=== PATIENT | female | born 1965 | race African-American/Black ===

== ENCOUNTER 2017-11-21 12:52 | Emergency (ER) | payer OTHER ==
[2017-11-21] MEDS: IV NORMAL SALINE 1000ML BAG 1,000 ML IV (13:36)
[2017-11-21] MEDS: ONDANSETRON PF 4 MG/2 ML VIAL. IV (13:43)
[2017-11-21 13:52] LABS: ADD MAN DIFF? NO
[2017-11-21 14:01] LABS: BASO # 0.1 x10^3/uL (0.0-0.2); BASO % 1 % (0-3); EOS # 0.1 x10^3/uL (0.0-0.7); EOS % 1 % (0-3); HEMATOCRIT 40.3 % (36.0-47.0); HEMOGLOBIN 13.6 g/dL (12.0-15.5); LYMPH # 1.7 x10^3/uL (1.0-4.8); LYMPH % 35 % (24-48); MEAN CORPUSCULAR HEMOGLOBIN 28 pg (25-35); MEAN CORPUSCULAR HGB CONC 34 g/dL (31-37); MEAN CORPUSCULAR VOLUME 83 fL (79-100); MONO # 0.3 x10^3/uL (0.0-1.1); MONO % 6 % (0-9); NEUT # 2.9 x10^3uL (1.8-7.7); NEUT % 57 % (31-73); PLATELET COUNT 327 x10^3/uL (140-400); RED BLOOD COUNT 4.86 x10^6/uL (3.50-5.40); RED CELL DISTRIBUTION WIDTH 13.9 % (11.5-14.5)
[2017-11-21 14:02] LABS: BILIRUBIN,URINE NEGATIVE (NEG); CLARITY,URINE CLEAR; COLOR,URINE YELLOW; GLUCOSE,URINE NEGATIVE (NEG); NITRITE,URINE NEGATIVE (NEG); PROTEIN,URINE NEGATIVE (NEG-TRACE)
[2017-11-21 14:05] LABS: ANION GAP 10 (6-14); BLOOD UREA NITROGEN 15 mg/dL (7-20); BUN/CREATININE RATIO 15 (6-20); CALCIUM 8.6 mg/dL (8.5-10.1); CARBON DIOXIDE 28 mmol/L (21-32); CHLORIDE 107 mmol/L (98-107); GFR 70.7; GLUCOSE 93 mg/dL (70-99); POTASSIUM 3.6 mmol/L (3.5-5.1); SODIUM 145 mmol/L (136-145)
[2017-11-21 14:11] LABS: ALBUMIN 3.5 g/dL (3.4-5.0); ALBUMIN/GLOBULIN RATIO 0.7 (1.0-1.7); ALK PHOS 122 U/L (46-116); ALT (SGPT) 22 U/L (14-59); AST (SGOT) 19 U/L (15-37); TOTAL BILIRUBIN 0.4 mg/dL (0.2-1.0); TOTAL PROTEIN 8.2 g/dL (6.4-8.2)
[2017-11-21 14:18] LABS: BACTERIA,URINE MODERATE /HPF (0-FEW); RBC,URINE 0 /HPF (0-2); SQUAMOUS EPITHELIAL CELL,UR MANY /LPF; YEAST,URINE PRESENT /HPF
== END 2017-11-21 15:20 | disposition home or self-care (01) ==
LOC: ER 12:52
DX: R11.2 Nausea with vomiting, unspecified (principal); H61.22 Impacted cerumen, left ear; K21.9 Gastro-esophageal reflux disease without esophagitis; I10 Essential (primary) hypertension; Z98.51 Tubal ligation status; Z90.710 Acquired absence of both cervix and uterus; Z88.2 Allergy status to sulfonamides; Z88.1 Allergy status to other antibiotic agents; Z88.8 Allergy status to other drugs, medicaments and biological substances
CPT/HCPCS: 36415; 80053; 81001; 85025; 87086; 96361; 96374; 99284-25; J2405; J7030

== ENCOUNTER 2017-12-10 01:15 | Emergency (ER) | payer OTHER ==
[2017-12-10 02:12] LABS: BILIRUBIN,URINE SMALL (NEG); CLARITY,URINE CLEAR; COLOR,URINE YELLOW; GLUCOSE,URINE NEGATIVE (NEG); NITRITE,URINE NEGATIVE (NEG); PH,URINE 7.5; PROTEIN,URINE NEGATIVE (NEG-TRACE)
[2017-12-10 02:16] LABS: ADD MAN DIFF? NO
[2017-12-10 02:20] LABS: BASO % 1 % (0-3); EOS # 0.1 x10^3/uL (0.0-0.7); EOS % 2 % (0-3); HEMATOCRIT 38.6 % (36.0-47.0); LYMPH # 1.6 x10^3/uL (1.0-4.8); LYMPH % 34 % (24-48); MEAN CORPUSCULAR HEMOGLOBIN 28 pg (25-35); MEAN CORPUSCULAR HGB CONC 34 g/dL (31-37); MEAN CORPUSCULAR VOLUME 83 fL (79-100); MONO # 0.3 x10^3/uL (0.0-1.1); MONO % 7 % (0-9); NEUT # 2.6 x10^3uL (1.8-7.7); NEUT % 56 % (31-73); PLATELET COUNT 279 x10^3/uL (140-400); RED BLOOD COUNT 4.65 x10^6/uL (3.50-5.40); RED CELL DISTRIBUTION WIDTH 14.6 % (11.5-14.5); WHITE BLOOD COUNT 4.6 x10^3/uL (4.0-11.0)
[2017-12-10 02:25] LABS: BACTERIA,URINE MANY /HPF (0-FEW); SQUAMOUS EPITHELIAL CELL,UR MANY /LPF
[2017-12-10] MEDS: MECLIZINE HCL 12.5 MG TABLET. PO (02:30)
[2017-12-10] MEDS: IV NORMAL SALINE 1000ML BAG 1,000 ML IV (02:30)
[2017-12-10 02:34] LABS: ANION GAP 8 (6-14); BLOOD UREA NITROGEN 16 mg/dL (7-20); BUN/CREATININE RATIO 15 (6-20); CALCIUM 8.9 mg/dL (8.5-10.1); CARBON DIOXIDE 29 mmol/L (21-32); CHLORIDE 105 mmol/L (98-107); CREATININE 1.1 mg/dL (0.6-1.0); GFR 63.4; GLUCOSE 101 mg/dL (70-99); POTASSIUM 3.6 mmol/L (3.5-5.1); SODIUM 142 mmol/L (136-145)
[2017-12-10 02:40] LABS: ALBUMIN 3.7 g/dL (3.4-5.0); ALBUMIN/GLOBULIN RATIO 0.9 (1.0-1.7); ALK PHOS 120 U/L (46-116); ALT (SGPT) 18 U/L (14-59); AST (SGOT) 16 U/L (15-37); TOTAL BILIRUBIN 0.6 mg/dL (0.2-1.0); TOTAL PROTEIN 7.8 g/dL (6.4-8.2)
[2017-12-10] MEDS: ACETAMINOPHEN 500 MG TABLET PO (02:55)
== END 2017-12-10 03:31 | disposition home or self-care (01) ==
LOC: ER 01:15
DX: N39.0 Urinary tract infection, site not specified (principal); R42 Dizziness and giddiness; K21.9 Gastro-esophageal reflux disease without esophagitis; I10 Essential (primary) hypertension; Z88.2 Allergy status to sulfonamides; Z88.1 Allergy status to other antibiotic agents; Z88.8 Allergy status to other drugs, medicaments and biological substances
CPT/HCPCS: 36415; 80053; 81001; 85025; 87086; 93005; 99285; J7030; J8597

== ENCOUNTER 2017-12-21 10:11 | Emergency (ER) | payer OTHER ==
[2017-12-21] MEDS: LORazepam 1 MG TABLET PO (10:30)
[2017-12-21 10:40] LABS: ADD MAN DIFF? NO
[2017-12-21 10:42] LABS: BASO % 1 % (0-3); EOS % 1 % (0-3); HEMATOCRIT 40.2 % (36.0-47.0); HEMOGLOBIN 13.4 g/dL (12.0-15.5); LYMPH # 1.2 x10^3/uL (1.0-4.8); LYMPH % 22 % (24-48); MEAN CORPUSCULAR HEMOGLOBIN 28 pg (25-35); MEAN CORPUSCULAR HGB CONC 33 g/dL (31-37); MEAN CORPUSCULAR VOLUME 84 fL (79-100); MONO # 0.2 x10^3/uL (0.0-1.1); MONO % 4 % (0-9); NEUT # 3.9 x10^3uL (1.8-7.7); NEUT % 73 % (31-73); PLATELET COUNT 276 x10^3/uL (140-400); RED BLOOD COUNT 4.82 x10^6/uL (3.50-5.40); RED CELL DISTRIBUTION WIDTH 14.8 % (11.5-14.5); WHITE BLOOD COUNT 5.4 x10^3/uL (4.0-11.0)
[2017-12-21 10:55] LABS: ANION GAP 12 (6-14); BLOOD UREA NITROGEN 14 mg/dL (7-20); CALCIUM 8.9 mg/dL (8.5-10.1); CARBON DIOXIDE 27 mmol/L (21-32); CHLORIDE 107 mmol/L (98-107); GFR 70.7; GLUCOSE 126 mg/dL (70-99); POTASSIUM 3.6 mmol/L (3.5-5.1); SODIUM 146 mmol/L (136-145)
[2017-12-21 11:00] LABS: ALK PHOS 136 U/L (46-116); ALT (SGPT) 18 U/L (14-59); AST (SGOT) 16 U/L (15-37); DIRECT BILIRUBIN 0.1 mg/dL (0.0-0.2); LIPASE 104 U/L (73-393); TOTAL BILIRUBIN 0.6 mg/dL (0.2-1.0)
[2017-12-21 11:03] LABS: TROPONINI < 0.017 ng/mL (0.000-0.055)
[2017-12-21 13:18] LABS: TROPONINI < 0.017 ng/mL (0.000-0.055)
== END 2017-12-21 14:13 | disposition home or self-care (01) ==
LOC: ER 10:11
DX: F41.9 Anxiety disorder, unspecified (principal); S80.212A Abrasion, left knee, initial encounter; K21.9 Gastro-esophageal reflux disease without esophagitis; I10 Essential (primary) hypertension; Z88.2 Allergy status to sulfonamides; Z88.8 Allergy status to other drugs, medicaments and biological substances; X58.XXXA Exposure to other specified factors, initial encounter; Y93.89 Activity, other specified; Y99.8 Other external cause status; Y92.89 Other specified places as the place of occurrence of the external cause
CPT/HCPCS: 36415; 71045; 73562; 80048; 80076; 83690; 84484; 85025; 93005; 99285-25

== ENCOUNTER 2018-09-20 21:36 | Emergency (ER) | payer OTHER ==
[~2018-09-20] VITALS: Ht 160 cm; Wt 104.3 kg
[~2018-09-20 21:36] MED LIST: HYDR25TA PO; LORA10CA PO; NITR100C62 PO; OLME20TA17 PO; OMEG500C3 PO; OMEP40CA2 PO; VERA120T7 PO
[2018-09-20] MEDS ORDERED: IV NORMAL SALINE 500ML BAG 500 ML IV ONE (22:00)
[2018-09-20] MEDS ORDERED: ONDANSETRON PF 4 MG/2 ML VIAL. IV ONE (22:00)
[2018-09-20] MEDS: MECLIZINE HCL 12.5 MG TABLET. PO ONE ×2 (22:00→22:20)
[2018-09-20 22:21] LABS: BASO % 1 % (0-3); EOS # 0.1 x10^3/uL (0.0-0.7); EOS % 3 % (0-3); HEMATOCRIT 38.1 % (36.0-47.0); HEMOGLOBIN 12.4 g/dL (12.0-15.5); LYMPH # 1.2 x10^3/uL (1.0-4.8); LYMPH % 28 % (24-48); MEAN CORPUSCULAR HEMOGLOBIN 27 pg (25-35); MEAN CORPUSCULAR HGB CONC 33 g/dL (31-37); MEAN CORPUSCULAR VOLUME 82 fL (79-100); MONO # 0.3 x10^3/uL (0.0-1.1); MONO % 7 % (0-9); NEUT # 2.7 x10^3uL (1.8-7.7); NEUT % 62 % (31-73); PLATELET COUNT 268 x10^3/uL (140-400); RED BLOOD COUNT 4.64 x10^6/uL (3.50-5.40); RED CELL DISTRIBUTION WIDTH 14.6 % (11.5-14.5); WHITE BLOOD COUNT 4.3 x10^3/uL (4.0-11.0)
[2018-09-20 22:32] LABS: CREATININE 1.2 mg/dL (0.6-1.0); GFR 57.1
[2018-09-20 22:38] LABS: ALBUMIN 3.4 g/dL (3.4-5.0); ALBUMIN/GLOBULIN RATIO 0.9 (1.0-1.7); MAGNESIUM 2.2 mg/dL (1.8-2.4); TOTAL BILIRUBIN 0.7 mg/dL (0.2-1.0); TOTAL PROTEIN 7.4 g/dL (6.4-8.2)
--- NOTE | 2018-09-20 23:20 | PHYS DOC ---
Past Medical History Past Medical History: GERD, Hypertension, Other Additional Past Medical Histor: Sinus problems, parkinson's, PANIC ATTACKS Past Surgical History: Hysterectomy Additional Past Surgical Histo: breast reduction, foot surgery Alcohol Use: None Drug Use: None Adult General Chief Complaint Chief Complaint: DIZZY/LIGHT HEADED [facility] HPI Patient is a 53-year-old female who presents with complaint of acute onset of dizziness that started between 8 and 9 PM. She states that she had gone to get up and became very dizzy, feeling like she was given a fall. She states that at that point she had also gotten nauseated. She states that she thought she was having a panic attack so took a Xanax. She states that since taking the Xanax for symptoms of dizziness and nausea have improved. She denies any headache. She also denies any lateralizing weakness. She states that since onset of symptoms, whenever she moves her head quickly or if she changes position she feels like things start to spin but again they are not as bad as before she took the Xanax. Review of Systems Review of Systems Constitutional: Denies fever or chills [] Respiratory: Denies cough or shortness of breath [] Cardiovascular: No additional information not addressed in HPI [] GI: Denies abdominal pain. Complains of nausea without vomiting. [] Neurologic: Complains of vertiginous dizziness. Denies headache, focal weakness or sensory changes [] All other systems were reviewed and found to be within normal limits, except as documented in this note. Current Medications Current Medications Current Medications Medications (Trade) Dose Ordered Sig/Thomas Start Time Stop Time Status Last Admin Dose Admin Meclizine HCl (Antivert) 25 mg 1X ONCE 09/20/18 22:00 09/20/18 22:02 DC Ondansetron HCl (Zofran) 4 mg 1X ONCE 09/20/18 22:00 09/20/18 22:02 DC 09/20/18 22:21 4 MG Sodium Chloride 500 ml @ 500 mls/hr 1X ONCE 09/20/18 22:00 09/20/18 22:59 DC 09/20/18 22:22 500 MLS/HR Allergies Allergies Allergies Coded Allergies Type Severity Reaction Last Updated Verified metoclopramide Allergy Unknown 11/28/13 Yes sulfamethoxazole Allergy Unknown 11/28/13 Yes trimethoprim Allergy Unknown 11/28/13 Yes Physical Exam Physical Exam Constitutional: Well developed, well nourished, no acute distress, non-toxic appearance. [] HENT: Normocephalic, atraumatic, bilateral external ears normal, oropharynx moist, no oral exudates, nose normal. [] Eyes: PERRLA, EOMI, conjunctiva normal, no discharge. [] Neck: Normal range of motion, no tenderness, supple. [] Cardiovascular: Regular rate and rhythm[] Lungs & Thorax: Bilateral breath sounds clear to auscultation [] Abdomen: Bowel sounds normal, soft, no tenderness. [] Skin: Warm, dry, no erythema, no rash. [] Extremities: No tenderness, no cyanosis, no clubbing, ROM intact. [] Neurologic: Alert and oriented X 3, no focal deficits noted. [] Current Patient Data Vital Signs Vital Signs Date Time Temp Pulse Resp B/P (MAP) Pulse Ox O2 Delivery O2 Flow Rate FiO2 09/20/18 22:12 92 97 09/20/18 21:45 98.0 18 145/97 (113) Room Air 98.0 Lab Values Laboratory Tests Test 09/20/18 22:10 White Blood Count 4.3 x10^3/uL (4.0-11.0) Red Blood Count 4.64 x10^6/uL (3.50-5.40) Hemoglobin 12.4 g/dL (12.0-15.5) Hematocrit 38.1 % (36.0-47.0) Mean Corpuscular Volume 82 fL (79-100) Mean Corpuscular Hemoglobin 27 pg (25-35) Mean Corpuscular Hemoglobin Concent 33 g/dL (31-37) Red Cell Distribution Width 14.6 % (11.5-14.5) H Platelet Count 268 x10^3/uL (140-400) Neutrophils (%) (Auto) 62 % (31-73) Lymphocytes (%) (Auto) 28 % (24-48) Monocytes (%) (Auto) 7 % (0-9) Eosinophils (%) (Auto) 3 % (0-3) Basophils (%) (Auto) 1 % (0-3) Neutrophils # (Auto) 2.7 x10^3uL (1.8-7.7) Lymphocytes # (Auto) 1.2 x10^3/uL (1.0-4.8) Monocytes # (Auto) 0.3 x10^3/uL (0.0-1.1) Eosinophils # (Auto) 0.1 x10^3/uL (0.0-0.7) Basophils # (Auto) 0.0 x10^3/uL (0.0-0.2) Sodium Level 145 mmol/L (136-145) Potassium Level 4.0 mmol/L (3.5-5.1) Chloride Level 106 mmol/L (98-107) Carbon Dioxide Level 31 mmol/L (21-32) Anion Gap 8 (6-14) Blood Urea Nitrogen 22 mg/dL (7-20) H Creatinine 1.2 mg/dL (0.6-1.0) H Estimated GFR (Cockcroft-Gault) 57.1 BUN/Creatinine Ratio 18 (6-20) Glucose Level 100 mg/dL (70-99) H Calcium Level 9.0 mg/dL (8.5-10.1) Magnesium Level 2.2 mg/dL (1.8-2.4) Total Bilirubin 0.7 mg/dL (0.2-1.0) Aspartate Amino Transferase (AST) 24 U/L (15-37) Alanine Aminotransferase (ALT) 17 U/L (14-59) Alkaline Phosphatase 114 U/L (46-116) Total Protein 7.4 g/dL (6.4-8.2) Albumin 3.4 g/dL (3.4-5.0) Albumin/Globulin Ratio 0.9 (1.0-1.7) L Laboratory Tests 09/20/18 22:10 Laboratory Tests 09/20/18 22:10 EKG EKG [] Radiology/Procedures Radiology/Procedures [] Course & Med Decision Making Course & Med Decision Making Pertinent Labs and Imaging studies reviewed. (See chart for details) An IV was established and blood work drawn. Patient given IV fluids and Zofran. Patient was offered dose of meclizine; however, patient indicates that she has had a bad reaction to meclizine in the past. Dragon Disclaimer Dragon Disclaimer This electronic medical record was generated, in whole or in part, using a voice recognition dictation system. Departure Departure Impression: Primary Impression: Benign positional vertigo Additional Impression: Dehydration Disposition: 01 HOME, SELF-CARE Condition: STABLE Referrals: KAM RODRIGUEZ (PCP) Patient Instructions: Benign Positional Vertigo, Dehydration, Adult, Form - Excuse from Work, School, or Physical Activity Scripts Ondansetron Hcl (ZOFRAN) 4 Mg Tablet 4 MG PO PRN TID PRN for NAUSEA, #15 nausea/vomiting Prov: SALLY LIANG Jr. DO 09/21/18 Problem Qualifiers Primary Impression: Benign positional vertigo Laterality: unspecified laterality Qualified Codes: H81.10 - Benign paroxysmal vertigo, unspecified ear SALLY LIANG Jr. DO Sep 20, 2018 23:20
[2018-09-21 00:43] LABS: BILIRUBIN,URINE SMALL (NEG); CLARITY,URINE CLEAR; COLOR,URINE YELLOW; NITRITE,URINE NEGATIVE (NEG); PROTEIN,URINE NEGATIVE (NEG-TRACE)
[2018-09-21] MEDS ORDERED: ONDA4TAB7 PO (00:46)
[2018-09-21 01:06] VITALS: BP 108/62
[2018-09-21 01:16] LABS: BACTERIA,URINE MANY /HPF (0-FEW); RBC,URINE OCC /HPF (0-2); SQUAMOUS EPITHELIAL CELL,UR MANY /LPF
== END 2018-09-21 01:35 | disposition home or self-care (01) ==
LOC: ER 21:36
DX: H81.10 Benign paroxysmal vertigo, unspecified ear (principal); E86.0 Dehydration; R11.0 Nausea; K21.9 Gastro-esophageal reflux disease without esophagitis; I10 Essential (primary) hypertension; Z90.710 Acquired absence of both cervix and uterus; Z88.2 Allergy status to sulfonamides; Z88.1 Allergy status to other antibiotic agents
CPT/HCPCS: 36415; 80053; 81001; 83735; 85025; 87086; 96361; 96374; 99284; J2405; J7040; J8597

== ENCOUNTER 2018-09-24 21:47 | Emergency (ER) | payer OTHER ==
[~2018-09-24] VITALS: Ht 160 cm; Wt 104.3 kg
[~2018-09-24 21:47] MED LIST changes: +ONDA4TAB7 PO
[2018-09-24 22:50] LABS: BASO % 1 % (0-3); EOS % 0 % (0-3); HEMATOCRIT 43.6 % (36.0-47.0); HEMOGLOBIN 14.3 g/dL (12.0-15.5); LYMPH # 0.4 x10^3/uL (1.0-4.8); LYMPH % 9 % (24-48); MEAN CORPUSCULAR HEMOGLOBIN 27 pg (25-35); MEAN CORPUSCULAR HGB CONC 33 g/dL (31-37); MEAN CORPUSCULAR VOLUME 82 fL (79-100); MONO # 0.1 x10^3/uL (0.0-1.1); MONO % 3 % (0-9); NEUT # 3.8 x10^3uL (1.8-7.7); NEUT % 87 % (31-73); PLATELET COUNT 239 x10^3/uL (140-400); RED BLOOD COUNT 5.33 x10^6/uL (3.50-5.40); RED CELL DISTRIBUTION WIDTH 14.8 % (11.5-14.5); WHITE BLOOD COUNT 4.3 x10^3/uL (4.0-11.0)
[2018-09-24 22:50] LABS: BILIRUBIN,URINE SMALL (NEG); CLARITY,URINE CLEAR; COLOR,URINE YELLOW; NITRITE,URINE NEGATIVE (NEG); PROTEIN,URINE NEGATIVE (NEG-TRACE)
[2018-09-24 22:59] LABS: CALCIUM 8.9 mg/dL (8.5-10.1); CREATININE 1.4 mg/dL (0.6-1.0); GFR 47.8; POTASSIUM 3.7 mmol/L (3.5-5.1)
[2018-09-24 23:00] LABS: BACTERIA,URINE 0 /HPF (0-FEW); RBC,URINE OCC /HPF (0-2); SQUAMOUS EPITHELIAL CELL,UR OCC /LPF; WBC,URINE OCC /HPF (0-4)
[2018-09-24] MEDS ORDERED: KETOROLAC 15 MG/ML VIAL. IV ONE (23:00)
[2018-09-24] MEDS ORDERED: IV NORMAL SALINE 1000ML BAG 1,000 ML IV ONE (23:00)
[2018-09-24] MEDS ORDERED: ACETAMINOPHEN 500 MG TABLET PO ONE (23:00)
[2018-09-24 23:05] LABS: INFLUENZA A PATIENT NEGATIVE (NEGATIVE); INFLUENZA B PATIENT NEGATIVE (NEGATIVE)
[2018-09-24 23:13] LABS: ALBUMIN 3.7 g/dL (3.4-5.0); ALBUMIN/GLOBULIN RATIO 0.8 (1.0-1.7); MAGNESIUM 1.7 mg/dL (1.8-2.4); TOTAL BILIRUBIN 0.9 mg/dL (0.2-1.0); TOTAL PROTEIN 8.5 g/dL (6.4-8.2)
[2018-09-24 23:15] LABS: CREATINE KINASE 85 U/L (26-192)
--- NOTE | 2018-09-24 23:41 | RAD ---
Single view chest dated 09/24/2018. No comparison available. Clinical data indication: Weakness. FINDINGS: Single upright portable exam performed. Heart and mediastinal contours are stable. Lungs are clear. No consolidation or pleural effusion. No pneumothorax. IMPRESSION: No acute radiographic abnormality. Electronically signed by: Andrew Paniagua MD (09/24/2018 11:38 PM) [facility]
[2018-09-25] MEDS ORDERED: ONDANSETRON PF 4 MG/2 ML VIAL. ONE (00:05)
[2018-09-25] MEDS ORDERED: ONDANSETRON PF 4 MG/2 ML VIAL. IM ONE (00:30)
[2018-09-25 01:00] VITALS: BP 88/53
--- NOTE | 2018-09-25 01:03 | PHYS DOC ---
Past Medical History Past Medical History: GERD, Hypertension, Other Additional Past Medical Histor: Sinus problems, parkinson's, PANIC ATTACKS Past Surgical History: Hysterectomy Additional Past Surgical Histo: breast reduction, foot surgery Alcohol Use: None Drug Use: None Adult General Chief Complaint Chief Complaint: WEAKNESS/GENERALIZED HPI HPI 53 y/o female presents with history of generalized weakness and headache which started today. Patient also reports some "dry mouth". Denies neck pain. Denies fever/chills. Denies trauma. Reports pmh of Parkinsonism. Review of Systems Review of Systems Constitutional: Denies fever or chills [] Eyes: Denies change in visual acuity, redness, or eye pain [] HENT: Denies nasal congestion or sore throat [] Respiratory: Denies cough or shortness of breath [] Cardiovascular: Denies chest pain or palpitations GI: Denies abdominal pain, nausea, vomiting, or diarrhea [] : Denies dysuria or hematuria [] Musculoskeletal: Denies back pain or joint pain [] Integument: Denies rash or skin lesions [] Neurologic: Reports headache; denies focal weakness or sensory changes [] Complete systems were reviewed and found to be within normal limits, except as documented in this note. Current Medications Current Medications Current Medications Medications (Trade) Dose Ordered Sig/Thomas Start Time Stop Time Status Last Admin Dose Admin Acetaminophen (Tylenol) 500 mg 1X ONCE 09/24/18 23:00 09/24/18 23:01 DC 09/24/18 22:53 500 MG Ketorolac Tromethamine (Toradol 15mg Vial) 15 mg 1X ONCE 09/24/18 23:00 09/24/18 23:01 DC 09/24/18 22:54 15 MG Ondansetron HCl (Zofran) 4 mg STK-MED ONCE 09/25/18 00:05 09/25/18 00:06 DC Sodium Chloride 1,000 ml @ 1,000 mls/hr 1X ONCE 09/24/18 23:00 09/24/18 23:59 DC 09/24/18 22:54 1,000 MLS/HR Allergies Allergies Allergies Coded Allergies Type Severity Reaction Last Updated Verified metoclopramide Allergy Intermediate 09/24/18 Yes sulfamethoxazole Allergy Intermediate 09/24/18 Yes trimethoprim Allergy Intermediate 09/24/18 Yes Physical Exam Physical Exam Constitutional: Well developed, well nourished, anxious, non-toxic appearance. [ ] HENT: Normocephalic, atraumatic, oropharynx moist Eyes: PERRL, EOMI, conjunctiva normal, no discharge. [] Neck: Normal range of motion, no tenderness, supple, no meningeal signs Cardiovascular: Heart rate regular rhythm, no murmur [] Lungs & Thorax: Bilateral breath sounds clear to auscultation [] Abdomen: Soft, no tenderness Skin: Warm, dry, no erythema, no rash. [] Extremities: No tenderness, ROM intact, no edema. [] Neurologic: Alert and oriented X 3, normal motor function, normal sensory function, no focal deficits noted. [] Psychologic: Affect anxious, judgement normal Current Patient Data Vital Signs Vital Signs Date Time Temp Pulse Resp B/P (MAP) Pulse Ox O2 Delivery O2 Flow Rate FiO2 09/25/18 01:00 90 20 99 09/24/18 22:10 102.9 133/88 (103) Room Air 102.9 Lab Values Laboratory Tests Test 09/24/18 22:15 09/24/18 22:20 09/24/18 22:36 Influenza Type A Antigen Negative (NEGATIVE) Influenza Type B Antigen Negative (NEGATIVE) White Blood Count 4.3 x10^3/uL (4.0-11.0) Red Blood Count 5.33 x10^6/uL (3.50-5.40) Hemoglobin 14.3 g/dL (12.0-15.5) Hematocrit 43.6 % (36.0-47.0) Mean Corpuscular Volume 82 fL (79-100) Mean Corpuscular Hemoglobin 27 pg (25-35) Mean Corpuscular Hemoglobin Concent 33 g/dL (31-37) Red Cell Distribution Width 14.8 % (11.5-14.5) H Platelet Count 239 x10^3/uL (140-400) Neutrophils (%) (Auto) 87 % (31-73) H Lymphocytes (%) (Auto) 9 % (24-48) L Monocytes (%) (Auto) 3 % (0-9) Eosinophils (%) (Auto) 0 % (0-3) Basophils (%) (Auto) 1 % (0-3) Neutrophils # (Auto) 3.8 x10^3uL (1.8-7.7) Lymphocytes # (Auto) 0.4 x10^3/uL (1.0-4.8) L Monocytes # (Auto) 0.1 x10^3/uL (0.0-1.1) Eosinophils # (Auto) 0.0 x10^3/uL (0.0-0.7) Basophils # (Auto) 0.0 x10^3/uL (0.0-0.2) Segmented Neutrophils % 78 % (35-66) H Band Neutrophils % 7 % (0-9) Lymphocytes % 7 % (24-48) L Atypical Lymphocytes % (Manual) 3 % (0-0) H Monocytes % 4 % (0-10) Basophils % 1 % (0-3) Platelet Estimate Adequate (ADEQUATE) Sodium Level 134 mmol/L (136-145) L Potassium Level 3.7 mmol/L (3.5-5.1) Chloride Level 98 mmol/L (98-107) Carbon Dioxide Level 25 mmol/L (21-32) Anion Gap 11 (6-14) Blood Urea Nitrogen 9 mg/dL (7-20) Creatinine 1.4 mg/dL (0.6-1.0) H Estimated GFR (Cockcroft-Gault) 47.8 BUN/Creatinine Ratio 6 (6-20) Glucose Level 112 mg/dL (70-99) H Lactic Acid Level 1.3 mmol/L (0.4-2.0) Calcium Level 8.9 mg/dL (8.5-10.1) Magnesium Level 1.7 mg/dL (1.8-2.4) L Total Bilirubin 0.9 mg/dL (0.2-1.0) Aspartate Amino Transferase (AST) 23 U/L (15-37) Alanine Aminotransferase (ALT) 23 U/L (14-59) Alkaline Phosphatase 116 U/L (46-116) Creatine Kinase 85 U/L (26-192) Creatine Kinase MB (Mass) < 0.5 ng/mL (0.0-3.6) Creatine Kinase MB Relative Index % (0-4) Troponin I Quantitative < 0.017 ng/mL (0.000-0.055) Total Protein 8.5 g/dL (6.4-8.2) H Albumin 3.7 g/dL (3.4-5.0) Albumin/Globulin Ratio 0.8 (1.0-1.7) L Urine Collection Type U cath Urine Color Yellow Urine Clarity Clear Urine pH 6.0 Urine Specific [place] 1.020 Urine Protein Negative mg/dL (NEG-TRACE) Urine Glucose (UA) Negative mg/dL (NEG) Urine Ketones (Stick) Trace mg/dL (NEG) Urine Blood Negative (NEG) Urine Nitrite Negative (NEG) Urine Bilirubin Small (NEG) Urine Urobilinogen Dipstick 1.0 mg/dL (0.2 mg/dL) Urine Leukocyte Esterase Negative (NEG) Urine RBC Occ /HPF (0-2) Urine WBC Occ /HPF (0-4) Urine Squamous Epithelial Cells Occ /LPF Urine Bacteria 0 /HPF (0-FEW) Urine Mucus Mod /LPF Laboratory Tests 09/24/18 22:20 Laboratory Tests 09/24/18 22:20 EKG EKG @2217 Sinus tachycardia at 128bpm, NO ST elevation, baseline artifact noted Radiology/Procedures Radiology/Procedures PROCEDURE: CHEST AP ONLY Single view chest dated 09/24/2018. No comparison available. Clinical data indication: Weakness. FINDINGS: Single upright portable exam performed. Heart and mediastinal contours are stable. Lungs are clear. No consolidation or pleural effusion. No pneumothorax. IMPRESSION: No acute radiographic abnormality. Electronically signed by: Andrew Paniagua MD (09/24/2018 11:38 PM) [facility] Course & Med Decision Making Course & Med Decision Making Pertinent Labs and Imaging studies reviewed. (See chart for details) Patient presents with weakness and headache. Hx of Parkinsonism. Patient neurologically intact. NO history of trauma. Labs obtained and posted to chart. EKG and CXR stable. Patient stable for discharge home with close outpatient follow-up with PCP/Neurologist. Discussed findings and plan with patient, who acknowledges understanding and agreement. Dragon Disclaimer Dragon Disclaimer This electronic medical record was generated, in whole or in part, using a voice recognition dictation system. Departure Departure Impression: Primary Impression: Weakness Additional Impression: Headache Disposition: 01 HOME, SELF-CARE Condition: IMPROVED Referrals: KAM RODRIGUEZ (PCP) Patient Instructions: Headache, FAQs, Weakness, Gabf-es-Noou Scripts Butalb/Acetaminophen/Caffeine ([id number] 50-325-40) 1 Each Tablet 1 EACH PO Q6HRS PRN for HEADACHE, #10 TAB Prov: ANDREW WRIGHT DO 09/25/18 Ondansetron (ONDANSETRON ODT) 4 Mg Tab.rapdis 1 TAB PO PRN Q6-8HRS PRN for NAUSEA, #16 TAB Prov: ANDREW WRIGHT DO 09/25/18 Problem Qualifiers Additional Impression: Headache Headache type: unspecified Headache chronicity pattern: acute headache Intractability: not intractable Qualified Codes: R51 - Headache ANDREW WRIGHT DO Sep 25, 2018 01:03
[2018-09-25] MEDS ORDERED: ONDA4TAB12 PO (01:06)
[2018-09-25] MEDS ORDERED: BUTA1TAB23 PO (01:06)
[2018-09-25 03:58] LABS: % ATYL 3 % (0-0); % BANDS 7 % (0-9); % BASOS 1 % (0-3); % LYMPHS 7 % (24-48); % MONOS 4 % (0-10); % SEGS 78 % (35-66); PLT ESTIMATE ADEQUATE (ADEQUATE)
--- NOTE | 2018-09-26 07:25 | EKG ---
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
== END 2018-09-25 01:16 | disposition home or self-care (01) ==
LOC: ER 21:47
DX: R53.1 Weakness (principal); R51 Headache; K21.9 Gastro-esophageal reflux disease without esophagitis; I10 Essential (primary) hypertension; Z88.1 Allergy status to other antibiotic agents; Z88.2 Allergy status to sulfonamides; Z88.8 Allergy status to other drugs, medicaments and biological substances
CPT/HCPCS: 36415; 71045; 80053; 81001; 82553; 83605; 83735; 84484; 85007; 85025; 87804; 93005; 96372; 96374; 99284; J1885; J2405; J7030

== ENCOUNTER 2018-10-16 15:23 | Emergency (ER) | payer OTHER ==
[~2018-10-16] VITALS: Ht 157.5 cm; Wt 104.3 kg
[~2018-10-16 15:23] MED LIST changes: +BUTA1TAB23 PO; +ONDA4TAB12 PO
[2018-10-16 15:32] VITALS: BP 124/78
[2018-10-16] MEDS ORDERED: ALPR0.5T PO (16:18)
--- NOTE | 2018-10-16 16:19 | PHYS DOC ---
Past Medical History Past Medical History: Anxiety, GERD, Hypertension, Other Additional Past Medical Histor: Sinus problems, parkinson's, PANIC ATTACKS Past Surgical History: Hysterectomy Additional Past Surgical Histo: breast reduction, foot surgery Alcohol Use: None Drug Use: None Adult General Chief Complaint Chief Complaint: ANXIETY/PANIC ATTACK [facility] HPI Patient is a 53 year old female who presents with an anxiety attack. She states she is out of her medication and needs a medication refill. She has been unable to see her PCP. Review of Systems Review of Systems Constitutional: Denies fever or chills [] Eyes: Denies change in visual acuity, redness, or eye pain [] HENT: Denies nasal congestion or sore throat [] Respiratory: Denies cough or shortness of breath [] Cardiovascular: No additional information not addressed in HPI [] GI: Denies abdominal pain, nausea, vomiting, bloody stools or diarrhea [] : Denies dysuria or hematuria [] Musculoskeletal: Denies back pain or joint pain [] Integument: Denies rash or skin lesions [] Neurologic: Denies headache, focal weakness or sensory changes [] Endocrine: Denies polyuria or polydipsia [] All other systems were reviewed and found to be within normal limits, except as documented in this note. Allergies Allergies Allergies Coded Allergies Type Severity Reaction Last Updated Verified metoclopramide Allergy Intermediate 09/24/18 Yes sulfamethoxazole Allergy Intermediate 09/24/18 Yes trimethoprim Allergy Intermediate 09/24/18 Yes Physical Exam Physical Exam Constitutional: Well developed, well nourished, no acute distress, non-toxic appearance. [] Cardiovascular:Heart rate regular rhythm, no murmur [] Lungs & Thorax: Bilateral breath sounds clear to auscultation [] Abdomen: Bowel sounds normal, soft, no tenderness, no masses, no pulsatile masses. [] Skin: Warm, dry, no erythema, no rash. [] Back: No tenderness, no CVA tenderness. [] Extremities: No tenderness, no cyanosis, no clubbing, ROM intact, no edema. [] Neurologic: Alert and oriented X 3, normal motor function, normal sensory function, no focal deficits noted. [] Psychologic: Affect normal, judgement normal, mood anxious] Current Patient Data Vital Signs EKG EKG [] Radiology/Procedures Radiology/Procedures [] Course & Med Decision Making Course & Med Decision Making Pertinent Labs and Imaging studies reviewed. (See chart for details) []We had a discussion about refilling medications in the ED. She understands that we will not refill anxiety medications here again. Radha Disclaimer Radha Disclaimer This electronic medical record was generated, in whole or in part, using a voice recognition dictation system. Departure Departure Impression: Primary Impression: Anxiety Additional Impression: Encounter for medication refill Disposition: HOME, SELF-CARE Condition: STABLE Referrals: KAM RODRIGUEZ (PCP) Patient Instructions: Anxiety and Panic Attacks Additional Instructions: All of your provider on Wednesday for refill of your prescription. I encouraged you strongly to see your counselor this coming week to discuss your increased anxiety and panic attacks. If worsening return to the emergency department. Scripts Alprazolam (XANAX) 0.5 Mg Tablet 1 TAB PO DAILY for anxiety, #10 TAB Prov: BO BRISCOE APRN 10/16/18 Problem Qualifiers BO BRISCOE APRN Oct 16, 2018 16:19
== END 2018-10-16 16:29 | disposition home or self-care (01) ==
LOC: ER 15:23
DX: F41.9 Anxiety disorder, unspecified (principal); Z76.0 Encounter for issue of repeat prescription; I10 Essential (primary) hypertension; K21.9 Gastro-esophageal reflux disease without esophagitis; Z88.1 Allergy status to other antibiotic agents; Z88.2 Allergy status to sulfonamides; Z88.8 Allergy status to other drugs, medicaments and biological substances
CPT/HCPCS: 99283; 99284

== ENCOUNTER 2019-04-21 02:33 | Inpatient (IN) | payer OTHER ==
[~2019-04-21] VITALS: Ht 160 cm; Wt 108.1 kg
[~2019-04-21 02:33] MED LIST changes: +ALPR0.5T PO
--- NOTE | 2019-04-21 02:58 | PHYS DOC ---
Past Medical History Past Medical History: Anxiety, GERD, Hypertension, Other Additional Past Medical Histor: Sinus problems, parkinson's, PANIC ATTACKS Past Surgical History: Hysterectomy Additional Past Surgical Histo: breast reduction, foot surgery Alcohol Use: None Drug Use: None Adult General Chief Complaint Chief Complaint: SHORTNESS OF BREATH HPI HPI Patient is a 53 year old f p/w sob and leg pain leg pain x a few days, first had it when she was stretching out a tight muscle in bed. hx of parkinsons. has been short of breath for about a week or so. COMES AND GOES feels like she wheezes some when she walks saw a tv show about someone who had a blood clot , thought that she should come in to get checked out Review of Systems Review of Systems Constitutional: Denies fever or chills [] Eyes: Denies change in visual acuity, redness, or eye pain [] HENT: Denies nasal congestion or sore throat [] Respiratory: Cardiovascular: No additional information not addressed in HPI [] GI: Denies abdominal pain, nausea, vomiting, bloody stools or diarrhea [] : Denies dysuria or hematuria [] Musculoskeletal: Neurologic: Denies headache, focal weakness or sensory changes [] Endocrine: Denies polyuria or polydipsia [] All other systems were reviewed and found to be within normal limits, except as documented in this note. Current Medications Current Medications Current Medications Medications (Trade) Dose Ordered Sig/Thomas Start Time Stop Time Status Last Admin Dose Admin Info (CONTRAST GIVEN -- Rx MONITORING) 1 each PRN DAILY PRN 04/21/19 04:30 04/23/19 04:29 Iohexol (Omnipaque 350 Mg/ml) 100 ml 1X ONCE 04/21/19 05:00 04/21/19 05:01 DC 04/21/19 04:54 100 ML Allergies Allergies Allergies Coded Allergies Type Severity Reaction Last Updated Verified metoclopramide Allergy Intermediate 09/24/18 Yes sulfamethoxazole Allergy Intermediate 09/24/18 Yes trimethoprim Allergy Intermediate 09/24/18 Yes Physical Exam Physical Exam Constitutional: Well developed, well nourished, no acute distress, non-toxic appearance. [] HENT: Normocephalic, atraumatic, bilateral external ears normal, oropharynx moist, no oral exudates, nose normal. [] Eyes: PERRLA, EOMI, conjunctiva normal, no discharge. [] Neck: Normal range of motion, no tenderness, supple, no stridor. [] Cardiovascular mild tachycardia no murmur Lungs & Thorax: Bilateral breath sounds clear to auscultation [] Abdomen: Bowel sounds normal, soft, no tenderness, no masses, no pulsatile masses. [] Skin: Warm, dry, no erythema, no rash. [] Back: No tenderness, no CVA tenderness. [] Extremities: ttp and asymmetric swelling right calf Neurologic: Alert and oriented X 3, normal motor function, normal sensory function, no focal deficits noted. [] some bradykinesia noted and masked face. Psychologic: Affect normal, judgement normal, mood normal. [] Current Patient Data Vital Signs Vital Signs Date Time Temp Pulse Resp B/P (MAP) Pulse Ox O2 Delivery O2 Flow Rate FiO2 04/21/19 02:42 98.2 106 16 151/86 (107) 96 Room Air 98.2 Lab Values Laboratory Tests Test 04/21/19 03:25 White Blood Count 4.4 x10^3/uL (4.0-11.0) Red Blood Count 4.64 x10^6/uL (3.50-5.40) Hemoglobin 12.8 g/dL (12.0-15.5) Hematocrit 38.2 % (36.0-47.0) Mean Corpuscular Volume 82 fL (79-100) Mean Corpuscular Hemoglobin 28 pg (25-35) Mean Corpuscular Hemoglobin Concent 33 g/dL (31-37) Red Cell Distribution Width 15.0 % (11.5-14.5) H Platelet Count 227 x10^3/uL (140-400) Neutrophils (%) (Auto) 65 % (31-73) Lymphocytes (%) (Auto) 26 % (24-48) Monocytes (%) (Auto) 5 % (0-9) Eosinophils (%) (Auto) 2 % (0-3) Basophils (%) (Auto) 1 % (0-3) Neutrophils # (Auto) 2.9 x10^3/uL (1.8-7.7) Lymphocytes # (Auto) 1.1 x10^3/uL (1.0-4.8) Monocytes # (Auto) 0.2 x10^3/uL (0.0-1.1) Eosinophils # (Auto) 0.1 x10^3/uL (0.0-0.7) Basophils # (Auto) 0.0 x10^3/uL (0.0-0.2) Prothrombin Time 11.7 SEC (11.7-14.0) Prothrombin Time INR 0.9 (0.8-1.1) D-Dimer (Rebecca) 3.34 ug/mlFEU (0.00-0.50) H Sodium Level 141 mmol/L (136-145) Potassium Level 4.2 mmol/L (3.5-5.1) Chloride Level 105 mmol/L (98-107) Carbon Dioxide Level 28 mmol/L (21-32) Anion Gap 8 (6-14) Blood Urea Nitrogen 17 mg/dL (7-20) Creatinine 1.1 mg/dL (0.6-1.0) H Estimated GFR (Cockcroft-Gault) 63.1 BUN/Creatinine Ratio 15 (6-20) Glucose Level 99 mg/dL (70-99) Calcium Level 9.3 mg/dL (8.5-10.1) Total Bilirubin 0.4 mg/dL (0.2-1.0) Aspartate Amino Transferase (AST) 15 U/L (15-37) Alanine Aminotransferase (ALT) 13 U/L (14-59) L Alkaline Phosphatase 121 U/L (46-116) H Troponin I Quantitative < 0.017 ng/mL (0.000-0.055) HN-Wpr-Y-Type Natriuretic Peptide 12 pg/mL (0-124) Total Protein 8.1 g/dL (6.4-8.2) Albumin 3.5 g/dL (3.4-5.0) Albumin/Globulin Ratio 0.8 (1.0-1.7) L Laboratory Tests 04/21/19 03:25 Laboratory Tests 04/21/19 03:25 EKG EKG [] Radiology/Procedures Radiology/Procedures [] IMPRESSION: 1. Small filling defects identified in the right lower lobe and left upper lobe pulmonary arterial branches likely pulmonary emboli. 2. A 2.1 cm cystic structure identified in the left lobe of the liver could be a cyst or cystic lesion. Electronically signed by: Marc Hurtado MD (04/21/2019 5:06 AM) [facility] [place]: There are inadvertent 2 impressions on the report. The first impression is correct which states occlusive DVT right popliteal vein and right calf veins. was informed at time of dictation. Electronically signed by: Marc Hurtado MD (04/21/2019 4:21 AM) [facility] DICTATED AND SIGNED BY: MARC HURTADO MD DATE: 04/21/19 0428 CC: KAM RODRIGUEZ; JESUS GARCIA MD ~ Examination: Right Lower Extremity Venous Doppler Ultrasound History: Right calf pain, shortness of breath Comparison: None Procedure: Santos scale, color flow 2D and spectal waveform analysis images are obtained with and without compression in the area of the common femoral vein, superficial femoral vein - femoral vein junction, main femoral vein (superficial femoral vein) and popliteal vein. Veins of the proximal calf are also imaged. Findings: There is occlusive echogenicity identified in the right popliteal vein, posterior tibialis vein. The right common femoral vein, greater saphenous vein and the femoral vein appears patent IMPRESSION: Occlusive deep venous thrombosis right popliteal vein and right calf veins. Electronically signed by: Marc Hurtado MD (04/21/2019 3:59 AM) [place] [id number] DICTATED and SIGNED BY: MARC HURTADO MD DATE: 04/21/19 0359 Course & Med Decision Making Course & Med Decision Making Pertinent Labs and Imaging studies reviewed. (See chart for details) []w/u shows pe/dvt, no clear trigger identified in ed, no recent surgery or travel no hx of dvt, no trauma etc. heparin drip ordered pt hd stable trop/bnp negative d/w helen 520 am for admit. Dragon Disclaimer Dragon Disclaimer This electronic medical record was generated, in whole or in part, using a voice recognition dictation system. Departure Departure Impression: Primary Impression: Pulmonary embolism Additional Impression: Deep venous thrombosis Disposition: ADMITTED INPATIENT Admitting Physician: Madi. Portillo Condition: STABLE Referrals: KAM RODRIGUEZ (PCP) Problem Qualifiers JESUS GARCIA MD Apr 21, 2019 02:58
--- NOTE | 2019-04-21 03:20 | RAD ---
EXAM: CHEST 1 VIEW History: Pneumonia COMPARISON: 09/24/2018 TECHNIQUE: Single portable radiograph of the chest FINDINGS: The cardiac silhouette is unremarkable. The lungs are clear bilaterally. The costophrenic sulci are clear and well demarcated. IMPRESSION: No radiographic evidence of an acute cardiopulmonary process. Electronically signed by: Marc Hurtado MD (04/21/2019 3:17 AM) [facility]
[2019-04-21 03:41] LABS: BASO % 1 % (0-3); EOS # 0.1 x10^3/uL (0.0-0.7); EOS % 2 % (0-3); HEMATOCRIT 38.2 % (36.0-47.0); HEMOGLOBIN 12.8 g/dL (12.0-15.5); LYMPH # 1.1 x10^3/uL (1.0-4.8); LYMPH % 26 % (24-48); MEAN CORPUSCULAR HEMOGLOBIN 28 pg (25-35); MEAN CORPUSCULAR HGB CONC 33 g/dL (31-37); MEAN CORPUSCULAR VOLUME 82 fL (79-100); MONO # 0.2 x10^3/uL (0.0-1.1); MONO % 5 % (0-9); NEUT # 2.9 x10^3/uL (1.8-7.7); NEUT % 65 % (31-73); PLATELET COUNT 227 x10^3/uL (140-400); RED BLOOD COUNT 4.64 x10^6/uL (3.50-5.40); WHITE BLOOD COUNT 4.4 x10^3/uL (4.0-11.0)
[2019-04-21 03:47] LABS: PROTHROMBIN TIME PATIENT 11.7 SEC (11.7-14.0)
[2019-04-21 03:52] LABS: D-DIMER 3.34 ug/mlFEU (0.00-0.50)
[2019-04-21 03:55] LABS: ALBUMIN 3.5 g/dL (3.4-5.0); ALBUMIN/GLOBULIN RATIO 0.8 (1.0-1.7); CALCIUM 9.3 mg/dL (8.5-10.1); CREATININE 1.1 mg/dL (0.6-1.0); GFR 63.1; POTASSIUM 4.2 mmol/L (3.5-5.1); TOTAL BILIRUBIN 0.4 mg/dL (0.2-1.0); TOTAL PROTEIN 8.1 g/dL (6.4-8.2)
--- NOTE | 2019-04-21 04:01 | RAD ---
Examination: Right Lower Extremity Venous Doppler Ultrasound History: Right calf pain, shortness of breath Comparison: None Procedure: Santos scale, color flow 2D and spectal waveform analysis images are obtained with and without compression in the area of the common femoral vein, superficial femoral vein - femoral vein junction, main femoral vein (superficial femoral vein) and popliteal vein. Veins of the proximal calf are also imaged. Findings: There is occlusive echogenicity identified in the right popliteal vein, posterior tibialis vein. The right common femoral vein, greater saphenous vein and the femoral vein appears patent IMPRESSION: Occlusive deep venous thrombosis right popliteal vein and right calf veins. Impression: No evidence of DVT. Electronically signed by: Marc Hurtado MD (04/21/2019 3:59 AM) [facility] [place]
[2019-04-21] MEDS ORDERED: CONTRAST GIVEN. MC PRN (04:30)
[2019-04-21] MEDS ORDERED: IOHEXOL 350 MG/ML 100 ML VIAL. IV ONE (05:00)
--- NOTE | 2019-04-21 05:09 | RAD ---
Examination: CT angiography chest History: History of pulmonary embolism COMPARISON: 02/20/2012 TECHNIQUE: Axial CT and radiographic images were performed with IV contrast. Coronal and sagittal 3-D MIP reformats are performed. Exposure: One or more of the following individualized dose reduction techniques were utilized for this examination: 1. Automated exposure control 2. Adjustment of the mA and/or kV according to patient size 3. Use of iterative reconstruction technique FINDINGS: There is a small subcentimeter hypodensity identified in the left lobe of the thyroid gland. The central airways are patent. The caliber of the aorta grossly appears unremarkable. There is a small filling defect identified in the right lower lobe pulmonary arterial branches and left upper lobe pulmonary arterial branch likely pulmonary emboli. Minimal bibasilar lung airspace opacities. There is a cystic structure identified in the left lobe of the liver measuring 2.1 cm likely cyst or cystic lesion. Mild degenerative changes thoracic spine. IMPRESSION: 1. Small filling defects identified in the right lower lobe and left upper lobe pulmonary arterial branches likely pulmonary emboli. 2. A 2.1 cm cystic structure identified in the left lobe of the liver could be a cyst or cystic lesion. Electronically signed by: Marc Hurtado MD (04/21/2019 5:06 AM) [facility]
[2019-04-21] MEDS ORDERED: ANTI-COAG MONITOR BY PHARMACY. MC PRN (05:30)
[2019-04-21] MEDS ORDERED: MORPHINE SULFATE 2 MG/ML VIAL. IV PRN (05:30)
[2019-04-21] MEDS ORDERED: HEPARIN for IV BOLUS 10,000 UNIT/10 ML VIAL. IV PRN ×4 (05:30→06:07)
[2019-04-21] MEDS ORDERED: HEPARIN for IV BOLUS 10,000 UNIT/10 ML VIAL. IV ONE ×2 (06:00→06:30)
[2019-04-21] MEDS: HEPARIN 25,000UTS/500ML PREMIX 500 ML IV PRN ×2 (06:23→23:48)
--- NOTE | 2019-04-21 07:17 | EKG ---
[facility] [address] [place] [address] Test Date: 2019-04-21 Test Time: 05:32:21 Pat Name: LEVI GORE Department: Room: Gender: F It Audit Manager: : 1965 Requested By: JESUS GARCIA Order Number: [id number] Reading MD: Uriah Noble MD Measurements Intervals Stuart Rate: 84 P: 33 OH: 188 QRS: -10 QRSD: 78 T: 13 QT: 382 QTc: 454 Interpretive Statements SINUS RHYTHM CONSIDER LVH Electronically Signed On 05-02-2019 10:01:39 CDT by Uriah Noble MD
[2019-04-21] MEDS ORDERED: ROPI3TAB PO (08:40)
[2019-04-21] MEDS ORDERED: FLUT9.9S NS (08:40)
[2019-04-21] MEDS ORDERED: BENA20TA4 PO (08:40)
[2019-04-21 11:45] VITALS: BP 131/79
[2019-04-21] MEDS ORDERED: BUTALB/APAP/CAFEIN 50/325/40MG TABLET. PO PRN (12:15)
[2019-04-21] MEDS ORDERED: NON FORMULARY ITEM (Ondansetron Hcl (Zofran) 4 MG) PO PRN (12:15)
[2019-04-21] MEDS ORDERED: ONDANSETRON ODT 4 MG TAB.RAPDIS. PO PRN (12:15)
[2019-04-21] MEDS ORDERED: hydrOXYzine 25 MG TABLET PO PRN (12:15)
--- NOTE | 2019-04-21 13:26 | HP ---
ADMIT DATE: 04/21/2019 HISTORY OF PRESENT ILLNESS: The patient is a 53-year-old -Congolese female patient, one of Dr. Underwood's patient who came to the Emergency Room complaining of shortness of breath and right leg pain. Her leg pain has been going on for the last few days, first had it when she was stretching out tight muscle in bed, has been short of breath for about a week or so, comes and goes; however, she denied any cough, phlegm. Denied any hemoptysis. Denied any chest pain. She came to the Emergency Room where she was evaluated and she has had venous Doppler ultrasound, which showed that she has an occlusive echogenicity identified in the right popliteal vein, posterior tibialis vein, right common femoral vein, greater saphenous veins and femoral veins that appears patent. The patient did have a CT angio of the chest, which showed that the patient has small filling defects identified in the right lower lobe and left upper lobe pulmonary arterial branches likely pulmonary emboli. She has also 2.1 cm cystic structure identified in the left lobe of the liver, could be a cyst or cystic lesion. The patient was started on heparin drip and was admitted to start Coumadin and obviously will adjust Coumadin to maintain an INR between 2 to 2.5 and she will be able to discharge home. PAST MEDICAL HISTORY: Significant for Parkinson's disease. She is also known to have hypertension. The patient denied any surgery. She is also known to have restless legs syndrome. She also has a history of headache, hypertension, hyperlipidemia. PAST SURGICAL HISTORY: She has breast reduction surgery. So had foot surgery, total abdominal hysterectomy, and bilateral salpingo-oophorectomy. ALLERGIES: SHE IS ALLERGIC TO METOCLOPRAMIDE, SULFAMETHOXAZOLE, TRIMETHOPRIM. MEDICATIONS: She is currently on following medications: She is on Claritin 10 mg once a day, nitrofurantoin monohydrate for Macrobid 100 mg twice a day, omega-3 fatty acid 500 mg once a day, verapamil 120 mg daily, benazepril 20 mg once a day, butalbital, acetaminophen and caffeine one tablet every 6 hours for headache, alprazolam 0.5 mg daily for anxiety. She is on hydroxyzine 25 mg at bedtime for anxiety, Requip 6 mg p.o. daily, Flonase 2 sprays to each nostril daily, and ondansetron 4 mg every 6-8 hours as needed for nausea and vomiting. FAMILY HISTORY: Unremarkable in particular, there is no history of blood clots in her family. SOCIAL HISTORY: She lives with her family. She does not smoke, drink alcohol or use any recreational drugs. PHYSICAL EXAMINATION: GENERAL: When I examined her, she looked well and was clearly in no apparent respiratory distress. No pallor, jaundice, cyanosis or thyromegaly. No jugular venous distention. No limb edema. VITAL SIGNS: Her heart rate was 87, blood pressure was 131/79, temperature was 99.3, respiratory rate was 18 and oxygen saturation was 95%. HEAD, EYES, EARS, NOSE AND THROAT: Showed normocephalic, atraumatic. NECK: Supple. HEART: Showed normal first and second heart sounds. No gallop or murmur. CHEST: Clear to auscultation. No crepitation or rhonchi. ABDOMEN: Distended, soft, nontender. No guarding or rigidity. No organomegaly. All hernial orifice intact. Bowel sounds normal. NEUROLOGIC: She is awake, alert, responding appropriately. All cranial nerves intact. EXTREMITIES: She moves extremities without difficulty. She normally ambulates without assistance or assistive devices, although she has a slow shuffling gait. LABORATORY DATA: this morning showed a white cell count 4400, hemoglobin 13, hematocrit 38, MCV 82, and platelet count 227,000. Her serum sodium 141, potassium 4.2, chloride 105, bicarbonate 28, anion gap of 8, BUN 17, creatinine 1.1, estimated GFR was 63 mL per minute. Her glucose was 99, calcium was 9.3. Total bilirubin, AST, ALT, alkaline phosphatase were normal. Troponin was less than 0.017. Total protein was 8.1, albumin 3.5. Her prothrombin time was 11.3, INR 0.9. D-dimer was high at 3.34. ASSESSMENT AND PLAN: In summary, this is a 53-year-old -Congol[place] female patient who was admitted with shortness of breath and pain in her right leg. She has Parkinson's disease and according to her, she has not been doing well and has not been ambulatory. Recently she was diagnosed with deep vein thrombosis in her right popliteal vein and bilateral small pulmonary emboli. She is now on heparin drip. We will start Coumadin and monitor her prothrombin time and INR and adjust Coumadin to maintain INR between 2 to 2.5. We will continue with all her other medications. KAM HOOVER MD DR: ANNY/renetta JOB#: [id number] / [id number]
[2019-04-21] MEDS: VERAPAMIL SR 120 MG TABLET.ER. PO SCH (13:42)
[2019-04-21] MEDS: OMEGA-3 FATTY ACIDS/FISH OIL 1,000 MG CAPSULE. PO SCH (13:43)
[2019-04-21] MEDS: LISINOPRIL 20 MG TABLET PO SCH (13:43)
[2019-04-21] MEDS ORDERED: rOPINIRole 1 MG TABLET. PO SCH ×2 (14:00→21:00)
[2019-04-21 15:00] VITALS: BP 98/57
[2019-04-21] MEDS ORDERED: WARFARIN 5 MG TABLET. PO SCH (16:00)
[2019-04-21] MEDS: FLUTICASONE 50MCG/NASAL SPRAY 16GM BOTTLE. NS SCH (16:16)
[2019-04-21 19:25] VITALS: BP 93/56
[2019-04-21] MEDS ORDERED: NITROFURANTOIN MONOHYD/M-CRYST 100 MG CAPSULE. PO SCH (21:00)
[2019-04-21 23:40] VITALS: BP 106/64
[2019-04-21] MEDS: ALPRAZolam 0.5 MG TABLET PO PRN (23:42)
[2019-04-22 03:51] VITALS: BP 104/68
[2019-04-22 07:00] VITALS: BP 101/63
[2019-04-22] MEDS ORDERED: ACETAMINOPHEN 325 MG TABLET. PO PRN (08:30)
[2019-04-22] MEDS: OMEGA-3 FATTY ACIDS/FISH OIL 1,000 MG CAPSULE. PO SCH (08:36)
[2019-04-22] MEDS: FLUTICASONE 50MCG/NASAL SPRAY 16GM BOTTLE. NS SCH (08:37)
[2019-04-22] MEDS: VERAPAMIL SR 120 MG TABLET.ER. PO SCH (08:37)
[2019-04-22] MEDS: LISINOPRIL 20 MG TABLET PO SCH (08:40)
[2019-04-22 09:41] LABS: PROTHROMBIN TIME PATIENT 12.6 SEC (11.7-14.0)
[2019-04-22 09:42] LABS: UNFRACTIONATED HEPARIN TESTING 0.47 IU/mL (0.30-0.70)
--- NOTE | 2019-04-22 10:15 | PDOC ---
IM PROGRESS NOTES- Subjective Subjective She has right leg pain. Dyspnea is improving. Objective Vitals/I&O Vital Signs Date Time Temp Pulse Resp B/P (MAP) Pulse Ox O2 Delivery O2 Flow Rate FiO2 04/22/19 08:37 77 101/63 04/22/19 07:00 98.2 16 98 Room Air 98.2 I & O 04/21/19 04/21/19 04/22/19 15:00 23:00 07:00 Intake Total 240 ml 606 ml 850 ml Output Total 350 ml Balance 240 ml 606 ml 500 ml Physical Exam Physical Exam General appearance - alert,well appearing, and in no distress and oriented to person, place, and time Mental Status - alert, oriented to person, place, and time, affect appropriate to mood Head - normal Chest - clear to auscultation, no wheezes, rales or rhonchi, symmetric air entry Heart - S1 and S2 normal Abdomen - soft, nontender, nondistended, no masses or organomegaly Neurological - alert and oriented Musculoskeletal - no muscular tenderness noted Extremities - no pedal edema Skin - warm and dry Labs Laboratory Tests Test 04/21/19 13:05 04/21/19 19:15 04/22/19 01:15 04/22/19 08:10 Heparin Anti-Xa Act, Unfractionated > 1.10 IU/mL (0.30-0.70) *H > 1.10 IU/mL (0.30-0.70) *H 1.03 IU/mL (0.30-0.70) H 0.47 IU/mL (0.30-0.70) Prothrombin Time 12.6 SEC (11.7-14.0) Prothrombin Time INR 1.0 (0.8-1.1) Meds Current Medications Medications (Trade) Dose Ordered Sig/Thomas Route PRN Reason Start Time Stop Time Status Last Admin Dose Admin Verapamil HCl (Calan Sr) 120 mg DAILY PO 04/21/19 13:00 04/22/19 08:37 Lisinopril (Prinivil) 20 mg DAILY PO 04/21/19 13:00 04/21/19 13:43 Fluticasone Propionate (Flonase) 2 spray DAILY NS 04/21/19 13:00 04/22/19 08:37 Fish Oil (Fish Oil) 1,000 mg DAILY PO 04/21/19 13:00 04/22/19 08:36 Warfarin Sodium (Coumadin) 5 mg DAILY16 PO 04/21/19 16:00 04/21/19 16:20 Acetaminophen (Tylenol) 650 mg PRN Q6HRS PRN PO PAIN 04/22/19 08:30 04/22/19 08:37 Assessment Assessment 1.DVT of the right lower extremity 2. Pulmonary embolism 3. Parkinsonism Plan. Continue IV heparin drip. Continue Coumadin and discontinue heparin drip when therapeutic. Consult Dr. Buitrago for pulmonary evaluation and management. Plan Plan For more details regarding further plans, please refer to the orders. DEV WADDELL MD Apr 22, 2019 10:15
--- NOTE | 2019-04-22 10:40 | PDOC ---
Provider Note Provider Note [id number] pe dvt cont JANES Aragon MD Apr 22, 2019 10:40
[2019-04-22 11:00] VITALS: BP 118/73
--- NOTE | 2019-04-22 11:25 | CONS ---
DATE OF CONSULTATION: 04/22/2019 I was asked to see this 53-year-old lady for shortness of breath, pulmonary embolism. HISTORY OF PRESENT ILLNESS: She is a lifelong nonsmoker. She is obese, very inactive. She has not had a sleep study. She has excessive daytime sleepiness. She has not felt well for the past week as she has had shortness of breath and right leg pain. She has occasional cough. She had mild chest pain, which has gone now. She denies runny nose or gastroesophageal reflux symptoms. PAST MEDICAL HISTORY: Parkinson, gastroesophageal reflux disease, hypertension, history of breast reduction surgery, foot surgery. ALLERGIES: METOCLOPRAMIDE, SULFAMETHOXAZOLE, TRIMETHOPRIM. MEDICATIONS: Currently, she is on heparin drip, Coumadin, Flonase, Prinivil, Xanax p.r.n. SOCIAL HISTORY: Nonsmoker. FAMILY HISTORY: Her sister has lung cancer, had pulmonary embolism in 2001 when she had active lung cancer. She is still alive. REVIEW OF SYSTEMS: As mentioned as above, other systems otherwise negative. PHYSICAL EXAMINATION: GENERAL: This is an obese lady. VITAL SIGNS: Her O2 saturation is 98%, respiratory rate is 16, heart rate 77, blood pressure 104/68, temperature 98.2. HEENT: Normocephalic, atraumatic. Pupils equal, round, reactive to light. Throat is clear. There is shallow oropharynx. Nose is clear. NECK: There is no JVD, lymphadenopathy or thyromegaly. CARDIOVASCULAR: Regular rate and rhythm. PMI is nondisplaced. CHEST: Inspection is normal. LUNGS: Clear to auscultation. There is no wheezing. ABDOMEN: Soft and obese. Bowel sounds are good. There is no mass. EXTREMITIES: There is right lower extremity edema. SKIN: Chronic changes. NEUROLOGIC: Alert and oriented. LYMPHATICS: There is no lymphadenopathy. LABORATORY AND DIAGNOSTIC DATA: I reviewed the following lab data: WBC 4.4, hemoglobin 12.8, platelet 227. Sodium 141, potassium 4.2, chloride 105, CO2 of 28, glucose 99, BUN 17, creatinine 1.1. BNP 12. Troponin less than 0.01. Lower extremity venous Doppler shows right DVT in the popliteal vein and calf vein. CTA of the chest show small filling defects in the right lower lobe and left upper lobe pulmonary arterial branches likely pulmonary emboli. IMPRESSION: 1. Dyspnea secondary to acute pulmonary embolism. 2. Acute pulmonary embolism. 3. Acute right lower extremity deep venous thrombosis. 4. Obesity, probable obstructive sleep apnea-hypopnea syndrome. 5. Parkinson. 6. Hypertension. PLAN AND RECOMMENDATIONS: 1. Titrate FiO2 to keep O2 saturation 92%. 2. Agree with heparin. 3. Agree with Coumadin. 4. She is obese, I do not know her BMI, if it is more than 40 she will not be a good candidate for DOAC. 5. I do recommend echocardiogram. 6. The findings and recommendations were discussed with the patient, she understood and agreed to proceed with the plan. Thank you very much for allowing me to participate in care of this very nice lady. JANES SULTANA M.D. DR: Ronnie JOB#: [id number] / [id number]
--- NOTE | 2019-04-22 14:42 | NUR ---
Pharmacy Warfarin Dosing Note S:Pharmacy consulted to assist with anticoagulation therapy started with target INR: 2 -3 O:LEVI GORE is a 53 year old F with DVT/PE LABS: Last INR: 1.0 Last HGB: 12.8 Last HCT: 38.2 Last PLT: 227 Last dose of 5 mg given on 04/21/19 at 1620 Previous Regimen: Vitamin K given: Drug Interaction Changes: Ongoing Drug Interactions: A:INR of 1.0 is below desired range. Target range for this patient is: 2 -3 P: Warfarin dose: 5 mg Today at 1600 Bridge Therapy: Heparin Therapeutic Next INR due tomorrow. Pharmacy anticoagulation service will continue to follow. NASH MURPHY [facility], 04/22/19 [id number]
[2019-04-22 15:00] VITALS: BP 106/69
[2019-04-22] MEDS ORDERED: WARFARIN 7.5 MG TABLET. PO ONE (16:00)
[2019-04-22 19:56] VITALS: BP 104/63
[2019-04-22] MEDS: REQUIP PO SCH (20:26)
[2019-04-22 23:10] VITALS: BP 128/84
[2019-04-23 03:23] VITALS: BP 122/81
[2019-04-23 05:32] LABS: BASO % 1 % (0-3); EOS # 0.1 x10^3/uL (0.0-0.7); EOS % 2 % (0-3); HEMATOCRIT 38.8 % (36.0-47.0); HEMOGLOBIN 12.8 g/dL (12.0-15.5); LYMPH # 1.3 x10^3/uL (1.0-4.8); LYMPH % 34 % (24-48); MEAN CORPUSCULAR HEMOGLOBIN 27 pg (25-35); MEAN CORPUSCULAR HGB CONC 33 g/dL (31-37); MEAN CORPUSCULAR VOLUME 83 fL (79-100); MONO # 0.2 x10^3/uL (0.0-1.1); MONO % 5 % (0-9); NEUT # 2.3 x10^3/uL (1.8-7.7); NEUT % 58 % (31-73); PLATELET COUNT 260 x10^3/uL (140-400); RED BLOOD COUNT 4.68 x10^6/uL (3.50-5.40); RED CELL DISTRIBUTION WIDTH 15.2 % (11.5-14.5); WHITE BLOOD COUNT 3.9 x10^3/uL (4.0-11.0)
[2019-04-23 06:07] LABS: ALBUMIN 3.4 g/dL (3.4-5.0); ALBUMIN/GLOBULIN RATIO 0.7 (1.0-1.7); CALCIUM 9.2 mg/dL (8.5-10.1); GFR 70.5; POTASSIUM 4.1 mmol/L (3.5-5.1); TOTAL BILIRUBIN 0.5 mg/dL (0.2-1.0); TOTAL PROTEIN 8.1 g/dL (6.4-8.2)
[2019-04-23] MEDS: HEPARIN 25,000UTS/500ML PREMIX 500 ML IV PRN (06:46)
[2019-04-23 07:00] VITALS: BP 137/82
[2019-04-23 07:28] LABS: PROTHROMBIN TIME PATIENT 11.7 SEC (11.7-14.0)
--- NOTE | 2019-04-23 08:16 | PDOC ---
PULMONARY PROGRESS NOTES Subjective sob better, has mild cp this am, resolved Vitals Vital Signs Date Time Temp Pulse Resp B/P (MAP) Pulse Ox O2 Delivery O2 Flow Rate FiO2 04/23/19 07:00 97.8 77 20 137/82 (100) 95 Room Air 97.8 ROS: No Nausea General: Alert HEENT: Other (nc at perrl) Lungs: Clear Cardiovascular: S1, S2 Abdomen: Soft, Non-tender Neuro Exam: Alert Extremities: Other (r l edema) Skin: Warm Labs Laboratory Tests Test 04/21/19 13:05 04/21/19 19:15 04/22/19 01:15 04/22/19 08:10 Heparin Anti-Xa Act, Unfractionated > 1.10 IU/mL (0.30-0.70) > 1.10 IU/mL (0.30-0.70) 1.03 IU/mL (0.30-0.70) 0.47 IU/mL (0.30-0.70) Prothrombin Time 12.6 SEC (11.7-14.0) Prothromb Time International Ratio 1.0 (0.8-1.1) Test 04/22/19 14:05 04/23/19 05:00 Heparin Anti-Xa Act, Unfractionated 0.38 IU/mL (0.30-0.70) 0.26 IU/mL (0.30-0.70) White Blood Count 3.9 x10^3/uL (4.0-11.0) Red Blood Count 4.68 x10^6/uL (3.50-5.40) Hemoglobin 12.8 g/dL (12.0-15.5) Hematocrit 38.8 % (36.0-47.0) Mean Corpuscular Volume 83 fL (79-100) Mean Corpuscular Hemoglobin 27 pg (25-35) Mean Corpuscular Hemoglobin Concent 33 g/dL (31-37) Red Cell Distribution Width 15.2 % (11.5-14.5) Platelet Count 260 x10^3/uL (140-400) Neutrophils (%) (Auto) 58 % (31-73) Lymphocytes (%) (Auto) 34 % (24-48) Monocytes (%) (Auto) 5 % (0-9) Eosinophils (%) (Auto) 2 % (0-3) Basophils (%) (Auto) 1 % (0-3) Neutrophils # (Auto) 2.3 x10^3/uL (1.8-7.7) Lymphocytes # (Auto) 1.3 x10^3/uL (1.0-4.8) Monocytes # (Auto) 0.2 x10^3/uL (0.0-1.1) Eosinophils # (Auto) 0.1 x10^3/uL (0.0-0.7) Basophils # (Auto) 0.0 x10^3/uL (0.0-0.2) Prothrombin Time 11.7 SEC (11.7-14.0) Prothromb Time International Ratio 0.9 (0.8-1.1) Sodium Level 143 mmol/L (136-145) Potassium Level 4.1 mmol/L (3.5-5.1) Chloride Level 107 mmol/L (98-107) Carbon Dioxide Level 28 mmol/L (21-32) Anion Gap 8 (6-14) Blood Urea Nitrogen 16 mg/dL (7-20) Creatinine 1.0 mg/dL (0.6-1.0) Estimated GFR (Cockcroft-Gault) 70.5 BUN/Creatinine Ratio 16 (6-20) Glucose Level 87 mg/dL (70-99) Calcium Level 9.2 mg/dL (8.5-10.1) Total Bilirubin 0.5 mg/dL (0.2-1.0) Aspartate Amino Transf (AST/SGOT) 16 U/L (15-37) Alanine Aminotransferase (ALT/SGPT) 14 U/L (14-59) Alkaline Phosphatase 117 U/L (46-116) Total Protein 8.1 g/dL (6.4-8.2) Albumin 3.4 g/dL (3.4-5.0) Albumin/Globulin Ratio 0.7 (1.0-1.7) Laboratory Tests Test 04/22/19 14:05 04/23/19 05:00 Heparin Anti-Xa Act, Unfractionated 0.38 IU/mL (0.30-0.70) 0.26 IU/mL (0.30-0.70) White Blood Count 3.9 x10^3/uL (4.0-11.0) Red Blood Count 4.68 x10^6/uL (3.50-5.40) Hemoglobin 12.8 g/dL (12.0-15.5) Hematocrit 38.8 % (36.0-47.0) Mean Corpuscular Volume 83 fL (79-100) Mean Corpuscular Hemoglobin 27 pg (25-35) Mean Corpuscular Hemoglobin Concent 33 g/dL (31-37) Red Cell Distribution Width 15.2 % (11.5-14.5) Platelet Count 260 x10^3/uL (140-400) Neutrophils (%) (Auto) 58 % (31-73) Lymphocytes (%) (Auto) 34 % (24-48) Monocytes (%) (Auto) 5 % (0-9) Eosinophils (%) (Auto) 2 % (0-3) Basophils (%) (Auto) 1 % (0-3) Neutrophils # (Auto) 2.3 x10^3/uL (1.8-7.7) Lymphocytes # (Auto) 1.3 x10^3/uL (1.0-4.8) Monocytes # (Auto) 0.2 x10^3/uL (0.0-1.1) Eosinophils # (Auto) 0.1 x10^3/uL (0.0-0.7) Basophils # (Auto) 0.0 x10^3/uL (0.0-0.2) Prothrombin Time 11.7 SEC (11.7-14.0) Prothromb Time International Ratio 0.9 (0.8-1.1) Sodium Level 143 mmol/L (136-145) Potassium Level 4.1 mmol/L (3.5-5.1) Chloride Level 107 mmol/L (98-107) Carbon Dioxide Level 28 mmol/L (21-32) Anion Gap 8 (6-14) Blood Urea Nitrogen 16 mg/dL (7-20) Creatinine 1.0 mg/dL (0.6-1.0) Estimated GFR (Cockcroft-Gault) 70.5 BUN/Creatinine Ratio 16 (6-20) Glucose Level 87 mg/dL (70-99) Calcium Level 9.2 mg/dL (8.5-10.1) Total Bilirubin 0.5 mg/dL (0.2-1.0) Aspartate Amino Transf (AST/SGOT) 16 U/L (15-37) Alanine Aminotransferase (ALT/SGPT) 14 U/L (14-59) Alkaline Phosphatase 117 U/L (46-116) Total Protein 8.1 g/dL (6.4-8.2) Albumin 3.4 g/dL (3.4-5.0) Albumin/Globulin Ratio 0.7 (1.0-1.7) Medications Active Scripts Medications Dose Route/Sig Max Daily Dose Days Date Category Dose Instructions Flonase Allergy Relief (Fluticasone Propionate) 9.9 Ml [place].susp 2 Sprays NS DAILY 04/21/19 Reported Requip (Ropinirole Hcl) 3 Mg Tablet 6 Mg PO DAILY 04/21/19 Reported Benazepril Hcl 20 Mg Tablet 1 Tab PO DAILY 04/21/19 Reported Xanax (Alprazolam) 0.5 Mg Tablet 1 Tab PO DAILY 10/16/18 Rx Yugizx-Yevrgtyc-Rnwe 50-325-40 (Butalb/Acetaminophen/Caffeine) 1 Each Tablet 1 Each PO Q6HRS PRN 09/25/18 Rx Ondansetron Odt (Ondansetron) 4 Mg Tab.rapdis 1 Tab PO PRN Q6-8HRS PRN 09/25/18 Rx Zofran (Ondansetron Hcl) 4 Mg Tablet 4 Mg PO PRN TID PRN 09/21/18 Rx nausea/vomiting Hydroxyzine Hcl 25 Mg Tablet 1 Tab PO PRN QHS PRN 12/21/17 Rx Macrobid 100 Mg Capsule (Nitrofurantoin Monohyd/M-Cryst) 100 Mg Capsule 1 Cap PO BID 12/10/17 Rx Claritin (Loratadine) 10 Mg Capsule 10 Mg PO DAILY PRN 11/28/13 Reported Fish Oil ([place]-3 Fatty Acids) 500 Mg Capsule 500 Mg PO DAILY 11/28/13 Reported Verapamil Er (Verapamil Hcl) 120 Mg Tablet.er 120 Mg PO DAILY 11/28/13 Reported Impression . IMPRESSION: 1. Dyspnea secondary to acute pulmonary embolism. 2. Acute pulmonary embolism. 3. Acute right lower extremity deep venous thrombosis. 4. Obesity, probable obstructive sleep apnea-hypopnea syndrome. 5. Parkinson. 6. Hypertension. Plan . PLAN AND RECOMMENDATIONS: 1. Titrate FiO2 to keep O2 saturation 92%. 2. cont heparin. 3. cont Coumadin. 4. She is obese, her BMI 42.2, she will not be a good candidate for DOAC. 5. I do recommend echocardiogram. 6. sleep study as out pt discussed w pt, rn JANES SULTANA MD Apr 23, 2019 08:16
[2019-04-23] MEDS: OMEGA-3 FATTY ACIDS/FISH OIL 1,000 MG CAPSULE. PO SCH (08:56)
[2019-04-23] MEDS: FLUTICASONE 50MCG/NASAL SPRAY 16GM BOTTLE. NS SCH (08:58)
[2019-04-23] MEDS: VERAPAMIL SR 120 MG TABLET.ER. PO SCH (08:59)
[2019-04-23] MEDS: LISINOPRIL 20 MG TABLET PO SCH (08:59)
--- NOTE | 2019-04-23 09:16 | PDOC ---
IM PROGRESS NOTES- Subjective Subjective She has right leg pain. Dyspnea is improving. Just started having chest pains while lying in bed does admit to reflux on and off. Denies any dyspnea, palpitations or dizziness. Objective Vitals/I&O Vital Signs Date Time Temp Pulse Resp B/P (MAP) Pulse Ox O2 Delivery O2 Flow Rate FiO2 04/23/19 08:59 77 137/82 04/23/19 07:00 97.8 20 95 Room Air 97.8 I & O 04/22/19 04/22/19 04/23/19 15:00 23:00 07:00 Intake Total 300 ml 450 ml Balance 300 ml 450 ml Physical Exam Physical Exam General appearance - alert,well appearing, and in no distress and oriented to person, place, and time Mental Status - alert, oriented to person, place, and time, affect appropriate to mood Head - normal Chest - clear to auscultation, no wheezes, rales or rhonchi, symmetric air entry. No tenderness of the chest Heart - S1 and S2 normal Abdomen - soft, nontender, nondistended, no masses or organomegaly Neurological - alert and oriented Musculoskeletal - no muscular tenderness noted Extremities - no pedal edema Skin - warm and dry Labs Laboratory Tests Test 04/22/19 14:05 04/23/19 05:00 Heparin Anti-Xa Act, Unfractionated 0.38 IU/mL (0.30-0.70) 0.26 IU/mL (0.30-0.70) L White Blood Count 3.9 x10^3/uL (4.0-11.0) L Red Blood Count 4.68 x10^6/uL (3.50-5.40) Hemoglobin 12.8 g/dL (12.0-15.5) Hematocrit 38.8 % (36.0-47.0) Mean Corpuscular Volume 83 fL (79-100) Mean Corpuscular Hemoglobin 27 pg (25-35) Mean Corpuscular Hemoglobin Concent 33 g/dL (31-37) Red Cell Distribution Width 15.2 % (11.5-14.5) H Platelet Count 260 x10^3/uL (140-400) Neutrophils (%) (Auto) 58 % (31-73) Lymphocytes (%) (Auto) 34 % (24-48) Monocytes (%) (Auto) 5 % (0-9) Eosinophils (%) (Auto) 2 % (0-3) Basophils (%) (Auto) 1 % (0-3) Neutrophils # (Auto) 2.3 x10^3/uL (1.8-7.7) Lymphocytes # (Auto) 1.3 x10^3/uL (1.0-4.8) Monocytes # (Auto) 0.2 x10^3/uL (0.0-1.1) Eosinophils # (Auto) 0.1 x10^3/uL (0.0-0.7) Basophils # (Auto) 0.0 x10^3/uL (0.0-0.2) Prothrombin Time 11.7 SEC (11.7-14.0) Prothrombin Time INR 0.9 (0.8-1.1) Sodium Level 143 mmol/L (136-145) Potassium Level 4.1 mmol/L (3.5-5.1) Chloride Level 107 mmol/L (98-107) Carbon Dioxide Level 28 mmol/L (21-32) Anion Gap 8 (6-14) Blood Urea Nitrogen 16 mg/dL (7-20) Creatinine 1.0 mg/dL (0.6-1.0) Estimated GFR (Cockcroft-Gault) 70.5 BUN/Creatinine Ratio 16 (6-20) Glucose Level 87 mg/dL (70-99) Calcium Level 9.2 mg/dL (8.5-10.1) Total Bilirubin 0.5 mg/dL (0.2-1.0) Aspartate Amino Transferase (AST) 16 U/L (15-37) Alanine Aminotransferase (ALT) 14 U/L (14-59) Alkaline Phosphatase 117 U/L (46-116) H Total Protein 8.1 g/dL (6.4-8.2) Albumin 3.4 g/dL (3.4-5.0) Albumin/Globulin Ratio 0.7 (1.0-1.7) L Laboratory Tests 04/23/19 05:00 Laboratory Tests 04/23/19 05:00 Meds Current Medications Medications (Trade) Dose Ordered Sig/Thomas Route PRN Reason Start Time Stop Time Status Last Admin Dose Admin Non-Formulary Medication 1 ea QHS PO 04/22/19 21:00 04/22/19 20:26 Warfarin Sodium (Coumadin Per Pharmacy) 1 each PRN DAILY PRN MC SEE COMMENTS 04/22/19 10:15 04/22/19 14:41 Warfarin Sodium (Coumadin) 7.5 mg 1X WARF ONCE PO 04/22/19 16:00 04/22/19 16:01 DC 04/22/19 15:27 Assessment Assessment 1.DVT of the right lower extremity 2. Pulmonary embolism 3. Parkinsonism Plan. Continue IV heparin drip. Continue Coumadin and discontinue heparin drip when therapeutic. INR is 0.9. Consult Dr. Buitrago for pulmonary evaluation and management. Order echocardiogram per pulmonary recommendation. Chest pain- possibly due to esophageal reflux disease. Order EKG and cardiac enzymes and troponin level. Consult cardiology. Start Protonix. Plan Plan For more details regarding further plans, please refer to the orders. DEV WADDELL MD Apr 23, 2019 09:16
[2019-04-23] MEDS: PANTOPRAZOLE 40 MG TABLET.DR. PO SCH (10:30)
[2019-04-23 11:00] VITALS: BP 148/82
--- NOTE | 2019-04-23 11:22 | EKG ---
[facility] [address] [place] [address] Test Date: 2019-04-23 Test Time: 12:16:35 Pat Name: LEVI GORE Department: Room: 4 1 Gender: F Sizing End Bander: : [phone] Requested By: DEV WADDELL Order Number: [id number] Reading MD: Uriah Noble MD Measurements Intervals [place] Rate: 84 P: 19 [place]: 212 QRS: -4 QRSD: 80 T: 12 QT: 384 QTc: 457 Interpretive Statements SINUS RHYTHM 1ST DEGREE AVB NON-SPECIFIC ST/T CHANGES Electronically Signed On 05-02-2019 10:30:07 CDT by Uriah Noble MD
[2019-04-23 15:00] VITALS: BP 123/74
[2019-04-23] MEDS ORDERED: WARFARIN 7.5 MG TABLET. PO ONE (16:00)
--- NOTE | 2019-04-23 16:39 | PDOC2 ---
CONSULT Date of Consult Date of Consult DATE: 04/23/19 TIME: 16:34 Reason for Consult Reason for Consult: chest pain Referring Physician Referring Physician: Dr. Martinez Identification/Chief Complaint Chief Complaint shortness of breath Source Source: Chart review, Patient History of Present Illness Reason for Visit: The patient is a 53-year-old female who was brought to the emergency room due to episodes of shortness of breath and right leg pain. Workup showed on ultrasound a DVT of the right popliteal vein. CT of the chest showed a probable pulmonary emboli. Patient has been anticoagulated and overall is feeling better. She did have some episodes of chest pain overnight and cardiac evaluation was requested. Troponins have been normal 2. EKG shows no acute ischemic changes. Echocardiogram is pending. Past Medical History Cardiovascular: HTN CENTRAL NERVOUS SYSTEM: Other (Parkinson's disease) GI: GERD Past Surgical History Past Surgical History: Hysterectomy (breast reduction, bilateral salpingo- oophorectomy.) Family History Family History: Hypertension Social History No ALCOHOL: none Current Problem List Problem List Problems Medical Problems: (1) Deep venous thrombosis Status: Acute Current Medications Current Medications Current Medications Iohexol (Omnipaque 350 Mg/ml) 100 ml 1X ONCE IV Last administered on 04/21/19at 04:54; Start 04/21/19 at 05:00; Stop 04/21/19 at 05:01; Status DC Info (CONTRAST GIVEN -- Rx MONITORING) 1 each PRN DAILY PRN MC SEE COMMENTS; Start 04/21/19 at 04:30; Stop 04/23/19 at 04:29; Status DC Heparin Sodium (Porcine) (Heparin Sodium) 8,350 unit 1X ONCE IV ; Start 04/21/19 at 06:00; Stop 04/21/19 at 06:01; Status Cancel Heparin Sodium/ Dextrose 500 ml @ 0 mls/hr CONT PRN IV PER PROTOCOL Last administered on 04/23/19at 06:46; Start 04/21/19 at 06:00 Heparin Sodium (Porcine) (Heparin Sodium) 3,150 unit PRN Q6HRS PRN IV FOR UFH LEVEL LESS THAN 0.2; Start 04/21/19 at 05:30; Stop 04/21/19 at 06:07; Status DC Heparin Sodium (Porcine) (Heparin Sodium) 1,550 unit PRN Q6HRS PRN IV FOR UFH LEVEL 0.2 - 0.29; Start 04/21/19 at 05:30; Stop 04/21/19 at 06:07; Status DC Morphine Sulfate (Morphine Sulfate) 2 mg PRN Q2HR PRN IV SEVERE PAIN 7-10; Start 04/21/19 at 05:30; Stop 04/22/19 at 05:29; Status DC Info (Anti-Coagulation Monitoring By Pharmacy) 1 each PRN DAILY PRN MC SEE COMMENTS Last administered on 04/21/19at 05:43; Start 04/21/19 at 05:30; Stop 04/22/19 at 13:17; Status DC Heparin Sodium (Porcine) (Heparin Sodium) 8,650 unit 1X ONCE IV Last administered on 04/21/19at 06:12; Start 04/21/19 at 06:30; Stop 04/21/19 at 06:31; Status DC Heparin Sodium (Porcine) (Heparin Sodium) 3,240 unit PRN Q6HRS PRN IV FOR UFH LEVEL LESS THAN 0.2; Start 04/21/19 at 06:07 Heparin Sodium (Porcine) (Heparin Sodium) 1,620 unit PRN Q6HRS PRN IV FOR UFH LEVEL 0.2 - 0.29 Last administered on 04/23/19at 06:46; Start 04/21/19 at 06:07 Alprazolam (Xanax) 0.5 mg PRN DAILY PRN PO ANXIETY Last administered on 04/21/19at 23:42; Start 04/21/19 at 09:00 Acetaminophen/ Butalbital/ Caffeine (Fioricet) 1 tab Q6HRS PRN PO MIGRAINE HEADACHE; Start 04/21/19 at 12:15 Hydroxyzine HCl (Atarax) 25 mg PRN QHS PRN PO ITCHING; Start 04/21/19 at 12:15 Nitrofurantoin Macrocrystals (Macrobid) 100 mg BID PO ; Start 04/21/19 at 21:00; Status UNV Ondansetron HCl (Zofran Odt) 4 mg Q6H PRN PO NAUSEA; Start 04/21/19 at 12:15 Verapamil HCl (Calan Sr) 120 mg DAILY PO Last administered on 04/23/19at 08:59; Start 04/21/19 at 13:00 Lisinopril (Prinivil) 20 mg DAILY PO Last administered on 04/23/19 08:59; Start 04/21/19 at 13:00 Fluticasone Propionate (Flonase) 2 spray DAILY NS Last administered on 04/23/19at 08:58; Start 04/21/19 at 13:00 Fish Oil (Fish Oil) 1,000 mg DAILY PO Last administered on 04/22/19at 08:36; Start 04/21/19 at 13:00 Non-Formulary Medication (Ondansetron Hcl (Zofran)) 4 mg PRN TID PRN PO NAUSEA; Start 04/21/19 at 12:15; Status UNV Ropinirole HCl (Requip) 3 mg BID PO ; Start 04/21/19 at 14:00; Stop 04/21/19 at 13:53; Status DC Warfarin Sodium (Coumadin) 5 mg DAILY16 PO Last administered on 04/21/19at 16:20; Start 04/21/19 at 16:00; Stop 04/22/19 at 14:35; Status DC Warfarin Sodium (Coumadin Per Physician) 1 each PRN DAILY PRN MC SEE COMMENTS; Start 04/21/19 at 12:45; Stop 04/22/19 at 10:13; Status DC Ropinirole HCl (Requip) 6 mg HS PO ; Start 04/21/19 at 21:00; Stop 04/21/19 at 22:35; Status DC Non-Formulary Medication 1 ea QHS PO Last administered on 04/22/19at 20:26; Start 04/22/19 at 21:00 Acetaminophen (Tylenol) 650 mg PRN Q6HRS PRN PO PAIN Last administered on at 08:37; Start 04/22/19 at 08:30 Warfarin Sodium (Coumadin Per Pharmacy) 1 each PRN DAILY PRN MC SEE COMMENTS Last administered on 04/23/19at 13:38; Start 04/22/19 at 10:15 Warfarin Sodium (Coumadin) 7.5 mg 1X WARF ONCE PO Last administered on 04/22/19 at 15:27; Start 04/22/19 at 16:00; Stop 04/22/19 at 16:01; Status DC Pantoprazole Sodium (Protonix) 40 mg DAILYAC PO Last administered on 04/23/19at 10:30; Start 04/23/19 at 10:30 Warfarin Sodium (Coumadin) 7.5 mg 1X WARF ONCE PO ; Start 04/23/19 at 16:00; Stop 04/23/19 at 16:01; Status DC Active Scripts Active Xanax (Alprazolam) 0.5 Mg Tablet 1 Tab PO DAILY Ewtlki-Uysxvxha-Waqb 50-325-40 (Butalb/Acetaminophen/Caffeine) 1 Each Tablet 1 Each PO Q6HRS PRN Ondansetron Odt (Ondansetron) 4 Mg Tab.rapdis 1 Tab PO PRN Q6-8HRS PRN Zofran (Ondansetron Hcl) 4 Mg Tablet 4 Mg PO PRN TID PRN nausea/vomiting Hydroxyzine Hcl 25 Mg Tablet 1 Tab PO PRN QHS PRN Macrobid 100 Mg Capsule (Nitrofurantoin Monohyd/M-Cryst) 100 Mg Capsule 1 Cap PO BID Reported Flonase Allergy Relief (Fluticasone Propionate) 9.9 Ml [place].susp 2 Sprays NS DAILY Requip (Ropinirole Hcl) 3 Mg Tablet 6 Mg PO DAILY Benazepril Hcl 20 Mg Tablet 1 Tab PO DAILY Claritin (Loratadine) 10 Mg Capsule 10 Mg PO DAILY PRN Fish Oil ([place]-3 Fatty Acids) 500 Mg Capsule 500 Mg PO DAILY Verapamil Er (Verapamil Hcl) 120 Mg Tablet.er 120 Mg PO DAILY Allergies Allergies: Coded Allergies: metoclopramide (Verified Allergy, Intermediate, 09/24/18) sulfamethoxazole (Verified Allergy, Intermediate, 09/24/18) trimethoprim (Verified Allergy, Intermediate, 09/24/18) ROS Respiratory: YES: Shortness of breath Cardiovascular: yes Chest Pain Physical Exam General: mild distress HEENT: Atraumatic Lungs: Clear to auscultation Heart: Regular rate Abdomen: Normal bowel sounds Vitals VITALS Vital Signs Date Time Temp Pulse Resp B/P (MAP) Pulse Ox O2 Delivery O2 Flow Rate FiO2 04/23/19 15:00 98.0 75 14 123/74 (90) 95 Room Air 98.0 Labs Labs Laboratory Tests Test 04/21/19 19:15 04/22/19 01:15 04/22/19 08:10 04/22/19 14:05 Heparin Anti-Xa Act, Unfractionated > 1.10 IU/mL (0.30-0.70) 1.03 IU/mL (0.30-0.70) 0.47 IU/mL (0.30-0.70) 0.38 IU/mL (0.30-0.70) Prothrombin Time 12.6 SEC (11.7-14.0) Prothromb Time International Ratio 1.0 (0.8-1.1) Test 04/23/19 05:00 04/23/19 14:00 White Blood Count 3.9 x10^3/uL (4.0-11.0) Red Blood Count 4.68 x10^6/uL (3.50-5.40) Hemoglobin 12.8 g/dL (12.0-15.5) Hematocrit 38.8 % (36.0-47.0) Mean Corpuscular Volume 83 fL (79-100) Mean Corpuscular Hemoglobin 27 pg (25-35) Mean Corpuscular Hemoglobin Concent 33 g/dL (31-37) Red Cell Distribution Width 15.2 % (11.5-14.5) Platelet Count 260 x10^3/uL (140-400) Neutrophils (%) (Auto) 58 % (31-73) Lymphocytes (%) (Auto) 34 % (24-48) Monocytes (%) (Auto) 5 % (0-9) Eosinophils (%) (Auto) 2 % (0-3) Basophils (%) (Auto) 1 % (0-3) Neutrophils # (Auto) 2.3 x10^3/uL (1.8-7.7) Lymphocytes # (Auto) 1.3 x10^3/uL (1.0-4.8) Monocytes # (Auto) 0.2 x10^3/uL (0.0-1.1) Eosinophils # (Auto) 0.1 x10^3/uL (0.0-0.7) Basophils # (Auto) 0.0 x10^3/uL (0.0-0.2) Prothrombin Time 11.7 SEC (11.7-14.0) Prothromb Time International Ratio 0.9 (0.8-1.1) Heparin Anti-Xa Act, Unfractionated 0.26 IU/mL (0.30-0.70) 0.63 IU/mL (0.30-0.70) Sodium Level 143 mmol/L (136-145) Potassium Level 4.1 mmol/L (3.5-5.1) Chloride Level 107 mmol/L (98-107) Carbon Dioxide Level 28 mmol/L (21-32) Anion Gap 8 (6-14) Blood Urea Nitrogen 16 mg/dL (7-20) Creatinine 1.0 mg/dL (0.6-1.0) Estimated GFR (Cockcroft-Gault) 70.5 BUN/Creatinine Ratio 16 (6-20) Glucose Level 87 mg/dL (70-99) Calcium Level 9.2 mg/dL (8.5-10.1) Total Bilirubin 0.5 mg/dL (0.2-1.0) Aspartate Amino Transf (AST/SGOT) 16 U/L (15-37) Alanine Aminotransferase (ALT/SGPT) 14 U/L (14-59) Alkaline Phosphatase 117 U/L (46-116) Troponin I Quantitative < 0.017 ng/mL (0.000-0.055) Total Protein 8.1 g/dL (6.4-8.2) Albumin 3.4 g/dL (3.4-5.0) Albumin/Globulin Ratio 0.7 (1.0-1.7) Laboratory Tests Test 04/23/19 05:00 04/23/19 14:00 White Blood Count 3.9 x10^3/uL (4.0-11.0) Red Blood Count 4.68 x10^6/uL (3.50-5.40) Hemoglobin 12.8 g/dL (12.0-15.5) Hematocrit 38.8 % (36.0-47.0) Mean Corpuscular Volume 83 fL (79-100) Mean Corpuscular Hemoglobin 27 pg (25-35) Mean Corpuscular Hemoglobin Concent 33 g/dL (31-37) Red Cell Distribution Width 15.2 % (11.5-14.5) Platelet Count 260 x10^3/uL (140-400) Neutrophils (%) (Auto) 58 % (31-73) Lymphocytes (%) (Auto) 34 % (24-48) Monocytes (%) (Auto) 5 % (0-9) Eosinophils (%) (Auto) 2 % (0-3) Basophils (%) (Auto) 1 % (0-3) Neutrophils # (Auto) 2.3 x10^3/uL (1.8-7.7) Lymphocytes # (Auto) 1.3 x10^3/uL (1.0-4.8) Monocytes # (Auto) 0.2 x10^3/uL (0.0-1.1) Eosinophils # (Auto) 0.1 x10^3/uL (0.0-0.7) Basophils # (Auto) 0.0 x10^3/uL (0.0-0.2) Prothrombin Time 11.7 SEC (11.7-14.0) Prothromb Time International Ratio 0.9 (0.8-1.1) Heparin Anti-Xa Act, Unfractionated 0.26 IU/mL (0.30-0.70) 0.63 IU/mL (0.30-0.70) Sodium Level 143 mmol/L (136-145) Potassium Level 4.1 mmol/L (3.5-5.1) Chloride Level 107 mmol/L (98-107) Carbon Dioxide Level 28 mmol/L (21-32) Anion Gap 8 (6-14) Blood Urea Nitrogen 16 mg/dL (7-20) Creatinine 1.0 mg/dL (0.6-1.0) Estimated GFR (Cockcroft-Gault) 70.5 BUN/Creatinine Ratio 16 (6-20) Glucose Level 87 mg/dL (70-99) Calcium Level 9.2 mg/dL (8.5-10.1) Total Bilirubin 0.5 mg/dL (0.2-1.0) Aspartate Amino Transf (AST/SGOT) 16 U/L (15-37) Alanine Aminotransferase (ALT/SGPT) 14 U/L (14-59) Alkaline Phosphatase 117 U/L (46-116) Troponin I Quantitative < 0.017 ng/mL (0.000-0.055) Total Protein 8.1 g/dL (6.4-8.2) Albumin 3.4 g/dL (3.4-5.0) Albumin/Globulin Ratio 0.7 (1.0-1.7) Images Images As above. Assessment/Plan Assessment/Plan 1. Pulmonary emboli and right DVT in the popliteal vein. Patient has been started on anticoagulation. Is also being evaluated by the pulmonary service. We'll continue present treatments. Echocardiogram pending. 2. Chest discomfort. Most consistent with pain from her pulmonary emboli. No elevation in troponin. Agree with present treatment. We'll check echo as above. 3. Hypertension. Reasonable control. Continue present treatment. 4. History of gastroesophageal reflux disease. 5. History of Parkinson's disease. Thank you for allowing us to participate in the care of your patient. LINDA GUERRA MD Apr 23, 2019 16:39
[2019-04-23 19:22] VITALS: BP 109/70
--- NOTE | 2019-04-23 21:54 | NUR ---
2nd UFH with rate of no change
[2019-04-23] MEDS: ALPRAZolam 0.5 MG TABLET PO PRN (21:56)
[2019-04-23] MEDS: REQUIP PO SCH (21:56)
[2019-04-23 23:17] VITALS: BP 130/84
[2019-04-24 03:38] VITALS: BP 137/86
[2019-04-24 05:06] LABS: PROTHROMBIN TIME PATIENT 13.2 SEC (11.7-14.0)
[2019-04-24 05:08] LABS: UNFRACTIONATED HEPARIN TESTING 0.42 IU/mL (0.30-0.70)
[2019-04-24] MEDS: PANTOPRAZOLE 40 MG TABLET.DR. PO SCH (06:17)
[2019-04-24] MEDS: HEPARIN 25,000UTS/500ML PREMIX 500 ML IV PRN (06:25)
[2019-04-24 07:41] VITALS: BP 129/78
[2019-04-24] MEDS: OMEGA-3 FATTY ACIDS/FISH OIL 1,000 MG CAPSULE. PO SCH (09:00)
--- NOTE | 2019-04-24 09:37 | PDOC ---
PROGRESS NOTES Subjective Subjective feeling better today Objective Objective Vital Signs Date Time Temp Pulse Resp B/P (MAP) Pulse Ox O2 Delivery O2 Flow Rate FiO2 04/24/19 07:41 98.4 84 20 129/78 (95) 97 Room Air 98.4 Intake and Output 04/24/19 06:59 Intake Total 1110 ml Balance 1110 ml Intake Oral 1110 ml # Voids 5 Physical Exam Abdomen: Normal bowel sounds Heart: Regular rate Extremities: No clubbing General: Alert, mild distress HEENT: Atraumatic Lungs: Clear to auscultation MUSCULOSKELETAL: No swelling Neck: No JVD Neuro: Normal speech Psych/Mental Status: Mental status NL Skin: No breakdown Diagnosis Problem List Problems Medical Problems: (1) Deep venous thrombosis Status: Acute Assessment Assessment 1.DVT of the right lower extremity 2. Pulmonary embolism small 3. Parkinsonism. 4 .Morbid obesity bmi 42 Plan.labs ok. ecjho today inr low 1.0 continue heparin drip. Consult Dr. Buitrago for pulmonary evaluation and management. Order echocardiogram per pulmonary recommendation. Chest pain- possibly due to esophageal reflux disease. Order EKG and cardiac enzymes and troponin level. Consult cardiology. Start Protonix. Plan Plan of Care Problems Medical Problems: (1) Deep venous thrombosis Status: Acute Comment Review of Relevant I have reviewed the following items paula (where applicable) has been applied. Labs Laboratory Tests Test 04/23/19 14:00 04/23/19 20:30 04/24/19 03:31 Heparin Anti-Xa Act, Unfractionated 0.63 IU/mL (0.30-0.70) 0.57 IU/mL (0.30-0.70) 0.42 IU/mL (0.30-0.70) Prothrombin Time 13.2 SEC (11.7-14.0) Prothromb Time International Ratio 1.0 (0.8-1.1) Medications Current Medications Pantoprazole Sodium (Protonix) 40 mg DAILYAC PO Last administered on 04/24/19at 06:17; Start 04/23/19 at 10:30 Warfarin Sodium (Coumadin) 7.5 mg 1X WARF ONCE PO Last administered on 04/23/19at 17:11; Start 04/23/19 at 16:00; Stop 04/23/19 at 16:01; Status DC Vitals/I & O Vital Sign - Last 24 Hours 04/23/19 04/23/19 04/23/19 04/23/19 11:00 15:00 19:22 20:00 Temp 98.1 98.0 98.0 98.1 98.0 98.0 Pulse 88 75 79 Resp 14 14 16 B/P (MAP) 148/82 (104) 123/74 (90) 109/70 (83) Pulse Ox 95 95 97 O2 Delivery Room Air Room Air Room Air Room Air 04/23/19 04/24/19 04/24/19 23:17 03:38 07:41 Temp 97.7 97.8 98.4 97.7 97.8 98.4 Pulse 79 77 84 Resp 18 16 20 B/P (MAP) 130/84 (99) 137/86 (103) 129/78 (95) Pulse Ox 96 98 97 O2 Delivery Room Air Room Air Room Air Intake and Output 04/23/19 04/23/19 04/24/19 14:59 22:59 06:59 Intake Total 230 ml 440 ml 440 ml Balance 230 ml 440 ml 440 ml JULIANNA BOTELLO MD Apr 24, 2019 09:37
[2019-04-24] MEDS: LISINOPRIL 20 MG TABLET PO SCH (11:12)
[2019-04-24] MEDS: FLUTICASONE 50MCG/NASAL SPRAY 16GM BOTTLE. NS SCH (11:12)
[2019-04-24] MEDS: VERAPAMIL SR 120 MG TABLET.ER. PO SCH (11:13)
--- NOTE | 2019-04-24 11:13 | NUR ---
Chart review - pt is 53 yo F admitted w/ dyspnea, PE, RLE pain, DVT PMHx: HTN, obesity, Parkinson's disease, restless leg YE Bennett thinks PT may help pt PT evaluation is indicated, please order if you concur. Addendum: 04/24/19 at 1114 by PETER NUÑEZ PT Amended: Links added.
[2019-04-24 11:30] VITALS: BP 147/86
--- NOTE | 2019-04-24 13:04 | PDOC ---
PULMONARY PROGRESS NOTES Subjective sob better, Vitals Vital Signs Date Time Temp Pulse Resp B/P (MAP) Pulse Ox O2 Delivery O2 Flow Rate FiO2 04/24/19 11:30 98.2 85 20 147/86 (106) 96 Room Air 98.2 ROS: No Nausea General: Alert, No acute distress HEENT: Other (nc at perrl) Lungs: Clear Cardiovascular: S1, S2 Abdomen: Soft, Non-tender, Other (obese) Neuro Exam: Alert Extremities: Other (r l edema) Skin: Warm Labs Laboratory Tests Test 04/22/19 14:05 04/23/19 05:00 04/23/19 14:00 04/23/19 20:30 Heparin Anti-Xa Act, Unfractionated 0.38 IU/mL (0.30-0.70) 0.26 IU/mL (0.30-0.70) 0.63 IU/mL (0.30-0.70) 0.57 IU/mL (0.30-0.70) White Blood Count 3.9 x10^3/uL (4.0-11.0) Red Blood Count 4.68 x10^6/uL (3.50-5.40) Hemoglobin 12.8 g/dL (12.0-15.5) Hematocrit 38.8 % (36.0-47.0) Mean Corpuscular Volume 83 fL (79-100) Mean Corpuscular Hemoglobin 27 pg (25-35) Mean Corpuscular Hemoglobin Concent 33 g/dL (31-37) Red Cell Distribution Width 15.2 % (11.5-14.5) Platelet Count 260 x10^3/uL (140-400) Neutrophils (%) (Auto) 58 % (31-73) Lymphocytes (%) (Auto) 34 % (24-48) Monocytes (%) (Auto) 5 % (0-9) Eosinophils (%) (Auto) 2 % (0-3) Basophils (%) (Auto) 1 % (0-3) Neutrophils # (Auto) 2.3 x10^3/uL (1.8-7.7) Lymphocytes # (Auto) 1.3 x10^3/uL (1.0-4.8) Monocytes # (Auto) 0.2 x10^3/uL (0.0-1.1) Eosinophils # (Auto) 0.1 x10^3/uL (0.0-0.7) Basophils # (Auto) 0.0 x10^3/uL (0.0-0.2) Prothrombin Time 11.7 SEC (11.7-14.0) Prothromb Time International Ratio 0.9 (0.8-1.1) Sodium Level 143 mmol/L (136-145) Potassium Level 4.1 mmol/L (3.5-5.1) Chloride Level 107 mmol/L (98-107) Carbon Dioxide Level 28 mmol/L (21-32) Anion Gap 8 (6-14) Blood Urea Nitrogen 16 mg/dL (7-20) Creatinine 1.0 mg/dL (0.6-1.0) Estimated GFR (Cockcroft-Gault) 70.5 BUN/Creatinine Ratio 16 (6-20) Glucose Level 87 mg/dL (70-99) Calcium Level 9.2 mg/dL (8.5-10.1) Total Bilirubin 0.5 mg/dL (0.2-1.0) Aspartate Amino Transf (AST/SGOT) 16 U/L (15-37) Alanine Aminotransferase (ALT/SGPT) 14 U/L (14-59) Alkaline Phosphatase 117 U/L (46-116) Troponin I Quantitative < 0.017 ng/mL (0.000-0.055) Total Protein 8.1 g/dL (6.4-8.2) Albumin 3.4 g/dL (3.4-5.0) Albumin/Globulin Ratio 0.7 (1.0-1.7) Test 04/24/19 03:31 Prothrombin Time 13.2 SEC (11.7-14.0) Prothromb Time International Ratio 1.0 (0.8-1.1) Heparin Anti-Xa Act, Unfractionated 0.42 IU/mL (0.30-0.70) Laboratory Tests Test 04/23/19 14:00 04/23/19 20:30 04/24/19 03:31 Heparin Anti-Xa Act, Unfractionated 0.63 IU/mL (0.30-0.70) 0.57 IU/mL (0.30-0.70) 0.42 IU/mL (0.30-0.70) Prothrombin Time 13.2 SEC (11.7-14.0) Prothromb Time International Ratio 1.0 (0.8-1.1) Medications Active Scripts Medications Dose Route/Sig Max Daily Dose Days Date Category Dose Instructions Flonase Allergy Relief (Fluticasone Propionate) 9.9 Ml [place].susp 2 Sprays NS DAILY 04/21/19 Reported Requip (Ropinirole Hcl) 3 Mg Tablet 6 Mg PO DAILY 04/21/19 Reported Benazepril Hcl 20 Mg Tablet 1 Tab PO DAILY 04/21/19 Reported Xanax (Alprazolam) 0.5 Mg Tablet 1 Tab PO DAILY 10/16/18 Rx Areghg-Patyrcro-Cnch 50-325-40 (Butalb/Acetaminophen/Caffeine) 1 Each Tablet 1 Each PO Q6HRS PRN 09/25/18 Rx Ondansetron Odt (Ondansetron) 4 Mg Tab.rapdis 1 Tab PO PRN Q6-8HRS PRN 09/25/18 Rx Zofran (Ondansetron Hcl) 4 Mg Tablet 4 Mg PO PRN TID PRN 09/21/18 Rx nausea/vomiting Hydroxyzine Hcl 25 Mg Tablet 1 Tab PO PRN QHS PRN 12/21/17 Rx Macrobid 100 Mg Capsule (Nitrofurantoin Monohyd/M-Cryst) 100 Mg Capsule 1 Cap PO BID 12/10/17 Rx Claritin (Loratadine) 10 Mg Capsule 10 Mg PO DAILY PRN 11/28/13 Reported Fish Oil ([place]-3 Fatty Acids) 500 Mg Capsule 500 Mg PO DAILY 11/28/13 Reported Verapamil Er (Verapamil Hcl) 120 Mg Tablet.er 120 Mg PO DAILY 11/28/13 Reported Impression . IMPRESSION: 1. Dyspnea secondary to acute pulmonary embolism. 2. Acute pulmonary embolism. small PE , RLL, BABAK 3. Acute right lower extremity deep venous thrombosis. 4. Obesity, probable obstructive sleep apnea-hypopnea syndrome./ SEDENTARY life style as risk factors 5. Parkinson. 6. Hypertension. Plan . PLAN AND RECOMMENDATIONS: 1. Titrate FiO2 to keep O2 saturation 92%. 2. cont heparin. 3. cont Coumadin. 4. She is obese, her BMI 42.2, she will not be a good candidate for DOAC. 5. I do recommend echocardiogram. 6. sleep study as out pt discussed w pt, rn f/u CTA, dopplers in 6 weeks KEVIN LOPEZ MD Apr 24, 2019 13:04
--- NOTE | 2019-04-24 13:26 | PDOC ---
CARDIO Progress Notes Date and Time Date of Service 04/24/19 Time of Evaluation 1310 Subjective Subjective: No Chest Pain, No Palpitations, Other (c/o MILLS) Vitals Vitals Vital Signs Date Time Temp Pulse Resp B/P (MAP) Pulse Ox O2 Delivery O2 Flow Rate FiO2 04/24/19 11:30 98.2 85 20 147/86 (106) 96 Room Air 98.2 Weight Weight [ ] Input and Output Intake and Output Intake and Output 04/24/19 07:00 Intake Total 1110 ml Balance 1110 ml Intake Oral 1110 ml # Voids 5 Laboratory Labs Laboratory Tests Test 04/23/19 14:00 04/23/19 20:30 04/24/19 03:31 Heparin Anti-Xa Act, Unfractionated 0.63 IU/mL (0.30-0.70) 0.57 IU/mL (0.30-0.70) 0.42 IU/mL (0.30-0.70) Prothrombin Time 13.2 SEC (11.7-14.0) Prothromb Time International Ratio 1.0 (0.8-1.1) Physical Exam HEENT: Neck Supple W Full Motion Chest: Symmetric LUNGS: Clear to Auscultation Heart: S1S2, RRR Abdomen: Soft N/T Extremities: No Calf Tenderness Neurology: alert, oriented, follow commands Assessment Assessment 1. Acute PE and right DVT 2. Chest pain, atypical and most probably secondary to above. Troponin negative- AMI ruled out. Echo showed preserved LV systolic function with an EF of 55-60%. No significant RV dilation noted 3. Hypertension; controlled 4. GERD 5. History of Parkinson's disease. Recommendations Anticoagulation with warfarin. Bridging with heparin Consider outpatient ischemic evaluation Lipids, TSH Supportive care Follow pulmonary recs JOSÉ DESAI APRN Apr 24, 2019 13:26
--- NOTE | 2019-04-24 14:48 | NUR ---
Pharmacy Warfarin Dosing Note S: Pharmacy consulted to assist with anticoagulation therapy started 04/21/19 O: LEVI GORE is a 53 year old F with an acute PE. LABS: Last INR: 1.0 Last HGB: 12.8 Last HCT: 38.2 Last PLT: 227 Last dose of 7.5 mg given on 04/23/19 at 1711 Ongoing Drug Interactions: fish oil A:INR of 1.0 is below desired range of 2 - 3. She has received warfarin 5 mg x 1 dose (04/21), and warfarin 7.5 mg x 2 doses (04/22-). Bridge therapy with a heparin drip continues; UFH was therapeutic this AM. P: Warfarin 10 mg today @ 1600 Bridge Therapy: Heparin drip Next INR due 04/25/19 Pharmacy anticoagulation service will continue to follow. CARMEN LINDSAY [facility], 04/24/19 [id number]
[2019-04-24 15:48] VITALS: BP 114/71
[2019-04-24] MEDS ORDERED: WARFARIN 5 MG TABLET. PO ONE (16:00)
[2019-04-24 19:20] VITALS: BP 113/65
[2019-04-24] MEDS: ALPRAZolam 0.5 MG TABLET PO PRN (20:54)
[2019-04-24] MEDS: REQUIP PO SCH (20:54)
[2019-04-24 23:36] VITALS: BP 116/68
[2019-04-25 03:09] VITALS: BP 133/84
[2019-04-25 04:43] LABS: HEMATOCRIT 35.5 % (36.0-47.0); HEMOGLOBIN 11.9 g/dL (12.0-15.5); RED BLOOD COUNT 4.26 x10^6/uL (3.50-5.40); RED CELL DISTRIBUTION WIDTH 14.8 % (11.5-14.5); WHITE BLOOD COUNT 3.7 x10^3/uL (4.0-11.0)
[2019-04-25 04:58] LABS: CHOLESTEROL/HDL RATIO 3.6
[2019-04-25 05:03] LABS: PROTHROMBIN TIME PATIENT 14.4 SEC (11.7-14.0)
[2019-04-25 05:04] LABS: UNFRACTIONATED HEPARIN TESTING 0.56 IU/mL (0.30-0.70)
[2019-04-25 07:38] VITALS: BP 134/83
[2019-04-25] MEDS: OMEGA-3 FATTY ACIDS/FISH OIL 1,000 MG CAPSULE. PO SCH (09:00)
--- NOTE | 2019-04-25 09:02 | PDOC ---
PROGRESS NOTES Subjective Subjective feels better today Objective Objective Vital Signs Date Time Temp Pulse Resp B/P (MAP) Pulse Ox O2 Delivery O2 Flow Rate FiO2 04/25/19 07:38 98.5 81 20 134/83 (100) 97 Room Air 98.5 Intake and Output 04/25/19 07:00 Intake Total 720 ml Balance 720 ml Intake Oral 720 ml # Voids 4 Physical Exam Abdomen: Normal bowel sounds Heart: Regular rate Extremities: No clubbing General: Alert, mild distress HEENT: Atraumatic Lungs: Clear to auscultation MUSCULOSKELETAL: No swelling Neck: No JVD Neuro: Normal speech Psych/Mental Status: Mental status NL Skin: No breakdown Diagnosis Problem List Problems Medical Problems: (1) Deep venous thrombosis Status: Acute Assessment Assessment 1.DVT of the right lower extremity 2. Pulmonary embolism 3. Parkinsonism. 4 .Morbid obesity bmi 42 Plan.labs ok. ECHO - good LVF inr low 1.2 continue heparin drip+ coumadin started. spoke with RN home in 1-2 days Plan Plan of Care Problems Medical Problems: (1) Deep venous thrombosis Status: Acute Comment Review of Relevant I have reviewed the following items paula (where applicable) has been applied. Labs Laboratory Tests Test 04/25/19 03:35 White Blood Count 3.7 x10^3/uL (4.0-11.0) Red Blood Count 4.26 x10^6/uL (3.50-5.40) Hemoglobin 11.9 g/dL (12.0-15.5) Hematocrit 35.5 % (36.0-47.0) Mean Corpuscular Volume 83 fL (79-100) Mean Corpuscular Hemoglobin 28 pg (25-35) Mean Corpuscular Hemoglobin Concent 33 g/dL (31-37) Red Cell Distribution Width 14.8 % (11.5-14.5) Platelet Count 233 x10^3/uL (140-400) Prothrombin Time 14.4 SEC (11.7-14.0) Prothromb Time International Ratio 1.2 (0.8-1.1) Heparin Anti-Xa Act, Unfractionated 0.56 IU/mL (0.30-0.70) Triglycerides Level 36 mg/dL (0-150) Cholesterol Level 159 mg/dL (0-200) LDL Cholesterol, Calculated 108 mg/dL (0-100) VLDL Cholesterol, Calculated 7 mg/dL (0-40) Non-HDL Cholesterol Calculated 115 mg/dL (0-129) HDL Cholesterol 44 mg/dL (40-60) Cholesterol/HDL Ratio 3.6 Thyroid Stimulating Hormone (TSH) 2.079 uIU/mL (0.358-3.74) Medications Current Medications Warfarin Sodium (Coumadin) 10 mg 1X WARF ONCE PO Last administered on 04/24/19at 16:50; Start 04/24/19 at 16:00; Stop 04/24/19 at 16:01; Status DC Vitals/I & O Vital Sign - Last 24 Hours 04/24/19 04/24/19 04/24/19 04/24/19 11:12 11:13 11:30 15:48 Temp 98.2 98.4 98.2 98.4 Pulse 84 84 85 78 Resp 20 20 B/P (MAP) 129/78 129/78 147/86 (106) 114/71 (85) Pulse Ox 96 100 O2 Delivery Room Air Room Air 04/24/19 04/24/19 04/24/19 04/25/19 19:20 20:00 23:36 03:09 Temp 97.7 98.1 98.3 97.7 98.1 98.3 Pulse 78 57 78 Resp 20 16 16 B/P (MAP) 113/65 (81) 116/68 (84) 133/84 (100) Pulse Ox 95 96 97 O2 Delivery Room Air Room Air Room Air Room Air 04/25/19 07:38 Temp 98.5 98.5 Pulse 81 Resp 20 B/P (MAP) 134/83 (100) Pulse Ox 97 O2 Delivery Room Air Intake and Output 04/24/19 04/24/19 04/25/19 15:00 23:00 07:00 Intake Total 400 ml 200 ml 120 ml Balance 400 ml 200 ml 120 ml JULIANNA BOTELLO MD Apr 25, 2019 09:02
[2019-04-25] MEDS: HEPARIN 25,000UTS/500ML PREMIX 500 ML IV PRN (09:09)
[2019-04-25] MEDS: FLUTICASONE 50MCG/NASAL SPRAY 16GM BOTTLE. NS SCH (09:10)
[2019-04-25] MEDS: PANTOPRAZOLE 40 MG TABLET.DR. PO SCH (09:11)
[2019-04-25] MEDS: LISINOPRIL 20 MG TABLET PO SCH (09:11)
[2019-04-25] MEDS: VERAPAMIL SR 120 MG TABLET.ER. PO SCH (09:11)
--- NOTE | 2019-04-25 09:16 | NUR ---
SW following pt for dc planning. Chart reviewed. Pt lives at home. PT screen indicate pt might benefit from PT eval/assessment. No other needs noted at this time.
--- NOTE | 2019-04-25 09:20 | CARD ---
MR#: [id number] Date of Study: 04/24/2019 Ordering Physician: DEV WADDELL, Referring Physician: Madi HECTRO: Corrie Sutton RDCS APPROVED REPORT EXAM: Two-dimensional and M-mode echocardiogram with Doppler and color Doppler. Other Information Quality : Good INDICATION Pulmonary Emboli 2D DIMENSIONS RVDd2.3 (2.9-3.5cm)Left Atrium(2D)2.9 (1.6-4.0cm) IVSd0.7 (0.7-1.1cm)Aortic Root(2D)2.5 (2.0-3.7cm) LVDd4.6 (3.9-5.9cm)LVOT Diameter2.0 (1.8-2.4cm) PWd0.7 (0.7-1.1cm)LVDs2.5 (2.5-4.0cm) FS (%) 30.0 %SV73.1 ml LVEF(%)60.0 (>50%) Aortic Valve AoV Peak Kalia.129.4cm/sAoV VTI20.8cm AO Peak GR.6.7mmHgLVOT Peak Kalia.122.8cm/s AO Mean GR.4mmHgAVA (VMAX)2.93cm2 CANDELARIO (VTI)3.10cm2 Mitral Valve MV E Kpxaibad39.7cm/sMV DECEL [id number] MV A Ldjtuaqv63.2cm/sE/A Ratio0.9 Tricuspid Valve TR P. Rueqrtvf353mk/sRAP NNEQOGKI9fuQr TR Peak Gr.22xuAeKCZI51zjJw Pulmonary Vein S1 Tawdewys68.2cm/sD2 Rtwveunn94.9cm/s LEFT VENTRICLE The left ventricle is normal size. There is normal left ventricular wall thickness. The left ventricu lar systolic function is normal. The Ejection Fraction is 55-60%. There is normal LV segmental wall m otion. Transmitral Doppler flow pattern is Grade I-abnormal relaxation pattern. RIGHT VENTRICLE The right ventricle is normal size. The right ventricular systolic function is normal. ATRIA The left atrium size is normal. The right atrium size is normal. The interatrial septum is intact wit h no evidence for an atrial septal defect or patent foramen ovale as noted on 2-D or Doppler imaging. AORTIC VALVE The aortic valve is normal in structure and function. Doppler and Color Flow revealed no significant aortic regurgitation. There is no significant aortic valvular stenosis. MITRAL VALVE The mitral valve is normal in structure and function. There is no evidence of mitral valve prolapse. There is no mitral valve stenosis. Doppler and Color-flow revealed trace mitral regurgitation. TRICUSPID VALVE The tricuspid valve is normal in structure and function. Doppler and Color Flow revealed trace tricus pid regurgitation. The PA pressure was estimated at 26 mmHg. There is no tricuspid valve stenosis. PULMONIC VALVE The pulmonic valve is not well visualized. Doppler and Color Flow revealed trace to mild pulmonic fay vular regurgitation. There is no pulmonic valvular stenosis. GREAT VESSELS The aortic root is normal in size. The ascending aorta is normal in size. The IVC is normal in size a nd collapses >50% with inspiration. PERICARDIAL EFFUSION There is no evidence of significant pericardial effusion. Critical Notification Critical Value: No <Conclusion> The left ventricular systolic function is normal. The Ejection Fraction is 55-60%. There is normal LV segmental wall motion. Transmitral Doppler flow pattern is Grade I-abnormal relaxation pattern. Trace mitral regurgitation. Trace tricuspid regurgitation. The PA pressure was estimated at 26 mmHg. There is no evidence of significant pericardial effusion. Signed by : Eddie Bro, Electronically Approved : 04/24/2019 10:59:43
--- NOTE | 2019-04-25 11:03 | PDOC ---
PULMONARY PROGRESS NOTES Subjective sob better, Vitals Vital Signs Date Time Temp Pulse Resp B/P (MAP) Pulse Ox O2 Delivery O2 Flow Rate FiO2 04/25/19 09:11 81 134/83 04/25/19 08:00 Room Air 04/25/19 07:38 98.5 20 97 98.5 ROS: No Nausea General: Alert, No acute distress HEENT: Other (nc at perrl) Lungs: Clear Cardiovascular: S1, S2 Abdomen: Soft, Non-tender, Other (obese) Neuro Exam: Alert Extremities: Other (r l edema) Skin: Warm Labs Laboratory Tests Test 04/23/19 14:00 04/23/19 20:30 04/24/19 03:31 04/25/19 03:35 Heparin Anti-Xa Act, Unfractionated 0.63 IU/mL (0.30-0.70) 0.57 IU/mL (0.30-0.70) 0.42 IU/mL (0.30-0.70) 0.56 IU/mL (0.30-0.70) Prothrombin Time 13.2 SEC (11.7-14.0) 14.4 SEC (11.7-14.0) Prothromb Time International Ratio 1.0 (0.8-1.1) 1.2 (0.8-1.1) White Blood Count 3.7 x10^3/uL (4.0-11.0) Red Blood Count 4.26 x10^6/uL (3.50-5.40) Hemoglobin 11.9 g/dL (12.0-15.5) Hematocrit 35.5 % (36.0-47.0) Mean Corpuscular Volume 83 fL (79-100) Mean Corpuscular Hemoglobin 28 pg (25-35) Mean Corpuscular Hemoglobin Concent 33 g/dL (31-37) Red Cell Distribution Width 14.8 % (11.5-14.5) Platelet Count 233 x10^3/uL (140-400) Triglycerides Level 36 mg/dL (0-150) Cholesterol Level 159 mg/dL (0-200) LDL Cholesterol, Calculated 108 mg/dL (0-100) VLDL Cholesterol, Calculated 7 mg/dL (0-40) Non-HDL Cholesterol Calculated 115 mg/dL (0-129) HDL Cholesterol 44 mg/dL (40-60) Cholesterol/HDL Ratio 3.6 Thyroid Stimulating Hormone (TSH) 2.079 uIU/mL (0.358-3.74) Laboratory Tests Test 04/25/19 03:35 White Blood Count 3.7 x10^3/uL (4.0-11.0) Red Blood Count 4.26 x10^6/uL (3.50-5.40) Hemoglobin 11.9 g/dL (12.0-15.5) Hematocrit 35.5 % (36.0-47.0) Mean Corpuscular Volume 83 fL (79-100) Mean Corpuscular Hemoglobin 28 pg (25-35) Mean Corpuscular Hemoglobin Concent 33 g/dL (31-37) Red Cell Distribution Width 14.8 % (11.5-14.5) Platelet Count 233 x10^3/uL (140-400) Prothrombin Time 14.4 SEC (11.7-14.0) Prothromb Time International Ratio 1.2 (0.8-1.1) Heparin Anti-Xa Act, Unfractionated 0.56 IU/mL (0.30-0.70) Triglycerides Level 36 mg/dL (0-150) Cholesterol Level 159 mg/dL (0-200) LDL Cholesterol, Calculated 108 mg/dL (0-100) VLDL Cholesterol, Calculated 7 mg/dL (0-40) Non-HDL Cholesterol Calculated 115 mg/dL (0-129) HDL Cholesterol 44 mg/dL (40-60) Cholesterol/HDL Ratio 3.6 Thyroid Stimulating Hormone (TSH) 2.079 uIU/mL (0.358-3.74) Medications Active Scripts Medications Dose Route/Sig Max Daily Dose Days Date Category Dose Instructions Flonase Allergy Relief (Fluticasone Propionate) 9.9 Ml [place].susp 2 Sprays NS DAILY 04/21/19 Reported Requip (Ropinirole Hcl) 3 Mg Tablet 6 Mg PO DAILY 04/21/19 Reported Benazepril Hcl 20 Mg Tablet 1 Tab PO DAILY 04/21/19 Reported Xanax (Alprazolam) 0.5 Mg Tablet 1 Tab PO DAILY 10/16/18 Rx Seamln-Nmjwzges-Junb 50-325-40 (Butalb/Acetaminophen/Caffeine) 1 Each Tablet 1 Each PO Q6HRS PRN 09/25/18 Rx Ondansetron Odt (Ondansetron) 4 Mg Tab.rapdis 1 Tab PO PRN Q6-8HRS PRN 09/25/18 Rx Zofran (Ondansetron Hcl) 4 Mg Tablet 4 Mg PO PRN TID PRN 09/21/18 Rx nausea/vomiting Hydroxyzine Hcl 25 Mg Tablet 1 Tab PO PRN QHS PRN 12/21/17 Rx Macrobid 100 Mg Capsule (Nitrofurantoin Monohyd/M-Cryst) 100 Mg Capsule 1 Cap PO BID 12/10/17 Rx Claritin (Loratadine) 10 Mg Capsule 10 Mg PO DAILY PRN 11/28/13 Reported Fish Oil ([place]-3 Fatty Acids) 500 Mg Capsule 500 Mg PO DAILY 11/28/13 Reported Verapamil Er (Verapamil Hcl) 120 Mg Tablet.er 120 Mg PO DAILY 11/28/13 Reported Impression . IMPRESSION: 1. Dyspnea secondary to acute pulmonary embolism. 2. Acute pulmonary embolism. small PE , RLL, BABAK 3. Acute right lower extremity deep venous thrombosis. 4. Obesity, probable obstructive sleep apnea-hypopnea syndrome./ SEDENTARY life style as risk factors 5. Parkinson. 6. Hypertension. Plan . PLAN AND RECOMMENDATIONS: 1. Titrate FiO2 to keep O2 saturation 92%. 2. cont heparin.till INR therapeutic 3. cont Coumadin. 4. She is obese, her BMI 42.2, she will not be a good candidate for DOAC. 5. I do recommend echocardiogram. 6. sleep study as out pt discussed w pt, rn f/u CTA, dopplers in 6 weeks KEVIN LOPEZ MD Apr 25, 2019 11:03
[2019-04-25 11:06] VITALS: BP 108/71
--- NOTE | 2019-04-25 14:21 | NUR ---
Pharmacy Warfarin Dosing Note S: Pharmacy consulted to assist with anticoagulation therapy started O: LEVI GORE is a 53 year old F with DVT/PE LABS: Last INR: 1.2 Last HGB: 11.9 Last HCT: 35.5 Last PLT: 233 Last dose of 10 mg given on 04/24/19 at 1650 Vitamin K given: Ongoing Drug Interactions: fish oil A:INR of 1.2 is below desired range. Target range for this patient is: 2 -3 P: Warfarin dose: 15 mg Today at 1600 Bridge Therapy: Heparin Therapeutic CONT Next INR due IN AM Pharmacy anticoagulation service will continue to follow. DYLLAN ASTUDILLO [facility], 04/25/19 0532
[2019-04-25 15:30] VITALS: BP 121/75
[2019-04-25] MEDS ORDERED: WARFARIN 7.5 MG TABLET. PO ONE (16:00)
[2019-04-25 19:14] VITALS: BP 113/63
[2019-04-25] MEDS: ALPRAZolam 0.5 MG TABLET PO PRN (21:16)
[2019-04-25] MEDS: REQUIP PO SCH (21:16)
[2019-04-25 23:00] VITALS: BP 105/67
[2019-04-26 03:00] VITALS: BP 141/83
[2019-04-26 05:55] LABS: PROTHROMBIN TIME PATIENT 15.2 SEC (11.7-14.0)
[2019-04-26 05:56] LABS: UNFRACTIONATED HEPARIN TESTING 0.62 IU/mL (0.30-0.70)
[2019-04-26 07:55] VITALS: BP 132/77
[2019-04-26] MEDS: OMEGA-3 FATTY ACIDS/FISH OIL 1,000 MG CAPSULE. PO SCH (09:00)
--- NOTE | 2019-04-26 09:19 | PDOC ---
PROGRESS NOTES Subjective Subjective no new problems Objective Objective Vital Signs Date Time Temp Pulse Resp B/P (MAP) Pulse Ox O2 Delivery O2 Flow Rate FiO2 04/26/19 07:55 97.9 78 18 132/77 (95) 100 Room Air 97.9 Intake and Output 04/26/19 07:00 Intake Total 1800 ml Output Total 3 ml Balance 1797 ml Intake Oral 1800 ml Output Urine Total 3 ml # Voids 8 Physical Exam Abdomen: Normal bowel sounds Heart: Regular rate Extremities: No clubbing General: Alert, mild distress HEENT: Atraumatic Lungs: Clear to auscultation MUSCULOSKELETAL: No swelling Neck: No JVD Neuro: Normal speech Psych/Mental Status: Mental status NL Skin: No breakdown Diagnosis Problem List Problems Medical Problems: (1) Deep venous thrombosis Status: Acute Assessment Assessment 1.DVT of the right lower extremity 2. Pulmonary embolism 3. Parkinsonism. 4 .Morbid obesity. BMI 42 Plan.labs ok. ECHO - good LVF inr low 1.2 continue heparin drip+ coumadin started recieved 15 mg last night. spoke with RN home in 1-2 days,when inr more than 2.0 Plan Plan of Care Problems Medical Problems: (1) Deep venous thrombosis Status: Acute Comment Review of Relevant I have reviewed the following items paula (where applicable) has been applied. Labs Laboratory Tests Test 04/26/19 04:55 Prothrombin Time 15.2 SEC (11.7-14.0) Prothromb Time International Ratio 1.2 (0.8-1.1) Heparin Anti-Xa Act, Unfractionated 0.62 IU/mL (0.30-0.70) Medications Current Medications Warfarin Sodium (Coumadin) 15 mg 1X WARF ONCE PO Last administered on 04/25/19at 17:28; Start 04/25/19 at 16:00; Stop 04/25/19 at 16:01; Status DC Vitals/I & O Vital Sign - Last 24 Hours 04/25/19 04/25/19 04/25/19 04/25/19 11:06 15:30 19:14 20:00 Temp 98.5 97.7 98.0 98.5 97.7 98.0 Pulse 82 81 68 Resp 18 20 18 B/P (MAP) 108/71 (83) 121/75 (90) 113/63 (80) Pulse Ox 99 97 97 O2 Delivery Room Air Room Air Room Air Room Air 04/25/19 04/26/19 04/26/19 23:00 03:00 07:55 Temp 98.1 99.1 97.9 98.1 99.1 97.9 Pulse 71 78 78 Resp 18 18 18 B/P (MAP) 105/67 (80) 141/83 (102) 132/77 (95) Pulse Ox 97 97 100 O2 Delivery Room Air Room Air Room Air Intake and Output 04/25/19 04/25/19 04/26/19 15:00 23:00 07:00 Intake Total 320 ml 440 ml 1040 ml Output Total 3 ml Balance 320 ml 440 ml 1037 ml JULIANNA BOTELLO MD Apr 26, 2019 09:19
[2019-04-26] MEDS: VERAPAMIL SR 120 MG TABLET.ER. PO SCH (09:38)
[2019-04-26] MEDS: FLUTICASONE 50MCG/NASAL SPRAY 16GM BOTTLE. NS SCH (09:39)
[2019-04-26] MEDS: PANTOPRAZOLE 40 MG TABLET.DR. PO SCH (09:39)
[2019-04-26] MEDS: LISINOPRIL 20 MG TABLET PO SCH (09:40)
[2019-04-26] MEDS: ALPRAZolam 0.25 MG TABLET PO SCH ×2 (09:45→20:45)
[2019-04-26] MEDS: HEPARIN 25,000UTS/500ML PREMIX 500 ML IV PRN (09:52)
--- NOTE | 2019-04-26 09:52 | PDOC ---
PULMONARY PROGRESS NOTES Subjective sob better, Vitals Vital Signs Date Time Temp Pulse Resp B/P (MAP) Pulse Ox O2 Delivery O2 Flow Rate FiO2 04/26/19 09:40 78 132/77 04/26/19 07:55 97.9 18 100 Room Air 97.9 ROS: No Nausea General: Alert, No acute distress HEENT: Other (nc at perrl) Lungs: Clear Cardiovascular: S1, S2 Abdomen: Soft, Non-tender, Other (obese) Neuro Exam: Alert Extremities: Other (r l edema) Skin: Warm Labs Laboratory Tests Test 04/25/19 03:35 04/26/19 04:55 White Blood Count 3.7 x10^3/uL (4.0-11.0) Red Blood Count 4.26 x10^6/uL (3.50-5.40) Hemoglobin 11.9 g/dL (12.0-15.5) Hematocrit 35.5 % (36.0-47.0) Mean Corpuscular Volume 83 fL (79-100) Mean Corpuscular Hemoglobin 28 pg (25-35) Mean Corpuscular Hemoglobin Concent 33 g/dL (31-37) Red Cell Distribution Width 14.8 % (11.5-14.5) Platelet Count 233 x10^3/uL (140-400) Prothrombin Time 14.4 SEC (11.7-14.0) 15.2 SEC (11.7-14.0) Prothromb Time International Ratio 1.2 (0.8-1.1) 1.2 (0.8-1.1) Heparin Anti-Xa Act, Unfractionated 0.56 IU/mL (0.30-0.70) 0.62 IU/mL (0.30-0.70) Triglycerides Level 36 mg/dL (0-150) Cholesterol Level 159 mg/dL (0-200) LDL Cholesterol, Calculated 108 mg/dL (0-100) VLDL Cholesterol, Calculated 7 mg/dL (0-40) Non-HDL Cholesterol Calculated 115 mg/dL (0-129) HDL Cholesterol 44 mg/dL (40-60) Cholesterol/HDL Ratio 3.6 Thyroid Stimulating Hormone (TSH) 2.079 uIU/mL (0.358-3.74) Laboratory Tests Test 04/26/19 04:55 Prothrombin Time 15.2 SEC (11.7-14.0) Prothromb Time International Ratio 1.2 (0.8-1.1) Heparin Anti-Xa Act, Unfractionated 0.62 IU/mL (0.30-0.70) Medications Active Scripts Medications Dose Route/Sig Max Daily Dose Days Date Category Dose Instructions Flonase Allergy Relief (Fluticasone Propionate) 9.9 Ml [place].susp 2 Sprays NS DAILY 04/21/19 Reported Requip (Ropinirole Hcl) 3 Mg Tablet 6 Mg PO DAILY 04/21/19 Reported Benazepril Hcl 20 Mg Tablet 1 Tab PO DAILY 04/21/19 Reported Xanax (Alprazolam) 0.5 Mg Tablet 1 Tab PO DAILY 10/16/18 Rx Ulllkf-Abwigdsv-Nxwy 50-325-40 (Butalb/Acetaminophen/Caffeine) 1 Each Tablet 1 Each PO Q6HRS PRN 09/25/18 Rx Ondansetron Odt (Ondansetron) 4 Mg Tab.rapdis 1 Tab PO PRN Q6-8HRS PRN 09/25/18 Rx Zofran (Ondansetron Hcl) 4 Mg Tablet 4 Mg PO PRN TID PRN 09/21/18 Rx nausea/vomiting Hydroxyzine Hcl 25 Mg Tablet 1 Tab PO PRN QHS PRN 12/21/17 Rx Macrobid 100 Mg Capsule (Nitrofurantoin Monohyd/M-Cryst) 100 Mg Capsule 1 Cap PO BID 12/10/17 Rx Claritin (Loratadine) 10 Mg Capsule 10 Mg PO DAILY PRN 11/28/13 Reported Fish Oil ([place]-3 Fatty Acids) 500 Mg Capsule 500 Mg PO DAILY 11/28/13 Reported Verapamil Er (Verapamil Hcl) 120 Mg Tablet.er 120 Mg PO DAILY 11/28/13 Reported Impression . IMPRESSION: 1. Dyspnea secondary to acute pulmonary embolism. 2. Acute pulmonary embolism. small PE , RLL, BABAK 3. Acute right lower extremity deep venous thrombosis. 4. Obesity, probable obstructive sleep apnea-hypopnea syndrome./ SEDENTARY life style as risk factors 5. Parkinson. 6. Hypertension. Plan . PLAN AND RECOMMENDATIONS: 1. Titrate FiO2 to keep O2 saturation 92%. 2. cont heparin.till INR therapeutic or bridge with lovenox as OP with PCP 3. cont Coumadin. 4. She is obese, her BMI 42.2, she will not be a good candidate for DOAC. 5. I do recommend echocardiogram. 6. sleep study as out pt discussed w pt, rn f/u CTA, dopplers in 6 weeks KEVIN LOPEZ MD Apr 26, 2019 09:52
[2019-04-26 11:13] VITALS: BP 117/70
[2019-04-26 14:37] VITALS: BP 129/93
[2019-04-26] MEDS ORDERED: WARFARIN 5 MG TABLET. PO ONE (16:00)
[2019-04-26 19:10] VITALS: BP 99/62
[2019-04-26] MEDS: REQUIP PO SCH (20:46)
[2019-04-26 23:21] VITALS: BP 99/64
[2019-04-27 03:35] VITALS: BP 118/79
[2019-04-27 04:04] LABS: HEMATOCRIT 36.1 % (36.0-47.0); HEMOGLOBIN 12.2 g/dL (12.0-15.5); RED BLOOD COUNT 4.36 x10^6/uL (3.50-5.40); RED CELL DISTRIBUTION WIDTH 15.3 % (11.5-14.5)
[2019-04-27 04:11] LABS: PROTHROMBIN TIME PATIENT 19.3 SEC (11.7-14.0)
[2019-04-27 04:12] LABS: UNFRACTIONATED HEPARIN TESTING 0.55 IU/mL (0.30-0.70)
[2019-04-27 07:49] VITALS: BP 121/85
[2019-04-27] MEDS: PANTOPRAZOLE 40 MG TABLET.DR. PO SCH (08:06)
[2019-04-27] MEDS: ALPRAZolam 0.25 MG TABLET PO SCH (08:46)
[2019-04-27] MEDS: VERAPAMIL SR 120 MG TABLET.ER. PO SCH (08:46)
[2019-04-27] MEDS: LISINOPRIL 20 MG TABLET PO SCH (08:47)
[2019-04-27] MEDS: FLUTICASONE 50MCG/NASAL SPRAY 16GM BOTTLE. NS SCH (08:48)
[2019-04-27] MEDS: OMEGA-3 FATTY ACIDS/FISH OIL 1,000 MG CAPSULE. PO SCH (09:00)
--- NOTE | 2019-04-27 09:43 | PDOC ---
PROGRESS NOTES Subjective Subjective feels ok Objective Objective Vital Signs Date Time Temp Pulse Resp B/P (MAP) Pulse Ox O2 Delivery O2 Flow Rate FiO2 04/27/19 08:47 75 121/85 04/27/19 07:49 98.5 18 99 Room Air 98.5 Intake and Output 04/27/19 07:00 Intake Total 1780 ml Balance 1780 ml Intake Oral 1780 ml # Voids 6 Physical Exam Abdomen: Normal bowel sounds Heart: Regular rate Extremities: No clubbing General: Alert, mild distress HEENT: Atraumatic Lungs: Clear to auscultation MUSCULOSKELETAL: No swelling Neck: No JVD Neuro: Normal speech Psych/Mental Status: Mental status NL Skin: No breakdown Diagnosis Problem List Problems Medical Problems: (1) Deep venous thrombosis Status: Acute Assessment Assessment 1.DVT of the right lower extremity 2. Pulmonary embolism 3. Parkinsonism. 4 .Morbid obesity. BMI 42 Plan.labs ok. ECHO - good LVF inr low 1.7 spoke with RN home today. will give Lovenox sq 1 dose today before she goes home. coumadin 10 mg daily check inr wednesday Plan Plan of Care Problems Medical Problems: (1) Deep venous thrombosis Status: Acute Comment Review of Relevant I have reviewed the following items paula (where applicable) has been applied. Labs Laboratory Tests Test 04/27/19 03:35 White Blood Count 4.0 x10^3/uL (4.0-11.0) Red Blood Count 4.36 x10^6/uL (3.50-5.40) Hemoglobin 12.2 g/dL (12.0-15.5) Hematocrit 36.1 % (36.0-47.0) Mean Corpuscular Volume 83 fL (79-100) Mean Corpuscular Hemoglobin 28 pg (25-35) Mean Corpuscular Hemoglobin Concent 34 g/dL (31-37) Red Cell Distribution Width 15.3 % (11.5-14.5) Platelet Count 249 x10^3/uL (140-400) Prothrombin Time 19.3 SEC (11.7-14.0) Prothromb Time International Ratio 1.7 (0.8-1.1) Heparin Anti-Xa Act, Unfractionated 0.55 IU/mL (0.30-0.70) Medications Current Medications Alprazolam (Xanax) 0.25 mg BID PO Last administered on 04/27/19at 08:46; Start 04/26/19 at 09:45 Warfarin Sodium (Coumadin) 20 mg 1X WARF ONCE PO Last administered on 04/26/19at 17:04; Start 04/26/19 at 16:00; Stop 04/26/19 at 16:01; Status DC Vitals/I & O Vital Sign - Last 24 Hours 04/26/19 04/26/19 04/26/19 04/26/19 11:13 14:37 19:10 20:00 Temp 98.0 98.0 98.0 98.0 98.0 98.0 Pulse 76 67 81 Resp 18 14 18 B/P (MAP) 117/70 (86) 129/93 (105) 99/62 (74) Pulse Ox 96 97 97 O2 Delivery Room Air Room Air Room Air Room Air 04/26/19 04/27/19 04/27/19 04/27/19 23:21 03:35 07:49 08:46 Temp 98.2 98.1 98.5 98.2 98.1 98.5 Pulse 77 73 75 75 Resp 16 18 18 B/P (MAP) 99/64 (76) 118/79 (92) 121/85 (97) 121/85 Pulse Ox 95 98 99 O2 Delivery Room Air Room Air Room Air 04/27/19 08:47 Pulse 75 B/P (MAP) 121/85 Intake and Output 04/26/19 04/26/19 04/27/19 15:00 23:00 07:00 Intake Total 840 ml 590 ml 350 ml Balance 840 ml 590 ml 350 ml JULIANNA BOTELLO MD Apr 27, 2019 09:43
[2019-04-27] MEDS ORDERED: WARF10TA45 MC (09:50)
[2019-04-27 11:00] VITALS: BP 116/75
--- NOTE | 2019-04-27 11:39 | PDOC ---
PULMONARY PROGRESS NOTES Subjective sob better, Vitals Vital Signs Date Time Temp Pulse Resp B/P (MAP) Pulse Ox O2 Delivery O2 Flow Rate FiO2 04/27/19 08:47 75 121/85 04/27/19 07:49 98.5 18 99 Room Air 98.5 ROS: No Nausea General: Alert, No acute distress HEENT: Other (nc at perrl) Lungs: Clear Cardiovascular: S1, S2 Abdomen: Soft, Non-tender, Other (obese) Neuro Exam: Alert Extremities: Other (r l edema) Skin: Warm Labs Laboratory Tests Test 04/26/19 04:55 04/27/19 03:35 Prothrombin Time 15.2 SEC (11.7-14.0) 19.3 SEC (11.7-14.0) Prothromb Time International Ratio 1.2 (0.8-1.1) 1.7 (0.8-1.1) Heparin Anti-Xa Act, Unfractionated 0.62 IU/mL (0.30-0.70) 0.55 IU/mL (0.30-0.70) White Blood Count 4.0 x10^3/uL (4.0-11.0) Red Blood Count 4.36 x10^6/uL (3.50-5.40) Hemoglobin 12.2 g/dL (12.0-15.5) Hematocrit 36.1 % (36.0-47.0) Mean Corpuscular Volume 83 fL (79-100) Mean Corpuscular Hemoglobin 28 pg (25-35) Mean Corpuscular Hemoglobin Concent 34 g/dL (31-37) Red Cell Distribution Width 15.3 % (11.5-14.5) Platelet Count 249 x10^3/uL (140-400) Laboratory Tests Test 04/27/19 03:35 White Blood Count 4.0 x10^3/uL (4.0-11.0) Red Blood Count 4.36 x10^6/uL (3.50-5.40) Hemoglobin 12.2 g/dL (12.0-15.5) Hematocrit 36.1 % (36.0-47.0) Mean Corpuscular Volume 83 fL (79-100) Mean Corpuscular Hemoglobin 28 pg (25-35) Mean Corpuscular Hemoglobin Concent 34 g/dL (31-37) Red Cell Distribution Width 15.3 % (11.5-14.5) Platelet Count 249 x10^3/uL (140-400) Prothrombin Time 19.3 SEC (11.7-14.0) Prothromb Time International Ratio 1.7 (0.8-1.1) Heparin Anti-Xa Act, Unfractionated 0.55 IU/mL (0.30-0.70) Medications Active Scripts Medications Dose Route/Sig Max Daily Dose Days Date Category Dose Instructions Flonase Allergy Relief (Fluticasone Propionate) 9.9 M[address] [place].susp 2 Sprays NS DAILY 04/21/19 Reported Requip (Ropinirole Hcl) 3 Mg Tablet 6 Mg PO DAILY 04/21/19 Reported Benazepril Hcl 20 Mg Tablet 1 Tab PO DAILY 04/21/19 Reported Xanax (Alprazolam) 0.5 Mg Tablet 1 Tab PO DAILY 10/16/18 Rx Impofb-Rigsfbel-Unmo 50-325-40 (Butalb/Acetaminophen/Caffeine) 1 Each Tablet 1 Each PO Q6HRS PRN 09/25/18 Rx Ondansetron Odt (Ondansetron) 4 Mg Tab.rapdis 1 Tab PO PRN Q6-8HRS PRN 09/25/18 Rx Zofran (Ondansetron Hcl) 4 Mg Tablet 4 Mg PO PRN TID PRN 09/21/18 Rx nausea/vomiting Hydroxyzine Hcl 25 Mg Tablet 1 Tab PO PRN QHS PRN 12/21/17 Rx Macrobid 100 Mg Capsule (Nitrofurantoin Monohyd/M-Cryst) 100 Mg Capsule 1 Cap PO BID 12/10/17 Rx Claritin (Loratadine) 10 Mg Capsule 10 Mg PO DAILY PRN 11/28/13 Reported Fish Oil (Carmine-3 Fatty Acids) 500 Mg Capsule 500 Mg PO DAILY 11/28/13 Reported Verapamil Er (Verapamil Hcl) 120 Mg Tablet.er 120 Mg PO DAILY 11/28/13 Reported Impression . IMPRESSION: 1. Dyspnea secondary to acute pulmonary embolism. 2. Acute pulmonary embolism. small PE , RLL, BABAK 3. Acute right lower extremity deep venous thrombosis. 4. Obesity, probable obstructive sleep apnea-hypopnea syndrome./ SEDENTARY life style as risk factors 5. Parkinson. 6. Hypertension. Plan . 1. Titrate FiO2 to keep O2 saturation 92%. 2. cont heparin.till INR therapeutic or bridge with lovenox as OP with PCP 3. cont Coumadin. 4. She is obese, her BMI 42.2, she will not be a good candidate for DOAC. 5. sleep study as out pt discussed w pt, rn f/u CTA, dopplers in 6 weeks ok with dc with lovenox bridge. f/u with Dr Underwood.post dc KEVIN LOPEZ MD Apr 27, 2019 11:39
[2019-04-27] MEDS ORDERED: WARFARIN 7.5 MG TABLET. PO ONE (12:00)
[2019-04-27 12:05] VITALS: BP 116/76
--- NOTE | 2019-04-27 15:25 | NUR ---
Discharge Note: LEVI GORE Discharge instructions and discharge home medications reviewed with Patient and a copy given. All questions have been answered and understanding verbalized. The following instructions and handouts were given: Discharge Instructions, Follow Up Instructions, Prescriptions, Education Materials. Discontinued lines and drains: PIV removed, Catheter intact. Patient discharged to Home with Self-Care via Private Vehicle.
--- NOTE | 2019-05-09 19:48 | PDOC ---
Provider Note Provider Note Discharge summary dictated.#[id number]. JULIANNA BOTELLO MD May 09, 2019 19:48
--- NOTE | 2019-05-09 22:38 | DS ---
DATE OF DISCHARGE: 04/27/2019 REASON FOR ADMISSION TO THE HOSPITAL: 1. Pulmonary embolism. 2. DVT. CONSULTATIONS: Dr. Buitrago and Dr. Velasco, Cardiology. PROCEDURES DONE: 1. Echocardiogram. 2. Venous Doppler. 3. CT angiogram of the chest. HOSPITAL COURSE: The patient is a 53-year-old female patient having pain in the leg and shortness of breath, was found to have pulmonary embolism and DVT. The patient was treated with IV heparin and she also had echocardiogram which shows good left ventricular function. Seen by Pulmonology and Cardiology. She was found to have a DVT of the right leg. After 5 days in the hospital, she was discharged on Coumadin and she was recommended to follow up with PCP in 1 week to check INR. OTHER LABORATORY DATA: CBC, chem profile unremarkable. TSH was normal. Lipid was normal. INR was 1.7. She was given Lovenox before discharge. FINAL DIAGNOSES: 1. Pulmonary embolism. 2. Deep venous thrombosis, right leg. 3. Hypertension. 4. Obesity, BMI of 42. DISCHARGE INSTRUCTIONS: The patient was discharged on Coumadin. Check INR in 1 week by PCP, Dr. Underwood. Recommended to continue Coumadin for at least 1 year. JULIANNA BOTELLO MD DR: LACIE/renetta JOB#: [id number] / [id number] KAM Garza
== END 2019-04-27 14:24 | disposition home or self-care (01) | DRG 299 ==
LOC: ER 02:33 → ED HOLD 05:20 → 6 SOUTH 11:39
PROVIDERS: ADMIT Internal Medicine; ATTEND Internal Medicine
DX: I82.431 Acute embolism and thrombosis of right popliteal vein (principal); I26.99 Other pulmonary embolism without acute cor pulmonale; Z68.41 Body mass index [BMI] 40.0-44.9, adult; E66.01 Morbid (severe) obesity due to excess calories; E78.5 Hyperlipidemia, unspecified; F41.0 Panic disorder [episodic paroxysmal anxiety]; G20 Parkinson's disease; G25.81 Restless legs syndrome; G47.33 Obstructive sleep apnea (adult) (pediatric); I10 Essential (primary) hypertension; F41.9 Anxiety disorder, unspecified; K21.9 Gastro-esophageal reflux disease without esophagitis; Z79.01 Long term (current) use of anticoagulants; Z80.1 Family history of malignant neoplasm of trachea, bronchus and lung; Z82.49 Family history of ischemic heart disease and other diseases of the circulatory system; Z90.710 Acquired absence of both cervix and uterus; Z88.8 Allergy status to other drugs, medicaments and biological substances; Z79.899 Other long term (current) drug therapy
CPT/HCPCS: 36415; 71045; 71275; 80053; 80061; 83880; 84443; 84484; 85025; 85027; 85379; 85520; 85610; 93005; 93306; 93971; 96374; J1644; J1650; Q9967; 97110; 97530; 97535; 99285-25; G0378

== ENCOUNTER → 2019-05-10 | Outpatient (CLI) | payer OTHER ==
[2019-04-27 12:05] VITALS: BP 116/76
[~2019-05-10] MED LIST changes: +BENA20TA4 PO; +FLUT9.9S NS; +ROPI3TAB PO; +WARF10TA45 MC
--- NOTE | 2019-05-10 17:56 | RAD ---
CHEST PA LATERAL INDICATION: Dyspnea. COMPARISON STUDY: CT and radiograph 04/21/2019. FINDINGS: Lungs: Normal lung volume. No pulmonary mass or consolidation. The tracheobronchial tree and hilar structures are normal. Pleura: No pleural effusion or pneumothorax. Heart and Mediastinum: The cardiomediastinal silhouette is normal. The great vessels of the thorax are normal. IMPRESSION: No acute cardiopulmonary process. Electronically signed by: Jacinto Us MD (05/10/2019 5:53 PM) [facility]
== END | disposition home or self-care (01) ==
LOC: RAD 10:48
PROVIDERS: ATTEND Family Medicine
DX: R06.02 Shortness of breath (principal)
CPT/HCPCS: 71046

== ENCOUNTER 2019-05-12 19:53 | Emergency (ER) | payer OTHER ==
[~2019-05-12] VITALS: Ht 160 cm; Wt 103.9 kg
[2019-05-12 20:25] VITALS: BP 130/83
--- NOTE | 2019-05-12 21:04 | PHYS DOC ---
Past Medical History Past Medical History: Anxiety, GERD, Hypertension, Other Additional Past Medical Histor: Sinus problems, parkinson's, PANIC ATTACKS (DOC RADFORD APRN) Past Surgical History: Hysterectomy Additional Past Surgical Histo: breast reduction, foot surgery (DOC RADFORD APRN) Alcohol Use: None Drug Use: None (DOC RADFORD APRN) Attending Signature I have participated in the care of this patient and I have reviewed and agree with all pertinent clinical information above including history, exam, and recommendations. (ARJUN SHI MD) Adult General Chief Complaint Chief Complaint: HEADACHE HPI HPI Patient is a 53 year old female that presents to the ER stating that she's been falling off today. The patient states that she's been having runny nose, itchy eyes, headache, congestion. The patient states that she was just put on warfarin recently due to a blood clot in her lungs. Patient also states she's been followed but off balance, however she says she has Parkinson's and is at her baseline. (DOC RADFORD APRN) Review of Systems Review of Systems Constitutional: Denies fever or chills [] Eyes: Denies change in visual acuity, redness, or eye pain [] HENT: Reports nasal congestion, runny nose, itchy eyes Respiratory: Denies cough or shortness of breath [] Cardiovascular: No additional information not addressed in HPI [] GI: Denies abdominal pain, nausea, vomiting, bloody stools or diarrhea [] : Denies dysuria or hematuria [] Musculoskeletal: Denies back pain or joint pain [] Integument: Denies rash or skin lesions [] Neurologic: Reports headache, Denies focal weakness or sensory changes [] Endocrine: Denies polyuria or polydipsia [] Complete systems were reviewed and found to be within normal limits, except as documented in this note. (DOC RADFORD APRN) Current Medications Current Medications Current Medications Medications (Trade) Dose Ordered Sig/Thomas Start Time Stop Time Status Last Admin Dose Admin Dexamethasone (Decadron) 10 mg 1X ONCE 05/12/19 22:00 05/12/19 22:01 DC (ARJUN SHI MD) Allergies Allergies Allergies Coded Allergies Type Severity Reaction Last Updated Verified metoclopramide Allergy Intermediate 09/24/18 Yes sulfamethoxazole Allergy Intermediate 09/24/18 Yes trimethoprim Allergy Intermediate 09/24/18 Yes (ARJUN SHI MD) Physical Exam Physical Exam Constitutional: Well developed, well nourished, no acute distress, non-toxic appearance. [] HENT: Normocephalic, atraumatic, bilateral external ears normal, oropharynx moist, no oral exudates, nose normal. [] Eyes: PERRLA, EOMI, conjunctiva normal, no discharge. [] Neck: Normal range of motion, no tenderness, supple, no stridor. [] Cardiovascular:Heart rate regular rhythm, no murmur [] Lungs & Thorax: Bilateral breath sounds clear to auscultation [] Abdomen: Bowel sounds normal, soft, no tenderness, no masses, no pulsatile masses. [] Skin: Warm, dry, no erythema, no rash. [] Back: No tenderness, no CVA tenderness. [] Extremities: No tenderness, no cyanosis, no clubbing, ROM intact, no edema. [] Neurologic: Alert and oriented X 3, normal motor function, normal sensory function, no focal deficits noted. [] Psychologic: Affect normal, judgement normal, mood normal. [] (DOC RADFORD APRN) Current Patient Data Vital Signs Vital Signs Date Time Temp Pulse Resp B/P (MAP) Pulse Ox O2 Delivery O2 Flow Rate FiO2 05/12/19 20:25 98.5 86 16 130/83 (99) 96 Room Air 98.5 (ARJUN SHI MD) EKG EKG [] (DOC RADFORD APRN) Radiology/Procedures Radiology/Procedures [][facility] [address] [place] [address] IMAGING REPORT Signed PATIENT: LEVI GORE ACCOUNT: [id number] : 1965 LOCATION: ER AGE: 53 SEX: F EXAM STATUS: REG ER ORD. PHYSICIAN: DOC RADFORD APRN REASON: headache. HX HTN PROCEDURE: CT HEAD WO CONTRAST CT head without contrast PQRS statement: CT scans at this facility use dose reduction including either automated exposure control, iterative reconstructions, and /or weight based radiation dosing via mA and kV modification when appropriate to reduce radiation dose to as low as reasonably achievable. HISTORY: Headaches, hypertension. TECHNIQUE: Noncontrast imaging skull base to vertex. COMPARISON: CT head July 2015. FINDINGS: No intracranial hemorrhage, mass, hydrocephalus, extra-axial fluid collections or infarction. Subcentimeter pineal gland cyst. No acute ischemic change evident. Imaged orbits, mastoids, paranasal sinuses and bones are unremarkable. IMPRESSION: No acute intracranial CT abnormality. Electronically signed by: Shazia Anaya MD (05/12/2019 9:21 PM) [facility] DICTATED and SIGNED BY: SHAZIA ANAYA MD DATE: 05/12/192120 (DOC RADFORD APRN) Course & Med Decision Making Course & Med Decision Making Pertinent Labs and Imaging studies reviewed. (See chart for details) Will get a Head CT since she is on Coumadin and having a headache. Likely URI. Will have start taking Zyrtec, Mucinex, Flonase, and will give a dose of Dexamethasone in ER. (DOC RADFORD APRN) Dragon Disclaimer Dragon Disclaimer This electronic medical record was generated, in whole or in part, using a voice recognition dictation system. (DOC RADFORD APRN) Departure Departure Impression: Primary Impression: Upper respiratory infection Disposition: HOME, SELF-CARE Condition: STABLE Referrals: KAM RODRIGUEZ (PCP) Patient Instructions: Upper Respiratory Infection, Adult Additional Instructions: Thank you for visiting [facility]. We appreciate you trusting us with your care. If any additional problems come up don't hesitate to return to visit us. Please follow up with your primary care provider so they can plan additional care if needed and know about the problem that you had. If symptoms worsen come back to the Emergency Department. Any concerning symptoms that start such as chest pain, shortness of air, weakness or numbness on one side of the body, running high fevers or any other concerning symptoms return to the ER. Please take Zyrtec, Mucinex, and Flonase per label instructions. Problem Qualifiers Primary Impression: Upper respiratory infection URI type: unspecified URI Qualified Codes: J06.9 - Acute upper respiratory infection, unspecified DOC RADFORD APRN May 12, 2019 21:04 ARJUN SHI MD May 13, 2019 02:42
--- NOTE | 2019-05-12 21:23 | RAD ---
CT head without contrast PQRS statement: CT scans at this facility use dose reduction including either automated exposure control, iterative reconstructions, and /or weight based radiation dosing via mA and kV modification when appropriate to reduce radiation dose to as low as reasonably achievable. HISTORY: Headaches, hypertension. TECHNIQUE: Noncontrast imaging skull base to vertex. COMPARISON: CT head July 2015. FINDINGS: No intracranial hemorrhage, mass, hydrocephalus, extra-axial fluid collections or infarction. Subcentimeter pineal gland cyst. No acute ischemic change evident. Imaged orbits, mastoids, paranasal sinuses and bones are unremarkable. IMPRESSION: No acute intracranial CT abnormality. Electronically signed by: Royce Anaya MD (05/12/2019 9:21 PM) [facility]
[2019-05-12] MEDS ORDERED: DEXAMETHASONE 4 MG TABLET PO STA (21:36)
[2019-05-12] MEDS ORDERED: DEXAMETHASONE 4 MG TABLET PO ONE (22:00)
== END 2019-05-12 21:36 | disposition home or self-care (01) ==
LOC: ER 19:53
DX: J06.9 Acute upper respiratory infection, unspecified (principal); R51 Headache; F41.9 Anxiety disorder, unspecified; K21.9 Gastro-esophageal reflux disease without esophagitis; I10 Essential (primary) hypertension; Z90.710 Acquired absence of both cervix and uterus
CPT/HCPCS: 70450; 99284; J8540

== ENCOUNTER 2019-07-13 14:15 | Emergency (ER) | payer OTHER ==
[~2019-07-13] VITALS: Ht 160 cm; Wt 104.3 kg
--- NOTE | 2019-07-13 16:03 | PHYS DOC ---
Past Medical History Past Medical History: Anxiety, DVT, GERD, Hypertension, Other Additional Past Medical Histor: Sinus problems, parkinson's, PANIC ATTACKS Past Surgical History: Hysterectomy Additional Past Surgical Histo: breast reduction, foot surgery Alcohol Use: None Drug Use: None Adult General Chief Complaint Chief Complaint: UPPER EXTREMITY PAIN HPI HPI Patient is a 53 year old female with a history of anxiety, hypertension, DVT currrently on Eliquis who presents to the ED today complaining of s left mid forearm pain for one week. Patient denies any known injury. She is requesting a venous Doppler of the left upper extremity to rule out DVTs. Denies any chest pain or shortness of breath. Review of Systems Review of Systems Constitutional: Denies fever or chills [] Eyes: Denies change in visual acuity, redness, or eye pain [] HENT: Denies nasal congestion or sore throat [] Respiratory: Denies cough or shortness of breath [] Cardiovascular: No additional information not addressed in HPI [] GI: Denies abdominal pain, nausea, vomiting, bloody stools or diarrhea [] : Denies dysuria or hematuria [] Musculoskeletal: Reports left mid forearm pain. Denies back pain Integument: Denies rash or skin lesions [] Neurologic: Denies headache, focal weakness or sensory changes [] Endocrine: Denies polyuria or polydipsia [] All other systems were reviewed and found to be within normal limits, except as documented in this note. Allergies Allergies Allergies Coded Allergies Type Severity Reaction Last Updated Verified metoclopramide Allergy Intermediate 09/24/18 Yes sulfamethoxazole Allergy Intermediate 09/24/18 Yes trimethoprim Allergy Intermediate 09/24/18 Yes Physical Exam Physical Exam Constitutional: Well developed, well nourished, no acute distress, non-toxic appearance. [] HENT: Normocephalic, atraumatic, bilateral external ears normal, oropharynx moist, no oral exudates, nose normal. [] Eyes: PERRLA, EOMI, conjunctiva normal, no discharge. [] Neck: Normal range of motion, no tenderness, supple, no stridor. [] Cardiovascular:Heart rate regular rhythm, no murmur [] Lungs & Thorax: Bilateral breath sounds clear to auscultation [] Abdomen: Bowel sounds normal, soft, no tenderness, no masses, no pulsatile masses. [] Skin: Warm, dry, no erythema, no rash. [] Back: No tenderness, no CVA tenderness. [] Extremities: No tenderness, no cyanosis, no clubbing, ROM intact, no edema. +2 left radial pulse. Cap refill less than 2 seconds the left fingers. Neurologic: Alert and oriented X 3, normal motor function, normal sensory function, no focal deficits noted. [] Psychologic: Affect normal, judgement normal, mood normal. [] Current Patient Data Vital Signs Vital Signs Date Time Temp Pulse Resp B/P (MAP) Pulse Ox O2 Delivery O2 Flow Rate FiO2 07/13/19 14:42 98.1 88 20 130/87 (101) 98 Room Air 98.1 EKG EKG [] Radiology/Procedures Radiology/Procedures [] Course & Med Decision Making Course & Med Decision Making Pertinent Labs and Imaging studies reviewed. (See chart for details) This is a 53-year-old female patient presenting to the ED today requesting a venous Doppler of the left upper extremity concerned she could have a blood clot she reports history of DVTs currently on ELIquis. Venous Doppler of the left upper extremity is negative. Discharged to home. Follow-up with PCP in 1-2 weeks. Dragon Disclaimer Dragon Disclaimer This electronic medical record was generated, in whole or in part, using a voice recognition dictation system. Departure Departure Impression: Primary Impression: Upper extremity pain, lateral Disposition: 01 HOME, SELF-CARE Condition: STABLE Referrals: KAM RODRIGUEZ (PCP) Follow-up in one week Patient Instructions: Musculoskeletal Pain Additional Instructions: You were evaluated. Your ultrasound of the left upper extremity is negative. Continue taking Eliquis. You can ice and elevate the affected area. Problem Qualifiers Primary Impression: Upper extremity pain, lateral Laterality: left Qualified Codes: M79.602 - Pain in left arm KARUNA BARBOSA [employer] Jul 13, 2019 16:03
--- NOTE | 2019-07-13 16:05 | RAD ---
EXAM: Left upper extremity venous Doppler. HISTORY: Left upper extremity pain/swelling. History of deep venous thrombosis. COMPARISON: None. FINDINGS: Grayscale and Doppler analysis of the left upper extremity deep venous system was performed with graded compression and augmentation. The internal jugular, subclavian, axillary, brachial, basilic, cephalic, radial and ulnar veins were assessed. There is no evidence of deep venous thrombosis. IMPRESSION: 1. No evidence of deep venous thrombosis. Electronically signed by: Misty Douglas MD (07/13/2019 4:02 PM) [facility]
[2019-07-13 16:15] VITALS: BP 151/73
== END 2019-07-13 16:22 | disposition home or self-care (01) ==
LOC: ER 14:15
DX: M79.632 Pain in left forearm (principal); I10 Essential (primary) hypertension; K21.9 Gastro-esophageal reflux disease without esophagitis; Z86.718 Personal history of other venous thrombosis and embolism; Z88.8 Allergy status to other drugs, medicaments and biological substances; Z88.1 Allergy status to other antibiotic agents; Z88.2 Allergy status to sulfonamides
CPT/HCPCS: 93971; 99284-25

== ENCOUNTER 2019-07-24 07:08 | Emergency (ER) | payer OTHER ==
[~2019-07-24] VITALS: Ht 152.4 cm; Wt 104.3 kg
[2019-07-24] MEDS ORDERED: DEXAMETHASONE 4 MG TABLET PO ONE (07:15)
[2019-07-24 07:17] VITALS: BP 158/91
[2019-07-24] MEDS ORDERED: ONDA4TAB12 PO (07:29)
--- NOTE | 2019-07-24 07:29 | PHYS DOC ---
Past Medical History Past Medical History: Anxiety, DVT, GERD, Hypertension, Other Additional Past Medical Histor: Sinus problems, parkinson's, PANIC ATTACKS Past Surgical History: Hysterectomy Additional Past Surgical Histo: breast reduction, foot surgery Additional Information: nonsmoker Alcohol Use: None Drug Use: None Adult General Chief Complaint Chief Complaint: COUGH HPI HPI Patient is a 53-year-old female with a past medical history of Parkinson's, hypertension, and PE that is present emergency department with 4 days of cough, sore throat, and nausea. Patient states that she developed some sinus pressure and cough about 4 days ago, she denies fever, she denies true sputum production, she denies smoking or history of COPD. She denies sick contacts. 2 days ago she saw her family doctor and was prescribed a Z-Timur which she has been taking as prescribed but is presenting this morning because she has not gotten better yet. Patient reports mild incontinence. Patient denies chest pain, shortness of breath, fever, chills, constipation, diarrhea, abdominal pain, dysuria, or increased frequency. Review of Systems Review of Systems Constitutional: Denies fever or chills Eyes: Denies redness or eye pain HENT: Reports nasal congestion, reports sore throat Respiratory: Denies shortness of breath, reports cough Cardiovascular: Denies chest pain or palpitations GI: Denies abdominal pain, reports nausea and vomiting : Denies dysuria or hematuria; reports incontinence Musculoskeletal: Denies back pain or joint pain Integument: Denies rash or skin lesions Neurologic: Denies focal weakness or sensory changes, reports headache Complete systems were reviewed and found to be within normal limits, except as documented in this note. Current Medications Current Medications Current Medications Medications (Trade) Dose Ordered Sig/Thomas Start Time Stop Time Status Last Admin Dose Admin Dexamethasone (Decadron) 10 mg 1X ONCE 07/24/19 07:15 07/24/19 07:16 DC 07/24/19 07:46 10 MG Ondansetron HCl (Zofran Odt) 4 mg 1X ONCE 07/24/19 07:30 07/24/19 07:32 DC 07/24/19 07:49 4 MG Allergies Allergies Allergies Coded Allergies Type Severity Reaction Last Updated Verified Sulfa (Sulfonamide Antibiotics) Allergy Intermediate rash 07/24/19 Yes adhesive tape Allergy Intermediate rash 07/24/19 Yes metoclopramide Allergy Intermediate 09/24/18 Yes sulfamethoxazole Allergy Intermediate 09/24/18 Yes trimethoprim Allergy Intermediate 09/24/18 Yes Physical Exam Physical Exam Constitutional: Well developed, well nourished, no acute distress, non-toxic appearance HENT: Normocephalic, atraumatic, oropharynx moist, TMs normal bilateral throat appears non-exudative and non-edematous Eyes: Conjunctiva normal, no discharge Neck: Normal range of motion, no tenderness, supple Cardiovascular: Heart rate normal, regular rhythm Lungs & Thorax: Bilateral breath sounds clear to auscultation, no wheezing Abdomen: Soft, no tenderness, nondistended Skin: Warm, dry, no erythema, no rash Extremities: No tenderness, ROM intact, no edema Neurologic: Alert and oriented X 3, no focal deficits noted Psychologic: Affect normal, judgement normal Current Patient Data Vital Signs Vital Signs Date Time Temp Pulse Resp B/P (MAP) Pulse Ox O2 Delivery O2 Flow Rate FiO2 07/24/19 07:17 98.8 100 16 158/91 (113) 98 Room Air 98.8 Lab Values Laboratory Tests Test 07/24/19 07:30 Urine Collection Type Unknown Urine Color Yellow Urine Clarity Clear Urine pH 5.5 Urine Specific [place] 1.025 Urine Protein Negative mg/dL (NEG-TRACE) Urine Glucose (UA) Negative mg/dL (NEG) Urine Ketones (Stick) Negative mg/dL (NEG) Urine Blood Negative (NEG) Urine Nitrite Negative (NEG) Urine Bilirubin Negative (NEG) Urine Urobilinogen Dipstick 1.0 mg/dL (0.2 mg/dL) Urine Leukocyte Esterase Negative (NEG) Urine RBC 1-2 /HPF (0-2) Urine WBC 1-4 /HPF (0-4) Urine Squamous Epithelial Cells Many /LPF Urine Bacteria Moderate /HPF (0-FEW) Urine Mucus Mod /LPF EKG EKG [] Radiology/Procedures Radiology/Procedures PROCEDURE: CHEST PA & LATERAL CHEST PA LATERAL History: Cough Comparison: 05/10/2019 Findings: 2 views of the chest are submitted. There is mild more linear-appearing airspace opacity at the lung bases bilaterally. There is no dependent pleural fluid or lobar consolidation. No pneumothorax is identified. Cardiac silhouette is within normal limits. Impression: 1. There is mild, more linear-appearing opacity near the lung bases bilaterally which may be mild atelectasis considered more likely than infiltrate. Electronically signed by: Jacinto Blancas MD (07/24/2019 8:00 AM) [facility] Course & Med Decision Making Course & Med Decision Making Pertinent Lab and Imaging studies reviewed. (See chart for details) Patient is a 51-year-old female with past medical history of Parkinson's, high blood pressure, and PE is presenting to the emergency department with 4 days of cough, sore throat, and nausea. Patient was seen and examined at bedside. Physical exam was significant for normal TMs bilateral, throat was non- erythematous and non-edematous, lungs were clear to auscultation bilaterally, abdomen was soft nontender, patient is mildly anxious. Chest x-ray ordered. Patient has been on a Z-Timur for 2 days and is been taking as prescribed. Patient reports mild incontinence, will check UA, denies dysuria. Urinalysis negative. Steroid given for symptomatic relief. Chest x-ray negative for acute process. Patient states that she is compliant with her Eliquis, discussed the signs and symptoms of pulmonary embolus and discussed the risks versus benefits of a CT scan to further evaluate the presence of a pulmonary embolus, patient was in agreement with the plan to not scan and given strict return precautions if her condition were to change. Patient will be discharged home with nausea medication and instructions to finish her azithromycin. Patient stable for discharge with outpatient follow-up with PCP. Discussed findings and plan with patient and family, who acknowledge understanding and agreement. Dragon Disclaimer Dragon Disclaimer This electronic medical record was generated, in whole or in part, using a voice recognition dictation system. Departure Departure Impression: Primary Impression: Viral URI with cough Additional Impression: Nausea Disposition: 01 HOME, SELF-CARE Condition: STABLE Referrals: KAM RODRIGUEZ (PCP) Patient Instructions: Nausea, Adult, [id number], Upper Respiratory Infection, Adult, [id number] Additional Instructions: Please continue previously prescribed antibiotic to completion. Scripts Ondansetron (ONDANSETRON ODT) 4 Mg Tab.rapdis 1 TAB PO Q4-6HRS PRN for NAUSEA, #14 TAB 0 Refills Prov: DOC WRIGHT DO 07/24/19 Problem Qualifiers DOC WRIGHT DO Jul 24, 2019 07:29
[2019-07-24] MEDS ORDERED: ONDANSETRON ODT 4 MG TAB.RAPDIS. PO ONE (07:30)
--- NOTE | 2019-07-24 08:03 | RAD ---
CHEST PA LATERAL History: Cough Comparison: 05/10/2019 Findings: 2 views of the chest are submitted. There is mild more linear-appearing airspace opacity at the lung bases bilaterally. There is no dependent pleural fluid or lobar consolidation. No pneumothorax is identified. Cardiac silhouette is within normal limits. Impression: 1. There is mild, more linear-appearing opacity near the lung bases bilaterally which may be mild atelectasis considered more likely than infiltrate. Electronically signed by: Jacinto Blancas MD (07/24/2019 8:00 AM) [facility]
[2019-07-24 08:20] LABS: BILIRUBIN,URINE NEGATIVE (NEG); CLARITY,URINE CLEAR; COLOR,URINE YELLOW; NITRITE,URINE NEGATIVE (NEG); PH,URINE 5.5; PROTEIN,URINE NEGATIVE (NEG-TRACE)
[2019-07-24 08:23] LABS: SQUAMOUS EPITHELIAL CELL,UR MANY /LPF
[2019-07-24 08:24] LABS: BACTERIA,URINE MODERATE /HPF (0-FEW)
== END 2019-07-24 08:30 | disposition home or self-care (01) ==
LOC: ER 07:08
DX: J06.9 Acute upper respiratory infection, unspecified (principal); F41.9 Anxiety disorder, unspecified; K21.9 Gastro-esophageal reflux disease without esophagitis; I10 Essential (primary) hypertension; Z86.718 Personal history of other venous thrombosis and embolism; Z88.2 Allergy status to sulfonamides; Z88.8 Allergy status to other drugs, medicaments and biological substances; Z88.1 Allergy status to other antibiotic agents
CPT/HCPCS: 71046; 81001; 87086; 99285; J8540; Q0162

== ENCOUNTER 2019-08-19 23:36 | Emergency (ER) | payer OTHER ==
[~2019-08-19] VITALS: Ht 160 cm; Wt 104.3 kg
[2019-08-20] MEDS ORDERED: KETOROLAC 60 MG/2 ML VIAL. IM ONE (00:15)
[2019-08-20] MEDS ORDERED: diphenhydrAMINE 50 MG/ML VIAL IM ONE (00:15)
[2019-08-20] MEDS ORDERED: PROCHLORPERAZINE 10 MG/2 ML VIAL. IM ONE (00:15)
--- NOTE | 2019-08-20 00:19 | PHYS DOC ---
Past Medical History Past Medical History: Anxiety, DVT, GERD, Hypertension, Other Additional Past Medical Histor: Sinus problems, parkinson's, PANIC ATTACKS Past Surgical History: Hysterectomy Additional Past Surgical Histo: breast reduction, foot surgery Alcohol Use: None Drug Use: None Adult General Chief Complaint Chief Complaint: MULTIPLE COMPLAINTS HPI HPI Patient is a 53 year old Female who presents with couple weeks ago of which when looking back it was July 24, 2019, with diagnosed with a upper respiratory virus. She stated that she was having vomiting and a headache. She states she has not vomited since Wednesday but she is having a headache with press ure at the base of her neck and the sides of her head and in her sinuses. She states that she has had no pain medications today. States she is on alcohol this because of prior DVT and PE. Patient also has a history of anxiety, Parkinson's and hypertension. Patient states sometimes she feels dizzy when she stands up. She states that her head does not hurt it just feels like a pressure. Patient states that on July 24 she had just taken an azithromycin pack and came here because she wasn't getting better so she was given Decadron. She states she is having the same kind of pain and she still having some nasal congestion. She states that this pain also radiates into the right ear. Review of Systems Review of Systems HENT: nasal congestion or denies sore throat [] GI: Denies abdominal pain, nausea. +vomiting, denies bloody stools or diarrhea [] Neurologic: headache, denies focal weakness or sensory changes [] All other systems were reviewed and found to be within normal limits, except as documented in this note. Current Medications Current Medications Current Medications Medications (Trade) Dose Ordered Sig/Thomas Start Time Stop Time Status Last Admin Dose Admin Diphenhydramine HCl (Benadryl) 25 mg 1X ONCE 08/20/19 00:15 08/20/19 00:17 DC 08/20/19 00:59 25 MG Ketorolac Tromethamine (Toradol Im) 60 mg 1X ONCE 08/20/19 00:15 08/20/19 00:17 DC 08/20/19 01:01 60 MG Prochlorperazine Edisylate (Compazine) 10 mg 1X ONCE 08/20/19 00:15 08/20/19 00:17 DC 08/20/19 01:02 10 MG Allergies Allergies Allergies Coded Allergies Type Severity Reaction Last Updated Verified Sulfa (Sulfonamide Antibiotics) Allergy Intermediate rash 07/24/19 Yes adhesive tape Allergy Intermediate rash 07/24/19 Yes metoclopramide Allergy Intermediate 09/24/18 Yes sulfamethoxazole Allergy Intermediate 09/24/18 Yes trimethoprim Allergy Intermediate 09/24/18 Yes Physical Exam Physical Exam Constitutional: Well developed, well nourished, no acute distress, non-toxic appearance. [] HENT: Normocephalic, atraumatic, bilateral external ears normal, oropharynx moist, no oral exudates, nose normal. [] Eyes: PERRLA, EOMI, conjunctiva normal, no discharge. [] Neck: Normal range of motion, no tenderness, supple, no stridor. [] Cardiovascular:Heart rate regular rhythm, no murmur [] Lungs & Thorax: Bilateral breath sounds clear to auscultation [] Abdomen: Bowel sounds normal, soft, no tenderness, no masses, no pulsatile masses. [] Skin: Warm, dry, no erythema, no rash. [] Back: No tenderness, no CVA tenderness. [] Extremities: No tenderness, no cyanosis, no clubbing, ROM intact, no edema. [] Neurologic: Alert and oriented X 3, normal motor function, normal sensory function, no focal deficits noted. [] Psychologic: Affect normal, judgement normal, mood normal. Normal Physical Findings.[] Current Patient Data Vital Signs Vital Signs Date Time Temp Pulse Resp B/P (MAP) Pulse Ox O2 Delivery O2 Flow Rate FiO2 08/19/19 23:45 98.8 92 18 145/98 (114) 97 Room Air 98.8 EKG EKG [] Radiology/Procedures Radiology/Procedures [] Course & Med Decision Making Course & Med Decision Making Alert and oriented. Speaks in full clear sentences. Bilateral tympanic are white but foggy. Afebrile. Full range of motion in neck and no neck tenderness. PERRLA. No pain with palpation to the sinuses. Patient's last CT of her head was in April 2019 and showed no acute findings. Patient states that she does not want another CT of her head and she does not need it. She states this is not the worse headache she's ever felt. Denies any vision changes. Abdomen is soft and nontender. Throat is pink without exudates or swelling. Patient is neurolo gically intact. Patient denies chest pain, shortness of air, dizziness at this time, visual changes, numbness or tingling, weakness, fevers, abdominal pain. Patient is ambulatory with a steady gait. Patient is given Toradol, Compazine, and Benadryl. Patient states her headache is a little better. I did go over this patient findings and care plan with Dr Medrano and he is agreeable to discharge the patient home. Dragon Disclaimer Dragon Disclaimer This electronic medical record was generated, in whole or in part, using a voice recognition dictation system. NIHSS Stroke Scale NIH Stroke Scale: NIH Stroke Scale Response (Comments) Value Level of Consciousness: 0 Alert/Responsive 0 LOC Questions: 0 Answers both correctly 0 LOC Commands: 0 Performs both tasks 0 Best Gaze: 0 Normal 0 Visual: 0 No visual loss 0 Facial Palsy: 0 Normal, symmetrical 0 Motor - Left Arm 0 No drift 0 Motor - Right Arm 0 No drift 0 Motor - Left Leg 0 No drift 0 Motor: Right Leg 0 No drift 0 Limb Ataxia: 0 Absent 0 Sensory: 0 No loss 0 Best Language: 0 Normal 0 Dysathria: 0 Normal 0 Extinction and Inattention: 0 Normal 0 Total 0 Departure Departure Impression: Primary Impression: Headache Disposition: 01 HOME, SELF-CARE Condition: STABLE Referrals: KAM RODRIGUEZ (PCP) Patient Instructions: General Headache Without Cause Additional Instructions: Follow up with your primary care provider. Problem Qualifiers Primary Impression: Headache Headache type: unspecified Headache chronicity pattern: episodic headache Intractability: not intractable Qualified Codes: R51 - Headache HORACE PATRICK [employer] Aug 20, 2019 00:19
[2019-08-20 01:30] VITALS: BP 150/92
== END 2019-08-20 01:35 | disposition home or self-care (01) ==
LOC: ER 23:36
DX: R51 Headache (principal); R11.10 Vomiting, unspecified; R09.81 Nasal congestion; F41.9 Anxiety disorder, unspecified; K21.9 Gastro-esophageal reflux disease without esophagitis; I10 Essential (primary) hypertension; G20 Parkinson's disease; Z90.710 Acquired absence of both cervix and uterus; Z98.890 Other specified postprocedural states; Z88.2 Allergy status to sulfonamides; Z86.718 Personal history of other venous thrombosis and embolism; Z91.048 Other nonmedicinal substance allergy status; Z88.8 Allergy status to other drugs, medicaments and biological substances
CPT/HCPCS: 96372; 99284; J0780; J1200; J1885

== ENCOUNTER 2019-10-27 20:02 | Emergency (ER) | payer SELFPAY ==
[~2019-10-27] VITALS: Ht 160 cm; Wt 105.0 kg
[2019-10-27] MEDS ORDERED: ONDANSETRON PF 4 MG/2 ML VIAL. ONE (20:54)
[2019-10-27 21:21] LABS: BASO % 1 % (0-3); EOS # 0.1 x10^3/uL (0.0-0.7); EOS % 1 % (0-3); HEMATOCRIT 42.1 % (36.0-47.0); HEMOGLOBIN 13.9 g/dL (12.0-15.5); LYMPH # 1.5 x10^3/uL (1.0-4.8); LYMPH % 27 % (24-48); MEAN CORPUSCULAR HEMOGLOBIN 27 pg (25-35); MEAN CORPUSCULAR HGB CONC 33 g/dL (31-37); MEAN CORPUSCULAR VOLUME 83 fL (79-100); MONO # 0.3 x10^3/uL (0.0-1.1); MONO % 6 % (0-9); NEUT # 3.8 x10^3/uL (1.8-7.7); NEUT % 66 % (31-73); PLATELET COUNT 287 x10^3/uL (140-400); RED BLOOD COUNT 5.08 x10^6/uL (3.50-5.40); RED CELL DISTRIBUTION WIDTH 14.4 % (11.5-14.5); WHITE BLOOD COUNT 5.8 x10^3/uL (4.0-11.0)
[2019-10-27] MEDS: IV NORMAL SALINE 1000ML BAG 1,000 ML IV SCH (21:25)
[2019-10-27 21:34] LABS: CALCIUM 9.1 mg/dL (8.5-10.1); CREATININE 1.2 mg/dL (0.6-1.0); GFR 56.9; POTASSIUM 3.6 mmol/L (3.5-5.1)
[2019-10-27 21:39] LABS: INFLUENZA A PATIENT NEGATIVE (NEGATIVE); INFLUENZA B PATIENT NEGATIVE (NEGATIVE)
[2019-10-27 21:40] LABS: ALBUMIN 3.8 g/dL (3.4-5.0); ALBUMIN/GLOBULIN RATIO 0.8 (1.0-1.7); TOTAL BILIRUBIN 0.6 mg/dL (0.2-1.0); TOTAL PROTEIN 8.3 g/dL (6.4-8.2)
--- NOTE | 2019-10-27 21:53 | PHYS DOC ---
Past Medical History Past Medical History: Anxiety, DVT, GERD, Hypertension, Other Additional Past Medical Histor: Sinus problems, parkinson's, PANIC ATTACKS Past Surgical History: Hysterectomy Additional Past Surgical Histo: breast reduction, foot surgery Smoking Status: Never Smoker Alcohol Use: None Drug Use: None Adult General Chief Complaint Chief Complaint: MULTIPLE COMPLAINTS [facility] HPI Patient is a 54 year old female with history of hypertension, GERD, anxiety, Sinus problems, parkinson's, panic attacks who presents with complaining of nausea and vomiting, dizziness, cough and congestion. Patient complaining of nasal congestion and sore throat and nonproductive cough for few days and 2 episodes of vomiting today associated with dizziness without diarrhea, abdominal pain, chest pain, shortness of breath, fever and chills, sick contact. Patient denies urinary symptoms. Review of Systems Review of Systems Constitutional: Denies fever or chills [] Eyes: Denies change in visual acuity, redness, or eye pain [] HENT: Denies nasal congestion reports sore throat [] Respiratory: Reports cough, denies shortness of breath Cardiovascular: No additional information not addressed in HPI [] GI: Denies abdominal pain, bloody stools or diarrhea, reports nausea and vomiting : Denies dysuria or hematuria [] Musculoskeletal: Denies back pain or joint pain [] Integument: Denies rash or skin lesions [] Neurologic: Denies headache, focal weakness or sensory changes [] Endocrine: Denies polyuria or polydipsia [] All other systems were reviewed and found to be within normal limits, except as documented in this note. Current Medications Current Medications Current Medications Medications (Trade) Dose Ordered Sig/[facility] Start Time Stop Time Status Last Admin Dose Admin Ondansetron HCl (Zofran) 4 mg STK-MED ONCE 10/27/19 20:54 10/27/19 20:54 DC Sodium Chloride 1,000 ml @ 1,000 mls/hr Q1H 10/27/19 21:30 10/27/19 22:29 DC 10/27/19 21:25 1,000 MLS/HR Allergies Allergies Allergies Coded Allergies Type Severity Reaction Last Updated Verified Sulfa (Sulfonamide Antibiotics) Allergy Intermediate rash 07/24/19 Yes adhesive tape Allergy Intermediate rash 07/24/19 Yes metoclopramide Allergy Intermediate 09/24/18 Yes sulfamethoxazole Allergy Intermediate 09/24/18 Yes trimethoprim Allergy Intermediate 09/24/18 Yes Physical Exam Physical Exam Constitutional: Well nourished, no acute distress, non-toxic appearance, morbidly obese. [] HENT: Normocephalic, atraumatic, bilateral external ears normal, oropharynx moist, no oral exudates, nose normal. [] Eyes: PERRLA, EOMI, conjunctiva normal, no discharge. [] Neck: Normal range of motion, no tenderness, supple, no stridor. [] Cardiovascular:Heart rate regular rhythm, no murmur [] Lungs & Thorax: Bilateral breath sounds clear to auscultation [] Abdomen: Bowel sounds normal, soft, no tenderness, no masses, no pulsatile masses. [] Skin: Warm, dry, no erythema, no rash. [] Back: No tenderness, no CVA tenderness. [] Extremities: No tenderness, no cyanosis, no clubbing, ROM intact, no edema. [] Neurologic: Alert and oriented X 3, normal motor function, normal sensory function, no focal deficits noted. [] Psychologic: Affect anxious, judgement normal, mood normal. [] Current Patient Data Vital Signs Vital Signs Date Time Temp Pulse Resp B/P (MAP) Pulse Ox O2 Delivery O2 Flow Rate FiO2 10/27/19 21:58 84 18 137/90 (106) 96 Room Air 10/27/19 20:24 98.5 98.5 Lab Values Laboratory Tests Test 10/27/19 20:35 White Blood Count 5.8 x10^3/uL (4.0-11.0) Red Blood Count 5.08 x10^6/uL (3.50-5.40) Hemoglobin 13.9 g/dL (12.0-15.5) Hematocrit 42.1 % (36.0-47.0) Mean Corpuscular Volume 83 fL (79-100) Mean Corpuscular Hemoglobin 27 pg (25-35) Mean Corpuscular Hemoglobin Concent 33 g/dL (31-37) Red Cell Distribution Width 14.4 % (11.5-14.5) Platelet Count 287 x10^3/uL (140-400) Neutrophils (%) (Auto) 66 % (31-73) Lymphocytes (%) (Auto) 27 % (24-48) Monocytes (%) (Auto) 6 % (0-9) Eosinophils (%) (Auto) 1 % (0-3) Basophils (%) (Auto) 1 % (0-3) Neutrophils # (Auto) 3.8 x10^3/uL (1.8-7.7) Lymphocytes # (Auto) 1.5 x10^3/uL (1.0-4.8) Monocytes # (Auto) 0.3 x10^3/uL (0.0-1.1) Eosinophils # (Auto) 0.1 x10^3/uL (0.0-0.7) Basophils # (Auto) 0.0 x10^3/uL (0.0-0.2) Sodium Level 140 mmol/L (136-145) Potassium Level 3.6 mmol/L (3.5-5.1) Chloride Level 104 mmol/L (98-107) Carbon Dioxide Level 28 mmol/L (21-32) Anion Gap 8 (6-14) Blood Urea Nitrogen 18 mg/dL (7-20) Creatinine 1.2 mg/dL (0.6-1.0) H Estimated GFR (Cockcroft-Gault) 56.9 BUN/Creatinine Ratio 15 (6-20) Glucose Level 97 mg/dL (70-99) Lactic Acid Level 1.6 mmol/L (0.4-2.0) Calcium Level 9.1 mg/dL (8.5-10.1) Total Bilirubin 0.6 mg/dL (0.2-1.0) Aspartate Amino Transferase (AST) 16 U/L (15-37) Alanine Aminotransferase (ALT) 20 U/L (14-59) Alkaline Phosphatase 116 U/L (46-116) Troponin I Quantitative < 0.017 ng/mL (0.000-0.055) ML-Ytw-T-Type Natriuretic Peptide 30 pg/mL (0-124) Total Protein 8.3 g/dL (6.4-8.2) H Albumin 3.8 g/dL (3.4-5.0) Albumin/Globulin Ratio 0.8 (1.0-1.7) L Influenza Type A Antigen Negative (NEGATIVE) Influenza Type B Antigen Negative (NEGATIVE) Laboratory Tests 10/27/19 20:35 Laboratory Tests 10/27/19 20:35 EKG EKG [] Radiology/Procedures Radiology/Procedures [facility] [address] [place] [address] IMAGING REPORT Signed PATIENT: LEVI GORE ACCOUNT: [id number] : 1965 LOCATION: ER AGE: 54 SEX: F EXAM STATUS: REG ER ORD. PHYSICIAN: DULCE LIRIANO MD REASON: son PROCEDURE: PORTABLE CHEST 1V AP portable chest radiograph 10/27/2019 Clinical History: Shortness of breath. An AP erect portable digital radiograph of the chest was obtained. Comparison study is dated 06/27/2019. The cardiac silhouette is mildly enlarged. The thoracic aorta is tortuous. No acute pulmonary infiltrate is seen. No pneumothorax or pleural effusion is noted. Mild elevation of the right hemidiaphragm is again noted. Degenerative changes are seen involving the thoracic spine along with both shoulders. IMPRESSION: No acute abnormality is seen. Electronically signed by: Stephen Hernandez MD (10/27/2019 9:48 PM) [id number] DICTATED and SIGNED BY: STEPHEN HERNANDEZ MD DATE: 10/27/19 2148 Course & Med Decision Making Course & Med Decision Making Pertinent Labs and Imaging studies reviewed. (See chart for details) Discharge: I've spoken with the patient and/or caregivers. I've explained the patient's condition, diagnosis and treatment plan based on information available to me at this time. I've answered the patient's and/or caregivers questions and addressed any concerns. The patient and/or caregivers have a good understanding the patient's diagnosis, condition and treatment plan as can be expected at this point. Vital signs have been stabilized. The patient's condition is stable for discharge from the emergency department. The patient will pursue further outpatient evaluation with her primary care provider or other designated consulting physician as outlined in the discharge instructions. Patient and/or caregivers are agreeable to this plan of care and follow-up instructions have been explained in detail. The patient and/or caregivers have received these instructions in written format and expressed understanding of these discharge instructions. The patient and her caregivers are aware that if any significant change in condition or worsening of symptoms should prompt him to immediately return to this of the closest emergency department. If an emergent department is not readily available I would encourage him to call Jyoti Garcia Disclaimer Radha Disclaimer This electronic medical record was generated, in whole or in part, using a voice recognition dictation system. Departure Departure Impression: Primary Impression: Viral illness Additional Impressions: Anxiety about health Morbid obesity Renal insufficiency Disposition: HOME, SELF-CARE (At 2218) Condition: IMPROVED Referrals: KAM RODRIGUEZ (PCP) Patient Instructions: Anxiety and Panic Attacks, Nausea and Vomiting, Viral Syndrome Additional Instructions: Drink plenty of liquids Follow-up with your primary care physician in 3-5 days Return to ER if not getting better Do not eat solid food for the next 24 hours Thank you for visiting [facility]. We appreciate you trusting us with your care. If any additional problems come up don't hesitate to return to visit us. Please follow up with your primary care provider so they can plan additional care if needed and know about the problem that you had. If symptoms worsen come back to the Emergency Department. Any concerning symptoms that start such as chest pain, shortness of air, weakness or numbness on one side of the body, running high fevers or any other concerning symptoms return to the ER. Scripts Ondansetron Hcl (ZOFRAN) 4 Mg Tablet 1 TAB PO PRN Q6-8HRS for nausea, #12 TAB Prov: DULCE LIRIANO MD 10/27/19 Problem Qualifiers DULCE LIRIANO MD Oct 27, 2019 21:53
[2019-10-27 21:58] VITALS: BP 137/90
[2019-10-27] MEDS ORDERED: ONDA4TAB7 PO (22:24)
== END 2019-10-27 22:30 | disposition home or self-care (01) ==
LOC: ER 20:02
DX: B34.9 Viral infection, unspecified (principal); F41.9 Anxiety disorder, unspecified; N28.9 Disorder of kidney and ureter, unspecified; E66.01 Morbid (severe) obesity due to excess calories; Z68.41 Body mass index [BMI] 40.0-44.9, adult; R11.2 Nausea with vomiting, unspecified; R42 Dizziness and giddiness; R09.81 Nasal congestion; K21.9 Gastro-esophageal reflux disease without esophagitis; I10 Essential (primary) hypertension; Z98.890 Other specified postprocedural states; Z90.710 Acquired absence of both cervix and uterus; Z88.2 Allergy status to sulfonamides; Z88.6 Allergy status to analgesic agent; Z88.8 Allergy status to other drugs, medicaments and biological substances; Z88.4 Allergy status to anesthetic agent
CPT/HCPCS: 36415; 71045; 80053; 83605; 83880; 84484; 85025; 87040; 87804; 96360; 99284; J7030

== ENCOUNTER 2019-11-06 12:07 | Emergency (ER) | payer SELFPAY ==
[~2019-11-06] VITALS: Ht 160 cm; Wt 108.0 kg
[2019-11-06 13:15] LABS: BASO % 1 % (0-3); EOS % 1 % (0-3); HEMATOCRIT 40.9 % (36.0-47.0); HEMOGLOBIN 13.3 g/dL (12.0-15.5); LYMPH # 1.2 x10^3/uL (1.0-4.8); LYMPH % 24 % (24-48); MEAN CORPUSCULAR HEMOGLOBIN 27 pg (25-35); MEAN CORPUSCULAR HGB CONC 33 g/dL (31-37); MEAN CORPUSCULAR VOLUME 83 fL (79-100); MONO # 0.3 x10^3/uL (0.0-1.1); MONO % 6 % (0-9); NEUT # 3.3 x10^3/uL (1.8-7.7); NEUT % 68 % (31-73); PLATELET COUNT 269 x10^3/uL (140-400); RED BLOOD COUNT 4.93 x10^6/uL (3.50-5.40); RED CELL DISTRIBUTION WIDTH 14.6 % (11.5-14.5); WHITE BLOOD COUNT 4.9 x10^3/uL (4.0-11.0)
--- NOTE | 2019-11-06 13:15 | EKG ---
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 Electronically Signed On 11-07-2019 11:13:50 CDT by Evert Humphries
[2019-11-06 13:24] LABS: CALCIUM 8.9 mg/dL (8.5-10.1); GFR 70.2; POTASSIUM 3.4 mmol/L (3.5-5.1)
[2019-11-06 13:29] LABS: ALBUMIN 3.8 g/dL (3.4-5.0); ALBUMIN/GLOBULIN RATIO 0.9 (1.0-1.7); TOTAL BILIRUBIN 0.7 mg/dL (0.2-1.0); TOTAL PROTEIN 7.9 g/dL (6.4-8.2)
[2019-11-06 13:34] LABS: PROTHROMBIN TIME PATIENT 14.1 SEC (11.7-14.0)
--- NOTE | 2019-11-06 13:38 | PHYS DOC ---
Past Medical History Past Medical History: Anxiety, DVT, GERD, Hypertension, Other Additional Past Medical Histor: Sinus problems, parkinson's, PANIC ATTACKS Past Surgical History: Hysterectomy Additional Past Surgical Histo: breast reduction, foot surgery Smoking Status: Never Smoker Alcohol Use: None Drug Use: None General Adult EDM: Chief Complaint: SHORTNESS OF BREATH HPI: HPI: Patient is a 54 year old female with history of hypertension, anxiety, PE and DVT on Xarelto, arthritis, GERD, sinus problems, parkinson's, panic attacks who presents with with complaining of dizziness and shortness of breath. Patient complaining of intermittent episodes of dizziness, subjective chills and coldness, shortness of breath and cough for the last 3 days. Patient also complaining of right lower extremity pain or swelling and states she has history of DVT and PE and currently taking Xarelto and concern for possible DVT. Patient states she ran out of anxiety medication 3 days ago. Patient was seen in this emergency room 10 days ago with the same complaint. Patient had negative COVID 19 test reported today from 3 days ago sample. Review of Systems: Review of Systems: Constitutional: Denies fever, report chills. [] Eyes: Denies change in visual acuity. [] HENT: Denies nasal congestion or sore throat. [] Respiratory: Reports cough and shortness of breath Cardiovascular: Denies chest pain or edema. [] GI: Denies abdominal pain, nausea, vomiting, bloody stools or diarrhea. [] : Denies dysuria. [] Musculoskeletal: Denies back pain, report joint pain. [] Integument: Denies rash. [] Neurologic: Denies headache, focal weakness or sensory changes. [] Endocrine: Denies polyuria or polydipsia. [] Lymphatic: Denies swollen glands. [] Psychiatric: Denies depression or anxiety. [] Heart Score: Risk Factors: Risk Factors: DM, Current or recent (<one month) smoker, HTN, HLP, family history of CAD, obesity. Risk Scores: Score 0 - 3: 2.5% MACE over next 6 weeks - Discharge Home Score 4 - 6: 20.3% MACE over next 6 weeks - Admit for Clinical Observation Score 7 - 10: 72.7% MACE over next 6 weeks - Early Invasive Strategies Current Medications: Current Medications Medications (Trade) Dose Ordered Sig/Thomas Start Time Stop Time Status Last Admin Dose Admin Lorazepam (Ativan Inj) 1 mg 1X ONCE 11/06/19 13:15 11/06/19 13:16 DC 11/06/19 13:19 1 MG Allergies: Allergies: Allergies Coded Allergies Type Severity Reaction Last Updated Verified Sulfa (Sulfonamide Antibiotics) Allergy Intermediate rash 07/24/19 Yes adhesive tape Allergy Intermediate rash 07/24/19 Yes metoclopramide Allergy Intermediate 09/24/18 Yes sulfamethoxazole Allergy Intermediate 09/24/18 Yes trimethoprim Allergy Intermediate 09/24/18 Yes Physical Exam: PE: Constitutional: Well developed, well nourished, mild distress, non-toxic appearance, afebrile, morbidly obese. [] HENT: Normocephalic, atraumatic. Eyes: PERRLA, EOMI, conjunctiva normal, no discharge. [] Neck: Normal range of motion, no tenderness, supple, no stridor. [] Cardiovascular:Heart rate regular rhythm, no murmur [] Lungs & Thorax: Bilateral breath sounds clear to auscultation [] Abdomen: Bowel sounds normal, soft, no tenderness, no masses, no pulsatile masses. [] Skin: Warm, dry, no erythema, no rash. [] Back: No tenderness, no CVA tenderness. [] Extremities: Right lower extremity without edema or calf tenderness, no cyanosis, no clubbing, ROM intact, no edema. [] Neurologic: Alert and oriented X 3, no focal deficits noted. [] Psychologic: Affect anxious, judgement normal, mood normal. [] Current Patient Data: Labs: Laboratory Tests Test 11/06/19 12:52 White Blood Count 4.9 x10^3/uL (4.0-11.0) Red Blood Count 4.93 x10^6/uL (3.50-5.40) Hemoglobin 13.3 g/dL (12.0-15.5) Hematocrit 40.9 % (36.0-47.0) Mean Corpuscular Volume 83 fL (79-100) Mean Corpuscular Hemoglobin 27 pg (25-35) Mean Corpuscular Hemoglobin Concent 33 g/dL (31-37) Red Cell Distribution Width 14.6 % (11.5-14.5) H Platelet Count 269 x10^3/uL (140-400) Neutrophils (%) (Auto) 68 % (31-73) Lymphocytes (%) (Auto) 24 % (24-48) Monocytes (%) (Auto) 6 % (0-9) Eosinophils (%) (Auto) 1 % (0-3) Basophils (%) (Auto) 1 % (0-3) Neutrophils # (Auto) 3.3 x10^3/uL (1.8-7.7) Lymphocytes # (Auto) 1.2 x10^3/uL (1.0-4.8) Monocytes # (Auto) 0.3 x10^3/uL (0.0-1.1) Eosinophils # (Auto) 0.0 x10^3/uL (0.0-0.7) Basophils # (Auto) 0.0 x10^3/uL (0.0-0.2) Sodium Level 144 mmol/L (136-145) Potassium Level 3.4 mmol/L (3.5-5.1) L Chloride Level 106 mmol/L (98-107) Carbon Dioxide Level 26 mmol/L (21-32) Anion Gap 12 (6-14) Blood Urea Nitrogen 15 mg/dL (7-20) Creatinine 1.0 mg/dL (0.6-1.0) Estimated GFR (Cockcroft-Gault) 70.2 BUN/Creatinine Ratio 15 (6-20) Glucose Level 86 mg/dL (70-99) Calcium Level 8.9 mg/dL (8.5-10.1) Total Bilirubin Pending Aspartate Amino Transferase (AST) Pending Alanine Aminotransferase (ALT) Pending Alkaline Phosphatase Pending Total Protein Pending Albumin Pending Albumin/Globulin Ratio Pending Laboratory Tests 11/06/19 12:52 Laboratory Tests 11/06/19 12:52 Vital Signs: Vital Signs Date Time Temp Pulse Resp B/P (MAP) Pulse Ox O2 Delivery O2 Flow Rate FiO2 11/06/19 12:38 98.7 87 18 169/94 (119) 99 Room Air 98.7 EKG: EKG: EKG interpreted by me. EKG at 1224 showed sinus rhythm at rate of 83, PVCs, PACs, leftward axis, normal WI intervals, prolonged QT interval at 406, poor R wave progression in anteroseptal leads, no acute ST and T wave elevation. Radiology/Procedures: Radiology/Procedures: [] Course & Med Decision Making: Course & Med Decision Making Pertinent Labs and Imaging studies reviewed. (See chart for details) [] Dragon Disclaimer: Dragon Disclaimer: This electronic medical record was generated, in whole or in part, using a voice recognition dictation system. Departure Departure Impression: Primary Impression: Anxiety about health Additional Impressions: Leg pain Qualified Codes: M79.604 - Pain in right leg Dizziness Disposition: HOME, SELF-CARE (At 1507) Condition: IMPROVED Referrals: KAM RODRIGUEZ (PCP) Patient Instructions: Anxiety and Panic Attacks, Dizziness Additional Instructions: Continue home anxiety medication Follow-up with your primary care physician in 3-5 days Return to ER if not getting better Thank you for visiting [facility]. We appreciate you trusting us with your care. If any additional problems come up don't hesitate to return to visit us. Please follow up with your primary care provider so they can plan additional care if needed and know about the problem that you had. If symptoms worsen come back to the Emergency Department. Any concerning symptoms that start such as chest pain, shortness of air, weakness or numbness on one side of the body, running high fevers or any other concerning symptoms return to the ER. DULCE LIRIANO MD Nov 06, 2019 13:38
--- NOTE | 2019-11-06 13:41 | RAD ---
PORTABLE CHEST 1V INDICATION: Dizziness, dyspnea. COMPARISON STUDY: 10/27/2019. FINDINGS: Life Support Devices: Stable life support devices. Lungs: Normal lung volume. No focal airspace disease. Normal pulmonary vasculature. Pleura: No pleural effusion or pneumothorax. Heart and Mediastinum: Stable cardiomediastinal silhouette and great vessels. IMPRESSION: No acute cardiopulmonary process. Electronically signed by: Jacinto Us MD (11/06/2019 1:38 PM) [id number]
[2019-11-06 13:46] LABS: BILIRUBIN,URINE NEGATIVE (NEG); CLARITY,URINE CLEAR; COLOR,URINE YELLOW; NITRITE,URINE NEGATIVE (NEG); PH,URINE 6.5 (<5.0-8.0); PROTEIN,URINE NEGATIVE (NEG-TRACE)
[2019-11-06 13:58] LABS: BACTERIA,URINE MANY /HPF (0-FEW); SQUAMOUS EPITHELIAL CELL,UR MOD /LPF
--- NOTE | 2019-11-06 14:04 | RAD ---
CT head without contrast PQRS statement: CT scans at this facility use dose reduction including either automated exposure control, iterative reconstructions, and /or weight based radiation dosing via mA and kV modification when appropriate to reduce radiation dose to as low as reasonably achievable. HISTORY: Dizziness. COMPARISON: CT head May 12, 2019. FINDINGS: No intracranial hemorrhage, mass, hydrocephalus, extra-axial fluid collections or infarction. No acute ischemic changes evident. Orbits, mastoids and bones are unremarkable. IMPRESSION: No acute abnormality. Electronically signed by: Royce Anaya MD (11/06/2019 2:01 PM) [id number]
--- NOTE | 2019-11-06 15:02 | RAD ---
EXAM: Right lower extremity venous Doppler. HISTORY: Right lower extremity pain/swelling. Prior deep venous thrombosis and pulmonary embolism. COMPARISON: 04/21/2019 FINDINGS: Grayscale and Doppler analysis of the right lower extremity deep venous system was performed with graded compression and augmentation. The common femoral, greater saphenous, superficial femoral, popliteal and calf veins were assessed. Previously noted deep venous thrombosis within the right popliteal and posterior tibial veins is now nonocclusive. No acute appearing thrombus is identified. The right peroneal veins are not well visualized. IMPRESSION: 1. Chronic nonocclusive thrombus within the right popliteal and posterior tibial veins. No acute appearing thrombus is identified. Electronically signed by: Misty Douglas MD (11/06/2019 2:59 PM) [id number]
[2019-11-06 15:30] VITALS: BP 155/82
== END 2019-11-06 15:55 | disposition home or self-care (01) ==
LOC: ER 12:07
DX: F41.9 Anxiety disorder, unspecified (principal); M79.604 Pain in right leg; R42 Dizziness and giddiness; R05 Cough; R06.02 Shortness of breath; K21.9 Gastro-esophageal reflux disease without esophagitis; I10 Essential (primary) hypertension; Z90.710 Acquired absence of both cervix and uterus; Z98.890 Other specified postprocedural states; Z86.718 Personal history of other venous thrombosis and embolism; Z88.2 Allergy status to sulfonamides; Z88.6 Allergy status to analgesic agent; Z88.8 Allergy status to other drugs, medicaments and biological substances
CPT/HCPCS: 36415; 70450; 71045; 80053; 81001; 83605; 85025; 85610; 85730; 87086; 93005; 93971; 96374; 99285; J2060

== ENCOUNTER 2019-12-01 10:12 | Emergency (ER) | payer OTHER ==
[~2019-12-01] VITALS: Ht 160 cm; Wt 105.0 kg
[2019-12-01 11:12] LABS: CALCIUM 8.8 mg/dL (8.5-10.1); CREATININE 1.1 mg/dL (0.6-1.0); GFR 62.9; POTASSIUM 3.9 mmol/L (3.5-5.1)
[2019-12-01 11:13] LABS: BASO % 1 % (0-3); EOS % 0 % (0-3); HEMATOCRIT 40.7 % (36.0-47.0); HEMOGLOBIN 13.3 g/dL (12.0-15.5); LYMPH # 0.9 x10^3/uL (1.0-4.8); LYMPH % 19 % (24-48); MEAN CORPUSCULAR HEMOGLOBIN 27 pg (25-35); MEAN CORPUSCULAR HGB CONC 33 g/dL (31-37); MEAN CORPUSCULAR VOLUME 83 fL (79-100); MONO # 0.2 x10^3/uL (0.0-1.1); MONO % 4 % (0-9); NEUT # 3.5 x10^3/uL (1.8-7.7); NEUT % 76 % (31-73); PLATELET COUNT 288 x10^3/uL (140-400); RED BLOOD COUNT 4.89 x10^6/uL (3.50-5.40); RED CELL DISTRIBUTION WIDTH 15.2 % (11.5-14.5); WHITE BLOOD COUNT 4.7 x10^3/uL (4.0-11.0)
[2019-12-01 11:16] LABS: ALBUMIN 3.6 g/dL (3.4-5.0); ALBUMIN/GLOBULIN RATIO 0.9 (1.0-1.7); TOTAL BILIRUBIN 0.6 mg/dL (0.2-1.0); TOTAL PROTEIN 7.8 g/dL (6.4-8.2)
--- NOTE | 2019-12-01 11:42 | RAD ---
EXAM: AP chest radiograph DATE: 12/01/2019 10:34 AM INDICATION: Shortness of air. COMPARISON: Chest radiograph 11/06/2019 FINDINGS: The patient is rotated to the right. The heart is normal in size. Thoracic aorta appears tortuous. Lungs adequately expanded. No consolidation, pleural effusion, or pneumothorax. No acute osseous abnormality. IMPRESSION: No acute cardiopulmonary abnormality. Electronically signed by: Ilda Kim MD (12/01/2019 11:39 AM) [id number]
[2019-12-01 12:02] LABS: BILIRUBIN,URINE NEGATIVE (NEG); CLARITY,URINE CLEAR; COLOR,URINE YELLOW; NITRITE,URINE NEGATIVE (NEG); PROTEIN,URINE NEGATIVE (NEG-TRACE)
[2019-12-01 12:17] LABS: BACTERIA,URINE MODERATE /HPF (0-FEW); RBC,URINE 0 /HPF (0-2); SQUAMOUS EPITHELIAL CELL,UR MANY /LPF
--- NOTE | 2019-12-01 12:24 | PHYS DOC ---
Past Medical History Past Medical History: Anxiety, DVT, GERD, Hypertension, Other Additional Past Medical Histor: Sinus problems, parkinson's, PANIC ATTACKS Past Surgical History: Hysterectomy Additional Past Surgical Histo: breast reduction, foot surgery Smoking Status: Never Smoker Alcohol Use: None Drug Use: None General Adult EDM: Chief Complaint: SHORTNESS OF BREATH HPI: HPI: Patient is a 54-year-old female with a history of Parkinson's, anxiety and a DVT who presents with shortness of breath, nausea and dizziness. She states this started today. She denies any fever chills or sweats. She has not had any cough or congestion. She denies any dyspnea on exertion. She has been taking Eliquis for her DVT twice daily as directed. [] Review of Systems: Review of Systems: Constitutional: Denies fever or chills. [] Eyes: Denies change in visual acuity. [] HENT: Denies nasal congestion or sore throat. [] Respiratory: Reports some shortness of breath. [] Cardiovascular: Denies chest pain or edema. [] GI: Denies abdominal pain, nausea, vomiting, bloody stools or diarrhea. [] : Denies dysuria. [] Musculoskeletal: Denies back pain or joint pain. [] Integument: Denies rash. [] Neurologic: Reports dizziness [] Endocrine: Denies polyuria or polydipsia. [] Lymphatic: Denies swollen glands. [] Psychiatric: Reports anxiety. [] Heart Score: Risk Factors: Risk Factors: DM, Current or recent (<one month) smoker, HTN, HLP, family history of CAD, obesity. Risk Scores: Score 0 - 3: 2.5% MACE over next 6 weeks - Discharge Home Score 4 - 6: 20.3% MACE over next 6 weeks - Admit for Clinical Observation Score 7 - 10: 72.7% MACE over next 6 weeks - Early Invasive Strategies Allergies: Allergies: Allergies Coded Allergies Type Severity Reaction Last Updated Verified Sulfa (Sulfonamide Antibiotics) Allergy Intermediate rash 07/24/19 Yes adhesive tape Allergy Intermediate rash 07/24/19 Yes metoclopramide Allergy Intermediate 09/24/18 Yes sulfamethoxazole Allergy Intermediate 09/24/18 Yes trimethoprim Allergy Intermediate 09/24/18 Yes Physical Exam: PE: Constitutional: Well developed, well nourished, no acute distress, non-toxic appearance. [] HENT: Normocephalic, atraumatic, bilateral external ears normal, oropharynx moist, no oral exudates, nose normal. [] Eyes: PERRLA, EOMI, conjunctiva normal, no discharge. [] Neck: Normal range of motion, no tenderness, supple, no stridor. [] Cardiovascular:Heart rate regular rhythm, no murmur [] Lungs & Thorax: Bilateral breath sounds clear to auscultation [] Abdomen: Bowel sounds normal, soft, no tenderness, no masses, no pulsatile mass es. [] Skin: Warm, dry, no erythema, no rash. [] Back: No tenderness, no CVA tenderness. [] Extremities: No tenderness, no cyanosis, no clubbing, ROM intact, no edema. [] Neurologic: Alert and oriented X 3, normal motor function, normal sensory function, no focal deficits noted. [] Psychologic: Extremely anxious. [] Current Patient Data: Labs: Laboratory Tests Test 12/01/19 10:50 12/01/19 11:50 White Blood Count 4.7 x10^3/uL (4.0-11.0) Red Blood Count 4.89 x10^6/uL (3.50-5.40) Hemoglobin 13.3 g/dL (12.0-15.5) Hematocrit 40.7 % (36.0-47.0) Mean Corpuscular Volume 83 fL (79-100) Mean Corpuscular Hemoglobin 27 pg (25-35) Mean Corpuscular Hemoglobin Concent 33 g/dL (31-37) Red Cell Distribution Width 15.2 % (11.5-14.5) H Platelet Count 288 x10^3/uL (140-400) Neutrophils (%) (Auto) 76 % (31-73) H Lymphocytes (%) (Auto) 19 % (24-48) L Monocytes (%) (Auto) 4 % (0-9) Eosinophils (%) (Auto) 0 % (0-3) Basophils (%) (Auto) 1 % (0-3) Neutrophils # (Auto) 3.5 x10^3/uL (1.8-7.7) Lymphocytes # (Auto) 0.9 x10^3/uL (1.0-4.8) L Monocytes # (Auto) 0.2 x10^3/uL (0.0-1.1) Eosinophils # (Auto) 0.0 x10^3/uL (0.0-0.7) Basophils # (Auto) 0.0 x10^3/uL (0.0-0.2) Sodium Level 140 mmol/L (136-145) Potassium Level 3.9 mmol/L (3.5-5.1) Chloride Level 104 mmol/L (98-107) Carbon Dioxide Level 29 mmol/L (21-32) Anion Gap 7 (6-14) Blood Urea Nitrogen 16 mg/dL (7-20) Creatinine 1.1 mg/dL (0.6-1.0) H Estimated GFR (Cockcroft-Gault) 62.9 BUN/Creatinine Ratio 15 (6-20) Glucose Level 96 mg/dL (70-99) Calcium Level 8.8 mg/dL (8.5-10.1) Total Bilirubin 0.6 mg/dL (0.2-1.0) Aspartate Amino Transferase (AST) 19 U/L (15-37) Alanine Aminotransferase (ALT) 24 U/L (14-59) Alkaline Phosphatase 118 U/L (46-116) H Troponin I Quantitative < 0.017 ng/mL (0.000-0.055) WP-Bmn-E-Type Natriuretic Peptide 24 pg/mL (0-124) Total Protein 7.8 g/dL (6.4-8.2) Albumin 3.6 g/dL (3.4-5.0) Albumin/Globulin Ratio 0.9 (1.0-1.7) L Urine Collection Type Unknown Urine Color Yellow Urine Clarity Clear Urine pH 7.0 (<5.0-8.0) Urine Specific [place] >=1.030 (1.000-1.030) Urine Protein Negative mg/dL (NEG-TRACE) Urine Glucose (UA) Negative mg/dL (NEG) Urine Ketones (Stick) Negative mg/dL (NEG) Urine Blood Negative (NEG) Urine Nitrite Negative (NEG) Urine Bilirubin Negative (NEG) Urine Urobilinogen Dipstick 1.0 mg/dL (0.2 mg/dL) Urine Leukocyte Esterase Negative (NEG) Urine RBC 0 /HPF (0-2) Urine WBC 1-4 /HPF (0-4) Urine Squamous Epithelial Cells Many /LPF Urine Bacteria Moderate /HPF (0-FEW) Urine Mucus Mod /LPF Laboratory Tests 12/01/19 10:50 Laboratory Tests 12/01/19 10:50 Vital Signs: Vital Signs Date Time Temp Pulse Resp B/P (MAP) Pulse Ox O2 Delivery O2 Flow Rate FiO2 12/01/19 11:05 88 18 128/75 (92) 98 Room Air 12/01/19 10:42 98.8 98.8 EKG: EKG: [] Radiology/Procedures: Radiology/Procedures: [] Impression: REASON: short of air ER 21,starting IV 10:48 PROCEDURE: CHEST AP ONLY EXAM: AP chest radiograph DATE: 12/01/2019 10:34 AM INDICATION: Shortness of air. COMPARISON: Chest radiograph 11/06/2019 FINDINGS: The patient is rotated to the right. The heart is normal in size. Thoracic aorta appears tortuous. Lungs adequately expanded. No consolidation, pleural effusion, or pneumothorax. No acute osseous abnormality. IMPRESSION: No acute cardiopulmonary abnormality. Course & Med Decision Making: Course & Med Decision Making Pertinent Labs and Imaging studies reviewed. (See chart for details) ED course: Evaluation reveals a 54-year-old female who does not appear to be in any distress at all. I suspect the majority of her symptoms are related to anxi ety. Patient is safe for discharge home after reviewing her laboratory studies and chest x-ray. [] Nandoon Disclaimer: Radha Disclaimer: This electronic medical record was generated, in whole or in part, using a voice recognition dictation system. Departure Departure Impression: Primary Impression: Anxiety about health Disposition: 01 HOME, SELF-CARE Condition: STABLE Referrals: KAM RODRIGUEZ (PCP) Patient Instructions: Anxiety and Panic Attacks Additional Instructions: Return to the emergency department with any new or concerning symptoms THEODORA ROY DO December 01, 2019 12:24
--- NOTE | 2019-12-01 12:29 | EKG ---
[facility] [address] [place] [address] Test Date: 2019-12-01 Test Time: 10:42:47 Pat Name: LEVI GORE Department: Room: Gender: F [employer] Operator: : 1965 Requested By: THEODORA ROY Order Number: [id number] Reading MD: Eddie Bro Measurements Intervals [place] Rate: 91 P: 4 NC: 180 QRS: 0 QRSD: 80 T: 18 QT: 384 QTc: 474 Interpretive Statements SINUS RHYTHM LEFTWARD AXIS PROLONGED QT Electronically Signed On 12-01-2019 13:41:15 CDT by Eddie Bro
[2019-12-01 12:39] VITALS: BP 122/81
== END 2019-12-01 12:36 | disposition home or self-care (01) ==
LOC: ER 10:12
DX: F41.9 Anxiety disorder, unspecified (principal); R42 Dizziness and giddiness; R06.02 Shortness of breath; R11.0 Nausea; K21.9 Gastro-esophageal reflux disease without esophagitis; I10 Essential (primary) hypertension; G20 Parkinson's disease; Z86.718 Personal history of other venous thrombosis and embolism; Z88.1 Allergy status to other antibiotic agents; Z88.2 Allergy status to sulfonamides; Z88.8 Allergy status to other drugs, medicaments and biological substances
CPT/HCPCS: 36415; 71045; 80053; 81001; 83880; 84484; 85025; 87086; 93005; 99285-25

== ENCOUNTER 2020-01-11 15:16 | Emergency (ER) | payer OTHER ==
[~2020-01-11] VITALS: Ht 160 cm; Wt 104.5 kg
--- NOTE | 2020-01-11 15:54 | RAD ---
Single view of the chest. 01/11/2020 3:22 PM Indication: Reason: sob, covid? / Spl. Instructions: / History: Comparison: Chest radiograph December 01, 2019 Findings: There is no pneumothorax or pleural effusion. There is borderline cardiomegaly. No focal consolidative infiltrate is seen. Mild linear opacities are seen in the right mid and lower lungs. The appearance favors discoid atelectasis. There is mild diffuse interstitial thickening. Findings could represent mild interstitial edema. An early or mild atypical or viral infectious process cannot be excluded. No acute osseous changes are seen. IMPRESSION: 1. Mild diffuse interstitial thickening. Mild pulmonary edema versus mild atypical or viral cannot be excluded. 2. Linear opacities in the right lung base suggestive of discoid atelectasis Electronically signed by: Red Donovan MD (01/11/2020 3:51 PM) [id number]
[2020-01-11 16:03] LABS: BASO % 1 % (0-3); EOS # 0.1 x10^3/uL (0.0-0.7); EOS % 2 % (0-3); HEMATOCRIT 39.1 % (36.0-47.0); LYMPH # 1.4 x10^3/uL (1.0-4.8); LYMPH % 27 % (24-48); MEAN CORPUSCULAR HEMOGLOBIN 28 pg (25-35); MEAN CORPUSCULAR HGB CONC 33 g/dL (31-37); MEAN CORPUSCULAR VOLUME 84 fL (79-100); MONO # 0.3 x10^3/uL (0.0-1.1); MONO % 6 % (0-9); NEUT # 3.4 x10^3/uL (1.8-7.7); NEUT % 65 % (31-73); PLATELET COUNT 276 x10^3/uL (140-400); RED BLOOD COUNT 4.66 x10^6/uL (3.50-5.40); RED CELL DISTRIBUTION WIDTH 15.1 % (11.5-14.5); WHITE BLOOD COUNT 5.2 x10^3/uL (4.0-11.0)
[2020-01-11 16:11] LABS: PROTHROMBIN TIME PATIENT 12.7 SEC (11.7-14.0)
[2020-01-11 16:19] LABS: CALCIUM 8.7 mg/dL (8.5-10.1); CREATININE 1.2 mg/dL (0.6-1.0); GFR 56.9; POTASSIUM 3.8 mmol/L (3.5-5.1)
[2020-01-11 16:25] LABS: ALBUMIN 3.5 g/dL (3.4-5.0); ALBUMIN/GLOBULIN RATIO 0.9 (1.0-1.7); TOTAL BILIRUBIN 0.5 mg/dL (0.2-1.0); TOTAL PROTEIN 7.2 g/dL (6.4-8.2)
[2020-01-11 16:43] LABS: C-REACTIVE PROTEIN 8.1 mg/L (0-3.3)
[2020-01-11] MEDS ORDERED: CETI10TA24 PO (17:25)
[2020-01-11] MEDS ORDERED: AZIT500T4 PO (17:25)
[2020-01-11] MEDS ORDERED: VENTOLIN HFA18 GM INH (17:25)
[2020-01-11 17:28] VITALS: BP 122/61
--- NOTE | 2020-01-12 07:09 | PHYS DOC ---
Past Medical History Past Medical History: Anxiety, DVT, GERD, Hypertension, Other Additional Past Medical Histor: Sinus problems, parkinson's, PANIC ATTACKS Past Surgical History: Hysterectomy Additional Past Surgical Histo: breast reduction, foot surgery Smoking Status: Never Smoker Alcohol Use: None Drug Use: None General Adult EDM: Chief Complaint: SHORTNESS OF BREATH HPI: HPI: Patient is a 54 year old female who presents with generalized weakness and shortness of breath that started suddenly today. She states that she has had cough for a couple of days. Denies fever, chills, sweats, chest pain, nausea, vomiting, wheezing. She has a history of DVT and is concerned she may have a PE. She is on Eliquis. She takes it most of the time, but does miss doses occasionally. She does not have any unilateral leg swelling. Review of Systems: Review of Systems: General: Denies fever, chills, sweats, fatigue Eyes: Denies drainage, blurred vision HENT: Denies rhinorrhea, sore throat Respiratory: Reports cough, shortness of breath Cardiac: Denies edema, palpitations, chest pain GI: Denies abdominal pain, N/V MSK: Denies back pain, neck pain Skin: Denies rash, jaundice Neuro: Denies headache, dizziness Psychiatric: Denies SI/HI Heart Score: Risk Factors: Risk Factors: DM, Current or recent (<one month) smoker, HTN, HLP, family history of CAD, obesity. Risk Scores: Score 0 - 3: 2.5% MACE over next 6 weeks - Discharge Home Score 4 - 6: 20.3% MACE over next 6 weeks - Admit for Clinical Observation Score 7 - 10: 72.7% MACE over next 6 weeks - Early Invasive Strategies Allergies: Allergies: Allergies Coded Allergies Type Severity Reaction Last Updated Verified Sulfa (Sulfonamide Antibiotics) Allergy Intermediate rash 07/24/19 Yes adhesive tape Allergy Intermediate rash 07/24/19 Yes metoclopramide Allergy Intermediate 09/24/18 Yes sulfamethoxazole Allergy Intermediate 09/24/18 Yes trimethoprim Allergy Intermediate 09/24/18 Yes Physical Exam: PE: Constitutional: Well developed, well nourished, Cooperative, NAD, non-toxic appearing HEENT: Normocephalic, atraumatic, oropharynx moist, EOMI, PERRL, no drainage from eyes, normal conjunctiva Neck: Supple, normal range of motion, no stridor Cardiovascular: RRR, 2+ radial pulses bilaterally, no edema Respiratory: CTA bilaterally, no respiratory distress, no wheezing/crackles Abdomen: Soft, nontender, nondistended, no masses Skin: Warm, dry, intact Extremities: No obvious deformities Neurologic: Alert and Oriented x3, motor and sensory function grossly normal, no focal deficits Psychologic: Normal affect, normal judgment, normal mood. No SI/HI Current Patient Data: Labs: Laboratory Tests Test 01/11/20 15:52 White Blood Count 5.2 x10^3/uL (4.0-11.0) Red Blood Count 4.66 x10^6/uL (3.50-5.40) Hemoglobin 13.0 g/dL (12.0-15.5) Hematocrit 39.1 % (36.0-47.0) Mean Corpuscular Volume 84 fL (79-100) Mean Corpuscular Hemoglobin 28 pg (25-35) Mean Corpuscular Hemoglobin Concent 33 g/dL (31-37) Red Cell Distribution Width 15.1 % (11.5-14.5) H Platelet Count 276 x10^3/uL (140-400) Neutrophils (%) (Auto) 65 % (31-73) Lymphocytes (%) (Auto) 27 % (24-48) Monocytes (%) (Auto) 6 % (0-9) Eosinophils (%) (Auto) 2 % (0-3) Basophils (%) (Auto) 1 % (0-3) Neutrophils # (Auto) 3.4 x10^3/uL (1.8-7.7) Lymphocytes # (Auto) 1.4 x10^3/uL (1.0-4.8) Monocytes # (Auto) 0.3 x10^3/uL (0.0-1.1) Eosinophils # (Auto) 0.1 x10^3/uL (0.0-0.7) Basophils # (Auto) 0.0 x10^3/uL (0.0-0.2) Prothrombin Time 12.7 SEC (11.7-14.0) Prothrombin Time INR 1.0 (0.8-1.1) D-Dimer (Rebecca) 0.34 ug/mlFEU (0.00-0.50) Sodium Level 144 mmol/L (136-145) Potassium Level 3.8 mmol/L (3.5-5.1) Chloride Level 107 mmol/L (98-107) Carbon Dioxide Level 30 mmol/L (21-32) Anion Gap 7 (6-14) Blood Urea Nitrogen 17 mg/dL (7-20) Creatinine 1.2 mg/dL (0.6-1.0) H Estimated GFR (Cockcroft-Gault) 56.9 BUN/Creatinine Ratio 14 (6-20) Glucose Level 111 mg/dL (70-99) H Calcium Level 8.7 mg/dL (8.5-10.1) Total Bilirubin 0.5 mg/dL (0.2-1.0) Aspartate Amino Transferase (AST) 16 U/L (15-37) Alanine Aminotransferase (ALT) 22 U/L (14-59) Alkaline Phosphatase 112 U/L (46-116) Lactate Dehydrogenase 162 U/L (81-234) Creatine Kinase 63 U/L (26-192) Troponin I Quantitative < 0.017 ng/mL (0.000-0.055) C-Reactive Protein, Quantitative 8.1 mg/L (0-3.3) H LE-Xcf-M-Type Natriuretic Peptide 19 pg/mL (0-124) Total Protein 7.2 g/dL (6.4-8.2) Albumin 3.5 g/dL (3.4-5.0) Albumin/Globulin Ratio 0.9 (1.0-1.7) L Laboratory Tests 01/11/20 15:52 Laboratory Tests 01/11/20 15:52 Vital Signs: Vital Signs Date Time Temp Pulse Resp B/P (MAP) Pulse Ox O2 Delivery O2 Flow Rate FiO2 01/11/20 17:28 88 30 122/61 (81) 96 Room Air 01/11/20 15:20 97.8 97.8 EKG: EKG: [] Radiology/Procedures: Radiology/Procedures: [] Course & Med Decision Making: Course & Med Decision Making Pertinent Labs and Imaging studies reviewed. (See chart for details) Patient is a 54-year-old female who presents to the emergency room complaining of onset of shortness of breath. Patient has a history of a DVT but is on Eliq uis. She does occasionally miss doses. She is not tachycardic or hypoxic here in the emergency room. She does not appear to have increased work of breathing. Labs were ordered including CBC, BMP, d-dimer, troponin, EKG, chest x-ray. Chest x-ray shows possible viral pneumonia. It looks minimally changed from prior x-rays on my evaluation. Is possible that she is getting the start of pneumonia. She does not believe she has any risk factors for the coronavirus. D-dimer is negative. I have discussed a CT angio with the patient and she states she has had several and is worried about radiation exposure. Given her absence of tachycardia and hypoxia, low d-dimer, and normal BNP/Troponin I feel comfortable deferring CT at this time. I have discussed with her that given her history she could get a PE at any time and shoulder return to the ER if symptoms get worse. Patient's test results and vitals while in the ED were fully reviewed and discussed with the patient. Patient is stable and at this time does not need admission to the hospital. We have discussed strict return precautions and the importance of following up with their Primary Care Physician. Patient stated understanding and was given an opportunity to ask any questions. Dragon Disclaimer: Dragon Disclaimer: This electronic medical record was generated, in whole or in part, using a voice recognition dictation system. Departure Departure Impression: Primary Impression: Pneumonia Additional Impression: Shortness of breath Disposition: 01 HOME, SELF-CARE Condition: STABLE Patient Instructions: Shortness of Breath, Pneumonia, Adult, [id number] Scripts Azithromycin (AZITHROMYCIN TABLET) 500 Mg Tablet 1 TAB PO DAILY for 5 Days, #5 TAB 0 Refills Prov: MARGARITA LILLY MD 01/11/20 Cetirizine Hcl (ZYRTEC) 10 Mg Tablet 1 TAB PO DAILY, #30 TAB 2 Refills Prov: MARGARITA LILLY MD 01/11/20 Albuterol Sulfate (VENTOLIN HFA INHALER) 18 Gm Hfa.aer.ad 2 PUFF INH Q4HRS for FOR ASTHMA for 5 Days, #1 INHALER 0 Refills Prov: MARGARITA LILLY MD 01/11/20 Justicifation of Admission Dx: Justifications for Admission: Justification of Admission Dx: N/A MARGARITA LILLY MD Jan 12, 2020 07:09
== END 2020-01-11 17:55 | disposition home or self-care (01) ==
LOC: ER 15:16
DX: J18.9 Pneumonia, unspecified organism (principal); R06.02 Shortness of breath; R53.1 Weakness; R05 Cough; F41.9 Anxiety disorder, unspecified; I10 Essential (primary) hypertension; K21.9 Gastro-esophageal reflux disease without esophagitis; Z86.718 Personal history of other venous thrombosis and embolism; Z90.710 Acquired absence of both cervix and uterus; Z88.2 Allergy status to sulfonamides; Z88.8 Allergy status to other drugs, medicaments and biological substances; Z88.6 Allergy status to analgesic agent; Z98.890 Other specified postprocedural states
CPT/HCPCS: 36415; 71045; 80053; 82550; 83615; 83880; 84484; 85025; 85379; 85610; 86140; 99285

== ENCOUNTER 2020-01-16 22:19 | Emergency (ER) | payer OTHER ==
[~2020-01-16] VITALS: Ht 160 cm; Wt 104.0 kg
[~2020-01-16 22:19] MED LIST changes: +AZIT500T4 PO; +CETI10TA24 PO; +VENTOLIN HFA18 GM INH
--- NOTE | 2020-01-17 00:27 | PHYS DOC ---
Past Medical History Past Medical History: Anxiety, DVT, GERD, Hypertension, Other Additional Past Medical Histor: Sinus problems, parkinson's, PANIC ATTACKS Past Surgical History: Hysterectomy Additional Past Surgical Histo: breast reduction, foot surgery Smoking Status: Never Smoker Alcohol Use: None Drug Use: None General Adult EDM: Chief Complaint: SHORTNESS OF BREATH HPI: HPI: Patient is a 54 year old female who presents with numerous complaints to include shortness of breath, ear pressure, headache, nasal congestion, nasal drainage, and concerns about possibility of blood clots. Patient already is on Eliquis for blood clots. She denies any chest pain. She states that shortness of breath is worsened with exertion. Patient does not want a chest x-ray. [] Review of Systems: Review of Systems: Constitutional: Denies fever or chills. [] Respiratory: Complains of shortness of breath. [] Cardiovascular: Denies chest pain or edema. [] Musculoskeletal: Denies back pain or joint pain. [] Integument: Denies rash. [] Neurologic: Complains of focal weakness or sensory changes. [] Heart Score: Risk Factors: Risk Factors: DM, Current or recent (<one month) smoker, HTN, HLP, family history of CAD, obesity. Risk Scores: Score 0 - 3: 2.5% MACE over next 6 weeks - Discharge Home Score 4 - 6: 20.3% MACE over next 6 weeks - Admit for Clinical Observation Score 7 - 10: 72.7% MACE over next 6 weeks - Early Invasive Strategies Allergies: Allergies: Allergies Coded Allergies Type Severity Reaction Last Updated Verified Sulfa (Sulfonamide Antibiotics) Allergy Intermediate rash 07/24/19 Yes adhesive tape Allergy Intermediate rash 07/24/19 Yes metoclopramide Allergy Intermediate 09/24/18 Yes sulfamethoxazole Allergy Intermediate 09/24/18 Yes trimethoprim Allergy Intermediate 09/24/18 Yes Physical Exam: PE: Constitutional: Well developed, well nourished, no acute distress, non-toxic appearance. [] HENT: Normocephalic, atraumatic, bilateral external ears normal, oropharynx moist, no oral exudates, nose normal. [] Eyes: PERRLA, EOMI, conjunctiva normal, no discharge. [] Neck: Normal range of motion, no tenderness, supple. [] Cardiovascular: Regular rate and rhythm [] Lungs & Thorax: Bilateral breath sounds clear to auscultation [] Skin: Warm, dry, no erythema, no rash. [] Extremities: No tenderness, no cyanosis, no clubbing, ROM intact. [] Neurologic: Alert and oriented X 3, no focal deficits noted. [] Current Patient Data: Vital Signs: Vital Signs Date Time Temp Pulse Resp B/P (MAP) Pulse Ox O2 Delivery O2 Flow Rate FiO2 01/16/20 23:00 98.3 95 18 137/92 (107) 97 Room Air 98.3 EKG: EKG: [] Radiology/Procedures: Radiology/Procedures: [] Course & Med Decision Making: Course & Med Decision Making Pertinent Labs and Imaging studies reviewed. (See chart for details) [] Dragon Disclaimer: Dragon Disclaimer: This electronic medical record was generated, in whole or in part, using a voice recognition dictation system. Departure Departure Impression: Primary Impression: Shortness of breath Disposition: HOME, SELF-CARE Condition: STABLE Referrals: KAM RODRIGUEZ (PCP) Patient Instructions: Shortness of Breath Additional Instructions: Continue taking medications already prescribed and follow-up with your primary care provider in the next few days. Justicifation of Admission Dx: Justifications for Admission: Justification of Admission Dx: Comment: (Not applicable) SALLY LIANG Jr. DO Jan 17, 2020 00:27
[2020-01-17 00:33] LABS: BASO % 1 % (0-3); EOS % 1 % (0-3); HEMATOCRIT 38.4 % (36.0-47.0); HEMOGLOBIN 12.7 g/dL (12.0-15.5); LYMPH # 1.1 x10^3/uL (1.0-4.8); LYMPH % 22 % (24-48); MEAN CORPUSCULAR HEMOGLOBIN 28 pg (25-35); MEAN CORPUSCULAR HGB CONC 33 g/dL (31-37); MEAN CORPUSCULAR VOLUME 84 fL (79-100); MONO # 0.3 x10^3/uL (0.0-1.1); MONO % 6 % (0-9); NEUT # 3.3 x10^3/uL (1.8-7.7); NEUT % 70 % (31-73); PLATELET COUNT 289 x10^3/uL (140-400); RED BLOOD COUNT 4.59 x10^6/uL (3.50-5.40); RED CELL DISTRIBUTION WIDTH 15.3 % (11.5-14.5); WHITE BLOOD COUNT 4.7 x10^3/uL (4.0-11.0)
[2020-01-17 00:41] LABS: CALCIUM 8.6 mg/dL (8.5-10.1); CREATININE 1.1 mg/dL (0.6-1.0); GFR 62.9; POTASSIUM 3.8 mmol/L (3.5-5.1)
[2020-01-17 00:47] LABS: ALBUMIN 3.5 g/dL (3.4-5.0); ALBUMIN/GLOBULIN RATIO 0.8 (1.0-1.7); TOTAL BILIRUBIN 0.4 mg/dL (0.2-1.0); TOTAL PROTEIN 7.7 g/dL (6.4-8.2)
[2020-01-17 02:13] VITALS: BP 144/68
== END 2020-01-17 02:13 | disposition home or self-care (01) ==
LOC: ER 22:19
DX: R06.02 Shortness of breath (principal); R51 Headache; R09.81 Nasal congestion; K21.9 Gastro-esophageal reflux disease without esophagitis; I10 Essential (primary) hypertension; Z86.718 Personal history of other venous thrombosis and embolism; Z88.1 Allergy status to other antibiotic agents; Z88.2 Allergy status to sulfonamides; Z88.8 Allergy status to other drugs, medicaments and biological substances
CPT/HCPCS: 36415; 80053; 83880; 84484; 85025; 99283

== ENCOUNTER 2020-02-12 15:14 | Emergency (ER) | payer OTHER ==
[~2020-02-12] VITALS: Ht 157.5 cm; Wt 109.0 kg
[2020-02-12 16:17] LABS: BASO % 1 % (0-3); EOS # 0.1 x10^3/uL (0.0-0.7); EOS % 1 % (0-3); HEMATOCRIT 39.2 % (36.0-47.0); HEMOGLOBIN 13.3 g/dL (12.0-15.5); LYMPH % 22 % (24-48); MEAN CORPUSCULAR HEMOGLOBIN 28 pg (25-35); MEAN CORPUSCULAR HGB CONC 34 g/dL (31-37); MEAN CORPUSCULAR VOLUME 83 fL (79-100); MONO # 0.4 x10^3/uL (0.0-1.1); MONO % 8 % (0-9); NEUT # 3.3 x10^3/uL (1.8-7.7); NEUT % 69 % (31-73); PLATELET COUNT 267 x10^3/uL (140-400); RED BLOOD COUNT 4.72 x10^6/uL (3.50-5.40); RED CELL DISTRIBUTION WIDTH 14.8 % (11.5-14.5); WHITE BLOOD COUNT 4.8 x10^3/uL (4.0-11.0)
[2020-02-12 16:42] LABS: CALCIUM 8.8 mg/dL (8.5-10.1); CREATININE 1.2 mg/dL (0.6-1.0); GFR 56.9; POTASSIUM 4.2 mmol/L (3.5-5.1)
[2020-02-12 16:47] LABS: ALBUMIN 3.6 g/dL (3.4-5.0); ALBUMIN/GLOBULIN RATIO 0.8 (1.0-1.7); TOTAL BILIRUBIN 0.4 mg/dL (0.2-1.0); TOTAL PROTEIN 7.9 g/dL (6.4-8.2)
[2020-02-12 17:07] LABS: CREATINE KINASE 78 U/L (26-192)
[2020-02-12 17:09] LABS: PROTHROMBIN TIME PATIENT 13.5 SEC (11.7-14.0)
[2020-02-12 17:15] LABS: D-DIMER 0.31 ug/mlFEU (0.00-0.50)
--- NOTE | 2020-02-12 17:41 | PHYS DOC ---
Past Medical History Past Medical History: Anxiety, DVT, GERD, Hypertension, Other Additional Past Medical Histor: Sinus problems, parkinson's, PANIC ATTACKS Past Surgical History: Hysterectomy Additional Past Surgical Histo: breast reduction, foot surgery Smoking Status: Never Smoker Alcohol Use: None Drug Use: None General Adult EDM: Chief Complaint: Palpitations HPI: HPI: Patient is a 54 year old female who presents with complaints of feeling anxious today just prior to arrival. Patient attributes this anxious feeling to her home medication ropinirole 6 mg which she takes at night for her Parkinson's disease. Patient states that approximately 30 minutes prior to her arrival she took her blood pressure at home and it was 152/100 and noted that her heart rate was 106. These vital signs concerned her and she worried that she may have a bl ood clot in her lung. Patient states that during this period of wariness she felt as if her breathing had changed. Patient denies any shortness of breath, but states she has had blood clots in the past which she is currently taking Eliquis for and worries that she may now have one in her lung. Patient denies any chest pains. Patient states that she feels very anxious and worried that she may have a blood clot in her lung. Patient denies any fever or chills, visual changes, nasal congestion, cough, or shortness of breath. Patient denies any pains in her chest, swelling of her extremities. Patient denies any abdominal pain, nausea, vomiting, diarrhea, constipation, or blood in her stool s. Patient denies any problems urinating. Patient denies any back pain or pain in her joints. Patient denies any skin rashes. Patient denies any headaches focal weaknesses or sensory changes. Patient denies any swelling of her glands. Patient denies any recent polyuria or polydipsia. Patient denies any recent life changes. Patient does state however she goes through periods of depression and anxiety which she is currently treated by her family physician. Patient denies any homicidal or suicidal ideation. Patient states no one else living in her home has the same symptoms as she. Review of Systems: Review of Systems: Constitutional: Denies fever or chills. Eyes: Denies change in visual acuity. HENT: Denies nasal congestion or sore throat. Respiratory: Denies cough or shortness of breath. Patient does state she feels as if her breathing is odd. Cardiovascular: Denies chest pain or edema. GI: Denies abdominal pain, nausea, vomiting, constipation, bloody stools or diarrhea. : Denies dysuria. Musculoskeletal: Denies back pain or joint pain. Integument: Denies rash. Neurologic: Denies headache, focal weakness or sensory changes. Endocrine: Denies polyuria or polydipsia. Lymphatic: Denies swollen glands. Psychiatric: Denies depression or anxiety. Heart Score: Risk Factors: Risk Factors: DM, Current or recent (<one month) smoker, HTN, HLP, family history of CAD, obesity. Risk Scores: Score 0 - 3: 2.5% MACE over next 6 weeks - Discharge Home Score 4 - 6: 20.3% MACE over next 6 weeks - Admit for Clinical Observation Score 7 - 10: 72.7% MACE over next 6 weeks - Early Invasive Strategies Family History: Family History: Patient reports a family history of heart disease, diabetes, depression/anxiety Current Medications: Patient reports her current home medications as follows. 25 mg hydroxyzine, 4 mg ondansetron, Excedrin, 0.5 mg Xanax, 10 mg Coumadin, Ventolin HFA MDI, Zyrtec 10 mg tablet, verapamil 120 mg p.o., fish oil capsule, Claritin 10 mg, Requip 3 mg tablet nightly, Flonase allergy nasal spray. Allergies: Allergies: Allergies Coded Allergies Type Severity Reaction Last Updated Verified Sulfa (Sulfonamide Antibiotics) Allergy Intermediate rash 07/24/19 Yes adhesive tape Allergy Intermediate rash 07/24/19 Yes metoclopramide Allergy Intermediate 09/24/18 Yes sulfamethoxazole Allergy Intermediate 09/24/18 Yes trimethoprim Allergy Intermediate 09/24/18 Yes Physical Exam: PE: Constitutional: Well developed, well nourished, no acute distress, non-toxic appearance. HENT: Normocephalic, atraumatic, bilateral external ears normal, oropharynx moist, no oral exudates, nose normal. Eyes: PERRLA, EOMI, conjunctiva normal, no discharge. Pupils 5 mm. Neck: Normal range of motion, no tenderness, supple, no stridor. Cardiovascular:Heart rate regular rhythm, no murmur, heart sounds S1-S2, no abnormalities noted per auscultation. Lungs & Thorax: Bilateral breath sounds clear to auscultation all lung broussard. Abdomen: Bowel sounds normal all 4 quadrants, soft, no tenderness, no masses, no pulsatile masses. Skin: Warm, dry, no erythema, no rash. Back: No tenderness, no CVA tenderness. Extremities: No tenderness, no cyanosis, no clubbing, ROM intact, no edema. Neurologic: Alert and oriented X 3, normal motor function, normal sensory function, no focal deficits noted. Psychologic: Affect normal, judgement normal, mood normal. Current Patient Data: Labs: Laboratory Tests Test 02/12/20 16:11 White Blood Count 4.8 x10^3/uL (4.0-11.0) Red Blood Count 4.72 x10^6/uL (3.50-5.40) Hemoglobin 13.3 g/dL (12.0-15.5) Hematocrit 39.2 % (36.0-47.0) Mean Corpuscular Volume 83 fL (79-100) Mean Corpuscular Hemoglobin 28 pg (25-35) Mean Corpuscular Hemoglobin Concent 34 g/dL (31-37) Red Cell Distribution Width 14.8 % (11.5-14.5) H Platelet Count 267 x10^3/uL (140-400) Neutrophils (%) (Auto) 69 % (31-73) Lymphocytes (%) (Auto) 22 % (24-48) L Monocytes (%) (Auto) 8 % (0-9) Eosinophils (%) (Auto) 1 % (0-3) Basophils (%) (Auto) 1 % (0-3) Neutrophils # (Auto) 3.3 x10^3/uL (1.8-7.7) Lymphocytes # (Auto) 1.0 x10^3/uL (1.0-4.8) Monocytes # (Auto) 0.4 x10^3/uL (0.0-1.1) Eosinophils # (Auto) 0.1 x10^3/uL (0.0-0.7) Basophils # (Auto) 0.0 x10^3/uL (0.0-0.2) Prothrombin Time 13.5 SEC (11.7-14.0) Prothrombin Time INR 1.1 (0.8-1.1) Activated Partial Thromboplast Time 34 SEC (24-38) D-Dimer (Rebecca) 0.31 ug/mlFEU (0.00-0.50) Sodium Level 142 mmol/L (136-145) Potassium Level 4.2 mmol/L (3.5-5.1) Chloride Level 106 mmol/L (98-107) Carbon Dioxide Level 30 mmol/L (21-32) Anion Gap 6 (6-14) Blood Urea Nitrogen 16 mg/dL (7-20) Creatinine 1.2 mg/dL (0.6-1.0) H Estimated GFR (Cockcroft-Gault) 56.9 BUN/Creatinine Ratio 13 (6-20) Glucose Level 98 mg/dL (70-99) Calcium Level 8.8 mg/dL (8.5-10.1) Total Bilirubin 0.4 mg/dL (0.2-1.0) Aspartate Amino Transferase (AST) 16 U/L (15-37) Alanine Aminotransferase (ALT) 18 U/L (14-59) Alkaline Phosphatase 105 U/L (46-116) Creatine Kinase 78 U/L (26-192) Creatine Kinase MB (Mass) < 0.5 ng/mL (0.0-3.6) Creatine Kinase MB Relative Index % (0-4) Troponin I Quantitative < 0.017 ng/mL (0.000-0.055) SJ-Oeu-D-Type Natriuretic Peptide 29 pg/mL (0-124) Total Protein 7.9 g/dL (6.4-8.2) Albumin 3.6 g/dL (3.4-5.0) Albumin/Globulin Ratio 0.8 (1.0-1.7) L Laboratory Tests 02/12/20 16:11 Laboratory Tests 02/12/20 16:11 Vital Signs: Vital Signs Date Time Temp Pulse Resp B/P (MAP) Pulse Ox O2 Delivery O2 Flow Rate FiO2 02/12/20 16:57 78 132/79 (96) 98 Room Air 02/12/20 15:15 98.1 14 98.1 EKG: EKG: EKG performed at 1524, normal sinus rhythm without ectopy, reviewed by ED attending Dr. Balaji Gutierrez, no STEMI or ACS noted Radiology/Procedures: Radiology/Procedures: [] Course & Med Decision Making: Course & Med Decision Making Pertinent Labs and Imaging studies reviewed. (See chart for details) 54-year-old patient arrives to the emergency department complaining of feeling anxious and worried that she may have a blood clot in her lungs because her blood pressure was high at home at 152/100 with a pulse rate of 106. Patient states that she has a history of a blood clot in her leg and is currently on Eliquis, patient states that this morning she thought that she might have one in her lung and noticed that her breathing was just odd, however she does deny shortness of breath, chest pain, or other discomfort. Patient states that she attributes her feelings of anxiety to taking Requip at night. Patient states that when she forgets to take her Requip for her Parkinson's, that she does not feel anxious. Patient states that she is worried she might have a blood clot in her lung and would like to be checked out today. Vital signs were reviewed, discussed plan to look for lab values that would indicate a blood clot, patient was amenable to this. Patient's labs were not concerning for blood clots d- dimer was negative. Reviewed this with the patient who states that her anxiety has been relieved. Discussed with patient to keep her doctor's appointment for tomorrow morning and to discuss with him her concerns about taking her Requip at night and the anxiety that it causes her. Discussed with patient discharging to home related to her no longer having symptoms or worries. Patient was amenable to going home, plan is to discharge to home with patient to keep appointment with the physician and discuss anxiety concerns and home medication concerns with him. Patient had no further questions or concerns. Dragon Disclaimer: Radha Disclaimer: This electronic medical record was generated, in whole or in part, using a voice recognition dictation system. Departure Departure Impression: Primary Impression: Anxiety about health Additional Impression: Condition not found Disposition: 01 HOME, SELF-CARE Condition: GOOD Referrals: KAM RODRIGUEZ (PCP) Patient Instructions: Anxiety and Panic Attacks Additional Instructions: Please keep your appointment with your doctor tomorrow, discuss your concerns about your Parkinson's medication and your history of blood clots. Please r eturn to the emergency department for further concerns. Justicifation of Admission Dx: Justifications for Admission: Justification of Admission Dx: N/A DOC DEGROOT APRN Feb 12, 2020 17:40
[2020-02-12 17:59] VITALS: BP 148/95
== END 2020-02-12 17:59 | disposition home or self-care (01) ==
LOC: ER 15:14
DX: F41.9 Anxiety disorder, unspecified (principal); K21.9 Gastro-esophageal reflux disease without esophagitis; I10 Essential (primary) hypertension; Z86.718 Personal history of other venous thrombosis and embolism; Z88.1 Allergy status to other antibiotic agents; Z88.2 Allergy status to sulfonamides; Z88.8 Allergy status to other drugs, medicaments and biological substances
CPT/HCPCS: 36415; 80053; 82553; 83880; 84484; 85025; 85379; 85610; 85730; 99284

== ENCOUNTER 2020-03-22 21:47 | Emergency (ER) | payer MEDICAID, OTHER ==
[~2020-03-22] VITALS: Ht 160 cm; Wt 104.6 kg
[~2020-03-22 21:47] MED LIST changes: -CETI10TA24 PO; +CETI10TA74 PO
--- NOTE | 2020-03-22 22:26 | PHYS DOC ---
Past Medical History Past Medical History: Anxiety, DVT, GERD, Hypertension, Other Additional Past Medical Histor: Sinus problems, parkinson's, PANIC ATTACKS Past Surgical History: Hysterectomy Additional Past Surgical Histo: breast reduction, foot surgery Smoking Status: Never Smoker Alcohol Use: None Drug Use: None General Adult EDM: Chief Complaint: Palpitations HPI: HPI: The history was obtained from the patient. Patient is a 54-year-old female with PMH Parkinson's, anxiety, GERD who presents with a chief complaint of palpitations. Patient states that her heart feels as though it is beating quickly. She states the symptoms began several hours prior to arrival. She states she was at rest when the palpitations began. She denies any chest pain or shortness of breath. She notes that palpitations in general started 2 weeks ago when she started taking levodopa for Parkinson's. She states she has been seen by an outpatient operating room technician who placed her on 24-hour Holter monitor. She states she is felt to mail back tomorrow. States her next appointment with cardiology is not until June 2020. She denies any syncope. She does note some right lower extremity discomfort. She notes a history of blood clot in that extremity last year. She does take Eliquis and has not missed any doses. States the pain is far less significant than when she was diagnosed with a blood clot. She denies cough or fever. Review of Systems: Review of Systems: Constitutional: Denies fever or chills. [] Eyes: Denies change in visual acuity. [] HENT: Denies nasal congestion or sore throat. [] Respiratory: Denies cough or shortness of breath. [] Cardiovascular: positives for palpations GI: Denies abdominal pain, nausea, vomiting, bloody stools or diarrhea. [] : Denies dysuria. [] Musculoskeletal: Denies back pain or joint pain. [] Integument: Denies rash. [] Neurologic: Denies headache, focal weakness or sensory changes. [] Endocrine: Denies polyuria or polydipsia. [] Lymphatic: Denies swollen glands. [] Psychiatric: Denies depression or anxiety. [] Heart Score: HEART Score for Chest Pain: HEART Score for Chest Pain Response (Comments) Value History Slighlty/Non-Suspicious 0 ECG Nonspecific Repolarizatio 1 Age >45 - < 65 1 Risk Factors 1 or 2 Risk Factors 1 Troponin < Normal Limit 0 Total 3 Risk Factors: Risk Factors: DM, Current or recent (<one month) smoker, HTN, HLP, family history of CAD, obesity. Risk Scores: Score 0 - 3: 2.5% MACE over next 6 weeks - Discharge Home Score 4 - 6: 20.3% MACE over next 6 weeks - Admit for Clinical Observation Score 7 - 10: 72.7% MACE over next 6 weeks - Early Invasive Strategies Allergies: Allergies: Allergies Coded Allergies Type Severity Reaction Last Updated Verified Sulfa (Sulfonamide Antibiotics) Allergy Intermediate rash 07/24/19 Yes adhesive tape Allergy Intermediate rash 07/24/19 Yes metoclopramide Allergy Intermediate 09/24/18 Yes sulfamethoxazole Allergy Intermediate 09/24/18 Yes trimethoprim Allergy Intermediate 09/24/18 Yes Physical Exam: PE: Constitutional: Well developed, well nourished, no acute distress, non-toxic appearance. [] HENT: Normocephalic, atraumatic, bilateral external ears normal, oropharynx moist, no oral exudates, nose normal. [] Eyes: PERRLA, EOMI, conjunctiva normal, no discharge. [] Neck: Normal range of motion, no tenderness, supple, no stridor. [] Cardiovascular:Heart rate regular rhythm, no murmur [] Lungs & Thorax: Bilateral breath sounds clear to auscultation [] Abdomen:, soft, no tenderness, no masses, no pulsatile masses. [] Skin: Warm, dry, no erythema, no rash. [] Back: No tenderness, no CVA tenderness. [] Extremities: No tenderness, no cyanosis, no clubbing, ROM intact, no edema. [] Neurologic: Alert and oriented X 3, normal motor function, normal sensory function, no focal deficits noted. [] Psychologic: Affect normal, judgement normal, mood normal. [] Current Patient Data: Labs: Laboratory Tests Test 03/22/20 22:48 White Blood Count 4.9 x10^3/uL Red Blood Count 4.64 x10^6/uL Hemoglobin 13.0 g/dL Hematocrit 38.8 % Mean Corpuscular Volume 84 fL Mean Corpuscular Hemoglobin 28 pg Mean Corpuscular Hemoglobin Concent 33 g/dL Red Cell Distribution Width 15.1 % Platelet Count 247 x10^3/uL Neutrophils (%) (Auto) 64 % Lymphocytes (%) (Auto) 28 % Monocytes (%) (Auto) 6 % Eosinophils (%) (Auto) 1 % Basophils (%) (Auto) 1 % Neutrophils # (Auto) 3.1 x10^3/uL Lymphocytes # (Auto) 1.4 x10^3/uL Monocytes # (Auto) 0.3 x10^3/uL Eosinophils # (Auto) 0.0 x10^3/uL Basophils # (Auto) 0.0 x10^3/uL Sodium Level 140 mmol/L Potassium Level 3.4 mmol/L Chloride Level 105 mmol/L Carbon Dioxide Level 28 mmol/L Anion Gap 7 Blood Urea Nitrogen 12 mg/dL Creatinine 1.1 mg/dL Estimated GFR (Cockcroft-Gault) 62.9 Glucose Level 88 mg/dL Calcium Level 8.5 mg/dL Troponin I Quantitative < 0.017 ng/mL [id number]-Type Natriuretic Peptide 20 pg/mL Thyroid Stimulating Hormone (TSH) 2.037 uIU/mL EKG: EKG: EKG consistent with normal sinus rhythm. Ventricular rate of 76 bpm. Left axis noted. Flipped T wave in lead III. No acute ischemic changes appreciated. Similar to EKG from December 01, 2019. [] Radiology/Procedures: Radiology/Procedures: [][facility] [address], [place] [id number] IMAGING REPORT Signed PATIENT: LEVI GORE ACCOUNT: [id number] : 1965 LOCATION: ER AGE: 54 SEX: F EXAM STATUS: REG ER ORD. PHYSICIAN: SONIA RAMIRES DO REASON: RLE pain. h/o RLE DVT jun 13 PROCEDURE: VENOUS LOWER EXTREMITY RIGHT VENOUS LOWER EXTREMITY RIGHT History: Reason: RLE pain. h/o RLE DVT jun 13 / Spl. Instructions: / History: Comparison: None. Discussion: Multiple longitudinal and transverse high resolution real-time images of the venous system of right lower extremity were obtained with color and Doppler sampling. The common femoral, superficial femoral, popliteal and proximal calf veins are all patent and demonstrate normal flow and compressibility. Normal respiratory phasicity and augmentation is present. Impression: 1. No evidence of deep vein thrombosis. Electronically signed by: Wander Shelton DO (03/22/2020 11:01 PM) [facility] DICTATED and SIGNED BY: WANDER SHELTON DO DATE: 03/22/202300 Course & Med Decision Making: Course & Med Decision Making Pertinent Labs and Imaging studies reviewed. (See chart for details) Patient is a 54-year-old female who presents with chief complaint of feelings of fast heart rate. She denies any chest pain or shortness of breath. Initial vital signs grossly unremarkable. EKG grossly unremarkable. Is consistent with her previous EKG. She is currently being evaluated outpatient for palpitations. Basic labs were obtained and were unremarkable. Troponin within normal limits. TSH within normal limits. On repeat examination her heart rate remains normal. She remained symptom-free. Right lower extremity DVT study negative. I encouraged her to continue to take her Eliquis. Overall low suspicion for ACS given she has no chest pain symptoms. Low risk heart score by my estimation. Low suspicion for PE as she has no reports of shortness of breath or chest pain. I did discuss results of labs and imaging in great depth with the patient and boyfriend at bedside. I did discuss possibility of hospitalization versus further outpatient work-up. She is electing for discharge home and outpatient work-up. Utilizing shared decision making patient will be discharged home. Overall I do feel this to be reasonable course. Strict return precautions were discussed and understood. Patient states she is symptom-free at this time. Stable for discharge home. Dragon Disclaimer: Dragon Disclaimer: This electronic medical record was generated, in whole or in part, using a voice recognition dictation system. Departure Departure Impression: Primary Impression: Palpitations Disposition: 01 HOME, SELF-CARE Condition: STABLE Referrals: JULIANNA BOTELLO MD (PCP) Patient Instructions: Palpitations Additional Instructions: Please follow-up with your primary care physician in the next 2 to 3 days. Please follow-up with your operating room technician in the next week. Please return to the emergency department 1 to 2 days should your symptoms not improve or worsen. Justicifation of Admission Dx: Justifications for Admission: Justification of Admission Dx: N/A SONIA RAMIRES DO Mar 22, 2020 22:26
--- NOTE | 2020-03-22 22:35 | RAD ---
CHEST AP ONLY History: Reason: palpitations / Spl. Instructions: / History: Comparison: January 11, 2020 Findings: No consolidation or pleural effusion. Normal heart size. No pneumothorax. Impression: 1. No acute cardiopulmonary process. Electronically signed by: Wander Shelton DO (03/22/2020 10:32 PM) [facility] [place]
[2020-03-22 23:01] LABS: BASO % 1 % (0-3); EOS % 1 % (0-3); HEMATOCRIT 38.8 % (36.0-47.0); LYMPH # 1.4 x10^3/uL (1.0-4.8); LYMPH % 28 % (24-48); MEAN CORPUSCULAR HEMOGLOBIN 28 pg (25-35); MEAN CORPUSCULAR HGB CONC 33 g/dL (31-37); MEAN CORPUSCULAR VOLUME 84 fL (79-100); MONO # 0.3 x10^3/uL (0.0-1.1); MONO % 6 % (0-9); NEUT # 3.1 x10^3/uL (1.8-7.7); NEUT % 64 % (31-73); PLATELET COUNT 247 x10^3/uL (140-400); RED BLOOD COUNT 4.64 x10^6/uL (3.50-5.40); RED CELL DISTRIBUTION WIDTH 15.1 % (11.5-14.5); WHITE BLOOD COUNT 4.9 x10^3/uL (4.0-11.0)
--- NOTE | 2020-03-22 23:03 | RAD ---
VENOUS LOWER EXTREMITY RIGHT History: Reason: RLE pain. h/o RLE DVT jun 13' / Spl. Instructions: / History: Comparison: None. Discussion: Multiple longitudinal and transverse high resolution real-time images of the venous system of right lower extremity were obtained with color and Doppler sampling. The common femoral, superficial femoral, popliteal and proximal calf veins are all patent and demonstrate normal flow and compressibility. Normal respiratory phasicity and augmentation is present. Impression: 1. No evidence of deep vein thrombosis. Electronically signed by: Wander Shelton DO (03/22/2020 11:01 PM) [facility]
[2020-03-22 23:14] LABS: CALCIUM 8.5 mg/dL (8.5-10.1); CREATININE 1.1 mg/dL (0.6-1.0); GFR 62.9; POTASSIUM 3.4 mmol/L (3.5-5.1)
[2020-03-23 01:06] VITALS: BP 114/56
--- NOTE | 2020-03-25 11:05 | EKG ---
[facility] [address] [place] [address] Test Date: 2020-03-22 Test Time: 22:16:01 Pat Name: LEVI GORE Department: Room: Gender: F [employer]: : 1965 Requested By: SONIA RAMIRES Order Number: [id number] Reading MD: Measurements Intervals [place] Rate: 76 P: 24 CA: 184 QRS: -7 QRSD: 82 T: 7 QT: 394 QTc: 448 Interpretive Statements SINUS RHYTHM LEFTWARD AXIS OTHERWISE NORMAL ECG RI6.02 No previous ECG available for comparison
[2020-03-29] MEDS ORDERED: ALPR0.5T PO (15:21)
== END 2020-03-23 01:07 | disposition home or self-care (01) ==
LOC: ER 21:47
DX: R00.2 Palpitations (principal); F41.9 Anxiety disorder, unspecified; K21.9 Gastro-esophageal reflux disease without esophagitis; I10 Essential (primary) hypertension; Z90.710 Acquired absence of both cervix and uterus; Z98.890 Other specified postprocedural states; Z86.718 Personal history of other venous thrombosis and embolism; Z88.2 Allergy status to sulfonamides; Z88.8 Allergy status to other drugs, medicaments and biological substances; Z88.6 Allergy status to analgesic agent
CPT/HCPCS: 36415; 71045; 80048; 83880; 84443; 84484; 85025; 93005; 93971; 99285

== ENCOUNTER 2020-03-27 17:57 | Inpatient (IN) | payer MEDICAID ==
[~2020-03-27] VITALS: Ht 160 cm; Wt 141.6 kg
[2020-03-27 19:56] LABS: BASO % 1 % (0-3); EOS # 0.1 x10^3/uL (0.0-0.7); EOS % 1 % (0-3); HEMOGLOBIN 13.9 g/dL (12.0-15.5); LYMPH % 18 % (24-48); MEAN CORPUSCULAR HEMOGLOBIN 28 pg (25-35); MEAN CORPUSCULAR HGB CONC 33 g/dL (31-37); MEAN CORPUSCULAR VOLUME 84 fL (79-100); MONO # 0.4 x10^3/uL (0.0-1.1); MONO % 7 % (0-9); NEUT # 4.3 x10^3/uL (1.8-7.7); NEUT % 74 % (31-73); PLATELET COUNT 288 x10^3/uL (140-400); RED BLOOD COUNT 5.01 x10^6/uL (3.50-5.40); RED CELL DISTRIBUTION WIDTH 15.3 % (11.5-14.5); WHITE BLOOD COUNT 5.8 x10^3/uL (4.0-11.0)
[2020-03-27] MEDS ORDERED: ONDANSETRON PF 4 MG/2 ML VIAL. IVP ONE (20:00)
[2020-03-27] MEDS ORDERED: IV NORMAL SALINE 1000ML BAG 1,000 ML IV ONE (20:00)
--- NOTE | 2020-03-27 20:21 | RAD ---
Exam: CT head INDICATION: Dizziness TECHNIQUE: Sequential axial images through the head were obtained without the administration of IV contrast. Comparisons: None FINDINGS: No focal parenchymal lesion or hemorrhage is identified. There is no midline shift or sulcal effacement. No acute vascular territory infarction is identified. Santos-white distinction is preserved. The ventricular system is within normal limits without compression hydrocephalus. The basal cisterns are well maintained. Soft tissue irregularity overlying the left frontal region. The visualized portions of the paranasal sinuses and mastoid air cells are well-pneumatized. No acute fractures. IMPRESSION: Soft tissue irregularity overlying the left frontal region, correlate for laceration. No acute intracranial abnormality identified. Exposure: One or more of the following in the visualized dose reduction techniques were utilized for this examination: 1. Automated exposure control 2. Adjustment of the MA and/or KV according to patient size Use of iterative of reconstructive technique Electronically signed by: Toni De Anda MD (03/27/2020 8:19 PM) [id number]
[2020-03-27 21:03] LABS: CALCIUM 9.1 mg/dL (8.5-10.1); GFR 70.2; POTASSIUM 3.7 mmol/L (3.5-5.1)
[2020-03-27 21:08] LABS: ALBUMIN 3.6 g/dL (3.4-5.0); ALBUMIN/GLOBULIN RATIO 0.9 (1.0-1.7); TOTAL BILIRUBIN 0.6 mg/dL (0.2-1.0); TOTAL PROTEIN 7.6 g/dL (6.4-8.2)
--- NOTE | 2020-03-27 21:52 | PHYS DOC ---
Past Medical History Past Medical History: Anxiety, DVT, GERD, Hypertension, Other Additional Past Medical Histor: Sinus problems, parkinson's, PANIC ATTACKS Past Surgical History: Hysterectomy, Other Additional Past Surgical Histo: breast reduction, foot surgery Smoking Status: Never Smoker Alcohol Use: None Drug Use: None General Adult EDM: Chief Complaint: DIZZY/LIGHT HEADED HPI: HPI: The history was obtained from the patient. Patient is a 54-year-old female with PMH anxiety, palpitations, Parkinson's who presents with a chief complaint of chest pain and palpitations. Patient states she had intermittent chest pain over the past several days. She states it does not seem to be exacerbated or brought on by anything. Denies food making the pain worse. States it is an aching pain that is nonradiating. Does note she is felt extremely stressed recently due to her palpitations. She is concerned with her new diagnosis of Parkinson's. 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 States she is never had the chest pain before. Notes associated shortness of breath. Denies syncope. Denies fever cough. Patient denies any history of immobilization greater than 48 hours, recent hospitalizations, recent surgery, recent trauma, , oral contraceptive usage, hormone replacement therapy, air travel greater than 8 hours, recent infectious disease, or general deterioration of their overall condition. Review of Systems: Review of Systems: Constitutional: Denies fever or chills. [] Eyes: Denies change in visual acuity. [] HENT: Denies nasal congestion or sore throat. [] Respiratory: Positive for chest pain and shortness of breath Cardiovascular: Denies chest pain or edema. [] GI: Denies abdominal pain, nausea, vomiting, bloody stools or diarrhea. [] : Denies dysuria. [] Musculoskeletal: Denies back pain or joint pain. [] Integument: Denies rash. [] Neurologic: Denies headache, focal weakness or sensory changes. [] Endocrine: Denies polyuria or polydipsia. [] Lymphatic: Denies swollen glands. [] Psychiatric: Positive anxiety Heart Score: Risk Factors: Risk Factors: DM, Current or recent (<one month) smoker, HTN, HLP, family history of CAD, obesity. Risk Scores: Score 0 - 3: 2.5% MACE over next 6 weeks - Discharge Home Score 4 - 6: 20.3% MACE over next 6 weeks - Admit for Clinical Observation Score 7 - 10: 72.7% MACE over next 6 weeks - Early Invasive Strategies Current Medications: Current Medications Medications (Trade) Dose Ordered Sig/Thomas Start Time Stop Time Status Last Admin Dose Admin Lorazepam (Ativan) 1 mg 1X ONCE 03/27/20 21:00 03/27/20 21:01 DC 03/27/20 21:14 1 MG Ondansetron HCl (Zofran) 4 mg 1X ONCE 03/27/20 20:00 03/27/20 20:01 DC 03/27/20 20:00 4 MG Sodium Chloride 1,000 ml @ 1,000 mls/hr 1X ONCE 03/27/20 20:00 03/27/20 20:59 DC 03/27/20 19:54 1,000 MLS/HR Allergies: Allergies: Allergies Coded Allergies Type Severity Reaction Last Updated Verified Sulfa (Sulfonamide Antibiotics) Allergy Intermediate rash 07/24/19 Yes adhesive tape Allergy Intermediate rash 07/24/19 Yes metoclopramide Allergy Intermediate 09/24/18 Yes sulfamethoxazole Allergy Intermediate 09/24/18 Yes trimethoprim Allergy Intermediate 09/24/18 Yes Physical Exam: PE: Constitutional: Well developed, well nourished, no acute distress, non-toxic appearance. [] HENT: Normocephalic, atraumatic, bilateral external ears normal, oropharynx moist, no oral exudates, nose normal. [] Eyes: PERRLA, EOMI, conjunctiva normal, no discharge. [] Neck: Normal range of motion, no tenderness, supple, no stridor. [] Cardiovascular:Heart rate regular rhythm, no murmur [] Lungs & Thorax: Bilateral breath sounds clear to auscultation [] Abdomen: Bowel sounds normal, soft, no tenderness, no masses, no pulsatile masses. [] Skin: Warm, dry, no erythema, no rash. [] Back: No tenderness, no CVA tenderness. [] Extremities: No tenderness, no cyanosis, no clubbing, ROM intact, no edema. [] Neurologic: Alert and oriented X 3, normal motor function, normal sensory function, no focal deficits noted. [] Psychologic: Affect normal, judgement normal, mood normal. [] Current Patient Data: Labs: Laboratory Tests Test 03/27/20 18:47 03/27/20 20:45 White Blood Count 5.8 x10^3/uL (4.0-11.0) Red Blood Count 5.01 x10^6/uL (3.50-5.40) Hemoglobin 13.9 g/dL (12.0-15.5) Hematocrit 42.0 % (36.0-47.0) Mean Corpuscular Volume 84 fL (79-100) Mean Corpuscular Hemoglobin 28 pg (25-35) Mean Corpuscular Hemoglobin Concent 33 g/dL (31-37) Red Cell Distribution Width 15.3 % (11.5-14.5) H Platelet Count 288 x10^3/uL (140-400) Neutrophils (%) (Auto) 74 % (31-73) H Lymphocytes (%) (Auto) 18 % (24-48) L Monocytes (%) (Auto) 7 % (0-9) Eosinophils (%) (Auto) 1 % (0-3) Basophils (%) (Auto) 1 % (0-3) Neutrophils # (Auto) 4.3 x10^3/uL (1.8-7.7) Lymphocytes # (Auto) 1.0 x10^3/uL (1.0-4.8) Monocytes # (Auto) 0.4 x10^3/uL (0.0-1.1) Eosinophils # (Auto) 0.1 x10^3/uL (0.0-0.7) Basophils # (Auto) 0.0 x10^3/uL (0.0-0.2) Sodium Level 141 mmol/L (136-145) Potassium Level 3.7 mmol/L (3.5-5.1) Chloride Level 106 mmol/L (98-107) Carbon Dioxide Level 27 mmol/L (21-32) Anion Gap 8 (6-14) Blood Urea Nitrogen 9 mg/dL (7-20) Creatinine 1.0 mg/dL (0.6-1.0) Estimated GFR (Cockcroft-Gault) 70.2 BUN/Creatinine Ratio 9 (6-20) Glucose Level 86 mg/dL (70-99) Calcium Level 9.1 mg/dL (8.5-10.1) Total Bilirubin 0.6 mg/dL (0.2-1.0) Aspartate Amino Transferase (AST) 14 U/L (15-37) L Alanine Aminotransferase (ALT) 15 U/L (14-59) Alkaline Phosphatase 89 U/L (46-116) Troponin I Quantitative < 0.017 ng/mL (0.000-0.055) Total Protein 7.6 g/dL (6.4-8.2) Albumin 3.6 g/dL (3.4-5.0) Albumin/Globulin Ratio 0.9 (1.0-1.7) L Laboratory Tests 03/27/20 18:47 Laboratory Tests 03/27/20 20:45 Vital Signs: Vital Signs Date Time Temp Pulse Resp B/P (MAP) Pulse Ox O2 Delivery O2 Flow Rate FiO2 03/27/20 18:36 98.1 94 16 171/102 (125) 97 Room Air 98.1 EKG: EKG: EKG consistent with normal sinus rhythm. Ventricular rate of 88 bpm left axis noted. Flipped T waves noted in lead III. No acute ST segment elevation appreciated. [] EKG#2 2154: EKG consistent with normal sinus rhythm. Ventricular rate of 82 bp m. Left axis noted. Intervals normal. No acute ischemic changes appreciated. Overall similar to EKG obtained previously today. Flipped T wave still present. Radiology/Procedures: Radiology/Procedures: [][facility] [address] [place] [address] IMAGING REPORT Signed PATIENT: LEVI GORE ACCOUNT: [id number] : 1965 LOCATION: ER AGE: 54 SEX: F EXAM STATUS: REG ER ORD. PHYSICIAN: SONIA RAMIRES DO REASON: dizziness PROCEDURE: CT HEAD WO CONTRAST Exam: CT head INDICATION: Dizziness TECHNIQUE: Sequential axial images through the head were obtained without the administration of IV contrast. Comparisons: None FINDINGS: No focal parenchymal lesion or hemorrhage is identified. There is no midline shift or sulcal effacement. No acute vascular territory infarction is identified. Santos-white distinction is preserved. The ventricular system is within normal limits without compression hydrocephalus. The basal cisterns are well maintained. Soft tissue irregularity overlying the left frontal region. The visualized portions of the paranasal sinuses and mastoid air cells are well-pneumatized. No acute fractures. IMPRESSION: Soft tissue irregularity overlying the left frontal region, correlate for laceration. No acute intracranial abnormality identified. Exposure: One or more of the following in the visualized dose reduction techniques were utilized for this examination: 1. Automated exposure control 2. Adjustment of the MA and/or KV according to patient size Use of iterative of reconstructive technique Electronically signed by: Toni Ricks MD (03/27/2020 8:19 PM) [id number] DICTATED and SIGNED BY: TONI RICKS MD DATE: 03/27/202018 Course & Med Decision Making: Course & Med Decision Making Pertinent Labs and Imaging studies reviewed. (See chart for details) [] Patient is a 54-year-old female presents with chief complaint of chest pain intermittent palpitations. EKG unremarkable. Basic labs obtained and unremarkable. CT head was obtained and was negative for acute abnormality. Given the patient's chest pain associate with palpitations and repeat visit I do feel she will require hospitalization. Signout has been given to Dr. Botello. Radha Disclaimer: Radha Disclaimer: This electronic medical record was generated, in whole or in part, using a voice recognition dictation system. Departure Departure Impression: Primary Impression: Palpitations Additional Impression: Chest pain Qualified Codes: R07.9 - Chest pain, unspecified Disposition: 01 HOME, SELF-CARE Condition: STABLE Referrals: JULIANNA BOTELLO MD (PCP) Justicifation of Admission Dx: Justifications for Admission: Justification of Admission Dx: Yes Angina: Cresendo Worsening of Sym SONIA RAMIRES DO Mar 27, 2020 21:52
[2020-03-27] MEDS ORDERED: ONDANSETRON PF 4 MG/2 ML VIAL. IV PRN (22:30)
--- NOTE | 2020-03-27 23:09 | RAD ---
INDICATION: Reason: CP / Spl. Instructions: / History: COMPARISON: March 22, 2020 FINDINGS: Single view of chest obtained. Cardiac silhouette is prominent in size with tortuous appearance of the aortic contour. No definite new region of focal airspace consolidation or edema IMPRESSION: * Enlarged cardiomediastinal silhouette without focal airspace consolidation. Electronically signed by: Clemente Rodriguez MD (03/27/2020 11:06 PM) [id number]
[2020-03-28] VITALS (7 sets, daily range): BP systolic 98–147; BP diastolic 60–93
[2020-03-28] MEDS ORDERED: ALPR0.25 PO (00:20)
[2020-03-28] MEDS ORDERED: CARB1TAB22 PO (00:27)
[2020-03-28] MEDS ORDERED: BUSP5TAB PO (00:31)
[2020-03-28] MEDS ORDERED: APIX5TAB PO (00:31)
[2020-03-28] MEDS ORDERED: ERGO500027 PO (00:31)
--- NOTE | 2020-03-28 03:23 | NUR ---
Patient arrived to unit at approx 0010, accompanied by YE Riley. Patient reports that she has a headache with 4/10 pain. On RA. VS stable. Assessment complete. When speaking to patient about her home medications she stated that there have been some changes to her medications in the past couple days by her therapist and that she does not like them. Patient stated that she would like to speak to the doctors about getting her meds changed. Patient reports that she uses a walker at home "sometimes when im feeling weak or have to walk long distances". Reminded patient to call before ambulating, call light in reach, bed in low locked position. Will continue to monitor.
[2020-03-28 04:57] LABS: BASO % 1 % (0-3); EOS # 0.1 x10^3/uL (0.0-0.7); EOS % 2 % (0-3); HEMOGLOBIN 12.1 g/dL (12.0-15.5); LYMPH # 1.2 x10^3/uL (1.0-4.8); LYMPH % 21 % (24-48); MEAN CORPUSCULAR HEMOGLOBIN 27 pg (25-35); MEAN CORPUSCULAR HGB CONC 32 g/dL (31-37); MEAN CORPUSCULAR VOLUME 85 fL (79-100); MONO # 0.5 x10^3/uL (0.0-1.1); MONO % 9 % (0-9); NEUT # 3.8 x10^3/uL (1.8-7.7); NEUT % 67 % (31-73); PLATELET COUNT 250 x10^3/uL (140-400); RED BLOOD COUNT 4.49 x10^6/uL (3.50-5.40); RED CELL DISTRIBUTION WIDTH 15.1 % (11.5-14.5); WHITE BLOOD COUNT 5.6 x10^3/uL (4.0-11.0)
[2020-03-28 05:28] LABS: CALCIUM 8.7 mg/dL (8.5-10.1); CREATININE 0.9 mg/dL (0.6-1.0); GFR 79.3; POTASSIUM 3.7 mmol/L (3.5-5.1)
--- NOTE | 2020-03-28 05:47 | EKG ---
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
--- NOTE | 2020-03-28 08:25 | PDOC2 ---
DANIEL VILLAGOMEZ ROPER OPERATOR 03/28/20 0825: CARDIAC CONSULT DATE OF CONSULT Date of Consult DATE: 03/28/20 TIME: 08:14 REASON FOR CONSULT Reason for Consult: palpitations REFERRING PHYSICIAN Referring Physician: Misa SOURCE Source: Chart review, Patient HISTORY OF PRESENT ILLNESS HISTORY OF PRESENT ILLNESS This is a pleasant 54 yo female admitted for complains of chest pain and palpitations. She is seeing Dr. Jernigan in as her animal breeder and recently completed a 48 hour holter due to her palpitations and no report is yet available. A TTE was done and relatively normal as noted below. She is significant for diagnosis of parkinsons and her medications has been changed multiple times recently and back again on sinemet. She also has anxiety issues hence lexapro and xanax. She has had DVT and PE in 04/2019 hence hshe is on eliquis. Her EKG is NSR. She has verapamil and benazapirl for her HTN and has been compliant with this. Described as chest tightness especially when she is anxious and admits having panic attacks sometimes. She sometimes does have dry heaves but no diaphoresis, vomiting but occasionally feels palpitations. No underlying exertional SOA. Has not been tested for RAY. PAST MEDICAL HISTORY Cardiovascular: HTN, Other (palpitations) Pulmonary: Pulmonary embolus (with DVT in 04/2019) CENTRAL NERVOUS SYSTEM: Vertigo, Other (parkinsons) GI: No pertinent hx Hepatobiliary: Other (chronic eliquis use) Psych: Anxiety Musculoskeletal: Osteoarthritis Rheumatologic: No pertinent hx Infectious disease: No pertinent hx ENT: Allergic Rhinitis Renal/: No pertinent hx Endocrine: No pertinent hx Dermatology: No pertinent hx PAST SURGICAL HISTORY Past Surgical History: Tubal Ligation, Hysterectomy, Other (breast reduction) FAMILY HISTORY Family History: Hypertension, Other (brother and mother has MS ) SOCIAL HISTORY Smoke: No ALCOHOL: none Drugs: None Lives: with Family CURRENT MEDICATIONS CURRENT MEDICATIONS Current Medications Medications (Trade) Dose Ordered Sig/Thomsa Route PRN Reason Start Time Stop Time Status Last Admin Dose Admin Sodium Chloride 1,000 ml @ 1,000 mls/hr 1X ONCE IV 03/27/20 20:00 03/27/20 20:59 DC 03/27/20 19:54 Ondansetron HCl (Zofran) 4 mg 1X ONCE IVP 9/2/20 20:00 03/27/20 20:01 DC 03/27/20 20:00 Lorazepam (Ativan) 1 mg 1X ONCE PO 03/27/20 21:00 03/27/20 21:01 DC 03/27/20 21:14 ALLERGIES ALLERGIES: Coded Allergies: Sulfa (Sulfonamide Antibiotics) (Verified Allergy, Intermediate, rash, 07/24/19) adhesive tape (Verified Allergy, Intermediate, rash, 07/24/19) metoclopramide (Verified Allergy, Intermediate, 09/24/18) sulfamethoxazole (Verified Allergy, Intermediate, 09/24/18) trimethoprim (Verified Allergy, Intermediate, 09/24/18) ROS Review of System 14 point ROS evaluated with pertinent positives noted per HPI PHYSICAL EXAM General: Alert, Oriented X3, Cooperative, No acute distress HEENT: Atraumatic, Mucous membr. moist/pink Lungs: Clear to auscultation, Normal air movement Heart: Regular rate (SR no ectopies), Other (distant heart sounds) Abdomen: Soft, Other (obese) Extremities: No cyanosis, No edema Skin: No breakdown, No significant lesion Neuro: Normal speech, Sensation intact Psych/Mental Status: Mental status NL, Mood NL MUSCULOSKELETAL: Osteoarthritic changes both hands VITALS/I&O VITALS/I&O: Vital Signs Date Time Temp Pulse Resp B/P (MAP) Pulse Ox O2 Delivery O2 Flow Rate FiO2 03/28/20 03:04 99.1 90 18 98/60 (73) 100 Room Air 99.1 I & O 03/27/20 03/27/20 03/28/20 15:00 23:00 07:00 Intake Total 1000 ml 0 ml Output Total 100 ml Balance 1000 ml -100 ml LABS Lab: Laboratory Tests Test 03/27/20 18:47 03/27/20 20:45 03/28/20 04:34 White Blood Count 5.8 x10^3/uL (4.0-11.0) 5.6 x10^3/uL (4.0-11.0) Red Blood Count 5.01 x10^6/uL (3.50-5.40) 4.49 x10^6/uL (3.50-5.40) Hemoglobin 13.9 g/dL (12.0-15.5) 12.1 g/dL (12.0-15.5) Hematocrit 42.0 % (36.0-47.0) 38.0 % (36.0-47.0) Mean Corpuscular Volume 84 fL (79-100) 85 fL (79-100) Mean Corpuscular Hemoglobin 28 pg (25-35) 27 pg (25-35) Mean Corpuscular Hemoglobin Concent 33 g/dL (31-37) 32 g/dL (31-37) Red Cell Distribution Width 15.3 % (11.5-14.5) H 15.1 % (11.5-14.5) H Platelet Count 288 x10^3/uL (140-400) 250 x10^3/uL (140-400) Neutrophils (%) (Auto) 74 % (31-73) H 67 % (31-73) Lymphocytes (%) (Auto) 18 % (24-48) L 21 % (24-48) L Monocytes (%) (Auto) 7 % (0-9) 9 % (0-9) Eosinophils (%) (Auto) 1 % (0-3) 2 % (0-3) Basophils (%) (Auto) 1 % (0-3) 1 % (0-3) Neutrophils # (Auto) 4.3 x10^3/uL (1.8-7.7) 3.8 x10^3/uL (1.8-7.7) Lymphocytes # (Auto) 1.0 x10^3/uL (1.0-4.8) 1.2 x10^3/uL (1.0-4.8) Monocytes # (Auto) 0.4 x10^3/uL (0.0-1.1) 0.5 x10^3/uL (0.0-1.1) Eosinophils # (Auto) 0.1 x10^3/uL (0.0-0.7) 0.1 x10^3/uL (0.0-0.7) Basophils # (Auto) 0.0 x10^3/uL (0.0-0.2) 0.0 x10^3/uL (0.0-0.2) Sodium Level 141 mmol/L (136-145) 146 mmol/L (136-145) H Potassium Level 3.7 mmol/L (3.5-5.1) 3.7 mmol/L (3.5-5.1) Chloride Level 106 mmol/L (98-107) 110 mmol/L (98-107) H Carbon Dioxide Level 27 mmol/L (21-32) 27 mmol/L (21-32) Anion Gap 8 (6-14) 9 (6-14) Blood Urea Nitrogen 9 mg/dL (7-20) 13 mg/dL (7-20) Creatinine 1.0 mg/dL (0.6-1.0) 0.9 mg/dL (0.6-1.0) Estimated GFR (Cockcroft-Gault) 70.2 79.3 BUN/Creatinine Ratio 9 (6-20) Glucose Level 86 mg/dL (70-99) 107 mg/dL (70-99) H Calcium Level 9.1 mg/dL (8.5-10.1) 8.7 mg/dL (8.5-10.1) Total Bilirubin 0.6 mg/dL (0.2-1.0) Aspartate Amino Transferase (AST) 14 U/L (15-37) L Alanine Aminotransferase (ALT) 15 U/L (14-59) Alkaline Phosphatase 89 U/L (46-116) Troponin I Quantitative < 0.017 ng/mL (0.000-0.055) < 0.017 ng/mL (0.000-0.055) Total Protein 7.6 g/dL (6.4-8.2) Albumin 3.6 g/dL (3.4-5.0) Albumin/Globulin Ratio 0.9 (1.0-1.7) L Laboratory Tests 03/27/20 18:47 03/28/20 04:34 Laboratory Tests 03/27/20 20:45 03/28/20 04:34 ECHOCARDIOGRAM ECHOCARDIOGRAM * [facility] 03/27/2020 TTE * Technically difficult study. * LVEF=65%. * Normal left ventricular size and function. * No regional wall motion abnormalities. * Right ventricular size and function are normal. * Normal sized atria. * The aortic and pulmonic valves were not well visualized on this study. * No significant valvular stenosis or regurgitation by Doppler studies. * No pericardial effusion. * Estimated pulmonary artery systolic pressure is 19 mmHg. ASSESSMENT/PLAN ASSESSMENT/PLAN 1. Atypical chest pain: likely anxiety induced 2. Palpitations: awaiting final report from recent 48 hr holter 3. Generalized anxiety disorder with panic attacks: defer to PCP 4. HTN: controlled 5. Hx of DVT/PE: 04/2019 on eliquis 6. Hx of Parkinsons: recent changes to her meds and now back on sinemet 7. Morbid obesity Recommendations 1. Will obtain holter report otherwise follow up with her animal breeder in 2. Continue BP regimen. Check TSH 3. Will likely need changes to her anxiety medications and referral for CBT as her parkinsons medication is possibly making her anxiety worse. Defer to PCP TYRELL LE MD 03/28/20 1454: CARDIAC CONSULT ASSESSMENT/PLAN ASSESSMENT/PLAN The patient was seen and interviewed as well as examined at the bedside. The chart was reviewed. The case was discussed. Agree with the plan of care. DANIEL VILLAGOMEZ APRN Mar 28, 2020 08:25 TYRELL LE MD Mar 28, 2020 14:54
--- NOTE | 2020-03-28 08:54 | PDOC ---
Provider Note Date of Service: DATE: 03/28/20 TIME: 08:54 Provider Note Pt seen.H&P dictated.#[id number]. Justifications for Admission Other Justification JULIANNA BOTELLO MD Mar 28, 2020 08:54
[2020-03-28] MEDS ORDERED: NON FORMULARY ITEM (Loratadine (Claritin) 10 MG) PO PRN (09:00)
[2020-03-28] MEDS: ALPRAZolam 0.25 MG TABLET PO SCH (09:58)
[2020-03-28] MEDS: FLUTICASONE 50MCG/NASAL SPRAY 16GM BOTTLE. NS SCH (10:00)
[2020-03-28] MEDS ORDERED: IOHEXOL 300 MG/ML 100ML VIAL. IV ONE (10:15)
--- NOTE | 2020-03-28 10:16 | HP ---
ADMIT DATE: 03/27/2020 REASON FOR ADMISSION TO THE HOSPITAL: Dizziness, chest pain, and lightheaded. HISTORY OF PRESENT ILLNESS: The patient is a 54-year-old female. The patient has a history of DVT, pulmonary embolism, GERD, hypertension, anxiety, panic attacks. She also has Parkinson's disease, on medications. She was having anxiety, chest pain, and does not feel good, came to the Emergency Room, had EKG negative for IA, troponin was negative, was admitted for further evaluation. PAST MEDICAL HISTORY: Anxiety, DVT/PE, GERD, hypertension, Parkinson's disease anxiety problems. PAST SURGICAL HISTORY: Breast reduction surgery, hysterectomy, foot surgery. PERSONAL HISTORY: Denies smoking, alcohol, or drug abuse. FAMILY HISTORY: Positive for hypertension, heart disease. ALLERGIES: REGLAN, SULFA, TRIMETHOPRIM. MEDICATIONS AT HOME: The patient is on Xanax 0.5 twice a day, Eliquis 5 mg twice a day, benazepril 20 mg daily, buspirone 5 mg 3 times daily, carbidopa and levodopa 25/100 0.5 tablet 3 times a day, Zyrtec 10 mg daily, vitamin D 2,000 daily, Flonase daily, Claritin 10 mg daily, and verapamil 120 mg daily. REVIEW OF SYMPTOMS: Complains of chest pain, shortness of breath, and anxiety. Rest of the first 14-system was reviewed and negative. PHYSICAL EXAMINATION: GENERAL: The patient is not in any distress, a little bit anxious. VITAL SIGNS: At the time of admission shows a temperature 98, pulse 94, respirations 16, blood pressure 170/102, and 97% on room air. HEENT: Head is atraumatic. Pupils are equal. Oral cavity: No congestion. NECK: Supple. Thyroid not enlarged. JVD not elevated. CHEST: Symmetrical. CARDIOVASCULAR: S1, S2. LUNGS: Clear to auscultation. ABDOMEN: Soft. Bowel sounds are present. No masses palpable. EXTERNAL GENITALIA: No Deng. RECTAL: Deferred. EXTREMITIES: No calf tenderness. Pulses 1+. NEUROLOGIC: No focal deficits noted. LABORATORY DATA: Shows a white count of 6, hemoglobin 14, and platelets 288. Electrolytes showed sodium 141, potassium 3.7, chloride 106, bicarbonate 27, anion gap 8, BUN 9, creatinine 1.0, and glucose 86. LFTs were normal. IMAGING STUDIES: Chest x-ray shows no consolidation. CT head was negative for intracranial lesions. FINAL IMPRESSION: 1. Chest pain for evaluation. 2. Anxiety, panic attacks. 3. Parkinson's disease. 4. Morbid obesity. 5. History of deep venous thrombosis, pulmonary embolism.On Eliquis PLAN: At this time, admit to hospital. Cardiology consult, EKG, telemetry monitor, cardiac enzymes with troponin, maybe a stress test or echo, continue Eliquis for the time being, and see how she improves in the next 24-48 hours. JULIANNA BOTELLO MD DR: LACIE/renetta JOB#: [id number] / [id number] ONEL
[2020-03-28] MEDS ORDERED: ANTI-COAG MONITOR BY PHARMACY. MC PRN (10:30)
[2020-03-28] MEDS ORDERED: CONTRAST GIVEN. MC PRN (10:30)
[2020-03-28] MEDS: CETIRIZINE HCL 10 MG TABLET. PO SCH (11:09)
[2020-03-28] MEDS: APIXABAN 5 MG TABLET. PO SCH ×2 (11:09→20:54)
[2020-03-28] MEDS: CARBIDOPA/LEVODOPA 25/100MG TABLET PO SCH ×3 (11:09→20:54)
[2020-03-28] MEDS: VERAPAMIL SR 120 MG TABLET.ER. PO SCH (11:10)
[2020-03-28] MEDS: LISINOPRIL 20 MG TABLET PO SCH (11:10)
[2020-03-28] MEDS: busPIRone 5 MG TABLET. PO SCH ×3 (11:10→20:54)
--- NOTE | 2020-03-28 13:07 | NUR ---
SS following for discharge planning. SS reviewed pt chart and discussed with pt RN. Pt is from home and is currently on room air. Cardiology following. SS will continue to follow for discharge planning.
--- NOTE | 2020-03-28 15:49 | RAD ---
EXAM: CT Abdomen with and without IV contrast INDICATION: Reason: f/u liver lesion seen in 2019 / Spl. Instructions: omni 300 75ml / History: TECHNIQUE: Multi-detector row CT images were acquired from the lung bases through the abdomen with and without the use of IV contrast. Sagittal and coronal images were acquired from the transaxial data. All CT scans performed at this facility utilize dose optimization techniques as appropriate to the exam, including the following: Automated exposure control and adjustment of the mA and/or KV according to patient size (this includes techniques or standardized protocols for targeted exams where dose is indication/reason for exam). IV CONTRAST: Administered ORAL CONTRAST: Not administered COMPARISON: CT pulmonary angiography of 04/21/2019 FINDINGS: LOWER CHEST: Unremarkable LIVER: The low-density lesion in the left hepatic lobe, segment 2 measures 2.7 cm wide by 1.8 cm AP by 1.5 cm craniocaudal (image 22 of series 9 and image 55 of series 11). This compares with 2.5 x 1.8 cm on the prior examination, not significantly changed allowing for variability in measurement. On precontrast imaging, this measures 92. On arterial phase postcontrast images, it measures 13 8 2 (standard deviation 15 HU). On the portal venous phase images, it measures 7.682 and on the delayed images, it measures 10.482. This represents no significant enhancement along 4 cm in enhancement from volume averaging with the adjacent parenchyma. There is no washout and no pseudocapsule. This most likely represents a benign hepatic cyst. An 8 mm, smaller low-density hepatic lesion in segment 7 (image 29 of series 9) appears similar although Hounsfield unit measurements on this lesion are challenging due to its small size. Also noted is low-density at the falciform ligament, typical of variant perfusion or focal fatty infiltration which is new or more conspicuous since the last CT scan. BILIARY SYSTEM: Gallbladder is unremarkable. Bile ducts are not dilated. PANCREAS: Unremarkable SPLEEN: Unremarkable ADRENALS: Stable mild bilateral nodular fullness suggestive of adrenal hyperplasia is present. No discrete mass. KIDNEYS & URETERS: Unremarkable GASTROINTESTINAL: The stomach, small bowel, and colon are unremarkable. The appendix is normal. MESENTERY/PERITONEUM/RETROPERITONEUM: Unremarkable VASCULAR: Accessory left hepatic artery from the left gastric artery. The right hepatic artery appears to arise from the SMA but detailed evaluation is slightly limited by the 3 mm slice thickness and if indicated, thin slice reformats could be obtained in more detailed assessment. LYMPH NODES: No adenopathy OSSEOUS & SOFT TISSUES: Unremarkable IMPRESSION: 1. A liver lesion pursued for follow-up shows benign imaging characteristics on this examination, compatible with a benign hepatic cyst. 2. A similar, smaller lesion in the right hepatic lobe is incidentally noted also unchanged but difficult to measure by Hounsfield units given its small size. This can be follow-up on an elective basis as clinically warranted. 3. Otherwise no acute findings in the abdomen or pelvis with and without IV contrast. Electronically signed by: Tari Still MD (03/28/2020 3:46 PM) [id number]
[2020-03-28] MEDS: ALPRAZolam 0.5 MG TABLET PO PRN (20:54)
[2020-03-29 02:50] VITALS: BP 108/61
[2020-03-29 07:00] VITALS: BP 150/87
[2020-03-29] MEDS: ALPRAZolam 0.25 MG TABLET PO SCH (08:34)
[2020-03-29] MEDS: VERAPAMIL SR 120 MG TABLET.ER. PO SCH (08:34)
[2020-03-29] MEDS: busPIRone 5 MG TABLET. PO SCH ×2 (08:34→13:30)
[2020-03-29] MEDS: CARBIDOPA/LEVODOPA 25/100MG TABLET PO SCH ×2 (08:34→13:30)
[2020-03-29] MEDS: LISINOPRIL 20 MG TABLET PO SCH (08:34)
[2020-03-29] MEDS: CETIRIZINE HCL 10 MG TABLET. PO SCH (08:35)
[2020-03-29] MEDS: FLUTICASONE 50MCG/NASAL SPRAY 16GM BOTTLE. NS SCH (08:35)
[2020-03-29] MEDS: APIXABAN 5 MG TABLET. PO SCH (08:35)
[2020-03-29 11:00] VITALS: BP 98/62
[2020-03-29] MEDS: ALPRAZolam 0.5 MG TABLET PO PRN (13:30)
[2020-03-29 14:52] VITALS: BP 129/78
--- NOTE | 2020-03-29 15:19 | PDOC ---
PROGRESS NOTES Date of Service: DATE: 03/29/20 TIME: 15:17 Subjective Subjective anxious Objective Objective Vital Signs Date Time Temp Pulse Resp B/P (MAP) Pulse Ox O2 Delivery O2 Flow Rate FiO2 03/29/20 14:52 98.7 80 16 129/78 (95) 97 Room Air 98.7 Intake and Output 03/29/20 07:00 Intake Total 160 ml Output Total 100 ml Balance 60 ml Intake Oral 160 ml Output Urine Total 100 ml Physical Exam Abdomen: Soft, Other Heart: Regular rate, Other Extremities: No cyanosis, No edema General: Alert, Oriented X3, Cooperative, No acute distress HEENT: Atraumatic, Mucous membr. moist/pink Lungs: Clear to auscultation, Normal air movement MUSCULOSKELETAL: Osteoarthritic changes both hands Neuro: Normal speech, Sensation intact Psych/Mental Status: Mental status NL, Mood NL Skin: No breakdown, No significant lesion Diagnosis Problem List Problems Medical Problems: (1) Palpitations Status: Acute Assessment Assessment Problems Medical Problems: (1) Palpitations Status: Acute FINAL IMPRESSION: 1. Chest pain for evaluation. 2. Anxiety, panic attacks. 3. Parkinson's disease. 4. Morbid obesity. 5. History of deep venous thrombosis, pulmonary embolism.On Eliquis PLAN: EKG -ve heart monitor -ok ECHO - good lvf d/c home today f/u with [facility] At this time, admit to hospital. Cardiology consult, EKG, clinical data management director, cardiac enzymes with troponin, maybe a stress test or echo, continue Eliquis for the time being, and see how she improves in the next 24-48 hours. Plan Plan of Care Problems Medical Problems: (1) Palpitations Status: Acute Comment Review of Relevant I have reviewed the following items paula (where applicable) has been applied. Medications Current Medications Ergocalciferol (Vitamin D2) 50,000 unit QFR PO ; Start 03/29/20 at 16:00 Vitals/I & O Vital Sign - Last 24 Hours 03/28/20 03/28/20 03/28/20 03/29/20 19:32 19:35 22:32 02:50 Temp 98.7 98.7 98.8 98.7 98.7 98.8 Pulse 80 75 71 Resp 18 18 18 B/P (MAP) 147/78 (101) 139/79 (99) 108/61 (77) Pulse Ox 97 98 97 O2 Delivery Room Air Room Air Room Air Room Air 03/29/20 03/29/20 03/29/20 03/29/20 07:00 08:15 08:34 08:34 Temp 97.9 97.9 Pulse 83 83 83 Resp 16 B/P (MAP) 150/87 (108) 150/87 150/87 Pulse Ox 97 O2 Delivery Room Air Room Air 03/29/20 03/29/20 11:00 14:52 Temp 98.6 98.7 98.6 98.7 Pulse 71 80 Resp 16 16 B/P (MAP) 98/62 (74) 129/78 (95) Pulse Ox 95 97 O2 Delivery Room Air Room Air Intake and Output 03/28/20 03/28/20 03/29/20 15:00 23:00 07:00 Intake Total 0 ml 60 ml 100 ml Output Total 0 ml 100 ml Balance 0 ml 60 ml 0 ml Justifications for Admission Other Justification JULIANNA BOTELLO MD Mar 29, 2020 15:19
[2020-03-29] MEDS ORDERED: ALPR0.5T PO (15:21)
[2020-03-29] MEDS ORDERED: ERGOCALCIFEROL (VITAMIN D2) 50,000 UNIT CAPSULE. PO SCH (16:00)
--- NOTE | 2020-03-29 16:27 | NUR ---
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 Pruitt. Education given over anxiety, panic attacks, and palpitations. Signs and symptoms reviewed. Prescription for anxiety given to pt. Pt verbalizes understanding.
[2020-03-30 00:08] LABS: HEMOGLOBIN A1C 5.6 % (4.8-5.6)
--- NOTE | 2020-04-02 11:34 | PDOC ---
Provider Note Date of Service: DATE: 04/02/20 TIME: 11:34 Provider Note Discharge summary dictated.#[id number]. Justifications for Admission Other Justification JULIANNA BOTELLO MD Apr 02, 2020 11:34
--- NOTE | 2020-04-02 12:03 | DS ---
DATE OF DISCHARGE: 03/29/2020 REASON FOR ADMISSION TO THE HOSPITAL: Chest pain. CONSULTATION: Dr. Bro. PROCEDURES DONE: 1. CT head. 2. CT of abdomen and pelvis. HOSPITAL COURSE: The patient is a 54-year-old female with history of Parkinson's disease, hypertension, anxiety, came in with chest pain. She had seen Cardiology, had a Holter and echocardiogram done within last 48 hours. The patient was admitted to the ER with chest pain and also dizziness. CT head was negative, seen by Cardiology and echo shows good left ventricular function, Holter ,no arrhythmias, was recommended to follow with Cardiology, does not think the chest pain is cardiac, troponin was negative. The patient had a CT of the abdomen done to follow up on the liver lesion and it came back same size from last year, most likely benign pathology. On the whole, the patient's condition improved and she was discharged. Followup as scheduled with Cardiology for a stress test. FINAL DIAGNOSES: 1. Chest pain, noncardiac origin, possible skeletomuscular. 2. Anxiety, panic attacks. 3. Hypertension. 4. Parkinson's disease. 5. Obesity, BMI 55 and scheduled to follow up with Cardiology and maybe a stress test down the road. JULIANNA BOTELLO MD DR: LACIE/renetta JOB#: [id number] / [id number]
== END 2020-03-29 16:20 | disposition home or self-care (01) | DRG 206 ==
LOC: ER 17:57 → 2 NORTH 23:06
PROVIDERS: ADMIT Internal Medicine; ATTEND Internal Medicine
DX: M94.0 Chondrocostal junction syndrome [Tietze] (principal); Z68.43 Body mass index [BMI] 50.0-59.9, adult; E66.01 Morbid (severe) obesity due to excess calories; F41.0 Panic disorder [episodic paroxysmal anxiety]; F41.1 Generalized anxiety disorder; G20 Parkinson's disease; I10 Essential (primary) hypertension; Z79.01 Long term (current) use of anticoagulants; Z82.49 Family history of ischemic heart disease and other diseases of the circulatory system; Z86.711 Personal history of pulmonary embolism; Z86.718 Personal history of other venous thrombosis and embolism; Z90.710 Acquired absence of both cervix and uterus; K21.9 Gastro-esophageal reflux disease without esophagitis; M19.90 Unspecified osteoarthritis, unspecified site; Z88.2 Allergy status to sulfonamides; Z88.8 Allergy status to other drugs, medicaments and biological substances
CPT/HCPCS: 36415; 70450; 71045; 74170; 80048; 80053; 80061; 82306; 82607; 83036; 84443; 84484; 85025; 93005; 96361; 96374; J2405; J7030; Q9967; 99285-25; G0378

== ENCOUNTER 2020-05-03 10:11 | Emergency (ER) | payer MEDICAID ==
[~2020-05-03] VITALS: Ht 160 cm; Wt 102.2 kg
[~2020-05-03 10:11] MED LIST changes: +ALPR0.25 PO; +APIX5TAB PO; +BUSP5TAB PO; +CARB1TAB22 PO; +ERGO500027 PO
[2020-05-03] MEDS ORDERED: ACETAMINOPHEN 500 MG TABLET PO ONE (10:30)
[2020-05-03] MEDS ORDERED: IV NORMAL SALINE 1000ML BAG 1,000 ML IV ONE (10:30)
--- NOTE | 2020-05-03 10:39 | PHYS DOC ---
Past Medical History Past Medical History: Anxiety, DVT, GERD, Hypertension, Other Additional Past Medical Histor: Sinus problems, parkinson's, PANIC ATTACKS Past Surgical History: Hysterectomy, Other Additional Past Surgical Histo: breast reduction, foot surgery Smoking Status: Never Smoker Alcohol Use: None Drug Use: None General Adult EDM: Chief Complaint: HEADACHE HPI: HPI: History obtained with the patient. Patient is a 54-year-old female past medical history notable for Parkinson's disease, anxiety who presents with chief complaint of head ache. She states the headache began yesterday while at rest. States headache was gradual in onset. She is unable to describe the location of the headache. States it is a throbbing pain. She did try home Xanax for relief and states this helps some. She denies any chest pain or shortness of breath. Denies neck pain. Denies fever. Denies syncope. Denies acute vision or hearing changes. Denies any feelings of rapid or irregular heartbeat. States that her Parkinson medicine has been adjusted several times recently and she thinks this is what is causing her headache. Denies any confusion or somn olence. States her next appoint with her family physician is next week. Patient denies acute onset of headache reaching maximal intensity in under one hour. This is neither the worst headache that Patient has ever experienced, nor was the onset timed with exertional activity or trauma. Patient has not experienced any fever, unusual neck pain or stiffness, syncope, or near syncope. Patient denies numbness, tingling, or weakness of the extremities. Patient also denies personal history of intracranial hemorrhage (including SAH), aneurysm, or AV malformation. Review of Systems: Review of Systems: Constitutional: Denies fever or chills. [] Eyes: Denies change in visual acuity. [] HENT: Denies nasal congestion or sore throat. [] Respiratory: Denies cough or shortness of breath. [] Cardiovascular: Denies chest pain or edema. [] GI: Denies abdominal pain, nausea, vomiting, bloody stools or diarrhea. [] : Denies dysuria. [] Musculoskeletal: Denies back pain or joint pain. [] Integument: Denies rash. [] Neurologic: positive for headache Endocrine: Denies polyuria or polydipsia. [] Lymphatic: Denies swollen glands. [] Psychiatric: Denies depression or anxiety. [] Heart Score: Risk Factors: Risk Factors: DM, Current or recent (<one month) smoker, HTN, HLP, family history of CAD, obesity. Risk Scores: Score 0 - 3: 2.5% MACE over next 6 weeks - Discharge Home Score 4 - 6: 20.3% MACE over next 6 weeks - Admit for Clinical Observation Score 7 - 10: 72.7% MACE over next 6 weeks - Early Invasive Strategies Current Medications: Current Medications Medications (Trade) Dose Ordered Sig/Thomas Start Time Stop Time Status Last Admin Dose Admin Acetaminophen (Tylenol) 1,000 mg 1X ONCE 05/03/20 10:30 05/03/20 10:31 DC Sodium Chloride 1,000 ml @ 1,000 mls/hr 1X ONCE 05/03/20 10:30 05/03/20 11:29 Allergies: Allergies: Allergies Coded Allergies Type Severity Reaction Last Updated Verified Sulfa (Sulfonamide Antibiotics) Allergy Intermediate rash 07/24/19 Yes adhesive tape Allergy Intermediate rash 07/24/19 Yes metoclopramide Allergy Intermediate 09/24/18 Yes sulfamethoxazole Allergy Intermediate 09/24/18 Yes trimethoprim Allergy Intermediate 09/24/18 Yes Physical Exam: PE: Constitutional: Well developed, well nourished, no acute distress, non-toxic appearance. [] HENT: Normocephalic, atraumatic, bilateral external ears normal, oropharynx moist, no oral exudates, nose normal. [] Eyes: PERRLA, EOMI, conjunctiva normal, no discharge. [] Neck: Normal range of motion, no tenderness, supple, no stridor. No nuchal ri gidity appreciated [] Cardiovascular:Heart rate regular rhythm, no murmur [] Lungs & Thorax: Bilateral breath sounds clear to auscultation [] Abdomen: soft, no tenderness, no masses, no pulsatile masses. [] Skin: Warm, dry, no erythema, no rash. [] Back: No tenderness, no CVA tenderness. [] Extremities: No tenderness, no cyanosis, no clubbing, ROM intact, no edema. [] Neurologic: Alert with intact cognitive function. No aphasia, dysarthria, or neglect. GCS 15. Pupils 3 mm briskly reactive b/l. No APD present. Cranial nerves 2-12 grossly intact; no facial asymmetry present, tongue midline, shoulder shrugging strength intact. Strength 5/5 and symmetric throughout. Light touch sensation intact throughout. Cerebellar testing appropriate without evidence of dysdiadochokinesia. DTR's 2+ in all 4 extremities. Negative pronator drift bilaterally. Gait normal Psychologic: Affect normal, judgement normal, mood normal. [] Current Patient Data: Labs: Laboratory Tests Test 05/03/20 10:43 White Blood Count 4.8 x10^3/uL Red Blood Count 4.58 x10^6/uL Hemoglobin 12.8 g/dL Hematocrit 38.7 % Mean Corpuscular Volume 85 fL Mean Corpuscular Hemoglobin 28 pg Mean Corpuscular Hemoglobin Concent 33 g/dL Red Cell Distribution Width 15.1 % Platelet Count 269 x10^3/uL Neutrophils (%) (Auto) 75 % Lymphocytes (%) (Auto) 18 % Monocytes (%) (Auto) 5 % Eosinophils (%) (Auto) 1 % Basophils (%) (Auto) 1 % Neutrophils # (Auto) 3.6 x10^3/uL Lymphocytes # (Auto) 0.9 x10^3/uL Monocytes # (Auto) 0.3 x10^3/uL Eosinophils # (Auto) 0.0 x10^3/uL Basophils # (Auto) 0.0 x10^3/uL Sodium Level 141 mmol/L Potassium Level 3.5 mmol/L Chloride Level 105 mmol/L Carbon Dioxide Level 29 mmol/L Anion Gap 7 Blood Urea Nitrogen 14 mg/dL Creatinine 1.0 mg/dL Estimated GFR (Cockcroft-Gault) 70.2 Glucose Level 89 mg/dL Calcium Level 9.1 mg/dL Current Medications Medications (Trade) Dose Ordered Sig/Thomas Route PRN Reason Start Time Stop Time Status Last Admin Dose Admin Sodium Chloride 1,000 ml @ 1,000 mls/hr 1X ONCE IV 05/03/20 10:30 05/03/20 11:29 05/03/20 11:20 Acetaminophen (Tylenol) 1,000 mg 1X ONCE PO 05/03/20 10:30 05/03/20 10:31 DC 05/03/20 11:19 Vital Signs: Vital Signs Date Time Temp Pulse Resp B/P (MAP) Pulse Ox O2 Delivery O2 Flow Rate FiO2 05/03/20 10:18 98.7 94 20 146/88 (107) 95 Room Air 98.7 EKG: EKG: [] EKG consistent with normal sinus rhythm. Ventricular rate of 93 bpm. Left axis noted. Intervals normal. No acute ischemic changes appreciated. Similar to previous EKG. Radiology/Procedures: Radiology/Procedures: [] Course & Med Decision Making: Course & Med Decision Making Pertinent Labs and Imaging studies reviewed. (See chart for details) [] Patient is a 54-year-old female who presents with chief complaint of gradual onset headache over the past several days. She thinks this is related to her Parkinson medicines being readjusted. Initial vital signs unremarkable. Neurologic exam unremarkable without focal deficits. No nuchal rigidity or limitations in range of motion. Very low suspicion for infectious etiology. I did initially order CT imaging of her head. However, patient is declining at this time stating she has had multiple CAT scans recently including a head CT 2 weeks ago. I did explain that this limits our ability to evaluate and identify potential life-threatening causes of her headache. She expressed understanding and states that she would just like Tylenol basic blood work performed. Her labs have been unremarkable. Patient's headache was well controlled. Her repeat neurologic exam remained stable. Patient does appear to have capacity at this time to decline head imaging. She is alert and oriented x3. She has been have a basic understanding of her health care needs and potential consequences. Patient was instructed to follow-up with her primary care physician in the next 2 to 3 days. Return precautions were discussed and understood. Stable for discharge home. Dragon Disclaimer: Radha Disclaimer: This electronic medical record was generated, in whole or in part, using a voice recognition dictation system. Departure Departure Impression: Primary Impression: Headache Qualified Codes: R51.9 - Headache, unspecified Disposition: 01 DC HOME SELF CARE/HOMELESS Condition: STABLE Referrals: JULIANNA BOTELLO MD (PCP) Patient Instructions: General Headache Without Cause Additional Instructions: Please follow-up with your primary care physician in the next 2 to 3 days. SONIA RAMIRES DO May 03, 2020 10:39
[2020-05-03 11:02] LABS: BASO % 1 % (0-3); EOS % 1 % (0-3); HEMATOCRIT 38.7 % (36.0-47.0); HEMOGLOBIN 12.8 g/dL (12.0-15.5); LYMPH # 0.9 x10^3/uL (1.0-4.8); LYMPH % 18 % (24-48); MEAN CORPUSCULAR HEMOGLOBIN 28 pg (25-35); MEAN CORPUSCULAR HGB CONC 33 g/dL (31-37); MEAN CORPUSCULAR VOLUME 85 fL (79-100); MONO # 0.3 x10^3/uL (0.0-1.1); MONO % 5 % (0-9); NEUT # 3.6 x10^3/uL (1.8-7.7); NEUT % 75 % (31-73); PLATELET COUNT 269 x10^3/uL (140-400); RED BLOOD COUNT 4.58 x10^6/uL (3.50-5.40); RED CELL DISTRIBUTION WIDTH 15.1 % (11.5-14.5); WHITE BLOOD COUNT 4.8 x10^3/uL (4.0-11.0)
[2020-05-03 11:09] LABS: CALCIUM 9.1 mg/dL (8.5-10.1); GFR 70.2; POTASSIUM 3.5 mmol/L (3.5-5.1)
[2020-05-03 12:54] VITALS: BP 135/81
--- NOTE | 2020-05-03 19:11 | EKG ---
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
--- NOTE | 2020-05-06 09:19 | NUR ---
IP: Informed pt of negative COVID results. Pt verbalized understanding.
== END 2020-05-03 13:40 | disposition home or self-care (01) ==
LOC: ER 10:11
DX: R51.9 Headache, unspecified (principal); R20.2 Paresthesia of skin; F41.9 Anxiety disorder, unspecified; Z20.818 Contact with and (suspected) exposure to other bacterial communicable diseases; K21.9 Gastro-esophageal reflux disease without esophagitis; I10 Essential (primary) hypertension; Z90.710 Acquired absence of both cervix and uterus; Z98.890 Other specified postprocedural states; Z86.718 Personal history of other venous thrombosis and embolism; Z88.2 Allergy status to sulfonamides; Z88.6 Allergy status to analgesic agent; Z88.8 Allergy status to other drugs, medicaments and biological substances
CPT/HCPCS: 36415; 80048; 85025; 93005; 96360; 96361; 99285; J7030; U0003

== ENCOUNTER 2020-05-06 17:34 | Emergency (ER) | payer MEDICAID ==
[~2020-05-06] VITALS: Ht 160 cm; Wt 100.9 kg
[2020-05-06 18:35] LABS: BASO % 1 % (0-3); EOS % 0 % (0-3); HEMATOCRIT 39.9 % (36.0-47.0); HEMOGLOBIN 13.5 g/dL (12.0-15.5); LYMPH % 17 % (24-48); MEAN CORPUSCULAR HEMOGLOBIN 28 pg (25-35); MEAN CORPUSCULAR HGB CONC 34 g/dL (31-37); MEAN CORPUSCULAR VOLUME 84 fL (79-100); MONO # 0.2 x10^3/uL (0.0-1.1); MONO % 4 % (0-9); NEUT # 4.6 x10^3/uL (1.8-7.7); NEUT % 78 % (31-73); PLATELET COUNT 309 x10^3/uL (140-400); RED BLOOD COUNT 4.75 x10^6/uL (3.50-5.40); RED CELL DISTRIBUTION WIDTH 15.2 % (11.5-14.5); WHITE BLOOD COUNT 5.9 x10^3/uL (4.0-11.0)
--- NOTE | 2020-05-06 18:39 | PHYS DOC ---
Past Medical History Past Medical History: Anxiety, DVT, GERD, Hypertension, Other Additional Past Medical Histor: Sinus problems, parkinson's, PANIC ATTACKS Past Surgical History: Hysterectomy, Other Additional Past Surgical Histo: breast reduction, foot surgery Smoking Status: Never Smoker Alcohol Use: None Drug Use: None General Adult EDM: Chief Complaint: Palpitations HPI: HPI: Patient is a 54 year old female who presented to ER with heart palpitation. Patient had a history of Parkinson disease, she had been on different medications for it however the medications caused her to feel anxious and have heart palpitation. Patient is currently on xanax for anxiety. She has been evaluated here in the past for the same problem. She was here last week for the same problem. Her work up was normal. Today, while she was at home, she was feeling like her heart was skipping that made her really scare so she came here for evaluation. No cough, no fever, no chest pain, no abdominal pain, no shortness of air. Review of Systems: Review of Systems: Constitutional: Denies fever or chills. [] Eyes: Denies change in visual acuity. [] HENT: Denies nasal congestion or sore throat. [] Respiratory: Denies cough or shortness of breath. [] Cardiovascular: Denies chest pain or edema. Positive for heart palpitation. GI: Denies abdominal pain, nausea, vomiting, bloody stools or diarrhea. [] : Denies dysuria. [] Musculoskeletal: Denies back pain or joint pain. [] Integument: Denies rash. [] Neurologic: Denies headache, focal weakness or sensory changes. [] Endocrine: Denies polyuria or polydipsia. [] Lymphatic: Denies swollen glands. [] Psychiatric: Denies depression or anxiety. [] Heart Score: Risk Factors: Risk Factors: DM, Current or recent (<one month) smoker, HTN, HLP, family history of CAD, obesity. Risk Scores: Score 0 - 3: 2.5% MACE over next 6 weeks - Discharge Home Score 4 - 6: 20.3% MACE over next 6 weeks - Admit for Clinical Observation Score 7 - 10: 72.7% MACE over next 6 weeks - Early Invasive Strategies Current Medications: Laboratory Tests Test 05/06/20 17:51 White Blood Count 5.9 x10^3/uL Red Blood Count 4.75 x10^6/uL Hemoglobin 13.5 g/dL Hematocrit 39.9 % Mean Corpuscular Volume 84 fL Mean Corpuscular Hemoglobin 28 pg Mean Corpuscular Hemoglobin Concent 34 g/dL Red Cell Distribution Width 15.2 % Platelet Count 309 x10^3/uL Neutrophils (%) (Auto) 78 % Lymphocytes (%) (Auto) 17 % Monocytes (%) (Auto) 4 % Eosinophils (%) (Auto) 0 % Basophils (%) (Auto) 1 % Neutrophils # (Auto) 4.6 x10^3/uL Lymphocytes # (Auto) 1.0 x10^3/uL Monocytes # (Auto) 0.2 x10^3/uL Eosinophils # (Auto) 0.0 x10^3/uL Basophils # (Auto) 0.0 x10^3/uL Prothrombin Time 14.5 SEC Prothromb Time International Ratio 1.2 Activated Partial Thromboplast Time 35 SEC Sodium Level 142 mmol/L Potassium Level 3.7 mmol/L Chloride Level 106 mmol/L Carbon Dioxide Level 26 mmol/L Anion Gap 10 Blood Urea Nitrogen 12 mg/dL Creatinine 1.0 mg/dL Estimated GFR (Cockcroft-Gault) 70.2 BUN/Creatinine Ratio 12 Glucose Level 104 mg/dL Calcium Level 9.2 mg/dL Magnesium Level Pending Total Bilirubin Pending Aspartate Amino Transf (AST/SGOT) Pending Alanine Aminotransferase (ALT/SGPT) Pending Alkaline Phosphatase Pending Total Protein Pending Albumin Pending Albumin/Globulin Ratio Pending Current Medications Medications (Trade) Dose Ordered Sig/Thomas Route PRN Reason Start Time Stop Time Status Last Admin Dose Admin Lorazepam (Ativan) 1 mg 1X ONCE PO 05/06/20 19:00 05/06/20 19:01 Allergies: Allergies: Allergies Coded Allergies Type Severity Reaction Last Updated Verified Sulfa (Sulfonamide Antibiotics) Allergy Intermediate rash 07/24/19 Yes adhesive tape Allergy Intermediate rash 07/24/19 Yes metoclopramide Allergy Intermediate 09/24/18 Yes sulfamethoxazole Allergy Intermediate 09/24/18 Yes trimethoprim Allergy Intermediate 09/24/18 Yes Physical Exam: PE: Constitutional: Well developed, well nourished, no acute distress, non-toxic appearance. [] HENT: Normocephalic, atraumatic, bilateral external ears normal, oropharynx moist, no oral exudates, nose normal. [] Eyes: PERRLA, EOMI, conjunctiva normal, no discharge. [] Neck: Normal range of motion, no tenderness, supple, no stridor. [] Cardiovascular:Heart rate regular rhythm, no murmur [] Lungs & Thorax: Bilateral breath sounds clear to auscultation [] Abdomen: Bowel sounds normal, soft, no tenderness, no masses, no pulsatile masses. [] Skin: Warm, dry, no erythema, no rash. [] Back: No tenderness, no CVA tenderness. [] Extremities: No tenderness, no cyanosis, no clubbing, ROM intact, no edema. [] Neurologic: Alert and oriented X 3, normal motor function, normal sensory function, no focal deficits noted. [] Psychologic: Affect normal, judgement normal, mood normal. [] Current Patient Data: Labs: Laboratory Tests Test 05/06/20 17:51 05/06/20 19:17 White Blood Count 5.9 x10^3/uL Red Blood Count 4.75 x10^6/uL Hemoglobin 13.5 g/dL Hematocrit 39.9 % Mean Corpuscular Volume 84 fL Mean Corpuscular Hemoglobin 28 pg Mean Corpuscular Hemoglobin Concent 34 g/dL Red Cell Distribution Width 15.2 % Platelet Count 309 x10^3/uL Neutrophils (%) (Auto) 78 % Lymphocytes (%) (Auto) 17 % Monocytes (%) (Auto) 4 % Eosinophils (%) (Auto) 0 % Basophils (%) (Auto) 1 % Neutrophils # (Auto) 4.6 x10^3/uL Lymphocytes # (Auto) 1.0 x10^3/uL Monocytes # (Auto) 0.2 x10^3/uL Eosinophils # (Auto) 0.0 x10^3/uL Basophils # (Auto) 0.0 x10^3/uL Prothrombin Time 14.5 SEC Prothromb Time International Ratio 1.2 Activated Partial Thromboplast Time 35 SEC Sodium Level 142 mmol/L Potassium Level 3.7 mmol/L Chloride Level 106 mmol/L Carbon Dioxide Level 26 mmol/L Anion Gap 10 Blood Urea Nitrogen 12 mg/dL Creatinine 1.0 mg/dL Estimated GFR (Cockcroft-Gault) 70.2 BUN/Creatinine Ratio 12 Glucose Level 104 mg/dL Calcium Level 9.2 mg/dL Magnesium Level 2.3 mg/dL Total Bilirubin 0.6 mg/dL Aspartate Amino Transf (AST/SGOT) 15 U/L Alanine Aminotransferase (ALT/SGPT) 16 U/L Alkaline Phosphatase 94 U/L Troponin I Quantitative < 0.017 ng/mL Total Protein 7.7 g/dL Albumin 3.9 g/dL Albumin/Globulin Ratio 1.0 Urine Collection Type Unknown Urine Color Yellow Urine Clarity Clear Urine pH 6.5 Urine Specific [place] 1.025 Urine Protein Negative mg/dL Urine Glucose (UA) Negative mg/dL Urine Ketones (Stick) Trace mg/dL Urine Blood Negative Urine Nitrite Negative Urine Bilirubin Small Urine Urobilinogen Dipstick 1.0 mg/dL Urine Leukocyte Esterase Negative Urine RBC 1-2 /HPF Urine WBC 1-4 /HPF Urine Squamous Epithelial Cells Many /LPF Urine Bacteria Few /HPF Urine Mucus Mod /LPF Current Medications Medications (Trade) Dose Ordered Sig/Thomas Route PRN Reason Start Time Stop Time Status Last Admin Dose Admin Lorazepam (Ativan) 1 mg 1X ONCE PO 05/06/20 19:00 05/06/20 19:01 DC 05/06/20 19:07 Vital Signs: Vital Signs Date Time Temp Pulse Resp B/P (MAP) Pulse Ox O2 Delivery O2 Flow Rate FiO2 05/06/20 17:45 98.4 94 16 156/83 (107) 98 Room Air 98.4 EKG: EKG: EKG was done at 1755, heart rate of 86 bpm, sinus rhythm, no ST segment elevation. QT interval 432 MS Radiology/Procedures: Radiology/Procedures: [facility] [address] [place] [address] IMAGING REPORT Signed PATIENT: LEVI GORE ACCOUNT: [id number] : 1965 LOCATION: ER AGE: 54 SEX: F EXAM STATUS: REG ER ORD. PHYSICIAN: MARTÍN ESCAMILLA DO REASON: heart palpitation PROCEDURE: CHEST AP ONLY CHEST AP ONLY History: Reason: heart palpitation / Spl. Instructions: / History: Comparison: March 27, 2020 Findings: No consolidation or pleural effusion. Portable technique accentuates cardiac size. No pneumothorax. Impression: 1. No acute cardiopulmonary process. Electronically signed by: Wander Shelton DO (05/06/2020 7:25 PM) [facility] DICTATED and SIGNED BY: WANDER SHELTON DO DATE: 05/06/201924 Course & Med Decision Making: Course & Med Decision Making Pertinent Labs and Imaging studies reviewed. (See chart for details) Patient is a 54-year female who presented with heart palpitation, lab work and EKG did not show any acute problem. Patient will be discharged home. Dragon Disclaimer: Dragon Disclaimer: This electronic medical record was generated, in whole or in part, using a voice recognition dictation system. Departure Departure Impression: Primary Impression: Palpitations Disposition: 01 DC HOME SELF CARE/HOMELESS Condition: IMPROVED Referrals: JULIANNA BOTELLO MD (PCP) Patient Instructions: Palpitations Additional Instructions: Thank you for visiting our Emergency Department. We appreciate you trusting us with your care. If any additional problems come up don't hesitate to return to visit us. Please follow up with your primary care provider so they can plan additional care if needed and know about the problem that you had. If symptoms worsen come back to the Emergency Department. Any concerning symptoms that start such as chest pain, shortness of air, weakness or numbness on one side of the body, running high fevers or any other concerning symptoms return to the ER. MARTÍN ESCAMILLA DO May 06, 2020 18:39
[2020-05-06 18:48] LABS: PROTHROMBIN TIME PATIENT 14.5 SEC (11.7-14.0)
[2020-05-06 18:57] LABS: CALCIUM 9.2 mg/dL (8.5-10.1); GFR 70.2; POTASSIUM 3.7 mmol/L (3.5-5.1)
[2020-05-06 19:02] LABS: ALBUMIN 3.9 g/dL (3.4-5.0); MAGNESIUM 2.3 mg/dL (1.8-2.4); TOTAL BILIRUBIN 0.6 mg/dL (0.2-1.0); TOTAL PROTEIN 7.7 g/dL (6.4-8.2)
[2020-05-06 19:28] LABS: BILIRUBIN,URINE SMALL (NEG); CLARITY,URINE CLEAR; COLOR,URINE YELLOW; NITRITE,URINE NEGATIVE (NEG); PH,URINE 6.5 (<5.0-8.0); PROTEIN,URINE NEGATIVE (NEG-TRACE)
--- NOTE | 2020-05-06 19:28 | RAD ---
CHEST AP ONLY History: Reason: heart palpitation / Spl. Instructions: / History: Comparison: March 27, 2020 Findings: No consolidation or pleural effusion. Portable technique accentuates cardiac size. No pneumothorax. Impression: 1. No acute cardiopulmonary process. Electronically signed by: Wander Shelton DO (05/06/2020 7:25 PM) [facility]
[2020-05-06 19:37] LABS: BACTERIA,URINE FEW /HPF (0-FEW)
[2020-05-06 20:15] VITALS: BP 165/89
--- NOTE | 2020-05-07 06:13 | EKG ---
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
== END 2020-05-06 20:26 | disposition home or self-care (01) ==
LOC: ER 17:34
DX: R00.2 Palpitations (principal); K21.9 Gastro-esophageal reflux disease without esophagitis; I10 Essential (primary) hypertension; Z86.718 Personal history of other venous thrombosis and embolism; Z88.1 Allergy status to other antibiotic agents; Z88.2 Allergy status to sulfonamides; Z88.8 Allergy status to other drugs, medicaments and biological substances
CPT/HCPCS: 36415; 71045; 80053; 81001; 83735; 84484; 85025; 85610; 85730; 93005; 99285

== ENCOUNTER 2020-06-25 13:01 | Emergency (ER) | payer MEDICAID ==
[~2020-06-25] VITALS: Ht 160 cm; Wt 97.7 kg
--- NOTE | 2020-06-25 14:22 | RAD ---
INDICATION: Reason: WEAKNESS / Spl. Instructions: / History: COMPARISON: May 06, 2020 FINDINGS: Single view of chest obtained. Cardiac silhouette is prominent in size. No definite new region of consolidation. Mild interstitial prominence similar to prior. IMPRESSION: * No definite focal airspace consolidation. Electronically signed by: Clemente Rodriguez MD (06/25/2020 2:19 PM) [id number]
[2020-06-25 14:26] LABS: BASO # 0.1 x10^3/uL (0.0-0.2); BASO % 1 % (0-3); EOS % 1 % (0-3); HEMATOCRIT 40.7 % (36.0-47.0); HEMOGLOBIN 13.4 g/dL (12.0-15.5); LYMPH % 19 % (24-48); MEAN CORPUSCULAR HEMOGLOBIN 28 pg (25-35); MEAN CORPUSCULAR HGB CONC 33 g/dL (31-37); MEAN CORPUSCULAR VOLUME 86 fL (79-100); MONO # 0.3 x10^3/uL (0.0-1.1); MONO % 5 % (0-9); NEUT # 3.7 x10^3/uL (1.8-7.7); NEUT % 74 % (31-73); PLATELET COUNT 244 x10^3/uL (140-400); RED BLOOD COUNT 4.76 x10^6/uL (3.50-5.40); RED CELL DISTRIBUTION WIDTH 14.5 % (11.5-14.5)
[2020-06-25 14:51] LABS: CALCIUM 9.2 mg/dL (8.5-10.1); GFR 70.2; POTASSIUM 3.6 mmol/L (3.5-5.1)
--- NOTE | 2020-06-25 14:51 | PHYS DOC ---
Past Medical History Past Medical History: Anxiety, DVT, GERD, Hypertension, Other Additional Past Medical Histor: Sinus problems, parkinson's, PANIC ATTACKS Past Surgical History: Hysterectomy, Other Additional Past Surgical Histo: breast reduction, foot surgery Smoking Status: Never Smoker Alcohol Use: None Drug Use: None General Adult EDM: Chief Complaint: WEAKNESS/GENERALIZED HPI: HPI: Patient is a 54 year old female who presents with generalized weakness from her Parkinson's. She states she gets like this often. She states that they have be en changing her medications around and all the dialysis because her anxiety, mid chest pain and panic attacks. She also states some shortness of breath. She states this is what she has been feeling like for quite some time. She called her neurologist at today that made her an appointment for next week. Patient rates her chest tightness to her mid chest a 5/10. She denies syncope, dizziness, headache, vision changes, numbness or tingling, focal weakness, abdominal pain, nausea, vomiting, diarrhea, fever, cough. Review of Systems: Review of Systems: Constitutional: Denies fever or chills. [] Eyes: Denies change in visual acuity. [] HENT: Denies nasal congestion or sore throat. [] Respiratory: Denies cough. +shortness of breath. [] Cardiovascular: + chest pain or denies edema. [] GI: Denies abdominal pain, nausea, vomiting, bloody stools or diarrhea. [] : Denies dysuria. [] Musculoskeletal: Denies back pain or joint pain. + Generalized weakness [] Integument: Denies rash. [] Neurologic: Denies headache, focal weakness or sensory changes. [] Endocrine: Denies polyuria or polydipsia. [] Lymphatic: Denies swollen glands. [] Psychiatric: Denies depression or anxiety. [] Heart Score: HEART Score for Chest Pain: HEART Score for Chest Pain Response (Comments) Value History Slighlty/Non-Suspicious 0 ECG Normal 0 Age >45 - < 65 1 Risk Factors 1 or 2 Risk Factors 1 Troponin < Normal Limit 0 Total 2 Risk Factors: Risk Factors: DM, Current or recent (<one month) smoker, HTN, HLP, family history of CAD, obesity. Risk Scores: Score 0 - 3: 2.5% MACE over next 6 weeks - Discharge Home Score 4 - 6: 20.3% MACE over next 6 weeks - Admit for Clinical Observation Score 7 - 10: 72.7% MACE over next 6 weeks - Early Invasive Strategies Allergies: Allergies: Allergies Coded Allergies Type Severity Reaction Last Updated Verified Sulfa (Sulfonamide Antibiotics) Allergy Intermediate rash 07/24/19 Yes adhesive tape Allergy Intermediate rash 07/24/19 Yes metoclopramide Allergy Intermediate 09/24/18 Yes sulfamethoxazole Allergy Intermediate 09/24/18 Yes trimethoprim Allergy Intermediate 09/24/18 Yes Physical Exam: PE: Constitutional: Well developed, well nourished, no acute distress, non-toxic appearance. [] HENT: Normocephalic, atraumatic, bilateral external ears normal, oropharynx moist, no oral exudates, nose normal. [] Eyes: PERRLA, EOMI, conjunctiva normal, no discharge. [] Neck: Normal range of motion, no tenderness, supple, no stridor. [] Cardiovascular:Heart rate regular rhythm, no murmur [] Lungs & Thorax: Bilateral breath sounds clear to auscultation [] Abdomen: Bowel sounds normal, soft, no tenderness, no masses, no pulsatile masses. [] Skin: Warm, dry, no erythema, no rash. [] Back: No tenderness, no CVA tenderness. [] Extremities: No tenderness, no cyanosis, no clubbing, ROM intact, no edema. [] Neurologic: Alert and oriented X 3, normal motor function, normal sensory function, no focal deficits noted. [] Psychologic: Affect normal, judgement normal, mood normal. Normal physical exam [] Current Patient Data: Labs: Laboratory Tests Test 06/25/20 14:18 White Blood Count 5.0 x10^3/uL (4.0-11.0) Red Blood Count 4.76 x10^6/uL (3.50-5.40) Hemoglobin 13.4 g/dL (12.0-15.5) Hematocrit 40.7 % (36.0-47.0) Mean Corpuscular Volume 86 fL (79-100) Mean Corpuscular Hemoglobin 28 pg (25-35) Mean Corpuscular Hemoglobin Concent 33 g/dL (31-37) Red Cell Distribution Width 14.5 % (11.5-14.5) Platelet Count 244 x10^3/uL (140-400) Neutrophils (%) (Auto) 74 % (31-73) H Lymphocytes (%) (Auto) 19 % (24-48) L Monocytes (%) (Auto) 5 % (0-9) Eosinophils (%) (Auto) 1 % (0-3) Basophils (%) (Auto) 1 % (0-3) Neutrophils # (Auto) 3.7 x10^3/uL (1.8-7.7) Lymphocytes # (Auto) 1.0 x10^3/uL (1.0-4.8) Monocytes # (Auto) 0.3 x10^3/uL (0.0-1.1) Eosinophils # (Auto) 0.0 x10^3/uL (0.0-0.7) Basophils # (Auto) 0.1 x10^3/uL (0.0-0.2) Laboratory Tests 06/25/20 14:18 Vital Signs: Vital Signs Date Time Temp Pulse Resp B/P (MAP) Pulse Ox O2 Delivery O2 Flow Rate FiO2 06/25/20 13:19 98.3 94 18 167/81 (109) 97 Room Air 98.3 EKG: EK and read by Dr Davenport as Sinus Rhythm and no STEMI Radiology/Procedures: Radiology/Procedures: [] Impression: [facility] [address] [place], [place] [id number] IMAGING REPORT Signed PATIENT: LEVI GORE ACCOUNT: [id number] : 1965 LOCATION: ER AGE: 54 SEX: F EXAM STATUS: REG ER ORD. PHYSICIAN: HORACE PATRICK APRN REASON: WEAKNESS PROCEDURE: PORTABLE CHEST 1V INDICATION: Reason: WEAKNESS / Spl. Instructions: / History: COMPARISON: May 06, 2020 FINDINGS: Single view of chest obtained. Cardiac silhouette is prominent in size. No definite new region of consolidation. Mild interstitial prominence similar to prior. IMPRESSION: * No definite focal airspace consolidation. Electronically signed by: Lucy Zuniga MD (06/25/2020 2:19 PM) [id number] DICTATED and SIGNED BY: LUCY ZUNIGA MD DATE: 06/25/20 [id number] 0 Course & Med Decision Making: Course & Med Decision Making Pertinent Labs and Imaging studies reviewed. (See chart for details) See HPI. Alert and oriented x4. Speaks in full complete sentences. She is ambulatory when she is holding onto somebody but is slow and steady. She states that she uses a walker or at times will use a wheelchair at home. Skin pink warm and dry. Lungs are clear to auscultation all lobes. Vital signs within normal limits. No extremity edema. I spoke to Dr. Botello and let him know of findings. There are no acute findings on blood work or urinalysis. X-ray shows no acute findings. Dr. Botello states to give her Xanax 0.25 mg and sent her home with 6 days worth. Patient will follow-up as scheduled with her neurologist. [] Radha Disclaimer: Dragon Disclaimer: This electronic medical record was generated, in whole or in part, using a voice recognition dictation system. Departure Departure Impression: Primary Impression: Anxiety about health Disposition: 01 DC HOME SELF CARE/HOMELESS Condition: STABLE Referrals: JULIANNA BOTELLO MD (PCP) Patient Instructions: Anxiety and Panic Attacks Additional Instructions: Follow-up with your neurologist as scheduled. Take medication as prescribed. Drink plenty of fluids. Follow-up with Dr. Botello if needed. Scripts Alprazolam (XANAX) 0.25 Mg Tablet 1 TAB PO DAILY, #6 TAB Prov: HORACE PATRICK APRN 06/25/20 HORACE PATRICK APRN Jun 25, 2020 14:51
[2020-06-25 14:56] LABS: ALBUMIN 3.6 g/dL (3.4-5.0); ALBUMIN/GLOBULIN RATIO 0.9 (1.0-1.7); TOTAL BILIRUBIN 0.5 mg/dL (0.2-1.0); TOTAL PROTEIN 7.7 g/dL (6.4-8.2)
[2020-06-25] MEDS ORDERED: ALPRAZolam 0.25 MG TABLET PO ONE (16:30)
[2020-06-25] MEDS ORDERED: ALPR0.25 PO (16:38)
[2020-06-25 16:42] LABS: BARBITURATES NEG (NEG); BENZODIAZEPINES POS (NEG); BILIRUBIN,URINE NEGATIVE (NEG); CANNABINOIDS NEG (NEG); CLARITY,URINE CLEAR; COCAINE NEG (NEG); COLOR,URINE YELLOW; METHADONE NEG (NEG); NITRITE,URINE NEGATIVE (NEG); OPIATES NEG (NEG); PHENCYCLIDINE NEG (NEG); PROTEIN,URINE NEGATIVE (NEG-TRACE)
[2020-06-25 16:46] LABS: AMPHETAMINE/METHAMPHETAMINE NEG (NEG)
[2020-06-25 16:49] LABS: BACTERIA,URINE MODERATE /HPF (0-FEW); RBC,URINE 0 /HPF (0-2)
[2020-06-25 17:05] VITALS: BP 140/81
== END 2020-06-25 17:40 | disposition home or self-care (01) ==
LOC: ER 13:01
DX: F41.9 Anxiety disorder, unspecified (principal); R53.1 Weakness; R06.02 Shortness of breath; R07.89 Other chest pain; K21.9 Gastro-esophageal reflux disease without esophagitis; I10 Essential (primary) hypertension; Z90.710 Acquired absence of both cervix and uterus; Z98.890 Other specified postprocedural states; Z88.2 Allergy status to sulfonamides; Z88.8 Allergy status to other drugs, medicaments and biological substances; Z88.6 Allergy status to analgesic agent
CPT/HCPCS: 36415; 71045; 80053; 80307; 81001; 83690; 84484; 85025; 87086; 93005; 99285

== ENCOUNTER 2020-07-26 22:05 | Emergency (ER) | payer MEDICAID ==
[~2020-07-26] VITALS: Ht 160 cm; Wt 97.7 kg
[2020-07-26 22:15] VITALS: BP 155/105
[2020-07-26] MEDS ORDERED: predniSONE 20 MG TABLET PO ONE (23:00)
[2020-07-26] MEDS ORDERED: FAMOTIDINE 20 MG TABLET. PO ONE (23:00)
[2020-07-26] MEDS ORDERED: hydrOXYzine 25 MG TABLET PO ONE (23:00)
[2020-07-26] MEDS ORDERED: PRED50TA PO (23:19)
[2020-07-26] MEDS ORDERED: HYDR25TA PO (23:19)
[2020-07-26] MEDS ORDERED: FAMO20TA5 PO (23:19)
--- NOTE | 2020-07-26 23:20 | PHYS DOC ---
Past Medical History Past Medical History: Anxiety, DVT, GERD, Hypertension, Other Additional Past Medical Histor: Sinus problems, parkinson's, PANIC ATTACKS (KARUNA BARBOSA APRN) Past Surgical History: Hysterectomy, Other Additional Past Surgical Histo: breast reduction, foot surgery (KARUNA BARBOSA APRN) Smoking Status: Never Smoker Alcohol Use: None Drug Use: None (KARUNA BARBOSA APRN) General Adult EDM: Chief Complaint: SKIN PROBLEM HPI: HPI: Patient is a 54 year old female with a history of Parkinson's, anxiety, hypertension among other illnesses who presents today complaining of a rash on the left lateral neck as well as right upper extremity that began on Wednesday. Patient denies any new contacts. Denies any fever. (KARUNA BARBOSA APRN) Review of Systems: Review of Systems: Constitutional: Denies fever or chills. [] GI: Denies abdominal pain, nausea, vomiting, bloody stools or diarrhea. [] : Denies dysuria. [] Musculoskeletal: Denies back pain or joint pain. [] Integument: Reports rash to the right upper extremity and left lateral neck Neurologic: Denies headache, focal weakness or sensory changes. [] Psychiatric: Denies depression or anxiety. [] (KARUNA BARBOSA APRN) Heart Score: Risk Factors: Risk Factors: DM, Current or recent (<one month) smoker, HTN, HLP, family history of CAD, obesity. Risk Scores: Score 0 - 3: 2.5% MACE over next 6 weeks - Discharge Home Score 4 - 6: 20.3% MACE over next 6 weeks - Admit for Clinical Observation Score 7 - 10: 72.7% MACE over next 6 weeks - Early Invasive Strategies (KARUNA BARBOSA APRN) Current Medications: Current Medications Medications (Trade) Dose Ordered Sig/Thomas Start Time Stop Time Status Last Admin Dose Admin Famotidine (Pepcid) 20 mg 1X ONCE 07/26/20 23:00 07/26/20 23:01 DC 07/26/20 23:05 20 MG Hydroxyzine HCl (Atarax) 25 mg 1X ONCE 07/26/20 23:00 07/26/20 23:01 DC 07/26/20 23:06 25 MG Prednisone (Prednisone) 60 mg 1X ONCE 07/26/20 23:00 07/26/20 23:01 DC 07/26/20 23:05 60 MG (KARUNA BARBOSA APRN) Allergies: Allergies: Allergies Coded Allergies Type Severity Reaction Last Updated Verified Sulfa (Sulfonamide Antibiotics) Allergy Intermediate rash 07/24/19 Yes adhesive tape Allergy Intermediate rash 07/24/19 Yes metoclopramide Allergy Intermediate 09/24/18 Yes sulfamethoxazole Allergy Intermediate 09/24/18 Yes trimethoprim Allergy Intermediate 09/24/18 Yes (KARUNA BARBOSA APRN) Physical Exam: PE: Constitutional: Well developed, well nourished, no acute distress, non-toxic appearance. [] Skin: Small amount of blister type of rash on the left lateral neck, right upper extremity with small amount of erythematous macular rash suspicious of insect bites Back: No tenderness, no CVA tenderness. [] Extremities: No tenderness, no cyanosis, no clubbing, ROM intact, no edema. [] Neurologic: Alert and oriented X 3, normal motor function, normal sensory function, no focal deficits noted. [] Psychologic: Affect normal, judgement normal, mood normal. [] (KARUNA BARBOSA APRN) Current Patient Data: Vital Signs: Vital Signs Date Time Temp Pulse Resp B/P (MAP) Pulse Ox O2 Delivery O2 Flow Rate FiO2 07/26/20 22:15 98.4 90 20 155/105 (122) Room Air 98.4 (KARUNA BARBOSA APRN) EKG: EKG: [] (KARUNA BARBOSA APRN) Radiology/Procedures: Radiology/Procedures: [] (KARUNA BARBOSA APRN) Course & Med Decision Making: Course & Med Decision Making Pertinent Labs and Imaging studies reviewed. (See chart for details) This is a 54-year-old female patient presenting to the ED today with a rash on the left lateral neck as well as the right upper extremity. Both rashes appear different. There is a chance she has shingles on the left lateral neck and insect bites on the right upper extremity. Symptoms have been going on since Wednesday. Will be discharged to home. Given prescription for prednisone, hydroxyzine and Pepcid. (KARUNA BARBOSA APRN) Dragon Disclaimer: Dragon Disclaimer: This electronic medical record was generated, in whole or in part, using a voice recognition dictation system. (KARUNA BARBOSA APRN) Departure Departure Impression: Primary Impression: Rash Disposition: 01 DC HOME SELF CARE/HOMELESS Condition: STABLE Referrals: JULIANNA BOTELLO MD (PCP) follow up next week Patient Instructions: Rash Additional Instructions: You were evaluated in the emergency room for a rash. Use the prescribed medications as ordered. Follow-up with your doctor in 1 to 2 weeks Scripts Prednisone (PREDNISONE) 50 Mg Tablet 1 TAB PO DAILY, #4 TAB Prov: KARUNA BARBOSA APRN 07/26/20 Famotidine (FAMOTIDINE) 20 Mg Tablet 20 MG PO DAILY, #6 TAB Prov: KARUNA BARBOSA APRN 07/26/20 Hydroxyzine Hcl (HYDROXYZINE HCL) 25 Mg Tablet 1 TAB PO TID, #30 TAB Prov: KARUNA BARBOSA APRN 07/26/20 Attending Signature Attending Signature I have reviewed the PA/LAND LEASING EXAMINER's note and plan of care. I was available for consultation as needed during the patient's visit in the emergency department. I agree with the clinical impression, plan, and disposition. (DOC WRIGHT DO) KARUNA BARBOSA APRN Jul 26, 2020 23:20 DOC WRIGHT DO Jul 27, 2020 00:29
== END 2020-07-26 23:27 | disposition home or self-care (01) ==
LOC: ER 22:05
DX: R21 Rash and other nonspecific skin eruption (principal); I10 Essential (primary) hypertension; K21.9 Gastro-esophageal reflux disease without esophagitis; Z86.718 Personal history of other venous thrombosis and embolism; Z88.2 Allergy status to sulfonamides; Z88.1 Allergy status to other antibiotic agents; Z88.8 Allergy status to other drugs, medicaments and biological substances
CPT/HCPCS: 99284; J7512

== ENCOUNTER 2020-07-31 11:27 | Inpatient (IN) | payer MEDICAID ==
[~2020-07-31] VITALS: Ht 160 cm; Wt 88.0 kg
[~2020-07-31 11:27] MED LIST changes: -ERGO500027 PO; +ERGO500089 PO; +FAMO20TA5 PO; +PRED50TA PO
[2020-07-31 12:10] LABS: BILIRUBIN,URINE NEGATIVE (NEG); CLARITY,URINE CLEAR; COLOR,URINE YELLOW; NITRITE,URINE NEGATIVE (NEG); PROTEIN,URINE NEGATIVE (NEG-TRACE)
[2020-07-31 12:13] LABS: BASO % 1 % (0-3); EOS % 0 % (0-3); HEMATOCRIT 42.4 % (36.0-47.0); LYMPH # 0.9 x10^3/uL (1.0-4.8); LYMPH % 17 % (24-48); MEAN CORPUSCULAR HEMOGLOBIN 28 pg (25-35); MEAN CORPUSCULAR HGB CONC 33 g/dL (31-37); MEAN CORPUSCULAR VOLUME 85 fL (79-100); MONO # 0.3 x10^3/uL (0.0-1.1); MONO % 5 % (0-9); NEUT # 4.2 x10^3/uL (1.8-7.7); NEUT % 77 % (31-73); PLATELET COUNT 278 x10^3/uL (140-400); RED BLOOD COUNT 4.96 x10^6/uL (3.50-5.40); RED CELL DISTRIBUTION WIDTH 14.3 % (11.5-14.5); WHITE BLOOD COUNT 5.5 x10^3/uL (4.0-11.0)
[2020-07-31 12:15] LABS: AMPHETAMINE/METHAMPHETAMINE NEG (NEG); BARBITURATES NEG (NEG); BENZODIAZEPINES NEG (NEG); CANNABINOIDS NEG (NEG); COCAINE NEG (NEG); METHADONE NEG (NEG); OPIATES NEG (NEG); PHENCYCLIDINE NEG (NEG)
[2020-07-31 12:18] LABS: BACTERIA,URINE FEW /HPF (0-FEW); RBC,URINE 0 /HPF (0-2)
[2020-07-31 12:19] LABS: CALCIUM 9.3 mg/dL (8.5-10.1); CREATININE 0.8 mg/dL (0.6-1.0); GFR 90.8; POTASSIUM 3.3 mmol/L (3.5-5.1)
--- NOTE | 2020-07-31 12:21 | RAD ---
EXAM: Chest, single view. HISTORY: Dizziness. COMPARISON: 06/25/2020 FINDINGS: A frontal view of the chest obtained. There is stable diffuse interstitial prominence. Ther e is no consolidation, pleural effusion or pneumothorax. There is a stable cardiac silhouette. IMPRESSION: No acute pulmonary finding. Electronically signed by: Lara Hyman MD (07/31/2020 12:18 PM) [id number]
[2020-07-31 12:26] LABS: ALBUMIN 3.7 g/dL (3.4-5.0); MAGNESIUM 1.9 mg/dL (1.8-2.4); TOTAL BILIRUBIN 0.6 mg/dL (0.2-1.0); TOTAL PROTEIN 7.4 g/dL (6.4-8.2)
[2020-07-31 12:28] LABS: PROTHROMBIN TIME PATIENT 14.8 SEC (11.7-14.0)
--- NOTE | 2020-07-31 12:35 | RAD ---
EXAM: CT Head without IV contrast CLINICAL HISTORY: Dizziness COMPARISON: 11/06/2019, 05/12/2019, 03/27/2020 TECHNIQUE: Routine CT of the head without contrast. PQRS compliance statement - One or more of the following individualized dose reduction techniques wer e utilized for this study: 1. Automated exposure control 2. Adjustment of the mA and/or kV according to patient size 3. Use of iterative reconstruction technique FINDINGS: There is no evidence of hemorrhage, mass or extra-axial fluid collection. Garcia-white differentiation is maintained with no evidence of edema. A few subcortical and periventric ular foci of hypoattenuation in left greater than right periventricular regions is essentially stable . There is no mass effect or shift of the intracranial structures. The ventricles, basilar cisterns and cortical sulci are normal in size and configuration for the maribel ents stated age. The cerebellum and brainstem are unremarkable. The calvarium demonstrates no evidence of fracture or focal lesion. There is normal aeration of the visualized paranasal sinuses and mastoid air cells. The visualized portions of the orbits are normal. IMPRESSION: 1. No evidence for acute intracranial process. 2. Scattered white matter changes are grossly stable, nonspecific but possibly related to small vess el disease Electronically signed by: Kit Chairez MD (07/31/2020 12:33 PM) [id number]
--- NOTE | 2020-07-31 13:50 | PHYS DOC ---
Past Medical History Past Medical History: Anxiety, DVT, GERD, Hypertension, Other Additional Past Medical Histor: Sinus problems, parkinson's, PANIC ATTACKS (KARUNA BARBOSA APRN) Past Surgical History: Hysterectomy, Other Additional Past Surgical Histo: breast reduction, foot surgery (KARUNA BARBOSA APRN) Smoking Status: Never Smoker Alcohol Use: None Drug Use: None (KARUNA BARBOSA APRN) General Adult EDM: Chief Complaint: DIZZY/LIGHT HEADED HPI: HPI: Patient is a 54 year old female with history of anxiety, hypertension, Parkinson's, who presents to the ED today complaining of dizziness that has been going on for months but has gotten worse since last night. Patient states the dizziness is constant regardless of whether he is laying down sitting or standing. Denies any nausea vomiting. Denies any chest pain or shortness of breath. She states she is on several medications and believes some of them are causing her symptoms specifically Parkinson's medicine carbidopa levodopa, she states her PCP is aware. (KARUNA BARBOSA APRN) Review of Systems: Review of Systems: Constitutional: Denies fever or chills. [] Eyes: Denies change in visual acuity. [] HENT: Denies nasal congestion or sore throat. [] Respiratory: Denies cough or shortness of breath. [] Cardiovascular: Denies chest pain or edema. [] GI: Denies abdominal pain, nausea, vomiting, bloody stools or diarrhea. [] : Denies dysuria. [] Musculoskeletal: Denies back pain or joint pain. [] Integument: Denies rash. [] Neurologic: Reports dizziness. Denies headache, focal weakness or sensory changes. [] ] Psychiatric: Denies depression or anxiety. [] (KARUNA BARBOSA APRN) Heart Score: Risk Factors: Risk Factors: DM, Current or recent (<one month) smoker, HTN, HLP, family history of CAD, obesity. Risk Scores: Score 0 - 3: 2.5% MACE over next 6 weeks - Discharge Home Score 4 - 6: 20.3% MACE over next 6 weeks - Admit for Clinical Observation Score 7 - 10: 72.7% MACE over next 6 weeks - Early Invasive Strategies (KARUNA BARBOSA APRN) Allergies: Allergies: Allergies Coded Allergies Type Severity Reaction Last Updated Verified Sulfa (Sulfonamide Antibiotics) Allergy Intermediate rash 07/24/19 Yes adhesive tape Allergy Intermediate rash 07/24/19 Yes metoclopramide Allergy Intermediate 09/24/18 Yes sulfamethoxazole Allergy Intermediate 09/24/18 Yes trimethoprim Allergy Intermediate 09/24/18 Yes (KARUNA BARBOSA MACHINE FILLER SHREDDER) Physical Exam: PE: Constitutional: Well developed, well nourished, no acute distress, non-toxic appearance. [] HENT: Normocephalic, atraumatic, bilateral external ears normal, oropharynx moist, no oral exudates, nose normal. [] Eyes: PERRLA, EOMI, conjunctiva normal, no discharge. [] Neck: Normal range of motion, no tenderness, supple, no stridor. [] Cardiovascular:Heart rate regular rhythm, no murmur [] Lungs & Thorax: Bilateral breath sounds clear to auscultation [] Abdomen: Bowel sounds normal, soft, no tenderness, no masses, no pulsatile masses. [] Skin: Warm, dry, no erythema, no rash. [] Back: No tenderness, no CVA tenderness. [] Extremities: No tenderness, no cyanosis, no clubbing, ROM intact, no edema. [] Neurologic: Alert and oriented X 3, normal motor function, normal sensory function, no focal deficits noted. Cranial nerves II through XII intact Psychologic: flat affect, depressed mood (KARUNA BARBOSA MACHINE FILLER SHREDDER) Current Patient Data: Labs: Laboratory Tests Test 07/31/20 11:45 White Blood Count 5.5 x10^3/uL (4.0-11.0) Red Blood Count 4.96 x10^6/uL (3.50-5.40) Hemoglobin 14.0 g/dL (12.0-15.5) Hematocrit 42.4 % (36.0-47.0) Mean Corpuscular Volume 85 fL (79-100) Mean Corpuscular Hemoglobin 28 pg (25-35) Mean Corpuscular Hemoglobin Concent 33 g/dL (31-37) Red Cell Distribution Width 14.3 % (11.5-14.5) Platelet Count 278 x10^3/uL (140-400) Neutrophils (%) (Auto) 77 % (31-73) H Lymphocytes (%) (Auto) 17 % (24-48) L Monocytes (%) (Auto) 5 % (0-9) Eosinophils (%) (Auto) 0 % (0-3) Basophils (%) (Auto) 1 % (0-3) Neutrophils # (Auto) 4.2 x10^3/uL (1.8-7.7) Lymphocytes # (Auto) 0.9 x10^3/uL (1.0-4.8) L Monocytes # (Auto) 0.3 x10^3/uL (0.0-1.1) Eosinophils # (Auto) 0.0 x10^3/uL (0.0-0.7) Basophils # (Auto) 0.0 x10^3/uL (0.0-0.2) Prothrombin Time 14.8 SEC (11.7-14.0) H Prothrombin Time INR 1.2 (0.8-1.1) H Activated Partial Thromboplast Time 34 SEC (24-38) Urine Collection Type Unknown Urine Color Yellow Urine Clarity Clear Urine pH 6.0 (<5.0-8.0) Urine Specific [place] 1.015 (1.000-1.030) Urine Protein Negative mg/dL (NEG-TRACE) Urine Glucose (UA) Negative mg/dL (NEG) Urine Ketones (Stick) Negative mg/dL (NEG) Urine Blood Negative (NEG) Urine Nitrite Negative (NEG) Urine Bilirubin Negative (NEG) Urine Urobilinogen Dipstick 1.0 mg/dL (0.2 mg/dL) Urine Leukocyte Esterase Negative (NEG) Urine RBC 0 /HPF (0-2) Urine WBC 1-4 /HPF (0-4) Urine Squamous Epithelial Cells Many /LPF Urine Bacteria Few /HPF (0-FEW) Sodium Level 143 mmol/L (136-145) Potassium Level 3.3 mmol/L (3.5-5.1) L Chloride Level 103 mmol/L (98-107) Carbon Dioxide Level 27 mmol/L (21-32) Anion Gap 13 (6-14) Blood Urea Nitrogen 10 mg/dL (7-20) Creatinine 0.8 mg/dL (0.6-1.0) Estimated GFR (Cockcroft-Gault) 90.8 BUN/Creatinine Ratio 13 (6-20) Glucose Level 99 mg/dL (70-99) Calcium Level 9.3 mg/dL (8.5-10.1) Magnesium Level 1.9 mg/dL (1.8-2.4) Total Bilirubin 0.6 mg/dL (0.2-1.0) Aspartate Amino Transferase (AST) 12 U/L (15-37) L Alanine Aminotransferase (ALT) 20 U/L (14-59) Alkaline Phosphatase 102 U/L (46-116) Troponin I Quantitative < 0.017 ng/mL (0.000-0.055) KD-Iqc-G-Type Natriuretic Peptide 54 pg/mL (0-124) Total Protein 7.4 g/dL (6.4-8.2) Albumin 3.7 g/dL (3.4-5.0) Albumin/Globulin Ratio 1.0 (1.0-1.7) Lipase 86 U/L (73-393) Thyroid Stimulating Hormone (TSH) 1.003 uIU/mL (0.358-3.74) Urine Opiates Screen Neg (NEG) Urine Methadone Screen Neg (NEG) Urine Barbiturates Neg (NEG) Urine Phencyclidine Screen Neg (NEG) Urine Amphetamine/Methamphetamine Neg (NEG) Urine Benzodiazepines Screen Neg (NEG) Urine Cocaine Screen Neg (NEG) Urine Cannabinoids Screen Neg (NEG) Urine Ethyl Alcohol Neg (NEG) Laboratory Tests 07/31/20 11:45 Laboratory Tests 07/31/20 11:45 Vital Signs: Vital Signs Date Time Temp Pulse Resp B/P (MAP) Pulse Ox O2 Delivery O2 Flow Rate FiO2 07/31/20 11:58 99.1 95 18 146/86 (106) 99 Room Air 99.1 (KARUNA BARBOSA APRN) EKG: EK Interpreted by Dr. Wright sinus rhythm HR 85 no STEMI[] (KARUNA BARBOSA APRN) Radiology/Procedures: Radiology/Procedures: []PROCEDURE: CT HEAD WO CONTRAST EXAM: CT Head without IV contrast CLINICAL HISTORY: Dizziness COMPARISON: 11/06/2019, 05/12/2019, 03/27/2020 TECHNIQUE: Routine CT of the head without contrast. PQRS compliance statement - One or more of the following individualized dose reduction techniques were utilized for this study: 1. Automated exposure control 2. Adjustment of the mA and/or kV according to patient size 3. Use of iterative reconstruction technique FINDINGS: There is no evidence of hemorrhage, mass or extra-axial fluid collection. Garcia-white differentiation is maintained with no evidence of edema. A few subcortical and periventricular foci of hypoattenuation in left greater than right periventricular regions is essentially stable. There is no mass effect or shift of the intracranial structures. The ventricles, basilar cisterns and cortical sulci are normal in size and configuration for the patients stated age. The cerebellum and brainstem are unremarkable. The calvarium demonstrates no evidence of fracture or focal lesion. There is normal aeration of the visualized paranasal sinuses and mastoid air cells. The visualized portions of the orbits are normal. IMPRESSION: 1. No evidence for acute intracranial process. 2. Scattered white matter changes are grossly stable, nonspecific but possibly related to small vessel disease Electronically signed by: Kit Tavera MD (07/31/2020 12:33 PM) [id number] DICTATED and SIGNED BY: KIT TAVERA MD DATE: 07/31/20 [id number] PROCEDURE: PORTABLE CHEST 1V EXAM: Chest, single view. HISTORY: Dizziness. COMPARISON: 06/25/2020 FINDINGS: A frontal view of the chest obtained. There is stable diffuse interstitial prominence. There is no consolidation, pleural effusion or pneumothorax. There is a stable cardiac silhouette. IMPRESSION: No acute pulmonary finding. Electronically signed by: Lara Bryant MD (07/31/2020 12:18 PM) [id number] DICTATED and SIGNED BY: LARA BRYANT MD DATE: 07/31/20 [id number] (KARUNA BARBOSA APRN) Course & Med Decision Making: Course & Med Decision Making Pertinent Labs and Imaging studies reviewed. (See chart for details) This is a 54-year-old female patient presenting to the ED today complaining of dizziness that has been going on for months. She believes this originating from some of her medications specifically Parkinson's medicine. Patient's labs are negative for any acute findings, CT of the head is negative. Chest x-ray is negative, EKG is negative. Spoke with Dr. Botello who accepted patient for admission (KARUNA BARBOSA APRN) Nandoon Disclaimer: Dragon Disclaimer: This electronic medical record was generated, in whole or in part, using a voice recognition dictation system. (KARUNA BARBOSA APRN) Departure Departure Impression: Primary Impression: Generalized weakness Additional Impression: Dizziness Disposition: 09 ADMITTED INPT THIS HOSP Condition: STABLE Referrals: JULIANNA BOTELLO MD (PCP) Attending Signature Attending Signature I have reviewed the PA/MILITARY EXCHANGE WIRELESS MANAGER's note and plan of care. I was available for consultation as needed during the patient's visit in the emergency department. I agree with the clinical impression, plan, and disposition. (DOC WRIGHT DO) KARUNA BARBOSA APRN Jul 31, 2020 13:50 DOC WRIGHT DO Jul 31, 2020 14:58
[2020-07-31] MEDS ORDERED: ONDANSETRON PF 4 MG/2 ML VIAL. IV PRN (14:00)
[2020-07-31] MEDS ORDERED: MORPHINE SULFATE 2 MG/ML VIAL. IV PRN (14:00)
[2020-07-31] MEDS ORDERED: ACETAMINOPHEN 325 MG TABLET. PO PRN (14:00)
[2020-07-31 15:00] VITALS: BP 161/94
[2020-07-31] MEDS ORDERED: CARB-183 PO (15:07)
[2020-07-31] MEDS ORDERED: CITA10TA4 PO (15:07)
[2020-07-31] MEDS ORDERED: LORA-434 PO (15:09)
[2020-07-31] MEDS ORDERED: POTASSIUM CHLORIDE 20 MEQ TABLET.ER. PO ONE (16:45)
[2020-07-31] MEDS ORDERED: CETIRIZINE HCL 10 MG TABLET. PO PRN (17:00)
[2020-07-31 19:00] VITALS: BP 147/96
[2020-07-31] MEDS: ZOLPIDEM 5 MG TABLET. PO PRN (22:11)
[2020-07-31] MEDS: APIXABAN 5 MG TABLET. PO SCH (22:11)
[2020-07-31 23:00] VITALS: BP 138/94
[2020-08-01 03:00] VITALS: BP 128/87
[2020-08-01 07:00] VITALS: BP 143/87
--- NOTE | 2020-08-01 08:06 | PDOC ---
PROGRESS NOTES Date of Service: DATE: 08/01/20 TIME: 08:06 Objective Objective Vital Signs Date Time Temp Pulse Resp B/P (MAP) Pulse Ox O2 Delivery O2 Flow Rate FiO2 08/01/20 07:00 98.4 80 16 143/87 (105) 98 Room Air 98.4 Intake and Output 08/01/20 07:00 Intake Total 220 ml Output Total 100 ml Balance 120 ml Intake Oral 220 ml Output Urine Total 100 ml # Voids 4 Physical Exam MUSCULOSKELETAL: Osteoarthritic changes both hands Diagnosis Problem List Problems Medical Problems: (1) Dizziness Status: Acute (2) Generalized weakness Status: Acute Assessment Assessment Problems Medical Problems: (1) Dizziness Status: Acute (2) Generalized weakness Status: Acute Plan Plan of Care Problems Medical Problems: (1) Dizziness Status: Acute (2) Generalized weakness Status: Acute Comment Review of Relevant I have reviewed the following items paula (where applicable) has been applied. Labs Laboratory Tests Test 07/31/20 11:45 White Blood Count 5.5 x10^3/uL (4.0-11.0) Red Blood Count 4.96 x10^6/uL (3.50-5.40) Hemoglobin 14.0 g/dL (12.0-15.5) Hematocrit 42.4 % (36.0-47.0) Mean Corpuscular Volume 85 fL (79-100) Mean Corpuscular Hemoglobin 28 pg (25-35) Mean Corpuscular Hemoglobin Concent 33 g/dL (31-37) Red Cell Distribution Width 14.3 % (11.5-14.5) Platelet Count 278 x10^3/uL (140-400) Neutrophils (%) (Auto) 77 % (31-73) Lymphocytes (%) (Auto) 17 % (24-48) Monocytes (%) (Auto) 5 % (0-9) Eosinophils (%) (Auto) 0 % (0-3) Basophils (%) (Auto) 1 % (0-3) Neutrophils # (Auto) 4.2 x10^3/uL (1.8-7.7) Lymphocytes # (Auto) 0.9 x10^3/uL (1.0-4.8) Monocytes # (Auto) 0.3 x10^3/uL (0.0-1.1) Eosinophils # (Auto) 0.0 x10^3/uL (0.0-0.7) Basophils # (Auto) 0.0 x10^3/uL (0.0-0.2) Prothrombin Time 14.8 SEC (11.7-14.0) Prothromb Time International Ratio 1.2 (0.8-1.1) Activated Partial Thromboplast Time 34 SEC (24-38) Urine Collection Type Unknown Urine Color Yellow Urine Clarity Clear Urine pH 6.0 (<5.0-8.0) Urine Specific [place] 1.015 (1.000-1.030) Urine Protein Negative mg/dL (NEG-TRACE) Urine Glucose (UA) Negative mg/dL (NEG) Urine Ketones (Stick) Negative mg/dL (NEG) Urine Blood Negative (NEG) Urine Nitrite Negative (NEG) Urine Bilirubin Negative (NEG) Urine Urobilinogen Dipstick 1.0 mg/dL (0.2 mg/dL) Urine Leukocyte Esterase Negative (NEG) Urine RBC 0 /HPF (0-2) Urine WBC 1-4 /HPF (0-4) Urine Squamous Epithelial Cells Many /LPF Urine Bacteria Few /HPF (0-FEW) Sodium Level 143 mmol/L (136-145) Potassium Level 3.3 mmol/L (3.5-5.1) Chloride Level 103 mmol/L (98-107) Carbon Dioxide Level 27 mmol/L (21-32) Anion Gap 13 (6-14) Blood Urea Nitrogen 10 mg/dL (7-20) Creatinine 0.8 mg/dL (0.6-1.0) Estimated GFR (Cockcroft-Gault) 90.8 BUN/Creatinine Ratio 13 (6-20) Glucose Level 99 mg/dL (70-99) Calcium Level 9.3 mg/dL (8.5-10.1) Magnesium Level 1.9 mg/dL (1.8-2.4) Total Bilirubin 0.6 mg/dL (0.2-1.0) Aspartate Amino Transf (AST/SGOT) 12 U/L (15-37) Alanine Aminotransferase (ALT/SGPT) 20 U/L (14-59) Alkaline Phosphatase 102 U/L (46-116) Troponin I Quantitative < 0.017 ng/mL (0.000-0.055) YH-Lwz-E-Type Natriuretic Peptide 54 pg/mL (0-124) Total Protein 7.4 g/dL (6.4-8.2) Albumin 3.7 g/dL (3.4-5.0) Albumin/Globulin Ratio 1.0 (1.0-1.7) Lipase 86 U/L (73-393) Thyroid Stimulating Hormone (TSH) 1.003 uIU/mL (0.358-3.74) Urine Opiates Screen Neg (NEG) Urine Methadone Screen Neg (NEG) Urine Barbiturates Neg (NEG) Urine Phencyclidine Screen Neg (NEG) Urine Amphetamine/Methamphetamine Neg (NEG) Urine Benzodiazepines Screen Neg (NEG) Urine Cocaine Screen Neg (NEG) Urine Cannabinoids Screen Neg (NEG) Urine Ethyl Alcohol Neg (NEG) Medications Current Medications Acetaminophen (Tylenol) 650 mg PRN Q4HRS PRN PO FEVER > 100.3'F Last administered on 07/31/20at 16:09; Start 07/31/20 at 14:00; Stop 08/01/20 at 13:59 Apixaban (Eliquis) 5 mg BID PO Last administered on 07/31/20at 22:11; Start 07/31/20 at 21:00 Carbidopa/Levodopa (Sinemet 25/100) 1 tab DAILY PO ; Start 08/01/20 at 09:00 Cetirizine HCl (ZyrTEC) 10 mg PRN DAILY PRN PO ALLERGY SYPMTOMS; Start 07/31/20 at 17:00 Citalopram Hydrobromide (CeleXA) 10 mg DAILY PO ; Start 08/01/20 at 09:00 Ergocalciferol (Vitamin D2) 50,000 unit Fr PO ; Start 08/02/20 at 09:00 Fluticasone Propionate (Flonase) 2 spray DAILY NS ; Start 08/01/20 at 09:00 Lisinopril (Prinivil) 20 mg DAILY PO ; Start 08/01/20 at 09:00 Lorazepam (Ativan) 1 mg PRN BID PRN PO ANXIETY / AGITATION; Start 07/31/20 at 20:45 Lorazepam (Ativan) 1 mg PRN DAILY PRN PO ANXIETY / AGITATION Last administered on 07/31/20at 18:41; Start 07/31/20 at 16:45; Stop 07/31/20 at 20:48; Status DC Morphine Sulfate (Morphine Sulfate) 2 mg PRN Q2HR PRN IV PAIN Last administered on 07/31/20at 22:13; Start 07/31/20 at 14:00; Stop 08/01/20 at 13:59 Ondansetron HCl (Zofran) 4 mg PRN Q8HRS PRN IV NAUSEA/VOMITING; Start 07/31/20 at 14:00; Stop 08/01/20 at 13:59 Potassium Chloride (Klor-Con) 40 meq 1X ONCE PO Last administered on 07/31/20at 17:03; Start 07/31/20 at 16:45; Stop 07/31/20 at 16:57; Status DC Verapamil HCl (Calan Sr) 120 mg DAILY PO ; Start 08/01/20 at 09:00 Zolpidem Tartrate (Ambien) 10 mg PRN QHS PRN PO INSOMNIA Last administered on 07/31/20at 22:11; Start 07/31/20 at 20:45 Vitals/I & O Vital Sign - Last 24 Hours 07/31/20 07/31/20 07/31/20 07/31/20 11:58 13:00 14:00 15:00 Temp 99.1 98.8 99.1 98.8 Pulse 95 92 80 89 Resp 18 18 18 16 B/P (MAP) 146/86 (106) 161/94 (116) Pulse Ox 99 96 98 99 O2 Delivery Room Air Room Air 07/31/20 07/31/20 07/31/20 07/31/20 15:41 19:00 20:00 22:13 Temp 98.4 98.4 Pulse 92 Resp 20 20 B/P (MAP) 147/96 (113) Pulse Ox 97 97 O2 Delivery Room Air Room Air Room Air 07/31/20 07/31/20 08/01/20 08/01/20 23:00 23:00 03:00 07:00 Temp 98.3 98.1 98.4 98.3 98.1 98.4 Pulse 75 83 80 Resp 18 16 16 B/P (MAP) 138/94 (109) 128/87 (101) 143/87 (105) Pulse Ox 98 98 98 98 O2 Delivery Room Air Room Air Intake and Output 07/31/20 07/31/20 08/01/20 15:00 23:00 07:00 Intake Total 100 ml 120 ml Output Total 100 ml Balance 0 ml 120 ml Justifications for Admission Other Justification JULIANNA BOTELLO MD Aug 01, 2020 08:06
[2020-08-01] MEDS: LISINOPRIL 20 MG TABLET PO SCH (08:57)
[2020-08-01] MEDS: CITALOPRAM 10 MG TABLET. PO SCH (08:57)
[2020-08-01] MEDS: APIXABAN 5 MG TABLET. PO SCH ×2 (08:58→21:42)
[2020-08-01] MEDS: VERAPAMIL SR 120 MG TABLET.ER. PO SCH (08:58)
[2020-08-01] MEDS: FLUTICASONE 50MCG/NASAL SPRAY 16GM BOTTLE. NS SCH (09:00)
[2020-08-01] MEDS ORDERED: CARBIDOPA/LEVODOPA 25/100MG TABLET PO SCH (09:00)
--- NOTE | 2020-08-01 09:15 | PDOC ---
Provider Note Date of Service: DATE: 08/01/20 TIME: 09:14 Provider Note Pt seen.H&P dictated.#[id number] Justifications for Admission Other Justification JULIANNA BOTELLO MD Aug 01, 2020 09:15
[2020-08-01 09:39] LABS: CALCIUM 9.3 mg/dL (8.5-10.1); CREATININE 1.1 mg/dL (0.6-1.0); GFR 62.9; POTASSIUM 3.8 mmol/L (3.5-5.1)
[2020-08-01 11:00] VITALS: BP 140/90
--- NOTE | 2020-08-01 11:33 | HP ---
ADMIT DATE: 08/01/2020 REASON FOR ADMISSION TO THE HOSPITAL: Generalized weakness, Parkinson's disease, having side effects with medications. HISTORY OF PRESENT ILLNESS: The patient is a 54-year-old female. The patient has Parkinson's disease. She has been on multiple medications, has seen Neurology at and she was on Requip and she did okay, but change in the insurance, Requip, insurance did not pay for it, so the patient did not take the medicine and symptoms got worse and lately she had seen Neurology at and they started on Sinemet and she has anxiety, panic attacks, worried about side effects and she says after a couple of days her Sinemet does not work. She gets into weakness mode and something happened yesterday that she was not feeling well, not able to function and anxiety, panic attacks and generalized weakness. The patient was admitted to the hospital. PAST MEDICAL HISTORY: She also has history of obesity, DVT, pulmonary embolism in the past, hypertension, anxiety, panic attacks and Parkinson's disease. Recently, the patient had shingles, was given valacyclovir. PAST SURGICAL HISTORY: Had a hysterectomy, breast reduction surgery. ALLERGIES: SULFA, ADHESIVE TAPE, REGLAN, SULFAMETHOXAZOLE, TRIMETHOPRIM. MEDICATIONS: The patient is on Sinemet, she is only taking 1 tablet daily 25/100, Eliquis 5 mg twice a day for DVT and PE, benazepril 20 mg daily, citalopram supposed to be taking 10 mg, but she has not started as per the nurse, vitamin D daily, Flonase, loratadine, Ativan 1 mg twice a day, verapamil 120 mg daily. PERSONAL HISTORY: Denies smoking, alcohol, or drug abuse. SOCIAL HISTORY: Lives at home. She is on wheelchair level activity. Anxiety, panic attacks. FAMILY HISTORY: Positive for heart disease and strokes. REVIEW OF SYMPTOMS: Denies any chest pain, shortness of breath. She feels fatigue, anxiety, panic attacks. She cannot function. PHYSICAL EXAMINATION: VITAL SIGNS: Temperature 99, pulse 99, respirations 18, blood pressure 146/86, 99 on room air. HEENT: Head is atraumatic. Pupils equal. Oral cavity: No congestion. NECK: Supple. Thyroid not enlarged. JVD not elevated. CHEST: Symmetrical. CARDIOVASCULAR: S1, S2. LUNGS: Clear to auscultation. ABDOMEN: Obese. No mass palpable. EXTERNAL GENITALIA: No Deng. RECTAL: Deferred. EXTREMITIES: Tremors of the hands and she has muscle stiffness from Parkinson's disease. LABORATORY DATA: Shows a white count 5.5, hemoglobin 14, platelets 278. INR 1.2. Electrolytes showed sodium 143, potassium 3.3, chloride 103, bicarbonate 27, BUN 10, creatinine 0.8, magnesium 1.8. LFTs normal. Thyroid was normal. Troponin was negative. Urine negative for infection. Drug screen was negative. CT head shows no acute abnormalities. Chest x-ray, no acute abnormality. FINAL IMPRESSION: 1. Parkinson's disease. 2. Anxiety and panic attacks. 3. History of deep venous thrombosis, pulmonary embolism. 4. Obesity. 5. Anxiety. 6. Hypertension. 7. Recent shingles. PLAN: At this time, the patient was admitted to the hospital. Resume Sinemet, Ativan for anxiety and citalopram for depression. Neurology consultation and social service consult and she needs to follow with outpatient Neurology and Psychiatry. The patient is not interested in any inpatient ____ psychiatric facilities. JULIANNA BOTELLO MD DR: LACIE/renetta JOB#: [id number] / [id number]
--- NOTE | 2020-08-01 12:19 | PDOC2 ---
NEUROLOGY CONSULT Date of Service DOS: DATE: 08/01/20 TIME: 12:12 Reason for Consult Reason for Consult: Parkinson's Referring Physician Referring Physician: Dr. Pruitt Source Source: Chart review, Patient History of Present Illness History of Present Illness The patient is a 54-year-old right-handed female diagnosed with Parkinson's 3 years ago, although review of my chart shows that she saw Dr. Felipe for tremor 6 years ago. She has currently been seeing neurologist at . She has had some relief with ropinirole, but had trouble paying for it for a while, then she was started on Sinemet, which caused anxiety and panic and she decided it was not working. She has also been on pramipexole. She has never been on amantadine or selegiline. She has some tremor but really more trouble with walking and stiffness. She denies dysphagia or cognitive problems. She has been having more panic attacks and generalized weakness and decided to come to the emergency department. She has had no hallucinations. Past Medical History Cardiovascular: HTN, Other (DVT) Pulmonary: Pulmonary embolus CENTRAL NERVOUS SYSTEM: Other (Parkinson's) Psych: Anxiety, Panic Past Surgical History Past Surgical History: Tubal Ligation, Hysterectomy, Other (Hammertoe surgery, breast reduction) Family History Family History: Other (Negative for Parkinson's) Social History Social History No alcohol or tobacco Current Medications Current Medications Current Medications Ondansetron HCl (Zofran) 4 mg PRN Q8HRS PRN IV NAUSEA/VOMITING; Start 07/31/20 at 14:00; Stop 08/01/20 at 13:59 Morphine Sulfate (Morphine Sulfate) 2 mg PRN Q2HR PRN IV PAIN Last administered on 07/31/20at 22:13; Start 07/31/20 at 14:00; Stop 08/01/20 at 13:59 Acetaminophen (Tylenol) 650 mg PRN Q4HRS PRN PO FEVER > 100.3'F Last administered on 07/31/20at 16:09; Start 07/31/20 at 14:00; Stop 08/01/20 at 13:59 Potassium Chloride (Klor-Con) 40 meq 1X ONCE PO Last administered on 07/31/20at 17:03; Start 07/31/20 at 16:45; Stop 07/31/20 at 16:57; Status DC Apixaban (Eliquis) 5 mg BID PO Last administered on 08/01/20at 08:58; Start 07/31/20 at 21:00 Carbidopa/Levodopa (Sinemet 25/100) 1 tab DAILY PO ; Start 08/01/20 at 09:00 Citalopram Hydrobromide (CeleXA) 10 mg DAILY PO Last administered on 08/01/20at 08:57; Start 08/01/20 at 09:00 Ergocalciferol (Vitamin D2) 50,000 unit Fr PO ; Start 08/02/20 at 09:00 Lorazepam (Ativan) 1 mg PRN DAILY PRN PO ANXIETY / AGITATION Last administered on 07/31/20at 18:41; Start 07/31/20 at 16:45; Stop 07/31/20 at 20:48; Status DC Verapamil HCl (Calan Sr) 120 mg DAILY PO Last administered on 08/01/20at 08:58; Start 08/01/20 at 09:00 Lisinopril (Prinivil) 20 mg DAILY PO Last administered on 08/01/20at 08:57; Start 08/01/20 at 09:00 Fluticasone Propionate (Flonase) 2 spray DAILY NS ; Start 08/01/20 at 09:00 Cetirizine HCl (ZyrTEC) 10 mg PRN DAILY PRN PO ALLERGY SYPMTOMS; Start 07/31/20 at 17:00 Zolpidem Tartrate (Ambien) 10 mg PRN QHS PRN PO INSOMNIA Last administered on 07/31/20at 22:11; Start 07/31/20 at 20:45 Lorazepam (Ativan) 1 mg PRN BID PRN PO ANXIETY / AGITATION Last administered on 08/01/20at 11:40; Start 07/31/20 at 20:45 Active Scripts Active Reported Ativan (Lorazepam) 1 Mg Tablet 1 Mg PO PRN DAILY PRN Citalopram Hbr (Citalopram Hydrobromide) 10 Mg Tablet 10 Mg PO DAILY Sinemet 25-100 Mg Tablet (Carbidopa/Levodopa) 1 Each Tablet 1 Tab PO DAILY Eliquis (Apixaban) 5 Mg Tablet 5 Mg PO BID Vitamin D2 (Ergocalciferol (Vitamin D2)) 1,250 Mcg Capsule 1 Cap PO QFR Flonase Allergy Relief (Fluticasone Propionate) 9.9 Ml Allen.susp 2 Sprays NS DAILY Benazepril Hcl 20 Mg Tablet 1 Tab PO DAILY Claritin (Loratadine) 10 Mg Capsule 10 Mg PO DAILY PRN Verapamil Er (Verapamil Hcl) 120 Mg Tablet.er 120 Mg PO DAILY Allergies Allergies: Coded Allergies: Sulfa (Sulfonamide Antibiotics) (Verified Allergy, Intermediate, rash, 07/24/19) adhesive tape (Verified Allergy, Intermediate, rash, 07/24/19) metoclopramide (Verified Allergy, Intermediate, 09/24/18) sulfamethoxazole (Verified Allergy, Intermediate, 09/24/18) trimethoprim (Verified Allergy, Intermediate, 09/24/18) ROS Review of System Negative for fever, chills, weight loss, shortness of breath, chest pain, indigestion, hematochezia, melena, and dysuria. Full 14-point review of systems is negative. Physical Exam Physical Examination General: Well-developed, well-nourished black female in no acute distress HEENT: Normocephalic andatraumatic.Temporal arteriespulsatile and nontender. Neck: Supple without bruit, no meningismus Musculoskeletal: Stability:see neurologic. Gait exam:see neurologic. Tone:see neurologic.Strength:see neurologic. Neurological: Mental Status:intact, orientation, memory, attention span/concentration, language, fund of knowledge normal. Cranial Nerves:Pupils equal and reactive to light, extraocular movements areintact, visual broussard are full to confrontation. Facial sensation is normal. There is no facial asymmetry. Vestibulo-ocular reflex is intact. Palate elevates and tongue protrudes in midline. All other cranial related problems are negative except as mentioned before.Reflexes:2+ and symmetric with flexor plantar responses. Motor:5/5 strength. Masked facies, bradykinesia, cogwheel rigidity, no tremor. Coordination:Finger-nose finger and [id number] testing are normal. Rapid alternating movements and fine finger movements are intact. Gait:Festinating, small steps. Sensory:Normal pinprick, vibration, light touch, proprioception. Vitals VITALS Vital Signs Date Time Temp Pulse Resp B/P (MAP) Pulse Ox O2 Delivery O2 Flow Rate FiO2 08/01/20 11:00 98.4 72 16 140/90 (107) 99 Room Air 98.4 Labs Labs Laboratory Tests Test 07/31/20 11:45 08/01/20 08:37 White Blood Count 5.5 x10^3/uL (4.0-11.0) Red Blood Count 4.96 x10^6/uL (3.50-5.40) Hemoglobin 14.0 g/dL (12.0-15.5) Hematocrit 42.4 % (36.0-47.0) Mean Corpuscular Volume 85 fL (79-100) Mean Corpuscular Hemoglobin 28 pg (25-35) Mean Corpuscular Hemoglobin Concent 33 g/dL (31-37) Red Cell Distribution Width 14.3 % (11.5-14.5) Platelet Count 278 x10^3/uL (140-400) Neutrophils (%) (Auto) 77 % (31-73) Lymphocytes (%) (Auto) 17 % (24-48) Monocytes (%) (Auto) 5 % (0-9) Eosinophils (%) (Auto) 0 % (0-3) Basophils (%) (Auto) 1 % (0-3) Neutrophils # (Auto) 4.2 x10^3/uL (1.8-7.7) Lymphocytes # (Auto) 0.9 x10^3/uL (1.0-4.8) Monocytes # (Auto) 0.3 x10^3/uL (0.0-1.1) Eosinophils # (Auto) 0.0 x10^3/uL (0.0-0.7) Basophils # (Auto) 0.0 x10^3/uL (0.0-0.2) Prothrombin Time 14.8 SEC (11.7-14.0) Prothromb Time International Ratio 1.2 (0.8-1.1) Activated Partial Thromboplast Time 34 SEC (24-38) Urine Collection Type Unknown Urine Color Yellow Urine Clarity Clear Urine pH 6.0 (<5.0-8.0) Urine Specific [place] 1.015 (1.000-1.030) Urine Protein Negative mg/dL (NEG-TRACE) Urine Glucose (UA) Negative mg/dL (NEG) Urine Ketones (Stick) Negative mg/dL (NEG) Urine Blood Negative (NEG) Urine Nitrite Negative (NEG) Urine Bilirubin Negative (NEG) Urine Urobilinogen Dipstick 1.0 mg/dL (0.2 mg/dL) Urine Leukocyte Esterase Negative (NEG) Urine RBC 0 /HPF (0-2) Urine WBC 1-4 /HPF (0-4) Urine Squamous Epithelial Cells Many /LPF Urine Bacteria Few /HPF (0-FEW) Sodium Level 143 mmol/L (136-145) 144 mmol/L (136-145) Potassium Level 3.3 mmol/L (3.5-5.1) 3.8 mmol/L (3.5-5.1) Chloride Level 103 mmol/L (98-107) 106 mmol/L (98-107) Carbon Dioxide Level 27 mmol/L (21-32) 28 mmol/L (21-32) Anion Gap 13 (6-14) 10 (6-14) Blood Urea Nitrogen 10 mg/dL (7-20) 12 mg/dL (7-20) Creatinine 0.8 mg/dL (0.6-1.0) 1.1 mg/dL (0.6-1.0) Estimated GFR (Cockcroft-Gault) 90.8 62.9 BUN/Creatinine Ratio 13 (6-20) Glucose Level 99 mg/dL (70-99) 97 mg/dL (70-99) Calcium Level 9.3 mg/dL (8.5-10.1) 9.3 mg/dL (8.5-10.1) Magnesium Level 1.9 mg/dL (1.8-2.4) Total Bilirubin 0.6 mg/dL (0.2-1.0) Aspartate Amino Transf (AST/SGOT) 12 U/L (15-37) Alanine Aminotransferase (ALT/SGPT) 20 U/L (14-59) Alkaline Phosphatase 102 U/L (46-116) Troponin I Quantitative < 0.017 ng/mL (0.000-0.055) OY-Qpe-P-Type Natriuretic Peptide 54 pg/mL (0-124) Total Protein 7.4 g/dL (6.4-8.2) Albumin 3.7 g/dL (3.4-5.0) Albumin/Globulin Ratio 1.0 (1.0-1.7) Lipase 86 U/L (73-393) Thyroid Stimulating Hormone (TSH) 1.003 uIU/mL (0.358-3.74) Urine Opiates Screen Neg (NEG) Urine Methadone Screen Neg (NEG) Urine Barbiturates Neg (NEG) Urine Phencyclidine Screen Neg (NEG) Urine Amphetamine/Methamphetamine Neg (NEG) Urine Benzodiazepines Screen Neg (NEG) Urine Cocaine Screen Neg (NEG) Urine Cannabinoids Screen Neg (NEG) Urine Ethyl Alcohol Neg (NEG) Laboratory Tests Test 08/01/20 08:37 Sodium Level 144 mmol/L (136-145) Potassium Level 3.8 mmol/L (3.5-5.1) Chloride Level 106 mmol/L (98-107) Carbon Dioxide Level 28 mmol/L (21-32) Anion Gap 10 (6-14) Blood Urea Nitrogen 12 mg/dL (7-20) Creatinine 1.1 mg/dL (0.6-1.0) Estimated GFR (Cockcroft-Gault) 62.9 Glucose Level 97 mg/dL (70-99) Calcium Level 9.3 mg/dL (8.5-10.1) Images Images CT Head without IV contrast, 07/31 There is no evidence of hemorrhage, mass or extra-axial fluid collection. Garcia-white differentiation is maintained with no evidence of edema. A few subcortical and periventricular foci of hypoattenuation in left greater than right periventricular regions is essentially stable. There is no mass effect or shift of the intracranial structures. The ventricles, basilar cisterns and cortical sulci are normal in size and configuration for the patients stated age. The cerebellum and brainstem are unremarkable. The calvarium demonstrates no evidence of fracture or focal lesion. There is normal aeration of the visualized paranasal sinuses and mastoid air cells. The visualized portions of the orbits are normal. IMPRESSION: 1. No evidence for acute intracranial process. 2. Scattered white matter changes are grossly stable, nonspecific but possibly related to small vessel disease Assessment/Plan Assessment/Plan Impression: Parkinson's disease, poorly tolerant of usual medications. Anxiety and panic attacks Recommendations: Trial of amantadine, side effects discussed Discontinue Sinemet, she is only able to tolerate once daily, not even worth taking at that dose. Rehabilitation modalities. Thank you for letting me help with the patient's care NOHEMI ROA MD Aug 01, 2020 12:19
[2020-08-01] MEDS ORDERED: AMANTADINE HCL 100 MG CAPSULE PO ONE (12:30)
[2020-08-01] MEDS ORDERED: ANTI-COAG MONITOR BY PHARMACY. MC PRN (13:15)
[2020-08-01 15:00] VITALS: BP 129/88
--- NOTE | 2020-08-01 15:54 | NUR ---
SW following for discharge planning. Spoke with RN and reviewed chart. Pt from home. PT/OT to evaluate. Pt on oral medications, cardiac diet, room air. SW following.
[2020-08-01 19:00] VITALS: BP 145/93
[2020-08-01 23:00] VITALS: BP 132/96
[2020-08-01] MEDS: ZOLPIDEM 5 MG TABLET. PO PRN (23:23)
[2020-08-02 03:00] VITALS: BP 119/81
[2020-08-02 07:00] VITALS: BP 135/82
[2020-08-02] MEDS: LISINOPRIL 20 MG TABLET PO SCH (08:37)
[2020-08-02] MEDS: APIXABAN 5 MG TABLET. PO SCH (08:37)
[2020-08-02] MEDS: VERAPAMIL SR 120 MG TABLET.ER. PO SCH (08:37)
[2020-08-02] MEDS: CITALOPRAM 10 MG TABLET. PO SCH (08:37)
--- NOTE | 2020-08-02 08:48 | PDOC ---
PROGRESS NOTES Date of Service: DATE: 08/02/20 TIME: 08:47 Subjective Subjective PT C/O BURNIG INFRONT OF CHEST Objective Objective Vital Signs Date Time Temp Pulse Resp B/P (MAP) Pulse Ox O2 Delivery O2 Flow Rate FiO2 08/02/20 08:37 89 135/82 08/02/20 07:00 98.5 18 93 Room Air 98.5 Intake and Output 08/02/20 06:59 Intake Total 800 ml Output Total 150 ml Balance 650 ml Intake Oral 800 ml Output Urine Total 150 ml # Voids 8 Physical Exam Abdomen: Soft Heart: Normal S1 Extremities: No clubbing General: Alert Lungs: Clear to auscultation MUSCULOSKELETAL: No deformity, Osteoarthritic changes both hands Neck: No JVD Neuro: Normal speech Psych/Mental Status: Other (anxious) Diagnosis Problem List Problems Medical Problems: (1) Dizziness Status: Acute (2) Generalized weakness Status: Acute Assessment Assessment Problems Medical Problems: (1) Dizziness Status: Acute (2) Generalized weakness Status: Acute FINAL IMPRESSION: 1. Parkinson's disease. 2. Anxiety and panic attacks. 3. History of deep venous thrombosis, pulmonary embolism. 4. Obesity. 5. Anxiety. 6. Hypertension. 7. Recent shingles. PLAN: coghing up clear phlem started on amantadine for parkinsons disease. d/c sinnemet. rapid covid test for placement may need SNU placement pt/ot/rehab Plan Plan of Care Problems Medical Problems: (1) Dizziness Status: Acute (2) Generalized weakness Status: Acute Comment Review of Relevant I have reviewed the following items paula (where applicable) has been applied. Medications Current Medications Amantadine HCl (Symmetrel) 100 mg 1X ONCE PO Last administered on 08/01/20at 12:22; Start 08/01/20 at 12:30; Stop 08/01/20 at 12:31; Status DC Amantadine HCl (Symmetrel) 100 mg BID PO Last administered on 08/02/20at 08:38; Start 08/02/20 at 09:00 Carbidopa/Levodopa (Sinemet 25/100) 1 tab DAILY PO ; Start 08/01/20 at 09:00; Stop 08/01/20 at 12:13; Status DC Citalopram Hydrobromide (CeleXA) 10 mg DAILY PO Last administered on 08/02/20at 08:37; Start 08/01/20 at 09:00 Ergocalciferol (Vitamin D2) 50,000 unit Fr PO Last administered on 08/02/20at 08:37; Start 08/02/20 at 09:00 Fluticasone Propionate (Flonase) 2 spray DAILY NS ; Start 08/01/20 at 09:00 Info (Anti-Coagulation Monitoring By Pharmacy) 1 each PRN DAILY PRN MC SEE COMMENTS Last administered on 08/01/20at 13:04; Start 08/01/20 at 13:15 Lisinopril (Prinivil) 20 mg DAILY PO Last administered on 08/02/20at 08:37; Start 08/01/20 at 09:00 Verapamil HCl (Calan Sr) 120 mg DAILY PO Last administered on 08/02/20at 08:37; Start 08/01/20 at 09:00 Vitals/I & O Vital Sign - Last 24 Hours 08/01/20 08/01/20 08/01/20 08/01/20 08:57 08:58 11:00 15:00 Temp 98.4 98.1 98.4 98.1 Pulse 80 80 72 88 Resp 16 16 B/P (MAP) 143/87 143/87 140/90 (107) 129/88 (102) Pulse Ox 99 98 O2 Delivery Room Air Room Air 08/01/20 08/01/20 08/01/20 08/02/20 19:00 20:20 23:00 03:00 Temp 98.4 98.5 98.4 98.4 98.5 98.4 Pulse 87 92 77 Resp 18 18 16 B/P (MAP) 145/93 (110) 132/96 (108) 119/81 (94) Pulse Ox 98 97 98 O2 Delivery Room Air 08/02/20 08/02/20 08/02/20 07:00 08:37 08:37 Temp 98.5 98.5 Pulse 89 89 89 Resp 18 B/P (MAP) 135/82 (99) 135/82 135/82 Pulse Ox 93 O2 Delivery Room Air Intake and Output 08/01/20 08/01/20 08/02/20 14:59 22:59 06:59 Intake Total 320 ml 240 ml 240 ml Output Total 150 ml Balance 170 ml 240 ml 240 ml Justifications for Admission Other Justification JULIANNA BOTELLO MD 8, 2021 08:48
[2020-08-02] MEDS ORDERED: ERGOCALCIFEROL (VITAMIN D2) 50,000 UNIT CAPSULE. PO SCH (09:00)
[2020-08-02] MEDS ORDERED: AMANTADINE HCL 100 MG CAPSULE PO SCH (09:00)
[2020-08-02] MEDS: FLUTICASONE 50MCG/NASAL SPRAY 16GM BOTTLE. NS SCH (09:00)
--- NOTE | 2020-08-02 09:16 | PDOC ---
PROGRESS NOTES Date of Service DATE: 08/02/20 TIME: 09:13 Assessment Problems Medical Problems: (1) Dizziness Status: Acute (2) Generalized weakness Status: Acute Parkinson's disease, poorly tolerant of usual medications. She is better with amantadine, and she agrees, but she is worried that it caused burning across the chest and in the hands and feet. I told her that the symptoms are more likely related to her anxiety. Anxiety and panic attacks Weekend rounding neurologist will see as needed Plan Continue amantadine Discontinued Sinemet, Rehabilitation modalities. Psychiatry not available, patient wants to go home today, that is fine, consider custodial unit stay She prefers to transfer her neurological care to [place], follow-up with me in 4-6 weeks I encouraged her to take her lorazepam this morning Subjective Complains of burning pain and improved Parkinson symptoms as already described Objective Vital Signs Date Time Temp Pulse Resp B/P (MAP) Pulse Ox O2 Delivery O2 Flow Rate FiO2 08/02/20 08:37 89 135/82 08/02/20 07:00 98.5 18 93 Room Air 98.5 Intake and Output 08/02/20 07:00 Intake Total 800 ml Output Total 150 ml Balance 650 ml Intake Oral 800 ml Output Urine Total 150 ml # Voids 8 PHYSICAL EXAM Alert. Oriented to time, place and person. PERRL. EOMI. CN: no focal findings. Muscle tone: No rigidity now Muscle strength: 5/5, better facial expression and bradykinesia DTR: 2+ Plantar reflex: Flexor Gait: not examined in bed. Sensory exam: no abnormal findings. No cerebellar signs elicited. Review of Relevant I have reviewed the following items paula (where applicable) has been applied. Labs Laboratory Tests Test 07/31/20 11:45 08/01/20 08:37 White Blood Count 5.5 x10^3/uL (4.0-11.0) Red Blood Count 4.96 x10^6/uL (3.50-5.40) Hemoglobin 14.0 g/dL (12.0-15.5) Hematocrit 42.4 % (36.0-47.0) Mean Corpuscular Volume 85 fL (79-100) Mean Corpuscular Hemoglobin 28 pg (25-35) Mean Corpuscular Hemoglobin Concent 33 g/dL (31-37) Red Cell Distribution Width 14.3 % (11.5-14.5) Platelet Count 278 x10^3/uL (140-400) Neutrophils (%) (Auto) 77 % (31-73) Lymphocytes (%) (Auto) 17 % (24-48) Monocytes (%) (Auto) 5 % (0-9) Eosinophils (%) (Auto) 0 % (0-3) Basophils (%) (Auto) 1 % (0-3) Neutrophils # (Auto) 4.2 x10^3/uL (1.8-7.7) Lymphocytes # (Auto) 0.9 x10^3/uL (1.0-4.8) Monocytes # (Auto) 0.3 x10^3/uL (0.0-1.1) Eosinophils # (Auto) 0.0 x10^3/uL (0.0-0.7) Basophils # (Auto) 0.0 x10^3/uL (0.0-0.2) Prothrombin Time 14.8 SEC (11.7-14.0) Prothromb Time International Ratio 1.2 (0.8-1.1) Activated Partial Thromboplast Time 34 SEC (24-38) Urine Collection Type Unknown Urine Color Yellow Urine Clarity Clear Urine pH 6.0 (<5.0-8.0) Urine Specific [place] 1.015 (1.000-1.030) Urine Protein Negative mg/dL (NEG-TRACE) Urine Glucose (UA) Negative mg/dL (NEG) Urine Ketones (Stick) Negative mg/dL (NEG) Urine Blood Negative (NEG) Urine Nitrite Negative (NEG) Urine Bilirubin Negative (NEG) Urine Urobilinogen Dipstick 1.0 mg/dL (0.2 mg/dL) Urine Leukocyte Esterase Negative (NEG) Urine RBC 0 /HPF (0-2) Urine WBC 1-4 /HPF (0-4) Urine Squamous Epithelial Cells Many /LPF Urine Bacteria Few /HPF (0-FEW) Sodium Level 143 mmol/L (136-145) 144 mmol/L (136-145) Potassium Level 3.3 mmol/L (3.5-5.1) 3.8 mmol/L (3.5-5.1) Chloride Level 103 mmol/L (98-107) 106 mmol/L (98-107) Carbon Dioxide Level 27 mmol/L (21-32) 28 mmol/L (21-32) Anion Gap 13 (6-14) 10 (6-14) Blood Urea Nitrogen 10 mg/dL (7-20) 12 mg/dL (7-20) Creatinine 0.8 mg/dL (0.6-1.0) 1.1 mg/dL (0.6-1.0) Estimated GFR (Cockcroft-Gault) 90.8 62.9 BUN/Creatinine Ratio 13 (6-20) Glucose Level 99 mg/dL (70-99) 97 mg/dL (70-99) Calcium Level 9.3 mg/dL (8.5-10.1) 9.3 mg/dL (8.5-10.1) Magnesium Level 1.9 mg/dL (1.8-2.4) Total Bilirubin 0.6 mg/dL (0.2-1.0) Aspartate Amino Transf (AST/SGOT) 12 U/L (15-37) Alanine Aminotransferase (ALT/SGPT) 20 U/L (14-59) Alkaline Phosphatase 102 U/L (46-116) Troponin I Quantitative < 0.017 ng/mL (0.000-0.055) UW-Lae-T-Type Natriuretic Peptide 54 pg/mL (0-124) Total Protein 7.4 g/dL (6.4-8.2) Albumin 3.7 g/dL (3.4-5.0) Albumin/Globulin Ratio 1.0 (1.0-1.7) Lipase 86 U/L (73-393) Thyroid Stimulating Hormone (TSH) 1.003 uIU/mL (0.358-3.74) Urine Opiates Screen Neg (NEG) Urine Methadone Screen Neg (NEG) Urine Barbiturates Neg (NEG) Urine Phencyclidine Screen Neg (NEG) Urine Amphetamine/Methamphetamine Neg (NEG) Urine Benzodiazepines Screen Neg (NEG) Urine Cocaine Screen Neg (NEG) Urine Cannabinoids Screen Neg (NEG) Urine Ethyl Alcohol Neg (NEG) Medications Current Medications Ondansetron HCl (Zofran) 4 mg PRN Q8HRS PRN IV NAUSEA/VOMITING; Start 07/31/20 at 14:00; Stop 08/01/20 at 13:59; Status DC Morphine Sulfate (Morphine Sulfate) 2 mg PRN Q2HR PRN IV PAIN Last administered on 07/31/20at 22:13; Start 07/31/20 at 14:00; Stop 08/01/20 at 13:59; Status DC Acetaminophen (Tylenol) 650 mg PRN Q4HRS PRN PO FEVER > 100.3'F Last administered on 07/31/20at 16:09; Start 07/31/20 at 14:00; Stop 08/01/20 at 13:59; Status DC Potassium Chloride (Klor-Con) 40 meq 1X ONCE PO Last administered on 07/31/20at 17:03; Start 07/31/20 at 16:45; Stop 07/31/20 at 16:57; Status DC Apixaban (Eliquis) 5 mg BID PO Last administered on 08/02/20at 08:37; Start 07/31/20 at 21:00 Carbidopa/Levodopa (Sinemet 25/100) 1 tab DAILY PO ; Start 08/01/20 at 09:00; Stop 08/01/20 at 12:13; Status DC Citalopram Hydrobromide (CeleXA) 10 mg DAILY PO Last administered on 08/02/20at 08:37; Start 08/01/20 at 09:00 Ergocalciferol (Vitamin D2) 50,000 unit Fr PO Last administered on 08/02/20at 08:37; Start 08/02/20 at 09:00 Lorazepam (Ativan) 1 mg PRN DAILY PRN PO ANXIETY / AGITATION Last administered on 07/31/20at 18:41; Start 07/31/20 at 16:45; Stop 07/31/20 at 20:48; Status DC Verapamil HCl (Calan Sr) 120 mg DAILY PO Last administered on 08/02/20at 08:37; Start 08/01/20 at 09:00 Lisinopril (Prinivil) 20 mg DAILY PO Last administered on 08/02/20at 08:37; Start 08/01/20 at 09:00 Fluticasone Propionate (Flonase) 2 spray DAILY NS ; Start 08/01/20 at 09:00 Cetirizine HCl (ZyrTEC) 10 mg PRN DAILY PRN PO ALLERGY SYPMTOMS; Start 07/31/20 at 17:00 Zolpidem Tartrate (Ambien) 10 mg PRN QHS PRN PO INSOMNIA Last administered on 08/01/20at 23:23; Start 07/31/20 at 20:45 Lorazepam (Ativan) 1 mg PRN BID PRN PO ANXIETY / AGITATION Last administered on 08/02/20at 08:39; Start 07/31/20 at 20:45 Amantadine HCl (Symmetrel) 100 mg BID PO Last administered on 08/02/20at 08:38; Start 08/02/20 at 09:00 Amantadine HCl (Symmetrel) 100 mg 1X ONCE PO Last administered on 08/01/20at 12:22; Start 08/01/20 at 12:30; Stop 08/01/20 at 12:31; Status DC Info (Anti-Coagulation Monitoring By Pharmacy) 1 each PRN DAILY PRN MC SEE COMMENTS Last administered on 08/01/20at 13:04; Start 08/01/20 at 13:15 Active Scripts Active Reported Ativan (Lorazepam) 1 Mg Tablet 1 Mg PO PRN DAILY PRN Citalopram Hbr (Citalopram Hydrobromide) 10 Mg Tablet 10 Mg PO DAILY Sinemet 25-100 Mg Tablet (Carbidopa/Levodopa) 1 Each Tablet 1 Tab PO DAILY Eliquis (Apixaban) 5 Mg Tablet 5 Mg PO BID Vitamin D2 (Ergocalciferol (Vitamin D2)) 1,250 Mcg Capsule 1 Cap PO QFR Flonase Allergy Relief (Fluticasone Propionate) 9.9 Ml [place].susp 2 Sprays NS DAILY Benazepril Hcl 20 Mg Tablet 1 Tab PO DAILY Claritin (Loratadine) 10 Mg Capsule 10 Mg PO DAILY PRN Verapamil Er (Verapamil Hcl) 120 Mg Tablet.er 120 Mg PO DAILY Vitals/I & O Vital Sign - Last 24 Hours 08/01/20 08/01/20 08/01/20 08/01/20 11:00 15:00 19:00 20:20 Temp 98.4 98.1 98.4 98.4 98.1 98.4 Pulse 72 88 87 Resp 16 16 18 B/P (MAP) 140/90 (107) 129/88 (102) 145/93 (110) Pulse Ox 99 98 98 O2 Delivery Room Air Room Air Room Air 08/01/20 08/02/20 08/02/20 08/02/20 23:00 03:00 07:00 08:37 Temp 98.5 98.4 98.5 98.5 98.4 98.5 Pulse 92 77 89 89 Resp 18 16 18 B/P (MAP) 132/96 (108) 119/81 (94) 135/82 (99) 135/82 Pulse Ox 97 98 93 O2 Delivery Room Air 08/02/20 08:37 Pulse 89 B/P (MAP) 135/82 Intake and Output 08/01/20 08/01/20 08/02/20 15:00 23:00 07:00 Intake Total 320 ml 240 ml 240 ml Output Total 150 ml Balance 170 ml 240 ml 240 ml Justicifation of Admission Dx: Justifications for Admission: Justification of Admission Dx: Yes Angina: [place] Worsening of Sym NOHEMI ROA MD Aug 02, 2020 09:16
--- NOTE | 2020-08-02 10:50 | CONS ---
DATE OF CONSULTATION: 08/02/2020 LOCATION: She is in room 514. I saw her at the request of Dr. Pruitt for rehab evaluation. HISTORY OF PRESENT ILLNESS: This is a 54-year-old right-handed female with known Parkinson disease, on disability right now. She was diagnosed as having it about 2 years ago, being followed by [facility]. She had tried multiple medications. She was on Requip. She did okay, but changed it to something else as her insurance does not want to pay for it. Symptoms got worse lately. Was started on Sinemet. She had anxiety, panic attacks and worried about side effects and she stopped taking it after 2 days; she gets into weakness mode and something happened yesterday, she was not feeling well. This is one day before the hospitalization on 08/01/2020, not able to function and anxiety, panic attacks and generalized weakness, admitted. The patient with previous DVT, obesity, pulmonary embolism, anxiety, panic attacks, hypertension and she had herpes zoster skin lesions; was given valacyclovir for it, status post hysterectomy, breast reduction surgery. 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 SHE IS KNOWN ALLERGIC TO SULFA, ADHESIVE TAPE, REGLAN, SULFA. The patient denies any trouble with her bowel or bladder control, swallowing or speech. The patient lives at home with her boyfriend, had Rollator walker and wheelchair. The patient admits that she is doing better with the amantadine, which was started yesterday. The patient is being followed by Physical Therapy. PHYSICAL EXAMINATION: Physical exam today revealed a middle-aged female. She is alert, oriented to time, place, person and circumstance and follows commands appropriately, moves all 4 extremities voluntarily. She had 5/5 grade muscle strength in her extremities and deep tendon reflexes are brisk bilaterally. She had equal perception of touch and pinprick sensation bilaterally. The patient had mild incoordination using her upper and lower extremities. The patient moves slowly, but she is independent with bed mobility and transfers and walking with slow step-based kind of gait, using a roller walker and she walks better when I advised her to take longer steps and keep the walker in the front to give better support. Her skin is intact at this time. ASSESSMENT: Mobility and self-care limitation in a patient with Parkinson disease with associated anxiety and panic attacks, mild obesity, hypertension, recent herpes zoster skin lesions healed. RECOMMENDATIONS: Agree with the plan for physical therapy and occupational therapy. I have advised the Physical Therapy, who instructed her in safety techniques, taking longer steps and also if she is interested in advanced transfers, and she can benefit from regular roller walker rather than Rollator walker. Home with outpatient or home health followup when medically stable. Dr. Pruitt, I appreciate asking me to participate in the care of this interesting patient. I will be glad to follow her with you on an as-needed basis. TORITO ROSARIO MD DR: HELEN/renetta JOB#: [id number] / [id number]
[2020-08-02 11:00] VITALS: BP 133/79
[2020-08-02] MEDS ORDERED: AMAN100C7 PO (13:19)
--- NOTE | 2020-08-02 13:21 | SNU/HH DC ---
DISCHARGE WITH HOME HEALTH DISCHARGE INFORMATION: Discharge Date: Aug 02, 2020 Final Diagnosis: Problems Medical Problems: (1) Dizziness Status: Acute (2) Generalized weakness Status: Acute Condition on Discharge: Stable CODE STATUS: Code Status: Full HOME HEALTH: Face to Face: I certify this patient is under my care and that I, or a nurse practitioner or physician's corporate administrative assistant working with me, had a face to face encounter that meets the physician face to face encounter requirements with this patient on []. Medical Complications: Other RN For Eval/Treatment: Yes Physical Therapy For: Evalulation/Treatment Occupational Therapy For: Evaluation/Treatment ELECTROPLATING TECHNICIAN For: Community Resources Pt Meets Homebound Status: Poor coordination w/ amb. POST DISCHARGE ORDERS: Activity Instructions for Disc: Activity as tolerated Weight Bearing Status after Di: As tolerated CHECKS AFTER DISCHARGE: Checks after discharge: Check blood press - daily, Check your Temp as needed TREATMENT/EQUIPMENT ORDERS: Adaptive Equipment Issued: None, Front wheeled walker CERTIFICATION STATEMENT: Certification Statement: Certification Statement: Based on the above finding, I certify that this patient is confined to the home and needs intermittent [facility] care, physical therapy and/or speech therapy, or continues to need occupational therapy.~ This patient is under my care, and I have initiated the establishment of the plan of care.~ This patient will be followed by myself or a community physician who will periodically review the plan of care. Home Meds Active Scripts Amantadine Hcl (AMANTADINE) 100 Mg Capsule, 100 MG PO BID for parkinson disease for 30 Days, #60 CAP Prov:JULIANNA BOTELLO MD 08/02/20 Reported Medications Lorazepam (ATIVAN) 1 Mg Tablet, 1 MG PO PRN DAILY PRN for ANXIETY / AGITATION 07/31/20 Citalopram Hydrobromide (CITALOPRAM HBR) 10 Mg Tablet, 10 MG PO DAILY for depression, TAB 07/31/20 Apixaban (ELIQUIS) 5 Mg Tablet, 5 MG PO BID for , TAB 03/28/20 Ergocalciferol (Vitamin D2) (Vitamin D2) 1,250 Mcg Capsule, 1 CAP PO QFR for 03/28/20 Fluticasone Propionate (Flonase Allergy Relief) 9.9 Ml [place].susp, 2 SPRAYS NS DAILY, BOTTLE 04/21/19 Benazepril Hcl (BENAZEPRIL HCL) 20 Mg Tablet, 1 TAB PO DAILY, #30 TAB 5 Refills 04/21/19 Loratadine (CLARITIN) 10 Mg Capsule, 10 MG PO DAILY PRN for ALLERGIES 11/28/13 Verapamil Hcl (VERAPAMIL ER) 120 Mg Tablet.er, 120 MG PO DAILY 11/28/13 Discontinued Reported Medications Carbidopa/Levodopa (SINEMET 25-100 MG TABLET) 1 Each Tablet, 1 TAB PO DAILY for parkinsons, TAB 07/31/20 JULIANNA BOTELLO MD Aug 02, 2020 13:21
--- NOTE | 2020-08-02 13:26 | NUR ---
SW following for discharge planning. Spoke with RN and reviewed chart. PT/OT recommendation is home with . Pt has [facility] Medicaid. SW met with pt. Pt stated she resides with her boyfriend who also provides assistance. Pt stated no preference in provider. Pt agreeable to referral to [facility]. Patient choice of vendor form completed. SW did provide education on [employer] and how to call to get connected to services. Spoke with Manuela from [facility] who will meet with pt today prior to discharge. Pt to discharge home today, 08/02 with . No further SW needs at this time.
[2020-08-02 15:00] VITALS: BP 140/101
--- NOTE | 2020-08-02 15:00 | NUR ---
patient discharged home with . meds and follow up reviewed. home meds returned to patient from med room. IV removed, cath intact. pt stable upon DC.
--- NOTE | 2020-08-04 10:54 | PDOC ---
Provider Note Date of Service: DATE: 08/04/20 TIME: 10:53 Provider Note Discharge summary dictated.#[id number]. Justifications for Admission Other Justification JULIANNA BOTELLO MD Aug 04, 2020 10:54
--- NOTE | 2020-08-04 11:04 | DS ---
DATE OF DISCHARGE: 08/02/2020 REASON FOR ADMISSION IN HOSPITAL: Dizziness, Parkinson's disease, anxiety and panic attacks. CONSULTATION: Dr. Dunne. PROCEDURES DONE: CT head. OTHER CONSULTATION: Dr. Escobar. HOSPITAL COURSE: The patient is a 54-year-old female with history of Parkinson's disease. She has a history of anxiety, panic attacks and Parkinson's disease. She had side effects from lot of medications. She has seen [facility] recently and started on carbidopa/levodopa, but she is only taking 1 tablet because of the side effects. Lately, she has more anxiety, panic attacks, stiffness and the patient had multiple ER visits and finally the patient was admitted to the hospital for further investigation and treatment. CT head was negative. Seen by Dr. Dunne and it was decided because of her side effects from the medication to start her on amantadine, the patient was started on 100 mg twice a day. The patient was seen by Dr. Escobar and because of anxiety and panic attacks was given Ativan. It was felt by everybody that she could be discharged home with home health. Continue amantadine 100 mg twice daily for Parkinson's. Follow with Neurology, Dr. Dunne. FINAL DIAGNOSES: 1. Parkinson's disease. The patient is having problems with maintaining medications because of side effects. 2. History of pulmonary embolism, on Eliquis. 3. Anxiety and panic attacks. 4. Hypertension. PLAN: At this time, discharge home with home health. JULIANNA BOTELLO MD DR: LACIE/renetta JOB#: [id number] / [id number]
== END 2020-08-02 15:00 | disposition home health service (06) | DRG 57 ==
LOC: ER 11:27 → 5 NORTH 13:33
PROVIDERS: ADMIT Internal Medicine; ATTEND Internal Medicine
DX: G20 Parkinson's disease (principal); F41.0 Panic disorder [episodic paroxysmal anxiety]; R53.1 Weakness; K21.9 Gastro-esophageal reflux disease without esophagitis; I10 Essential (primary) hypertension; F32.9 Major depressive disorder, single episode, unspecified; E66.9 Obesity, unspecified; Z68.34 Body mass index [BMI] 34.0-34.9, adult; Z90.710 Acquired absence of both cervix and uterus; Z88.2 Allergy status to sulfonamides; Z88.8 Allergy status to other drugs, medicaments and biological substances; Z86.718 Personal history of other venous thrombosis and embolism; Z86.711 Personal history of pulmonary embolism; Z82.3 Family history of stroke
CPT/HCPCS: 36415; 70450; 71045; 80048; 80053; 80307; 81001; 83690; 83735; 83880; 84443; 84484; 85025; 85610; 85730; 93005; J2270; 97530-GP; 97535-GO; 99285-25; G0378

== ENCOUNTER 2020-08-04 09:05 | Emergency (ER) | payer MEDICAID ==
[~2020-08-04] VITALS: Ht 160 cm; Wt 93.1 kg
[~2020-08-04 09:05] MED LIST changes: +AMAN100C7 PO; +CARB-183 PO; +CITA10TA4 PO; +LORA-434 PO
[2020-08-04] MEDS ORDERED: IV NORMAL SALINE 1000ML BAG 1,000 ML IV ONE (11:00)
[2020-08-04 11:15] LABS: BASO % 1 % (0-3); EOS % 0 % (0-3); HEMATOCRIT 42.2 % (36.0-47.0); HEMOGLOBIN 13.8 g/dL (12.0-15.5); LYMPH # 0.8 x10^3/uL (1.0-4.8); LYMPH % 14 % (24-48); MEAN CORPUSCULAR HEMOGLOBIN 28 pg (25-35); MEAN CORPUSCULAR HGB CONC 33 g/dL (31-37); MEAN CORPUSCULAR VOLUME 86 fL (79-100); MONO # 0.3 x10^3/uL (0.0-1.1); MONO % 5 % (0-9); NEUT # 4.9 x10^3/uL (1.8-7.7); NEUT % 81 % (31-73); PLATELET COUNT 274 x10^3/uL (140-400); RED BLOOD COUNT 4.93 x10^6/uL (3.50-5.40); RED CELL DISTRIBUTION WIDTH 14.3 % (11.5-14.5); WHITE BLOOD COUNT 6.1 x10^3/uL (4.0-11.0)
[2020-08-04] MEDS ORDERED: DEXAMETHASONE SOD PHOS 4 MG/ML VIAL IVP ONE (11:15)
[2020-08-04] MEDS ORDERED: ORPHENADRINE CITRATE 60 MG/2 ML VIAL. IV ONE (11:15)
[2020-08-04] MEDS ORDERED: diazePAM 2 MG TABLET PO ONE (11:15)
[2020-08-04 11:32] LABS: CALCIUM 9.5 mg/dL (8.5-10.1); GFR 70.2; POTASSIUM 3.5 mmol/L (3.5-5.1)
[2020-08-04 11:38] LABS: ALBUMIN 3.9 g/dL (3.4-5.0); ALBUMIN/GLOBULIN RATIO 0.9 (1.0-1.7); MAGNESIUM 2.2 mg/dL (1.8-2.4); TOTAL BILIRUBIN 0.8 mg/dL (0.2-1.0); TOTAL PROTEIN 8.4 g/dL (6.4-8.2)
[2020-08-04 11:44] LABS: BILIRUBIN,URINE NEGATIVE (NEG); CLARITY,URINE CLEAR; COLOR,URINE YELLOW; NITRITE,URINE NEGATIVE (NEG); PROTEIN,URINE NEGATIVE (NEG-TRACE)
--- NOTE | 2020-08-04 11:48 | EKG ---
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
[2020-08-04 11:58] LABS: CREATINE KINASE 54 U/L (26-192)
[2020-08-04 12:23] LABS: RBC,URINE 0 /HPF (0-2)
[2020-08-04 12:24] LABS: BACTERIA,URINE MODERATE /HPF (0-FEW); WBC,URINE OCC /HPF (0-4)
[2020-08-04] MEDS ORDERED: fentaNYL PF VIAL 100 MCG/2 ML VIAL IV ONE (13:15)
[2020-08-04] MEDS ORDERED: ACETAMINOPHEN/CODEINE 300/30MG TABLET. PO ONE (14:00)
[2020-08-04] MEDS ORDERED: ORPH100T PO (14:05)
[2020-08-04] MEDS ORDERED: ACET1TAB33 PO (14:05)
--- NOTE | 2020-08-04 14:06 | PHYS DOC ---
Past Medical History Past Medical History: Anxiety, DVT, GERD, Hypertension, Other Additional Past Medical Histor: Sinus problems, parkinson's, PANIC ATTACKS Past Surgical History: Hysterectomy, Other Additional Past Surgical Histo: breast reduction, foot surgery Smoking Status: Never Smoker Alcohol Use: None Drug Use: None General Adult EDM: Chief Complaint: DIZZY/LIGHT HEADED HPI: HPI: 54-year-old female presents with report of dizziness and weakness that started last night. Patient does report some pressure to the left side of her head. Denies any trauma. Denies fever or chills. Denies chest pain or shortness of air. Denies cough. Denies known exposure to COVID-19. Review of Systems: Review of Systems: Constitutional: Denies fever or chills Eyes: Denies redness, blurred vision, or eye pain HENT: Denies nasal congestion or sore throat Respiratory: Denies cough or shortness of breath Cardiovascular: Denies chest pain or palpitations GI: Denies abdominal pain, nausea, or vomiting : Denies dysuria or hematuria Musculoskeletal: Reports neck pain; denies joint pain Integument: Denies rash or skin lesions Neurologic: Reports headache, generalized weakness, and dizziness; denies focal weakness or sensory changes Complete systems were reviewed and found to be within normal limits, except as d ocumented in this note. Current Medications: Current Medications Medications (Trade) Dose Ordered Sig/Thomas Start Time Stop Time Status Last Admin Dose Admin Dexamethasone Sodium Phosphate (Decadron) 10 mg 1X ONCE 08/04/20 11:15 08/04/20 11:16 DC 08/04/20 11:42 10 MG Diazepam (Valium) 2 mg 1X ONCE 08/04/20 11:15 08/04/20 11:16 DC 08/04/20 11:43 2 MG Fentanyl Citrate (Fentanyl 2ml Vial) 50 mcg 1X ONCE 08/04/20 13:15 08/04/20 13:16 DC 08/04/20 13:30 50 MCG Orphenadrine Citrate (Norflex) 60 mg 1X ONCE 08/04/20 11:15 08/04/20 11:16 DC 08/04/20 11:42 60 MG Sodium Chloride 1,000 ml @ 1,000 mls/hr 1X ONCE 08/04/20 11:00 08/04/20 11:59 DC 08/04/20 11:12 1,000 MLS/HR Allergies: Allergies: Allergies Coded Allergies Type Severity Reaction Last Updated Verified Sulfa (Sulfonamide Antibiotics) Allergy Intermediate rash 07/24/19 Yes adhesive tape Allergy Intermediate rash 07/24/19 Yes metoclopramide Allergy Intermediate 09/24/18 Yes sulfamethoxazole Allergy Intermediate 09/24/18 Yes trimethoprim Allergy Intermediate 09/24/18 Yes Physical Exam: PE: Constitutional: Well developed, well nourished, no acute distress, non-toxic appearance HENT: Normocephalic, atraumatic Eyes: PERRL, EOMI, conjunctiva normal, no discharge Neck: Normal range of motion, bilateral paraspinal tenderness, supple, no meningeal signs Lungs & Thorax: No respiratory distress, equal chest rise and fall Abdomen: Soft, no tenderness Skin: Warm, dry, no erythema, no rash Back: No tenderness, no CVA tenderness Extremities: No tenderness, ROM intact, no edema Neurologic: Alert and oriented X 3, normal motor function, normal sensory function, no focal deficits noted Psychologic: Affect anxious, judgment normal Current Patient Data: Labs: Laboratory Tests Test 08/04/20 10:03 08/04/20 10:21 Urine Collection Type Unknown Urine Color Yellow Urine Clarity Clear Urine pH 6.0 (<5.0-8.0) Urine Specific [place] 1.015 (1.000-1.030) Urine Protein Negative mg/dL (NEG-TRACE) Urine Glucose (UA) Negative mg/dL (NEG) Urine Ketones (Stick) 40 mg/dL (NEG) Urine Blood Negative (NEG) Urine Nitrite Negative (NEG) Urine Bilirubin Negative (NEG) Urine Urobilinogen Dipstick 1.0 mg/dL (0.2 mg/dL) Urine Leukocyte Esterase Negative (NEG) Urine RBC 0 /HPF (0-2) Urine WBC Occ /HPF (0-4) Urine Squamous Epithelial Cells Mod /LPF Urine Bacteria Moderate /HPF (0-FEW) Urine Mucus Mod /LPF White Blood Count 6.1 x10^3/uL (4.0-11.0) Red Blood Count 4.93 x10^6/uL (3.50-5.40) Hemoglobin 13.8 g/dL (12.0-15.5) Hematocrit 42.2 % (36.0-47.0) Mean Corpuscular Volume 86 fL (79-100) Mean Corpuscular Hemoglobin 28 pg (25-35) Mean Corpuscular Hemoglobin Concent 33 g/dL (31-37) Red Cell Distribution Width 14.3 % (11.5-14.5) Platelet Count 274 x10^3/uL (140-400) Neutrophils (%) (Auto) 81 % (31-73) H Lymphocytes (%) (Auto) 14 % (24-48) L Monocytes (%) (Auto) 5 % (0-9) Eosinophils (%) (Auto) 0 % (0-3) Basophils (%) (Auto) 1 % (0-3) Neutrophils # (Auto) 4.9 x10^3/uL (1.8-7.7) Lymphocytes # (Auto) 0.8 x10^3/uL (1.0-4.8) L Monocytes # (Auto) 0.3 x10^3/uL (0.0-1.1) Eosinophils # (Auto) 0.0 x10^3/uL (0.0-0.7) Basophils # (Auto) 0.0 x10^3/uL (0.0-0.2) Sodium Level 138 mmol/L (136-145) Potassium Level 3.5 mmol/L (3.5-5.1) Chloride Level 102 mmol/L (98-107) Carbon Dioxide Level 27 mmol/L (21-32) Anion Gap 9 (6-14) Blood Urea Nitrogen 13 mg/dL (7-20) Creatinine 1.0 mg/dL (0.6-1.0) Estimated GFR (Cockcroft-Gault) 70.2 BUN/Creatinine Ratio 13 (6-20) Glucose Level 81 mg/dL (70-99) Calcium Level 9.5 mg/dL (8.5-10.1) Magnesium Level 2.2 mg/dL (1.8-2.4) Total Bilirubin 0.8 mg/dL (0.2-1.0) Aspartate Amino Transferase (AST) 17 U/L (15-37) Alanine Aminotransferase (ALT) 20 U/L (14-59) Alkaline Phosphatase 100 U/L (46-116) Creatine Kinase 54 U/L (26-192) Creatine Kinase MB (Mass) < 0.5 ng/mL (0.0-3.6) Creatine Kinase MB Relative Index % (0-4) Troponin I Quantitative < 0.017 ng/mL (0.000-0.055) Total Protein 8.4 g/dL (6.4-8.2) H Albumin 3.9 g/dL (3.4-5.0) Albumin/Globulin Ratio 0.9 (1.0-1.7) L Laboratory Tests 08/04/20 10:21 Laboratory Tests 08/04/20 10:21 Vital Signs: Vital Signs Date Time Temp Pulse Resp B/P (MAP) Pulse Ox O2 Delivery O2 Flow Rate FiO2 08/04/20 13:30 32 08/04/20 10:44 94 96 08/04/20 09:10 98.1 141/92 (108) Room Air 98.1 EKG: EKG: @1036 NSR at 95bpm, baseline artifact, no ST elevation, Q wave in I and aVL, QRS 80ms, QT/QTc 408/516ms Radiology/Procedures: Radiology/Procedures: [] Course & Med Decision Making: Course & Med Decision Making Pertinent Lab studies reviewed. (See chart for details) Patient presents with report of dizziness and weakness with associated left-si ded headache that started yesterday. Patient neurologically intact. NIHSS 0. Some paraspinal tenderness appreciated. Patient does appear anxious. Labs obtained and posted to chart. Symptomatic treatment provided. Patient with interval improvement of symptoms. Patient stable for discharge with outpatient follow-up with PCP/neurology. Neurology referral provided. Discussed findings and plan with patient, who acknowledges understanding and agreement. Radha Disclaimer: Radha Disclaimer: This electronic medical record was generated, in whole or in part, using a voice recognition dictation system. Departure Departure Impression: Primary Impression: Headache Qualified Codes: R51.9 - Headache, unspecified Additional Impression: Neck pain Disposition: 01 DC HOME SELF CARE/HOMELESS Condition: STABLE Referrals: JULIANNA BOTELLO MD (PCP) NOHEMI ROA MD Patient Instructions: Headache, FAQs, Tension Headache, [id number] Scripts Prednisone (PREDNISONE) 20 Mg Tablet 2 TAB PO DAILY, #8 TAB Start this prescription tomorrow, Wednesday08/05/20 Prov: DOC WRIGHT DO 08/04/20 Orphenadrine Citrate (ORPHENADRINE CITRATE) 100 Mg Tablet.er 100 MG PO BID PRN for MUSCLE PAIN, #10 TAB Prov: DOC WRIGHT DO 08/04/20 Acetaminophen With Codeine (ACETAMINOPHEN-COD #3 TABLET) 1 Each Tablet 1 TAB PO PRN Q6HRS PRN for PAIN, #14 TAB Prov: DOC WRIGHT DO 08/04/20 NIHSS - ED NIH Stroke Scale: NIH Stroke Scale Response (Comments) Value Level of Consciousness: 0 Alert/Responsive 0 LOC Questions: 0 Answers both correctly 0 LOC Commands: 0 Performs both tasks 0 Best Gaze: 0 Normal 0 Visual: 0 No visual loss 0 Facial Palsy: 0 Normal, symmetrical 0 Motor - Left Arm 0 No drift 0 Motor - Right Arm 0 No drift 0 Motor - Left Leg 0 No drift 0 Motor: Right Leg 0 No drift 0 Limb Ataxia: 0 Absent 0 Sensory: 0 No loss 0 Best Language: 0 Normal 0 Dysathria: 0 Normal 0 Extinction and Inattention: 0 Normal 0 Total 0 DOC WRIGHT DO Aug 04, 2020 14:05
[2020-08-04] MEDS ORDERED: PRED20TA PO (14:09)
[2020-08-04 14:40] VITALS: BP 159/79
== END 2020-08-04 14:45 | disposition home or self-care (01) ==
LOC: ER 09:05
DX: F41.9 Anxiety disorder, unspecified (principal); K21.9 Gastro-esophageal reflux disease without esophagitis; I10 Essential (primary) hypertension; Z90.710 Acquired absence of both cervix and uterus; Z98.890 Other specified postprocedural states; Z88.2 Allergy status to sulfonamides; Z88.8 Allergy status to other drugs, medicaments and biological substances
CPT/HCPCS: 36415; 80053; 81001; 82553; 83735; 84484; 85025; 87086; 93005; 96361; 96374; 96375; 99285; J1100; J2360; J3010; J7030

== ENCOUNTER 2021-03-08 01:10 | Emergency (ER) | payer MEDICAID ==
[~2021-03-08] VITALS: Ht 160 cm; Wt 100.0 kg
[~2021-03-08 01:10] MED LIST changes: +ACET1TAB33 PO; +ORPH100T PO; +PRED20TA PO
[2021-03-08 02:54] LABS: INFLUENZA A PATIENT NEGATIVE (NEGATIVE); INFLUENZA B PATIENT NEGATIVE (NEGATIVE)
[2021-03-08] MEDS ORDERED: ACETAMINOPHEN 325 MG TABLET. PO ONE (03:00)
[2021-03-08 03:14] VITALS: BP 192/115
--- NOTE | 2021-03-08 03:14 | PHYS DOC ---
Past Medical History Past Medical History: Anxiety, DVT, GERD, Hypertension, Other Additional Past Medical Histor: Sinus problems, parkinson's, PANIC ATTACKS, blood clots Past Surgical History: Hysterectomy, Tubal ligation, Other Additional Past Surgical Histo: breast reduction, foot surgery Smoking Status: Never Smoker Alcohol Use: None Drug Use: None General Adult EDM: Chief Complaint: MULTIPLE COMPLAINTS HPI: HPI: Patient is a 55 year old male presents with several day history of dizziness cough with sputum production diffuse muscle muscle aches. Patient is not vaccinated against Covid. On exam patient is in no acute respiratory distress. Her oxygen saturation is 100% on room air. Review of Systems: Review of Systems: Constitutional: Denies fever or chills. [] Eyes: Denies change in visual acuity. [] HENT: Denies nasal congestion or sore throat. [] Respiratory: Positive cough Cardiovascular: Denies chest pain or edema. [] GI: Denies abdominal pain, nausea, vomiting, bloody stools or diarrhea. [] : Denies dysuria. [] Musculoskeletal: Denies back pain or joint pain. [Positive muscle aches] Integument: Denies rash. [] Neurologic: Positive headache, denies focal weakness or sensory changes. [] Endocrine: Denies polyuria or polydipsia. [] Lymphatic: Denies swollen glands. [] Psychiatric: Denies depression or anxiety. [] Heart Score: C/O Chest Pain: N/A Risk Factors: Risk Factors: DM, Current or recent (<one month) smoker, HTN, HLP, family history of CAD, obesity. Risk Scores: Score 0 - 3: 2.5% MACE over next 6 weeks - Discharge Home Score 4 - 6: 20.3% MACE over next 6 weeks - Admit for Clinical Observation Score 7 - 10: 72.7% MACE over next 6 weeks - Early Invasive Strategies Current Medications: Current Medications Medications (Trade) Dose Ordered Sig/Thomas Start Time Stop Time Status Last Admin Dose Admin Acetaminophen (Tylenol) 650 mg 1X ONCE 03/08/21 03:00 03/08/21 03:02 DC 03/08/21 02:30 650 MG Allergies: Allergies: Allergies Coded Allergies Type Severity Reaction Last Updated Verified Sulfa (Sulfonamide Antibiotics) Allergy Intermediate rash 07/24/19 Yes adhesive tape Allergy Intermediate rash 07/24/19 Yes metoclopramide Allergy Intermediate 09/24/18 Yes sulfamethoxazole Allergy Intermediate 09/24/18 Yes trimethoprim Allergy Intermediate 09/24/18 Yes Physical Exam: PE: Constitutional: Well developed, well nourished, no acute distress, non-toxic appearance. [] HENT: Normocephalic, atraumatic, bilateral external ears normal, oropharynx moist, no oral exudates, nose normal. [] Eyes: PERRLA, EOMI, conjunctiva normal, no discharge. [] Neck: Normal range of motion, no tenderness, supple, no stridor. [] Cardiovascular:Heart rate regular rhythm, no murmur [] Lungs & Thorax: Bilateral breath sounds clear to auscultation [] Abdomen: Bowel sounds normal, soft, no tenderness, no masses, no pulsatile masses. [] Skin: Warm, dry, no erythema, no rash. [] Back: No tenderness, no CVA tenderness. [] Extremities: No tenderness, no cyanosis, no clubbing, ROM intact, no edema. [] Neurologic: Alert and oriented X 3, normal motor function, normal sensory function, no focal deficits noted. [] Psychologic: Affect normal, judgement normal, mood normal. [] Current Patient Data: Labs: Laboratory Tests Test 03/08/21 02:30 Influenza Type A Antigen Negative (NEGATIVE) Influenza Type B Antigen Negative (NEGATIVE) SARS-CoV-2 Antigen (Rapid) Positive (NEGATIVE) *A Vital Signs: Vital Signs Date Time Temp Pulse Resp B/P (MAP) Pulse Ox O2 Delivery O2 Flow Rate FiO2 03/08/21 02:21 99.5 106 20 189/117 (108) 97 Room Air 99.5 EKG: EKG: [] Radiology/Procedures: Radiology/Procedures: [] Course & Med Decision Making: Course & Med Decision Making Pertinent Labs and Imaging studies reviewed. (See chart for details) [] Patient's Covid test positive. She was treated with Decadron and Tylenol. Dragon Disclaimer: Dragflaco Disclaimer: This electronic medical record was generated, in whole or in part, using a voice recognition dictation system. Departure Departure Impression: Primary Impression: COVID-19 Disposition: 01 HOME / SELF CARE / HOMELESS Condition: STABLE Referrals: JULIANNA BOTELLO MD (PCP) Patient Instructions: Viral Syndrome Additional Instructions: You have been tested for or diagnosed with COVID-19. It is an infection caused by a new type of coronavirus. COVID-19 will cause cold-like or mild flu symptoms in most. It can cause more severe symptoms like problems breathing in some. There is no treatment for COVID-19. The body will clear the infection over time. Self-care will help to ease discomfort. Steps to Take: Self-Care Rest as needed. Healthy habits may help you feel better. Steps include: Choose healthy foods including fruits and vegetables. Drink water throughout the day. Get plenty of sleep each night. If you smoke, try to quit. It may ease breathing. Avoid alcohol. Keep Others Healthy The virus can spread to others. Droplets are released every time you sneeze or cough. The droplets can get into the mouth, nose, or eyes of people near you and lead to i nfection. To lower the chances of spreading COVID-19 to others: Stay at home until your doctor has said it is safe to leave. If you tested positive this will mean staying isolated until both of the following are true: At least 7 days have passed since the start of illness. You are free of fever for at least 72 hours without the use of medicine. During this time: - Avoid public areas, events, or transportation. Do not return to work or school until your doctor has said it is safe to do so. - Call ahead if you need to go to a medical center. Let them know you may have COVID-19. It will help them guide you where to go. They may also ask you to wear a facemask when you come to the office. - If you call for emergency medical services, let them know you may have COVID- 19. While at home: - Try to avoid close contact with others. Stay about 6 feet away. - If possible, spend most of your time in a separate room from others. - Use a face mask if you will be in close contact with others such as sharing a room or vehicle. - Have someone wipe down common surfaces in the home. Use household bullet swaging machine adjuster every day on areas like doorknobs, counters, or sinks. - Cough or sneeze into a tissue. Throw the tissue away right after use. If a tissue is not available, cough or sneeze into your elbow. - Wash your hands often. Wash them after sneezing or coughing. Use soap and water and wash for at least 20 seconds. Alcohol based hand frame cleaner can be used if soap and water is not available. - Do not prepare food for others. Avoid sharing personal items like forks, spoons, or toothbrushes. - Avoid close contact with pets while you are sick. There is no evidence of the virus passing to pets. This is a safety step until more is known about this virus. Isolation can be frustrating. Social interaction can help. Keep in touch with friends and family through phone and tech options. You can still interact with others in your home, just keep a safe distance of about 6 feet. Follow-up: Your doctors office will check in with you to see if there are any changes in your health. You may be asked to keep track of symptoms to share with them. They will also let you know when you are clear to be in public again. Problems to Look Out For: Contact your doctor if your recovery is not going as you expect. Get emergency care if you have problems such as: - Trouble breathing - Nonstop chest pain or pressure - Changes in awareness, confusion, or problems waking - Lips or face have bluish color - Worsening of symptoms If you think you have an emergency, call for emergency medical services right away. As taken from [facility] LENO LEY DO Mar 08, 2021 03:14
[2021-03-08] MEDS ORDERED: DEXAMETHASONE 4 MG TABLET ONE (03:16)
[2021-03-08] MEDS ORDERED: DEXAMETHASONE 4 MG TABLET PO ONE (03:30)
== END 2021-03-08 03:29 | disposition home or self-care (01) ==
LOC: ER 01:10
DX: U07.1 COVID-19 (principal); K21.9 Gastro-esophageal reflux disease without esophagitis; I10 Essential (primary) hypertension; Z86.718 Personal history of other venous thrombosis and embolism; Z88.1 Allergy status to other antibiotic agents; Z88.2 Allergy status to sulfonamides; Z88.8 Allergy status to other drugs, medicaments and biological substances
CPT/HCPCS: 87426; 87804; 99283

== ENCOUNTER → 2021-05-28 | Outpatient (CLI) | payer MEDICAID ==
[~2021-05-28] MED LIST changes: -AMAN100C7 PO; -BENA20TA4 PO; +BENA20TA84 PO; -CITA10TA4 PO; +CITA10TA5 PO; -VERA120T7 PO; +[UNRECOGNIZED DRUG - CODE] PO; +[UNRECOGNIZED DRUG - CODE] PO
--- NOTE | 2021-05-29 10:51 | RAD ---
US THYROID History: Reason: THYROID NODULE / Spl. Instructions: / History: Comparison: None. Technique: Multiple grayscale and color Doppler images of the thyroid gland were obtained. Findings: Right thyroid lobe: 3.3 x 1.6 x 1.4 cm. Homogeneous echotexture. Left thyroid lobe: 4.2 x 2.0 x 1.7 cm. Homogeneous echotexture. Isthmus: 0.4 cm. -Multiple thyroid nodules bilaterally with multiple cystic nodules. -Mixed cystic and solid right mid thyroid nodule measures 0.8 x 0.8 x 0.6 cm. TI-RADS 2. -Solid hypoechoic right inferior thyroid nodule measures 0.6 x 0.4 x 0.4 cm. TI-RADS 4. -Mixed cystic and solid the left mid thyroid nodule with regions of hypoechogenicity measures 2.0 x 1 .8 x 1.4 cm. TI-RADS 3. ACR Thyroid Imaging, Reporting And Data System (TI-RADS): White Paper Of The ACR TI-RADS Committee. J ournal of the [employer], volume 14, issue 5, pages 587-595 (November 2016). IMPRESSION: 1. TI-RADS 4 right and TI-RADS 3 left thyroid nodules. Recommend one-year ultrasound follow-up. Electronically signed by: Wander Shelton DO (05/29/2021 10:48 AM) [id number]
== END ==
LOC: US 15:53
PROVIDERS: ATTEND Internal Medicine
DX: E04.2 Nontoxic multinodular goiter (principal)
CPT/HCPCS: 76536